=== PATIENT | male | born 1945 | race Caucasian/White ===

== ENCOUNTER 2018-01-17 17:40 | Emergency (ER) | payer MEDICARE, OTHER, SELFPAY ==
[2018-01-17 17:41] VITALS: BP 167/81; PULSE 94; RESP 22; TEMP 36.5; O2SAT 97; BMI 32.4
[2018-01-17 18:41] LABS: Bacteria 0 SEEN /hpf (None Seen); Mucous, Urine 0 SEEN /hpf (<or=2+); Red Blood Cells-Urine 0 SEEN /hpf (0-5)
[2018-01-17 18:51] LABS: Color, Urine Straw (Yellow); Glucose, Dipstick 1000 mg/dl (Normal); Ketone-Dipstick 5 mg/dl (Negative); Leukocyte Esterase-Dipstick 100 /ul (Negative); Nitrite-Dipstick Negative (Negative); Occult Blood-Urine 10 /ul (Negative); Protein-Dipstick Negative (Negative); Urine Bilirubin Dipstick Negative (Negative); Urine Clarity Clear (Clear); Urine Urobilinogen Normal (Normal)
[2018-01-17 18:57] LABS: White Blood Cells 50-100 SEEN /hpf (0-5)
[2018-01-17 18:58] LABS: Amorphous Sediment 1+; Squamous Epithelial Cells - UA 0-5 SEEN /hpf (0-5)
--- NOTE | 2018-01-17 19:27 | ED.VISSUMM ---
- ER Visit Summary Date of Service: 01/17/18 Chief Complaint: Urinary incontinence History of Present Illness: The patient is a 72 M who states that for several months he has had problems with incontinence. He states that today he abruptly got worse to the point where every time he stands up a large amount of urine drips out of him. Is not sure if he is emptying his bladder. He has a history of diabetes hypertension myasthenia gravis. No fevers. Denies any history of urinary retention or prostatic conditions. Physical Examination: Afebrile vital signs are stable Patient complains of tenderness to palpation suprapubic region Test Results: Bedside ultrasound demonstrates a distended bladder. Analysis demonstrated 50-100 white blood cells negative nitrates no bacteria seen. Emergency Department Course and Treatment: Rivera catheter was placed with greater than 1000 cc out. Patient will go home with a leg bag. He will need to follow-up with urology as an outpatient. Impression: 1. Acute urinary retention This note was generated with [employer] dictation software. It may contain incorrect words, spelling, and punctuation that were not noted in review of the chart prior to signing ED Disposition - Plan for ED Patient: Disposition: Home or Assisted Living Chief Complaint: Complaint Instructions: ED Retention Urinary Male Referrals: Kinza Rodríguez MD [STAFF PHYSICIAN] - (Please call Thursday to arrange follow-up)
[2018-01-17 20:08] VITALS: BP 157/86; PULSE 76; RESP 17; O2SAT 96
== END 2018-01-17 20:11 | disposition home or self-care (01) ==
PROVIDERS: Emergency Provider Emergency Medicine; Family Provider Internal Medicine; PCP Internal Medicine
DX: R33.9 Retention of urine, unspecified (principal); I10 Essential (primary) hypertension; E11.9 Type 2 diabetes mellitus without complications; G70.00 Myasthenia gravis without (acute) exacerbation; E66.9 Obesity, unspecified; Z68.32 Body mass index [BMI] 32.0-32.9, adult; Z79.84 Long term (current) use of oral hypoglycemic drugs; Z79.899 Other long term (current) drug therapy
CPT/HCPCS: 51702; 81001; 87086; 87088; 99285; A4216

== ENCOUNTER 2018-02-04 16:55 | Inpatient (IN) | payer MEDICARE, OTHER, SELFPAY ==
[2018-02-04 16:58] VITALS: BP 143/80; BP 148/72; PULSE 113; PULSE 114; RESP 16; RESP 18; TEMP 35.8; O2SAT 95; BMI 31.9
--- NOTE | 2018-02-04 17:34 | NURSING ---
NO OLD EKGS
[2018-02-04 17:57] VITALS: O2SAT 94
[2018-02-04 18:07] LABS: Absolute Lymphocyte Count 1.69 X10^3/ul (0.83-4.51); Absolute Neutrophil Count 13.1 X10^3/uL (2.0-7.7); Basophil# 0.02 X10^3/uL; Basophil% 0.1 % (0-1); Eosinophil# 0.02 X10^3/uL; Eosinophils% 0.1 % (0-5); Hemoglobin 13.4 g/dl (13.0-16.5); Lymphocyte # 1.69 X10^3/ul (4.0); Lymphocyte % 11.2 % (19-41); Mean Corp Hgb Conc 32.7 g/gl (32-36); Mean Corpuscular Hgb 30.8 pg (27.0-32.0); Mean Corpuscular Volume 94.3 fL (80-94); Mean Platelet Vol. 10.8 fl (6.2-12.0); Monocyte% 1.3 % (0-10); Neutrophil # 13.07 X10^3/uL (2.7-7.7); Neutrophil % 87.1 % (47-70); Platelet Count 203 K/mm3 (150-450); RBC Distribution Width CV 13.3 % (11.6-14.6); RBC Distribution Width SD 45.9 fl (35.1-43.9); Red Blood Count 4.35 M/mm3 (4.6-6.2)
[2018-02-04 18:09] LABS: Anion Gap 12 (5-15); BUN 19 mg/dL (7-18); CPK Total, Creatine Kinase 105 U/L (39-308); Chloride 102 mmol/L (98-107); Creatinine, Serum 1.46 mg/dL (0.70-1.30); EST Glomerular Filtration Rate 51 mL/min (>60); Est Glom Filt Rate - Afr Amer 61 mL/min (>60); Glucose 310 mg/dL (74-106); Potassium 4.2 mmol/L (3.5-5.1); Sodium Level 137 mmol/L (136-145)
[2018-02-04 18:14] LABS: POSITIVE COUNT NO; POSITIVE DIFFERENTIAL NO; POSITIVE MORPHOLOGY NO
[2018-02-04 18:35] VITALS: BP 134/73; PULSE 103; RESP 20; O2SAT 93
[2018-02-04 18:36] LABS: Mucous, Urine 0 SEEN /hpf (<or=2+)
[2018-02-04 18:51] LABS: Color, Urine Yellow (Yellow); Glucose, Dipstick 1000 mg/dl (Normal); Ketone-Dipstick 15 mg/dl (Negative); Leukocyte Esterase-Dipstick 500 /ul (Negative); Nitrite-Dipstick Negative (Negative); Occult Blood-Urine 250 /ul (Negative); Protein-Dipstick 30 mg/dl (Negative); Specific Gravity, Urine 1.015 (1.002-1.030); Urine Bilirubin Dipstick Negative (Negative); Urine Clarity Cloudy (Clear); Urine Urobilinogen Normal (Normal)
[2018-02-04 18:54] LABS: AST(SGOT) 8 U/L (15-37); Alanine Aminotransfer ALT/SGPT 22 U/L (16-61); Albumin, Serum 3.3 g/dL (3.2-5.0); Alkaline Phosphatase 86 U/L (45-117); Bilirubin, Direct 0.19 mg/dL (0.00-0.30); Globulin 3.7 g/dL (2.2-4.2)
[2018-02-04 19:02] VITALS: TEMP 38.4
[2018-02-04 19:05] LABS: Red Blood Cells-Urine 25-50 SEEN /hpf (0-5); White Blood Cells 50-100 SEEN /hpf (0-5)
[2018-02-04 19:06] LABS: Amorphous Sediment 1+ URATE; Bacteria 1+ /hpf (None Seen); Squamous Epithelial Cells - UA 0-5 SEEN /hpf (0-5)
[2018-02-04] MEDS: Acetaminophen 500 MG Tablet 1000 MG PO (19:20)
[2018-02-04 19:46] LABS: Lactic Acid 1.9 mmol/L (0.4-2.0)
--- NOTE | 2018-02-04 20:34 | ED.VISSUMM ---
- ER Visit Summary Date of Service: 02/04/18 Chief Complaint: Fall History of Present Illness: The patient is a [address] Lang, Dr. Jc, Dr. Miranda. Reports that he was walking home from [facility] when his legs became very weak and both legs gave out. Reports that he fell and was unable to get back up due to this weakness. He denies any trauma. No blow to the head or loss of consciousness. Is not on blood thinners. No neck, back, shoulder, wrist, or hip pain. On review of systems patient points of dysuria that began 2 days ago. He denies any fever, chills, or other complaints. Physical Examination: Vitals: 101.2, 140/72, 113, 16, 95% on room air which is not hypoxic. Neck: No vertebral tenderness. Full ROM without difficulty. Cleared by NEXUS criteria. Back: No vertebral tenderness. General: A&O x 3. NAD. Cardiovascular exam: Tachycardic regular rhythm with no murmur. Respiratory exam: Chest nontender. No crepitus. Clear to auscultation bilaterally. No wheezes or stridor. Abdominal exam: Soft, nontender, nondistended, normal bowel sounds. No pain in RUQ or LUQ specifically. No peritoneal signs. Extremity: Atraumatic. No pain with range of motion. Palpable DP pulses bilaterally. Test Results: EKG is sinus tach at [address] changes. Troponins negative. CPK is 105. UA shows a UTI with 50-100 white blood cells and 25-50 red blood cells. Lactic acid is 1.9. LFTs marked for an AST of 8. Chem-7 is more for BUN of 19, creatinine 1.46, glucose 310, calcium 8.0. CBC is more for white count of 15.0 with 87 segmented neutrophils and 11 lymphocytes. Emergency Department Course and Treatment: Patient had a bladder scan showed 273 cc of urine. He was given Tylenol p.o. and Rocephin IV. His urine was sent for culture. Treatment Plan: Patient was discussed with Dr. Aceves. He will be admitted to the hospital for further relation and treatment. Disposition: Admitted in improved condition. Impression: 1. Pyelonephritis. 2. Renal insufficiency. 3. Hyperglycemia with history of [id number] diabetes mellitus. This note was generated with Dragon dictation software. It may contain incorrect words, spelling, and punctuation that were not noted in review of the chart prior to signing ED Disposition - Plan for ED Patient: Chief Complaint: Fall
[2018-02-04] MEDS: Ceftriaxone 1 GM/50 ML BAG IV (21:03)
[2018-02-04 21:17] VITALS: BP 181/63; PULSE 102; RESP 18; TEMP 37.7; O2SAT 92
[2018-02-04 21:19] VITALS: BMI 31.3
[2018-02-04 21:30] VITALS: BMI 31.3
--- NOTE | 2018-02-04 22:08 | HP.PCM_ITS ---
Problem List (1) Right-sided pyelonephritis Status: Acute (2) BPH (benign prostatic hyperplasia) Status: Acute (3) Scalp laceration Status: Chronic (4) Seizure Status: Chronic (5) Seizure disorder Status: Chronic (6) Myasthenia gravis Status: Chronic (7) Type II diabetes mellitus Status: Chronic History of Present Illness Date of Admission: 02/04/18 Chief Complaint: Fever, chills with right-sided flank pain and UTI The patient is a 72 year old M with history of recent cystoscopy for BPH and urinary incontinence came to ED when he fell down while coming from [facility]. He said his both legs became weak and gave out and he fell down and hit his right shoulder but no major trauma. He further said he is having chills for last 3 days and right-sided flank pain. He has burning micturition, increased frequency and not able to completely empty his bladder. In ED, he was found to have fever 101.2 Fahrenheit, heart rate 103/min, tachypnea respiratory rate 20/min, leukocytosis 15,000 with left shift, neutrophils 87% but no hypoxia suggestive of positive 3/4 SIRS criteria suggestive of sepsis secondary to right-sided pyelonephritis. Patient had ED visit on 01/17/2018 for urinary incontinence and at that time Rivera catheter was placed and he had follow-up with Dr. Miranda for which he had cystoscopy but exact procedure unclear (no documentation available) Past Medical History Past Medical History (Chronic Problems): Chronic Problems Scalp laceration (Chronic) Seizure (Chronic) Seizure disorder (Chronic) Myasthenia gravis (Chronic) Type II diabetes mellitus (Chronic) Allergies iodine Allergy (Verified 02/04/18 16:57) Hives Penicillins [PCN] Allergy (Verified 02/04/18 16:57) Unknown simvastatin Adverse Reaction (Verified 02/04/18 16:57) Pain in joints Home Medications: Ambulatory Orders Medication Instructions Recorded glipiZIDE [Glucotrol] 5 mg PO BIDAC 04/04/13 predniSONE tablet 5 mg PO DAILY 04/04/13 Lisinopril [Zestril] 10 mg PO DAILY 01/17/18 levETIRAcetam tablet [Keppra] 500 mg PO BID 02/04/18 Surgical History: noncontributory Psychiatric History: No pertinent psych hx Smoking Status: Never smoker - *Family History Maternal History Items: No pertinent history Paternal History Items: No pertinent history Review of Systems Constitutional: Reports: Chills, Fever, Weakness, Fatigue HEENT: Denies: Head Aches, Sinus Congestion, Sinus Drainage Cardiovascular: Denies: Chest Pain, Palpitations Respiratory: Denies: Cough, Shortness of breath at rest, Sputum production Gastrointestinal: Reports: Nausea. Denies: Abdominal Pain, Hematochezia, Melena , Vomiting Genitourinary: Reports: Dysuria, Frequency, Incontinence, Retention, Urgency. Denies: Hematuria Musculoskeletal: Denies: Joint Pain, Joint Tenderness Skin: Denies: Rash, Wounds Neurological: Denies: Numbness, Tingling, Focal weakness Psychiatric: Denies: Anxiety, Depression, Homicidal Ideations, Suicidal Ideations Hematologic/ Lymphatic: Denies: Easy Bruising, Easy Bleeding VTE Information - Inpt Only VTE Present on Admission: No VTE Mechan Device Prophylaxis: SCD's, None VTE Pharm Prophylaxis ordered?: Yes Patient Problems: Active and Suspected Problems Right-sided pyelonephritis (Acute) BPH (benign prostatic hyperplasia) (Acute) - Physical Exam General: Alert, Oriented x3, Cooperative, Lethargic HEENT: Atraumatic, PERRLA, EOMI, Normocephalic Oral: Dry Mucosa Neck: Supple, No JVD, Negative Carotid Bruits Lungs: Clear to auscultation, Normal air movement Cardiovascular: Regular rate, Regular Rhythm, Normal S2, No murmurs Abdomen: Bowel Sounds Present, Soft, Non-Distended, Tender - Of right renal angle. No fullness. Extremities: Capillary Refill Less than 3 Seconds, Edema - Mild edema Skin: No rashes, No breakdown Musculoskeletal: No Tenderness to Palpation of Joints or Extremities Neurological: Cranial nerves II-XII grossly intact, Neuro grossly intact Psych/Mental Status: Normal Affect, Appropriate Vital Signs Temp Pulse Resp BP Pulse Ox 99.8 F H 102 H 18 181/63 H 92 02/04/18 21:17 02/04/18 21:17 02/04/18 21:17 02/04/18 21:17 02/04/18 21:17 Oxygen Delivery Method Room Air Weight: 206 lb 2.115 oz Body Mass Index (BMI) 31.3 Assessment/Plan All Active Problems Right-sided pyelonephritis (Acute) BPH (benign prostatic hyperplasia) (Acute) The patient is a 72 year old M with history of recent cystoscopy for BPH and urinary incontinence came to ED when he fell down while coming from [facility]. He said his both legs became weak and gave out and he fell down and hit his right shoulder but no major trauma. He further said he is having chills for last 3 days and right-sided flank pain. He has burning micturition, increased frequency and not able to completely empty his bladder. In ED, he was found to have fever 101.2 Fahrenheit, heart rate 103/min, tachypnea respiratory rate 20/min, leukocytosis 15,000 with left shift, neutrophils 87% but no hypoxia suggestive of positive 3/4 SIRS criteria suggestive of sepsis secondary to right-sided pyelonephritis. Patient had ED visit on 01/17/2018 for urinary incontinence and at that time Rivera catheter was placed and he had follow-up with Dr. Miranda for which he had cystoscopy but exact procedure unclear (no documentation available) 1. SIRS (Fever 101.2 Fahrenheit, heart rate 103/min, tachypnea respiratory rate 20/min, leukocytosis 15,000 with left shift, neutrophils 87% but no hypoxia) suggestive of sepsis secondary to right-sided pyelonephritis: Patient is being admitted on regular [facility] floor. Patient had 1 dose of ceftriaxone in the ER based on his previous urine culture patient had staph hominis and was resistant to benzyl penicillin and therefore antibiotic changed to Levaquin. Blood cultures ?2, urine culture ordered. Kidneys plus bladder ultrasound ordered. If needed, his urologist Dr. Miranda can be consulted. 2. Right-sided complicated pyelonephritis probably secondary to recent urology procedure with Rivera catheter with history of BPH: As mentioned above. 3. Diabetes mellitus type II with uncontrolled hyperglycemia: Accu-Chek before meals and at bedtime and cover with NovoLog sliding scale. Lantus 10 units subcu at bedtime daily. A1c tomorrow a.m. Hold glipizide. 4. Acute kidney injury most probably secondary to ATN/sepsis secondary to pyelonephritis: IV fluid normal saline at 100 mL/h. BUN/creatinine is 19/1.46. Major intake/output. Follow electrolytes and kidney function. 5. Fall on knees: PT and OT. Pain controlled. Patient has history of myasthenia gravis. Continue Keppra Other chronic comorbidities include seizure disorder, hypertension: Continue lisinopril. Patient is also on prednisone 5 mg daily probably because of myasthenia gravis. In view of sepsis, we will hold prednisone which can be resumed later on. DVT prophylaxis: On Lovenox 40 mils subcut daily. This note was generated with [employer] dictation software. Every effort was made to ensure accuracy, however computerized resin filterer mistakes may persist. Code Visit Inpatient E&M: 01685 Init Hosp L3
[2018-02-04] MEDS: Enoxaparin 40 MG/0.4 ML Syringe SC (23:11)
[2018-02-04] MEDS: levETIRAcetam 500 MG Tablet PO (23:12)
[2018-02-04 23:14] LABS: Erythrocyte Sedimentation Rate 42 mm/hr (0-20)
[2018-02-04] MEDS: Insulin Lispro 100 UNIT/ML INSULN.PEN SQ (23:17)
[2018-02-05] MEDS: 0.9% Normal Saline 1,000 ML 100 ML IV (02:16)
[2018-02-05 03:26] VITALS: BP 122/65; PULSE 86; RESP 18; TEMP 37; O2SAT 92
[2018-02-05 06:17] LABS: Anion Gap 9 (5-15); BUN 14 mg/dL (7-18); BUN/Creat Ratio 15.8 RATIO (10-20); Calcium,Total 7.3 mg/dL (8.5-10.1); Chloride 107 mmol/L (98-107); Creatinine, Serum 0.89 mg/dL (0.70-1.30); EST Glomerular Filtration Rate 90 mL/min (>60); Est Glom Filt Rate - Afr Amer 109 mL/min (>60); Estimated Creatinine Clearance 73.65 ml/min; Glucose 186 mg/dL (74-106); Potassium 3.5 mmol/L (3.5-5.1); Sodium Level 137 mmol/L (136-145)
[2018-02-05 06:26] LABS: Bedside Glucose 237 mg/dL (70-110)
[2018-02-05] MEDS: Enoxaparin 40 MG/0.4 ML Syringe SC (06:54)
[2018-02-05] MEDS: Insulin Lispro 100 UNIT/ML INSULN.PEN SQ ×4 (06:55→22:58)
[2018-02-05 07:06] LABS: Bedside Glucose 185 mg/dL (70-110)
--- NOTE | 2018-02-05 07:24 | PCM.PN.HOSP ---
Patient Problems: Active and Suspected Problems Right-sided pyelonephritis (Acute) BPH (benign prostatic hyperplasia) (Acute) Subjective: Patient was seen and examined. He complains of dysuria and increased frequency. Incontinent of urine also. Denies any fever or chills. States he feels much improved. His bilateral leg weakness and numbness have also since improved. Vitals/I&O's: Vital Signs Temp Pulse Resp BP Pulse Ox 98.6 F 86 18 122/65 H 92 02/05/18 03:26 02/05/18 03:26 02/05/18 03:26 02/05/18 03:26 02/05/18 03:26 Oxygen Delivery Method Room Air Weight: 93.5 kg Body Mass Index (BMI) 31.3 Intake and Output for Last 24 Hours 02/03/18 02/04/18 02/05/18 23:59 23:59 23:59 Intake Total 1055 / 1055 Balance 1055 / 1055 General: Alert, Oriented x3, Cooperative, No apparent distress, - - obese HEENT: Atraumatic, PERRLA, EOMI, Normocephalic Oral: Moist Mucosa Neck: Supple Lungs: Clear to auscultation, Normal air movement Cardiovascular: Regular rate, Regular Rhythm, Normal S1, Normal S2, No murmurs Abdomen: Bowel Sounds Present, Soft, Non Tender, Non-Distended, No Hepato-splenomegaly Extremities: No edema Skin: No rashes, No breakdown Musculoskeletal: No Tenderness to Palpation of Joints or Extremities Lymphatic: No Cervical, Supraclavicular, or Inguinal Adenopathy Neurological: Cranial nerves II-XII grossly intact, Neuro grossly intact Psych/Mental Status: Normal Affect, Appropriate Laboratory Results 02/04/18 22:50: ESR 42 H 02/04/18 23:08: POC Glucose 237 H 02/05/18 05:43: Sodium 137, Potassium 3.5, Chloride 107, Carbon Dioxide 21.0, Anion Gap 9, BUN 14, Creatinine 0.89, Estim Creat Clear Calc 73.65, Est GFR (MDRD) Af Amer 109, Est GFR (MDRD) Non-Af 90, BUN/Creatinine Ratio 15.8, Glucose 186 H, Calcium 7.3 L 02/05/18 05:43: Hemoglobin A1c Pending 02/05/18 06:53: POC Glucose 185 H Current Medications Acetaminophen (Tylenol) 650 mg PO Q6H PRN PRN PRN Reason: Mild Pain (scale 0-3)/T>100.7 Al Hydroxide/Mg Hydroxide (Mylanta Ii) 30 ml PO Q6H PRN PRN PRN Reason: Gastric Burning Dextrose (D50w Syringe) 0 gm IV X1 PRN; Protocol PRN Reason: Hypoglycemia Docusate Sodium (Colace) 200 mg PO BID PRN PRN PRN Reason: Constipation Enoxaparin Sodium (Lovenox) 40 mg SC DAILY@0600 [facility] Last Admin: 02/05/18 06:54 Dose: 40 mg Glucagon () 1 mg IM .X1 PRN PRN Reason: Hypoglycemia Sodium Chloride () 1,000 mls @ 100 mls/hr IV .Q10H [facility] Last Admin: 02/05/18 02:16 Dose: 100 mls/hr Levofloxacin 500 mg/ N/A 100 mls @ 100 mls/hr IV Q24 [facility] Last Admin: 02/04/18 23:10 Dose: 100 mls/hr Sodium Chloride () 250 mls @ 15 mls/hr IV .[id number] PRN PRN Reason: SALINE FLUSH Insulin Glargine (Lantus (Bkc)) 10 units SC QHS [facility] Last Admin: 02/04/18 23:11 Dose: 10 u Insulin Human Lispro (Humalog Kwikpen (Bkc)) 0 unit SQ ACHS [facility] PRN Reason: Protocol Last Admin: 02/05/18 06:55 Dose: 2 u Levetiracetam (Keppra Tablet) 500 mg PO BID [facility] Last Admin: 02/04/18 23:12 Dose: 500 mg Lisinopril (Zestril) 10 mg PO DAILY [facility] Morphine Sulfate () 1 - 2 mg IV Q4H PRN PRN PRN Reason: SEVERE PAIN (6-10/10) Ondansetron HCl (Zofran) 4 mg IV Q6H PRN PRN PRN Reason: Nausea Oxycodone HCl (Oxyir) 5 mg PO Q4H PRN PRN PRN Reason: Moderate Pain (pain scale 4-5) Polyethylene Glycol (Miralax) 17 gm PO DAILY [facility] Sodium Chloride () 5 - 30 ml IV UD PRN PRN Reason: SALINE FLUSH Medical Necessity - Tobacco Use Smoking Status: Never smoker Assessment/Plan All Active Problems Right-sided pyelonephritis (Acute) BPH (benign prostatic hyperplasia) (Acute) 72-year-old with past medical history of BPH, status post recent cystoscopy comes in with complaints of bilateral leg weakness and fall and found to have sepsis secondary to acute right pyelonephritis/UTI 1. Sepsis secondary to acute right pyelonephritis/complicated UTI, patient has history of BPH status post recent urological procedure, blood and urine cultures are pending, started empirically on Levaquin, history of penicillin allergy. Will continue on IV Levaquin for now, will need to complete 10-day total antibiotic course 2. Acute complicated UTI, recurrent UTIs, history of recent procedures, ultrasound of the kidney and bladder pending, will get a bladder scan to look for urine retention, urology consult as patient states he was due for a urethral stent. 3. Diabetes mellitus type II, sugars are slightly controlled compared to yesterday, HbA1c is 12.4, will continue on insulin, Accu-Cheks with insulin sliding scale , glipizide is still on hold 4. Acute kidney injury most probably secondary to ATN/sepsis secondary to pyelonephritis, resolved, stop IV fluids, and encourage liberal fluid intake 5. Episode of fall, likely related to current sepsis, history of myasthenia gravis, PT and OT consulted 6. Seizure disorder, on Keppra 7. Hypertension, controlled, continue on lisinopril, continue to monitor vitals 8. History of myasthenia gravis, on prednisone, held yesterday on account of sepsis, will resume. 9. DVT prophylaxis -Lovenox SC Code Visit Inpatient E&M: 56125 Subs Hosp L2
[2018-02-05 07:34] VITALS: BP 130/72; PULSE 85; RESP 18; TEMP 37; O2SAT 93
[2018-02-05 07:51] LABS: Hemoglobin A1c 12.4 % (4.2-6.3)
[2018-02-05] MEDS: levETIRAcetam 500 MG Tablet PO ×2 (09:30→22:59)
[2018-02-05] MEDS: Lisinopril 10 MG Tablet PO (09:30)
[2018-02-05] MEDS: Polyethylene Glycol 3350 17 GM PACKET PO (09:30)
--- NOTE | 2018-02-05 10:30 | CASEMGMT ---
[facility] Face to Face with patient for initial transition planning/care coordination assessment. RN CM introduced self and role at [facility]. Patient lying in bed, alert and oriented. Patient willing to participate in assessment and is able to answer all questions appropriately. Care providers, pharmacy, and demographics verified. See link attached. Patient wishes to discharge home, denies need for home health at this time. Patient states he has no further needs or concerns at this time. CM to follow for discharge planning needs that may arise. Disposition Plan: Patient to discharge home with family support and follow-up plans in place. Lexy BATISTA, RN, CM
[2018-02-05] MEDS: 0.9% NaCl Peripheral Flush Adult/Peds IV ×2 (10:45→23:03)
[2018-02-05] MEDS: predniSONE 5 MG Tablet PO (10:49)
[2018-02-05 10:51] LABS: Bedside Glucose 286 mg/dL (70-110)
--- NOTE | 2018-02-05 11:09 | NURSING ---
pt states ground control approach technician is stacie key. 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 Patient's feet very dry and toenails yellow and thick.
[2018-02-05 13:23] VITALS: BP 150/95; PULSE 94; RESP 18; TEMP 37.3; O2SAT 93
--- NOTE | 2018-02-05 13:27 | PCM.CONS.U ---
Reason for Consult Date of Consultation: 02/05/18 Reason for Consultation: UTI follow up History of Present Illness: The patient is a 72 year old male who I recently saw in the office. he had a cystoscopy for planning to treat his BPH but came into hospital with weakness u/a ++ apears to have e coli UTI, u/s with possible hydro will do CT scan stone protocol. Past Medical History Past Medical History (Chronic Problems): Chronic Problems Scalp laceration (Chronic) Seizure (Chronic) Seizure disorder (Chronic) Myasthenia gravis (Chronic) Type II diabetes mellitus (Chronic) Allergies iodine Allergy (Verified 02/04/18 16:57) Hives Penicillins [PCN] Allergy (Verified 02/04/18 16:57) Unknown simvastatin Adverse Reaction (Verified 02/04/18 16:57) Pain in joints Home Medications: Ambulatory Orders Medication Instructions Recorded glipiZIDE [Glucotrol] 5 mg PO BIDAC 04/04/13 predniSONE tablet 5 mg PO DAILY 04/04/13 Lisinopril [Zestril] 10 mg PO DAILY 01/17/18 levETIRAcetam tablet [Keppra] 500 mg PO BID 02/04/18 Surgical History: noncontributory Psychiatric History: No pertinent psych hx Smoking Status: Never smoker - *Family History Maternal History Items: No pertinent history Paternal History Items: No pertinent history Review of Systems Constitutional: Reports: Chills, Fever HEENT: Denies: Head Aches, Sinus Congestion, Sinus Drainage Cardiovascular: Denies: Chest Pain, Palpitations Respiratory: Denies: Cough, Shortness of breath at rest, Sputum production Gastrointestinal: Denies: Abdominal Pain, Nausea, Vomiting Genitourinary: Reports: Dysuria Musculoskeletal: Denies: Joint Pain, Joint Tenderness Skin: Denies: Rash, Wounds Physical Exam - Physical Exam Vital Signs Temp 98.6 F 02/05/18 07:34 Pulse 85 02/05/18 07:34 Resp 18 02/05/18 07:34 BP 130/72 H 02/05/18 07:34 Pulse Ox 93 02/05/18 07:34 Intake & Output 02/03/18 02/04/18 02/05/18 23:59 23:59 23:59 Intake Total 2038 Output Total 450 / 450 Balance 1589 / 1589 Weight: 93.5 kg 93.5 kg Intake: Oral 1000 / 1000 IV fluid/meds 1039 / 1039 Output: #2 Urine 450 / 450 Other: Number of Voids 1 Number of times incontinent 1 Incontinent Amount Large General: Alert HEENT: Atraumatic Oral: Moist Mucosa Laboratory Tests Past 24 Hrs 02/04/18 02/05/18 02/05/18 22:50 05:43 05:43 ESR 42 H Sodium 137 Potassium 3.5 Chloride 107 Carbon Dioxide 21.0 Anion Gap 9 BUN 14 Creatinine 0.89 Estim Creat Clear Calc 73.65 Est GFR (MDRD) Af Amer 109 Est GFR (MDRD) Non-Af 90 BUN/Creatinine Ratio 15.8 Glucose 186 H Hemoglobin A1c 12.4 H Calcium 7.3 L Assessment/Plan All Active Problems Right-sided pyelonephritis (Acute) BPH (benign prostatic hyperplasia) (Acute) recent instumenation, cysto found to have BPH with bladder outlet obstruction u/s with possible hydronephrosis plan to do CT scan stone protocol continue with antibiotic await cultures. check pvr by nurses.
--- NOTE | 2018-02-05 16:24 | NURSING ---
soaked patient's feet in warm water- used wash cloth and bar soap to gently scrub off skin- No open areas noted. Toe nails thick and yellow. Lotion then applied to bilateral lower extremities per order.
[2018-02-05 16:35] LABS: Bedside Glucose 217 mg/dL (70-110)
--- NOTE | 2018-02-05 17:00 | NURSING ---
Pt incontinent of minimal amt urine at this time- bladder scanned for 550. Perry discussed and explained to patient- understanding verbalized. Then, perry placed via sterile technique with a return of 600cc of cloudy delfino urine with 2 small clots noted in tubing. Pt tolerated well.
[2018-02-05] MEDS: Acetaminophen 325 MG Tablet 650 MG PO (18:18)
[2018-02-05 19:30] VITALS: BP 132/69; PULSE 83; RESP 18; TEMP 37.2; O2SAT 93
[2018-02-05 23:31] LABS: Bedside Glucose 244 mg/dL (70-110)
[2018-02-06 02:00] VITALS: BP 123/70; PULSE 62; RESP 18; TEMP 37.1; O2SAT 93
[2018-02-06] MEDS: Insulin Lispro 100 UNIT/ML INSULN.PEN SQ ×4 (06:57→21:40)
[2018-02-06] MEDS: Enoxaparin 40 MG/0.4 ML Syringe SC (06:57)
[2018-02-06 07:14] LABS: Absolute Neutrophil Count 8.6 X10^3/uL (2.0-7.7); Basophil# 0.02 X10^3/uL; Basophil% 0.2 % (0-1); Eosinophil# 0.32 X10^3/uL; Eosinophils% 2.9 % (0-5); Hematocrit 37.3 % (40-54); Hemoglobin 12.5 g/dl (13.0-16.5); Lymphocyte % 10.8 % (19-41); Mean Corp Hgb Conc 33.5 g/gl (32-36); Mean Corpuscular Hgb 31.6 pg (27.0-32.0); Mean Corpuscular Volume 94.4 fL (80-94); Mean Platelet Vol. 10.9 fl (6.2-12.0); Monocyte# 0.86 X10^3/uL; Monocyte% 7.8 % (0-10); Neutrophil # 8.63 X10^3/uL (2.7-7.7); Neutrophil % 77.9 % (47-70); POSITIVE COUNT NO; POSITIVE DIFFERENTIAL NO; POSITIVE MORPHOLOGY NO; Platelet Count 201 K/mm3 (150-450); RBC Distribution Width CV 12.9 % (11.6-14.6); RBC Distribution Width SD 43.5 fl (35.1-43.9); Red Blood Count 3.95 M/mm3 (4.6-6.2); White Blood Count 11.1 K/mm3 (4.4-11.0)
[2018-02-06 07:36] LABS: Anion Gap 11 (5-15); BUN 11 mg/dL (7-18); BUN/Creat Ratio 13.1 RATIO (10-20); Calcium,Total 7.4 mg/dL (8.5-10.1); Chloride 106 mmol/L (98-107); Creatinine, Serum 0.84 mg/dL (0.70-1.30); EST Glomerular Filtration Rate 96 mL/min (>60); Est Glom Filt Rate - Afr Amer 116 mL/min (>60); Estimated Creatinine Clearance 78.04 ml/min; Glucose 211 mg/dL (74-106); Potassium 3.5 mmol/L (3.5-5.1); Sodium Level 139 mmol/L (136-145)
--- NOTE | 2018-02-06 07:44 | PCM.CONS.U ---
Problem List (1) Retention, urine Status: Acute (2) Retention, urine Status: Acute Reason for Consult Date of Consultation: 02/06/18 Reason for Consultation: retention of urine History of Present Illness: The patient is a 72 year old male follow up on consult. ct scan with right refluxing hydro recent UTI again b/c retention of urine, probably had UTI prior to scope in office last week keep on antibiotics, plan for few more days of antibiotics then plan TURP on Thursday hold blood thinner for surgery. Past Medical History Past Medical History (Chronic Problems): Chronic Problems Scalp laceration (Chronic) Seizure (Chronic) Seizure disorder (Chronic) Myasthenia gravis (Chronic) Type II diabetes mellitus (Chronic) Allergies iodine Allergy (Verified 02/04/18 16:57) Hives Penicillins [PCN] Allergy (Verified 02/04/18 16:57) Unknown simvastatin Adverse Reaction (Verified 02/04/18 16:57) Pain in joints Home Medications: Ambulatory Orders Medication Instructions Recorded glipiZIDE [Glucotrol] 5 mg PO BIDAC 04/04/13 predniSONE tablet 5 mg PO DAILY 04/04/13 Lisinopril [Zestril] 10 mg PO DAILY 01/17/18 levETIRAcetam tablet [Keppra] 500 mg PO BID 02/04/18 Surgical History: noncontributory Psychiatric History: No pertinent psych hx Smoking Status: Never smoker - *Family History Maternal History Items: No pertinent history Paternal History Items: No pertinent history Review of Systems Genitourinary: Reports: Retention Physical Exam - Physical Exam Vital Signs Temp 98.8 F 02/06/18 02:00 Pulse 62 02/06/18 02:00 Resp 18 02/06/18 02:00 BP 123/70 H 02/06/18 02:00 Pulse Ox 93 02/06/18 02:00 Intake & Output 02/04/18 02/05/18 02/06/18 23:59 23:59 23:59 Intake Total 2839 / 2839 410 / 410 Output Total 1050 / 1050 700 / 700 Balance 1789 / 1789 -290 / -290 Weight: 93.5 kg 93.5 kg Intake: Oral 1800 / 1800 400 / 400 IV fluid/meds 1039 / 1039 10 Output: Urine 700 / 700 #2 Urine 1050 / 1050 Other: Number of Voids 1 Number of times incontinent 1 Incontinent Amount Small General: Alert, Oriented x3 HEENT: Atraumatic Oral: Moist Mucosa Neck: Supple Lungs: No rhonchi Cardiovascular: Regular rate Abdomen: Soft Laboratory Tests Past 24 Hrs 02/05/18 02/06/18 02/06/18 05:43 06:15 06:15 WBC 11.1 H RBC 3.95 L Hgb 12.5 L Hct 37.3 L MCV 94.4 H MCH 31.6 MCHC 33.5 RDW 12.9 RDW Differential 43.5 Plt Count 201 MPV 10.9 Immature Gran % (Auto) 0.400 Neut % (Auto) 77.9 H Lymph % (Auto) 10.8 L [place] % (Auto) 7.8 Eos % (Auto) 2.9 Baso % (Auto) 0.2 Absolute Neuts (auto) 8.6 H Absolute Lymphs (auto) 1.20 Total Counted Not Reportable Sodium 139 Potassium 3.5 Chloride 106 Carbon Dioxide 22.0 Anion Gap 11 BUN 11 Creatinine 0.84 Estim Creat Clear Calc 78.04 Est GFR (MDRD) Af Amer 116 Est GFR (MDRD) Non-Af 96 BUN/Creatinine Ratio 13.1 Glucose 211 H Hemoglobin A1c 12.4 H Calcium 7.4 L Assessment/Plan All Active Problems Right-sided pyelonephritis (Acute) BPH (benign prostatic hyperplasia) (Acute) Retention, urine (Acute) Retention, urine (Acute) 72 yo male with BPH and retention of urine treat ecoli UTI clinically stable plan for TURP on Thursday at noon will keep in house for surgery.
[2018-02-06 07:51] LABS: Bedside Glucose 228 mg/dL (70-110)
[2018-02-06 07:57] VITALS: BP 133/78; PULSE 76; RESP 18; TEMP 37; O2SAT 95
[2018-02-06] MEDS: Lisinopril 10 MG Tablet PO (07:59)
[2018-02-06] MEDS: Polyethylene Glycol 3350 17 GM PACKET PO (07:59)
[2018-02-06] MEDS: predniSONE 5 MG Tablet PO (07:59)
[2018-02-06] MEDS: levETIRAcetam 500 MG Tablet PO ×2 (07:59→21:40)
[2018-02-06 08:10] VITALS: PULSE 76
--- NOTE | 2018-02-06 09:20 | PCM.PN.HOSP ---
Patient Problems: Active and Suspected Problems Right-sided pyelonephritis (Acute) BPH (benign prostatic hyperplasia) (Acute) Retention, urine (Acute) Retention, urine (Acute) Subjective: Urine culture shows Serratia marcescens 100,000 colonies, sensitive to fluoroquinolones and ceftriaxone. Patient right flank pain much better and almost resolved Has Rivera catheter. Seen by urologist Dr. Miranda and is scheduled for TURP on Thursday . Vitals/I&O's: Vital Signs Temp Pulse Resp BP Pulse Ox 98.6 F 76 18 133/78 H 95 02/06/18 07:57 02/06/18 08:10 02/06/18 07:57 02/06/18 07:57 02/06/18 07:57 Oxygen Delivery Method Room Air Weight: 206 lb 2.115 oz Body Mass Index (BMI) 31.3 Intake and Output for Last 24 Hours 02/04/18 02/05/18 02/06/18 23:59 23:59 23:59 Intake Total 2839 / 2839 410 / 410 Output Total 1050 / 1050 700 / 700 Balance 1789 / 1789 -290 / -290 General: Alert, Oriented x3, Cooperative HEENT: Atraumatic, PERRLA, EOMI, Normocephalic Neck: Supple, No JVD, Negative Carotid Bruits Lungs: Clear to auscultation, Normal air movement Cardiovascular: Regular rate, Regular Rhythm, Normal S1, Normal S2, No murmurs Abdomen: Bowel Sounds Present, Soft, Non Tender, Non-Distended, - - Rivera catheter draining yellow clear urine Extremities: No edema, Capillary Refill Less than 3 Seconds Skin: No rashes, No breakdown Musculoskeletal: No Tenderness to Palpation of Joints or Extremities, Arthritic Changes Neurological: Cranial nerves II-XII grossly intact Psych/Mental Status: Normal Affect, Appropriate Laboratory Results 02/05/18 10:40: POC Glucose 286 H 02/05/18 16:21: POC Glucose 217 H 02/05/18 22:55: POC Glucose 244 H 02/06/18 06:15: WBC 11.1 H, RBC 3.95 L, Hgb 12.5 L, Hct 37.3 L, MCV 94.4 H, MCH 31.6, MCHC 33.5, RDW 12.9, RDW Differential 43.5, Plt Count 201, MPV 10.9, Immature Gran % (Auto) 0.400, Neut % (Auto) 77.9 H, Lymph % (Auto) 10.8 L, [place] % (Auto) 7.8, Eos % (Auto) 2.9, Baso % (Auto) 0.2, Absolute Neuts (auto) 8.6 H, Absolute Lymphs (auto) 1.20, Total Counted Not Reportable 02/06/18 06:15: Sodium 139, Potassium 3.5, Chloride 106, Carbon Dioxide 22.0, Anion Gap 11, BUN 11, Creatinine 0.84, Estim Creat Clear Calc 78.04, Est GFR (MDRD) Af Amer 116, Est GFR (MDRD) Non-Af 96, BUN/Creatinine Ratio 13.1, Glucose 211 H, Calcium 7.4 L 02/06/18 06:54: POC Glucose 228 H Current Medications Acetaminophen (Tylenol) 650 mg PO Q6H PRN PRN PRN Reason: Mild Pain (scale 0-3)/T>100.7 Last Admin: 02/05/18 18:18 Dose: 650 mg Al Hydroxide/Mg Hydroxide (Mylanta Ii) 30 ml PO Q6H PRN PRN PRN Reason: Gastric Burning Dextrose (D50w Syringe) 0 gm IV X1 PRN; Protocol PRN Reason: Hypoglycemia Docusate Sodium (Colace) 200 mg PO BID PRN PRN PRN Reason: Constipation Emollient Ointment (Eucerin Intensive Repair) 1 applic TOPICAL BID YAA PRN Reason: Protocol Last Admin: 02/06/18 07:59 Dose: 1 applicatio Enoxaparin Sodium (Lovenox) 40 mg SC DAILY@0600 [facility] Last Admin: 02/06/18 06:57 Dose: 40 mg Glucagon () 1 mg IM .X1 PRN PRN Reason: Hypoglycemia Sodium Chloride () 250 mls @ 15 mls/hr IV .[id number] PRN PRN Reason: SALINE FLUSH Ciprofloxacin 400 mg/ N/A 200 mls @ 200 mls/hr IV Q12 [facility] Insulin Glargine (Lantus (Bk)) 10 units SC QHS [facility] Last Admin: 02/05/18 22:58 Dose: 10 u Insulin Human Lispro (Humalog Kwikpen ([facility])) 0 unit SQ ACHS YAA PRN Reason: Protocol Last Admin: 02/06/18 06:57 Dose: 4 u Levetiracetam (Keppra Tablet) 500 mg PO BID [facility] Last Admin: 02/06/18 07:59 Dose: 500 mg Lisinopril (Zestril) 10 mg PO DAILY [facility] Last Admin: 02/06/18 07:59 Dose: 10 mg Ondansetron HCl (Zofran) 4 mg IV Q6H PRN PRN PRN Reason: Nausea Oxycodone HCl (Oxyir) 5 mg PO Q4H PRN PRN PRN Reason: Moderate Pain (pain scale 4-5) Polyethylene Glycol (Miralax) 17 gm PO DAILY [facility] Last Admin: 02/06/18 07:59 Dose: 17 gm Prednisone () 5 mg PO DAILY@0800 [facility] Last Admin: 02/06/18 07:59 Dose: 5 mg Sodium Chloride () 5 - 30 ml IV UD PRN PRN Reason: SALINE FLUSH Last Admin: 02/05/18 23:03 Dose: 10 ml Medical Necessity - Tobacco Use Smoking Status: Never smoker Assessment/Plan All Active Problems Right-sided pyelonephritis (Acute) BPH (benign prostatic hyperplasia) (Acute) Retention, urine (Acute) Retention, urine (Acute) The patient is a 72 year old M with history of recent cystoscopy for BPH and urinary incontinence came to ED when he fell down while coming from [facility]. He said his both legs became weak and gave out and he fell down and hit his right shoulder but no major trauma. He further said he is having chills for last 3 days and right-sided flank pain. He has burning micturition, increased frequency and not able to completely empty his bladder. In ED, he was found to have fever 101.2 Fahrenheit, heart rate 103/min, tachypnea respiratory rate 20/min, leukocytosis 15,000 with left shift, neutrophils 87% but no hypoxia suggestive of positive 3/4 SIRS criteria suggestive of sepsis secondary to right-sided pyelonephritis. Patient had ED visit on 01/17/2018 for urinary incontinence and at that time Rivera catheter was placed and he had follow-up with Dr. Miranda for which he had cystoscopy but exact procedure unclear (no documentation available) 1. sepsis secondary to right-sided pyelonephritis : Patient is being admitted on regular MedSurg floor. Patient had 1 dose of ceftriaxone in the ER based on his previous urine culture patient had staph hominis and was resistant to benzyl penicillin and therefore antibiotic changed to Levaquin. Blood cultures ?2 is pending. Urine culture shows Serratia marcescens his sensitive to fluoroquinolones and ceftriaxone. Antibiotic narrowed down to Cipro and DC Levaquin. Renal ultrasound and abdomen CT both shows bilateral hydronephrosis, left greater than right likely secondary to chronic bladder outlet obstruction secondary to BPH. No ureteral calculus found. Scheduled for TURP on Thursday 2. Right-sided complicated pyelonephritis probably secondary to urology procedure with Rivera catheter with history of BPH (CAUTI): As mentioned above. 3. Diabetes mellitus type II with uncontrolled hyperglycemia: Accu-Chek before meals and at bedtime and cover with NovoLog sliding scale. Lantus 10 units subcu at bedtime daily. A1c 12.4. Increase Lantus insulin. Hold glipizide. 4. Acute kidney injury most probably secondary to ATN/sepsis secondary to pyelonephritis: IV fluid normal saline KVO. BUN/creatinine is 19/1.46. Major intake/output. Follow electrolytes and kidney function. 5. Fall on knees: PT and OT. Pain controlled. Patient has history of myasthenia gravis. Continue Keppra Other chronic comorbidities include seizure disorder, hypertension: Continue lisinopril. Patient is also on prednisone 5 mg daily probably because of myasthenia gravis. Prednisone resumed DVT prophylaxis: On Lovenox 40 mils subcut daily. This note was generated with [employer] dictation software. Every effort was made to ensure accuracy, however computerized solderer assembler mistakes may persist. Clinical Impression(s) from Imaging Studies Renal Ultrasound 02/05/18 05:55 IMPRESSION: Bilateral hydronephrosis left greater than right. Diffusely thickened bladder wall with areas of trabeculation. Abdomen/Pelvis CT 02/05/18 13:25 IMPRESSION: Bilateral hydronephrosis, likely due to chronic bladder outlet obstruction. No ureteral calculus. Diverticulosis, without acute diverticulitis. Hepatic steatosis. Additional findings, as detailed above. Code Visit Inpatient E&M: 10331 Subs Hosp L2
[2018-02-06 12:06] LABS: Bedside Glucose 298 mg/dL (70-110)
[2018-02-06 13:46] VITALS: BP 132/69; PULSE 82; RESP 18; TEMP 36.8; O2SAT 95
[2018-02-06 17:36] LABS: Bedside Glucose 222 mg/dL (70-110)
[2018-02-06 20:06] VITALS: RESP 18
[2018-02-06 20:28] VITALS: BP 149/82; PULSE 79; RESP 18; TEMP 37.2; O2SAT 94
[2018-02-06 22:40] LABS: Bedside Glucose 270 mg/dL (70-110)
[2018-02-07 02:05] VITALS: BP 132/81; PULSE 73; RESP 16; TEMP 37.3; O2SAT 94
[2018-02-07] MEDS: Enoxaparin 40 MG/0.4 ML Syringe SC (05:19)
[2018-02-07] MEDS: Insulin Lispro 100 UNIT/ML INSULN.PEN SQ ×4 (06:44→22:02)
[2018-02-07 06:51] LABS: Bedside Glucose 225 mg/dL (70-110)
[2018-02-07 08:43] VITALS: BP 130/86; PULSE 72; RESP 18; TEMP 37.2; O2SAT 95
[2018-02-07] MEDS: predniSONE 5 MG Tablet PO (08:57)
[2018-02-07] MEDS: Lisinopril 10 MG Tablet PO (08:58)
[2018-02-07] MEDS: levETIRAcetam 500 MG Tablet PO ×2 (08:59→21:54)
--- NOTE | 2018-02-07 10:35 | PCM.PN.HOSP ---
Patient Problems: Active and Suspected Problems Right-sided pyelonephritis (Acute) BPH (benign prostatic hyperplasia) (Acute) Retention, urine (Acute) Retention, urine (Acute) Subjective: Patient is retired as he did not sleep well last night. Patient has clear urine in the Rivera catheter. Denies flank pain. Vitals/I&O's: Vital Signs Temp Pulse Resp BP Pulse Ox 98.9 F 72 18 130/86 H 95 02/07/18 08:43 02/07/18 08:43 02/07/18 08:43 02/07/18 08:43 02/07/18 08:43 Oxygen Delivery Method Room Air Weight: 206 lb 2.115 oz Body Mass Index (BMI) 31.3 Intake and Output for Last 24 Hours 02/05/18 02/06/18 02/07/18 23:59 23:59 23:59 Intake Total 2839 / 2839 6 / 1954 120 / 120 Output Total 1050 / 1050 2300 / 2300 275 / 275 Balance 1789 / 1789 -344 / -344 -155 / -155 General: Alert, Oriented x3, Cooperative HEENT: Atraumatic, PERRLA, EOMI, Normocephalic Neck: Supple, No JVD, Negative Carotid Bruits Lungs: Clear to auscultation, Normal air movement, No rhonchi, No wheeze Cardiovascular: Regular rate, Normal S1, Normal S2, No murmurs Abdomen: Bowel Sounds Present, Soft, Non Tender Extremities: No edema, Capillary Refill Less than 3 Seconds Skin: No rashes, No breakdown Musculoskeletal: No Tenderness to Palpation of Joints or Extremities, Arthritic Changes Neurological: Cranial nerves II-XII grossly intact, Neuro grossly intact Psych/Mental Status: Normal Affect, Appropriate Microbiology Past 72 Hours 02/04/18 22:12 Blood Culture (Wb) - Right Hand Blood Culture - Preliminary No growth in 48 hours. 02/04/18 22:00 Blood Culture (Wb) - Anticubital Right Blood Culture - Preliminary No growth in 48 hours. Laboratory Results 02/06/18 11:40: POC Glucose 298 H 02/06/18 16:31: POC Glucose 222 H 02/06/18 21:39: POC Glucose 270 H 02/07/18 06:42: POC Glucose 225 H Current Medications Acetaminophen (Tylenol) 650 mg PO Q6H PRN PRN PRN Reason: Mild Pain (scale 0-3)/T>100.7 Last Admin: 02/05/18 18:18 Dose: 650 mg Al Hydroxide/Mg Hydroxide (Mylanta Ii) 30 ml PO Q6H PRN PRN PRN Reason: Gastric Burning Dextrose (D50w Syringe) 0 gm IV X1 PRN; Protocol PRN Reason: Hypoglycemia Docusate Sodium (Colace) 200 mg PO BID PRN PRN PRN Reason: Constipation Emollient Ointment (Eucerin Intensive Repair) 1 applic TOPICAL BID YAA PRN Reason: Protocol Last Admin: 02/07/18 08:57 Dose: 1 applicatio Enoxaparin Sodium (Lovenox) 40 mg SC DAILY@0600 [facility] Last Admin: 02/07/18 05:19 Dose: 40 mg Glucagon () 1 mg IM .X1 PRN PRN Reason: Hypoglycemia Sodium Chloride () 250 mls @ 15 mls/hr IV .[id number] PRN PRN Reason: SALINE FLUSH Ciprofloxacin 400 mg/ N/A 200 mls @ 200 mls/hr IV Q12 [facility] Last Admin: 02/07/18 08:59 Dose: 200 mls/hr Insulin Glargine (Lantus (Bkc)) 15 units SC QHS [facility] Last Admin: 02/06/18 21:40 Dose: 15 u Insulin Human Lispro (Humalog Kwikpen ([facility])) 0 unit SQ ACHS [facility] PRN Reason: Protocol Last Admin: 02/07/18 06:44 Dose: 4 u Levetiracetam (Keppra Tablet) 500 mg PO BID [facility] Last Admin: 02/07/18 08:59 Dose: 500 mg Lisinopril (Zestril) 10 mg PO DAILY [facility] Last Admin: 02/07/18 08:58 Dose: 10 mg Ondansetron HCl (Zofran) 4 mg IV Q6H PRN PRN PRN Reason: Nausea Oxycodone HCl (Oxyir) 5 mg PO Q4H PRN PRN PRN Reason: Moderate Pain (pain scale 4-5) Polyethylene Glycol (Miralax) 17 gm PO DAILY [facility] Last Admin: 02/07/18 08:58 Dose: Not Given Prednisone () 5 mg PO DAILY@0800 [facility] Last Admin: 02/07/18 08:57 Dose: 5 mg Sodium Chloride () 5 - 30 ml IV UD PRN PRN Reason: SALINE FLUSH Last Admin: 02/05/18 23:03 Dose: 10 ml Medical Necessity - Tobacco Use Smoking Status: Never smoker Assessment/Plan All Active Problems Right-sided pyelonephritis (Acute) BPH (benign prostatic hyperplasia) (Acute) Retention, urine (Acute) Retention, urine (Acute) The patient is a 72 year old M with history of recent cystoscopy for BPH and urinary incontinence came to ED when he fell down while coming from [facility]. He said his both legs became weak and gave out and he fell down and hit his right shoulder but no major trauma. He further said he is having chills for last 3 days and right-sided flank pain. He has burning micturition, increased frequency and not able to completely empty his bladder. In ED, he was found to have fever 101.2 Fahrenheit, heart rate 103/min, tachypnea respiratory rate 20/min, leukocytosis 15,000 with left shift, neutrophils 87% but no hypoxia suggestive of positive 3/4 SIRS criteria suggestive of sepsis secondary to right-sided pyelonephritis. Patient had ED visit on 01/17/2018 for urinary incontinence and at that time Rivera catheter was placed and he had follow-up with Dr. Miranda for which he had cystoscopy but exact procedure unclear (no documentation available) 1. sepsis secondary to right-sided pyelonephritis : [facility]. Patient had 1 dose of ceftriaxone in the ER based on his previous urine culture patient had staph hominis and was resistant to benzyl penicillin and therefore antibiotic changed to Levaquin. Blood cultures ?2 is negative so far. Urine culture shows Serratia marcescens his sensitive to fluoroquinolones and ceftriaxone. Antibiotic narrowed down to Cipro and DC Levaquin. Renal ultrasound and abdomen CT both shows bilateral hydronephrosis, left greater than right likely secondary to chronic bladder outlet obstruction secondary to BPH. No ureteral calculus found. Scheduled for TURP on Thursday 2. Right-sided complicated pyelonephritis probably secondary to urology procedure with Rivera catheter with history of BPH (CAUTI): As mentioned above. 3. Diabetes mellitus type II with uncontrolled hyperglycemia: Accu-Chek before meals and at bedtime and cover with NovoLog sliding scale. Lantus increased to 20 units subcutaneous at bedtime daily and started on a scheduled NovoLog 5 units subcu 3 times daily before meals with NovoLog sliding scale coverage. A1c 12.4. Hold glipizide. 4. Acute kidney injury most probably secondary to ATN/sepsis secondary to pyelonephritis: IV fluid normal saline KVO. BUN/creatinine is 19/1.46. Major intake/output. Follow electrolytes and kidney function. 5. Fall on knees: PT and OT. Pain controlled. Patient has history of myasthenia gravis. Continue Keppra Other chronic comorbidities include seizure disorder, hypertension: Continue lisinopril. Patient is also on prednisone 5 mg daily probably because of myasthenia gravis. Prednisone resumed DVT prophylaxis: On Lovenox 40 mils subcut daily. This note was generated with [employer] dictation software. Every effort was made to ensure accuracy, however computerized transmitter engineer in charge mistakes may persist. Clinical Impression(s) from Imaging Studies Renal Ultrasound 02/05/18 05:55 IMPRESSION: Bilateral hydronephrosis left greater than right. Diffusely thickened bladder wall with areas of trabeculation. Abdomen/Pelvis CT 02/05/18 13:25 IMPRESSION: Bilateral hydronephrosis, likely due to chronic bladder outlet obstruction. No ureteral calculus. Diverticulosis, without acute diverticulitis. Hepatic steatosis. Additional findings, as detailed above. Microbiology Past 72 Hours 02/04/18 22:12 Blood Culture (Wb) - Right Hand Blood Culture - Preliminary No growth in 48 hours. 02/04/18 22:00 Blood Culture (Wb) - Anticubital Right Blood Culture - Preliminary No growth in 48 hours. 02/04/18 18:28 Urine, Catheterized Urine Culture - Final Serratia marcescens Laboratory Results 02/06/18 11:40: POC Glucose 298 H 02/06/18 16:31: POC Glucose 222 H 02/06/18 21:39: POC Glucose 270 H 02/07/18 06:42: POC Glucose 225 H Code Visit Inpatient E&M: 14712 [facility] Hosp L2
[2018-02-07] MEDS: Insulin Lispro 100 UNIT/ML INSULN.PEN SC ×2 (11:54→17:13)
[2018-02-07 12:00] LABS: Bedside Glucose 293 mg/dL (70-110)
--- NOTE | 2018-02-07 14:15 | NURSING ---
Was sitting up in chair all morning, in bathroom, had BM and now back in bed. This nurse wanted Mr. Mccann to walk in phelps, pt refused walking in phelps but walked to doorway and back.
[2018-02-07 14:16] VITALS: BP 133/75; PULSE 75; RESP 20; TEMP 36.9; O2SAT 94
[2018-02-07 17:05] LABS: Bedside Glucose 226 mg/dL (70-110)
[2018-02-07 21:49] VITALS: BP 149/86; PULSE 70; RESP 18; TEMP 36.9; O2SAT 94
[2018-02-07] MEDS: 0.9% NaCl Peripheral Flush Adult/Peds IV (21:53)
[2018-02-07 22:11] LABS: Bedside Glucose 224 mg/dL (70-110)
[2018-02-07 22:14] VITALS: PULSE 70
[2018-02-08 03:30] VITALS: BP 133/84; PULSE 71; RESP 18; TEMP 37.2; O2SAT 93
[2018-02-08] MEDS: Enoxaparin 40 MG/0.4 ML Syringe SC (06:03)
[2018-02-08 06:12] LABS: Absolute Lymphocyte Count 1.44 X10^3/ul (0.83-4.51); Absolute Neutrophil Count 5.2 X10^3/uL (2.0-7.7); Basophil# 0.03 X10^3/uL; Basophil% 0.4 % (0-1); Eosinophils% 5.1 % (0-5); Hematocrit 40.1 % (40-54); Hemoglobin 13.1 g/dl (13.0-16.5); Lymphocyte # 1.44 X10^3/ul (4.0); Lymphocyte % 18.3 % (19-41); Mean Corp Hgb Conc 32.7 g/gl (32-36); Mean Corpuscular Hgb 30.4 pg (27.0-32.0); Mean Platelet Vol. 10.5 fl (6.2-12.0); Monocyte# 0.76 X10^3/uL; Monocyte% 9.6 % (0-10); Neutrophil # 5.22 X10^3/uL (2.7-7.7); Neutrophil % 66.1 % (47-70); Platelet Count 246 K/mm3 (150-450); RBC Distribution Width SD 44.1 fl (35.1-43.9); Red Blood Count 4.31 M/mm3 (4.6-6.2); White Blood Count 7.9 K/mm3 (4.4-11.0)
[2018-02-08 06:23] LABS: POSITIVE COUNT NO; POSITIVE DIFFERENTIAL NO; POSITIVE MORPHOLOGY NO
[2018-02-08 06:59] LABS: Anion Gap 7 (5-15); BUN 12 mg/dL (7-18); BUN/Creat Ratio 12.6 RATIO (10-20); Calcium,Total 8.3 mg/dL (8.5-10.1); Chloride 106 mmol/L (98-107); Creatinine, Serum 0.95 mg/dL (0.70-1.30); EST Glomerular Filtration Rate 83 mL/min (>60); Est Glom Filt Rate - Afr Amer 100 mL/min (>60); Glucose 207 mg/dL (74-106); Potassium 3.7 mmol/L (3.5-5.1); Sodium Level 137 mmol/L (136-145)
[2018-02-08 07:01] LABS: Bedside Glucose 224 mg/dL (70-110)
--- NOTE | 2018-02-08 07:18 | PCM.PN.BLA ---
Progress Note 72-year-old male with BPH and obstruction urinary retention came in with recent urinary tract infection which is now treated appropriately with antibiotics clinically doing well plan to proceed with TURP tomorrow. Hold Lovenox. N.p.o. at midnight. Consent patient.
[2018-02-08] MEDS: Insulin Lispro 100 UNIT/ML INSULN.PEN SC ×3 (08:36→17:16)
[2018-02-08] MEDS: Insulin Lispro 100 UNIT/ML INSULN.PEN SQ ×4 (08:37→21:17)
[2018-02-08] MEDS: predniSONE 5 MG Tablet PO (08:38)
[2018-02-08 09:43] VITALS: BP 126/71; PULSE 67; RESP 18; TEMP 36.9; O2SAT 92
[2018-02-08] MEDS: levETIRAcetam 500 MG Tablet PO ×2 (09:46→21:16)
[2018-02-08] MEDS: Lisinopril 10 MG Tablet PO (09:46)
[2018-02-08] MEDS: 0.9% NaCl Peripheral Flush Adult/Peds IV ×2 (09:58→11:51)
--- NOTE | 2018-02-08 10:36 | PCM.PN.HOSP ---
Patient Problems: Active and Suspected Problems Right-sided pyelonephritis (Acute) BPH (benign prostatic hyperplasia) (Acute) Retention, urine (Acute) Retention, urine (Acute) Subjective: Denies any new complaints. Vitals/I&O's: Vital Signs Temp Pulse Resp BP Pulse Ox 36.9 C 67 18 126/71 H 92 02/08/18 09:43 02/08/18 09:43 02/08/18 09:43 02/08/18 09:43 02/08/18 09:43 Oxygen Delivery Method Room Air Weight: 93.5 kg Body Mass Index (BMI) 31.3 Intake and Output for Last 24 Hours 02/06/18 02/07/18 02/08/18 23:59 23:59 23:59 Intake Total 1956 / 1956 430 / 430 1278 / 1278 Output Total 2300 / 2300 700 / 700 1400 / 1400 Balance -344 / -344 -270 / -270 -122 / -122 General: Alert, No apparent distress HEENT: Atraumatic, Normocephalic Oral: Moist Mucosa, No Gingival or Mucosal Lesions/ Ulcerations Neck: No Nodes, Thyroid Normal Size and Texture Lungs: Clear to auscultation, Normal air movement, No rhonchi, No wheeze Cardiovascular: Regular rate, Regular Rhythm, Normal S1, Normal S2, No murmurs Abdomen: Bowel Sounds Present, Soft, Non Tender, Non-Distended, No Hepato-splenomegaly Extremities: No edema, No Calf Tenderness Skin: No rashes, No breakdown Musculoskeletal: No Tenderness to Palpation of Joints or Extremities, No Muscle Wasting Psych/Mental Status: Appropriate, Flat Affect Microbiology Past 72 Hours 02/04/18 22:12 Blood Culture (Wb) - Right Hand Blood Culture - Preliminary No growth in 48 hours. 02/04/18 22:00 Blood Culture (Wb) - Anticubital Right Blood Culture - Preliminary No growth in 48 hours. Laboratory Results 02/07/18 11:50: POC Glucose 293 H 02/07/18 17:01: POC Glucose 226 H 02/07/18 21:56: POC Glucose 224 H 02/08/18 05:05: WBC 7.9, RBC 4.31 L, Hgb 13.1, Hct 40.1, MCV 93.0, MCH 30.4, MCHC 32.7, RDW 13.0, RDW Differential 44.1 H, Plt Count 246, MPV 10.5, Immature Gran % (Auto) 0.500, Neut % (Auto) 66.1, Lymph % (Auto) 18.3 L, [place] % (Auto) 9.6, Eos % (Auto) 5.1 H, Baso % (Auto) 0.4, Absolute Neuts (auto) 5.2, Absolute Lymphs (auto) 1.44, Total Counted Not Reportable 02/08/18 05:05: Sodium 137, Potassium 3.7, Chloride 106, Carbon Dioxide 24.0, Anion Gap 7, BUN 12, Creatinine 0.95, Estim Creat Clear Calc 69.00, Est GFR (MDRD) Af Amer 100, Est GFR (MDRD) Non-Af 83, BUN/Creatinine Ratio 12.6, Glucose 207 H, Calcium 8.3 L 02/08/18 06:56: POC Glucose 224 H Current Medications Acetaminophen (Tylenol) 650 mg PO Q6H PRN PRN PRN Reason: Mild Pain (scale 0-3)/T>100.7 Last Admin: 02/05/18 18:18 Dose: 650 mg Al Hydroxide/Mg Hydroxide (Mylanta Ii) 30 ml PO Q6H PRN PRN PRN Reason: Gastric Burning Dextrose (D50w Syringe) 0 gm IV X1 PRN; Protocol PRN Reason: Hypoglycemia Emollient Ointment (Eucerin Intensive Repair) 1 applic TOPICAL BID YAA PRN Reason: Protocol Last Admin: 02/08/18 09:46 Dose: 1 applicatio Glucagon () 1 mg IM .X1 PRN PRN Reason: Hypoglycemia Sodium Chloride () 250 mls @ 15 mls/hr IV .[id number] PRN PRN Reason: SALINE FLUSH Ciprofloxacin 400 mg/ N/A 200 mls @ 200 mls/hr IV Q12 [facility] Last Admin: 02/08/18 09:53 Dose: 200 mls/hr Insulin Glargine (Lantus (Bkc)) 20 units SC QHS [facility] Last Admin: 02/07/18 22:03 Dose: 20 u Insulin Human Lispro (Humalog Kwikpen (Bk)) 0 unit SQ ACHS [facility] PRN Reason: Protocol Last Admin: 02/08/18 08:37 Dose: 4 u Insulin Human Lispro (Humalog Kwikpen (Bkc)) 5 unit SC TIDAC [facility] Last Admin: 02/08/18 08:36 Dose: 5 units Lactobacillus Acidophilus (Acidophilus) 1 tablet PO TID [facility] Last Admin: 02/08/18 06:04 Dose: 1 tablet Levetiracetam (Keppra Tablet) 500 mg PO BID [facility] Last Admin: 02/08/18 09:46 Dose: 500 mg Lisinopril (Zestril) 10 mg PO DAILY [facility] Last Admin: 02/08/18 09:46 Dose: 10 mg Ondansetron HCl (Zofran) 4 mg IV Q6H PRN PRN PRN Reason: Nausea Oxycodone HCl (Oxyir) 5 mg PO Q4H PRN PRN PRN Reason: Moderate Pain (pain scale 4-5) Prednisone () 5 mg PO DAILY@0800 [facility] Last Admin: 02/08/18 08:38 Dose: 5 mg Sodium Chloride () 5 - 30 ml IV UD PRN PRN Reason: SALINE FLUSH Last Admin: 02/08/18 09:58 Dose: 10 ml Medical Necessity - Tobacco Use Smoking Status: Never smoker Assessment/Plan All Active Problems Right-sided pyelonephritis (Acute) BPH (benign prostatic hyperplasia) (Acute) Retention, urine (Acute) Retention, urine (Acute) 1. Sepsis present on admission 2/2 UTI resolved 2. UTI: + Serratia marcescens 2/2 urinary retention on Cipro. treat through 02/14 3. TRIP resolved 2/2 post-renal obstruction 4. Urinary retention/hydronephrosis 2/2 BPH seen by plan is for TURP on 02/09 5. DM2 uncontrolled A1c is 12.4 glipizide at home, obviously insufficient started on Lantus 20 QHS and scheduled log 5 QAC on 02/07 continue to monitor for now, but may need to increase insulin 6. DVT proph LMWH stopped today by outgoing hospitalist add SCDs likely could resume chemical prophylaxis on the . 7. Myasthenia Gravis on prednisone 5mg/day may need to increase after surgery (stress-dose) Code Visit Inpatient E&M: 36464 Subs Hosp L2
--- NOTE | 2018-02-08 10:47 | CASEMGMT ---
Social Work Note [place] updated this worker that pt's sister Jonna is on the phone and wishes to speak to speak with CM as she feels pt needs more help at home. SW looked at pt's demographics and no sister is listed as contact. SW in to ask pt if this worker is ok to speak with his sister. Pt gave this worker permission to speak to his sister. SW updated pt's sister Jonna that pt is alert and orientated and denied need for HHC and denied additional needs or concerns at this time. Jonna states that she lives in [place] and is trying to stay out of it but does think pt needs more help at home. SW listened to Jonna's concerns and reiterated that pt is able to make decisions for himself and if he wishes to go home without HHC then he has the right to do so. Jonna states understanding and asked if pt could be asked again before leaving about HHC. SW informed Jonna that CM can ask pt again before he discharges to see if pt feels he needs additional help at home. SW informed Jonna that if she has medical questions then she can call the floor and ask to speak with pt's nurse. SW provided [facility] Main number and also informed her that if she wants to speak with the CM or SW then she can also call the direct number for the floor and ask to speak with CM/SW. Jonna states understanding. Lexy Roa FUNCTIONAL CONSULTANT, RN CHEMICAL DEPENDENCY
[2018-02-08 12:45] LABS: Bedside Glucose 241 mg/dL (70-110)
[2018-02-08 15:22] VITALS: BP 118/67; PULSE 66; RESP 18; TEMP 36.8; O2SAT 93
[2018-02-08 17:11] LABS: Bedside Glucose 218 mg/dL (70-110)
[2018-02-08] MEDS: Acetaminophen 325 MG Tablet 650 MG PO (18:27)
[2018-02-08 19:30] VITALS: BP 129/73; PULSE 68; RESP 18; TEMP 36.6; O2SAT 94
[2018-02-08 22:31] LABS: Bedside Glucose 223 mg/dL (70-110)
[2018-02-09] VITALS (10 sets, daily range): BP systolic 110–153; BP diastolic 66–92; PULSE 60–87; RESP 12–18; TEMP 36.2–37.2; O2SAT 92–99; BMI 31.3
[2018-02-09 06:22] LABS: Absolute Lymphocyte Count 1.77 X10^3/ul (0.83-4.51); Absolute Neutrophil Count 5.3 X10^3/uL (2.0-7.7); Basophil# 0.05 X10^3/uL; Basophil% 0.6 % (0-1); Eosinophils% 4.7 % (0-5); Hematocrit 41.7 % (40-54); Hemoglobin 13.7 g/dl (13.0-16.5); Lymphocyte # 1.77 X10^3/ul (4.0); Lymphocyte % 20.9 % (19-41); Mean Corp Hgb Conc 32.9 g/gl (32-36); Mean Corpuscular Hgb 30.5 pg (27.0-32.0); Mean Corpuscular Volume 92.9 fL (80-94); Mean Platelet Vol. 10.2 fl (6.2-12.0); Monocyte# 0.84 X10^3/uL; Monocyte% 9.9 % (0-10); Neutrophil # 5.33 X10^3/uL (2.7-7.7); Platelet Count 252 K/mm3 (150-450); RBC Distribution Width CV 13.1 % (11.6-14.6); RBC Distribution Width SD 43.7 fl (35.1-43.9); Red Blood Count 4.49 M/mm3 (4.6-6.2); White Blood Count 8.5 K/mm3 (4.4-11.0)
[2018-02-09 06:34] LABS: Partial Thromboplast Time 26.3 Seconds (24.1-36.2); Prothrombin Time (Protime)PT. 13.5 SECONDS (11.7-14.9)
[2018-02-09 06:36] LABS: POSITIVE COUNT NO; POSITIVE DIFFERENTIAL NO; POSITIVE MORPHOLOGY NO
[2018-02-09 06:37] LABS: Anion Gap 8 (5-15); BUN 11 mg/dL (7-18); BUN/Creat Ratio 12.2 RATIO (10-20); Calcium,Total 8.6 mg/dL (8.5-10.1); Chloride 105 mmol/L (98-107); EST Glomerular Filtration Rate 88 mL/min (>60); Est Glom Filt Rate - Afr Amer 107 mL/min (>60); Estimated Creatinine Clearance 72.83 ml/min; Glucose 269 mg/dL (74-106); Potassium 3.9 mmol/L (3.5-5.1); Sodium Level 136 mmol/L (136-145)
[2018-02-09 06:50] LABS: Bedside Glucose 257 mg/dL (70-110)
[2018-02-09 09:14] LABS: Hemoglobin A1c 11.9 % (4.2-6.3)
--- NOTE | 2018-02-09 09:47 | NURSING ---
REPORT CALLED TO [facility]
--- NOTE | 2018-02-09 10:09 | PCM.PN.HOSP ---
Patient Problems: Active and Suspected Problems Right-sided pyelonephritis (Acute) BPH (benign prostatic hyperplasia) (Acute) Retention, urine (Acute) Retention, urine (Acute) Subjective: Doing well, denies any abdominal pain. Perry in place. Vitals/I&O's: Vital Signs Temp Pulse Resp BP Pulse Ox 98.3 F 71 18 132/86 H 94 02/09/18 09:29 02/09/18 09:29 02/09/18 09:29 02/09/18 09:29 02/09/18 09:29 Oxygen Delivery Method Room Air Weight: 206 lb 2.115 oz Body Mass Index (BMI) 31.3 Intake and Output for Last 24 Hours 02/07/18 02/08/18 02/09/18 23:59 23:59 23:59 Intake Total 430 / 430 2661 / 2661 571 / 571 Output Total 700 / 700 2875 / 2875 1275 / 1275 Balance -270 / -270 -214 / -214 -704 / -704 General: Alert, Oriented x3, Cooperative, No apparent distress HEENT: Atraumatic, EOMI, Normocephalic Oral: Moist Mucosa Neck: Supple, No JVD Lungs: Clear to auscultation, Normal air movement, No rhonchi, No wheeze, No rales Cardiovascular: Regular rate, Regular Rhythm, Normal S1, Normal S2, No murmurs Abdomen: Soft, Non Tender, Non-Distended, No Hepato-splenomegaly Extremities: No edema, Capillary Refill Less than 3 Seconds Skin: No rashes, No breakdown Psych/Mental Status: Normal Affect, Appropriate Microbiology Past 72 Hours 02/04/18 22:12 Blood Culture (Wb) - Right Hand Blood Culture - Preliminary No growth in 48 hours. 02/04/18 22:00 Blood Culture (Wb) - Anticubital Right Blood Culture - Preliminary No growth in 48 hours. Laboratory Results 02/08/18 11:31: POC Glucose 241 H 02/08/18 16:31: POC Glucose 218 H 02/08/18 21:13: POC Glucose 223 H 02/09/18 05:54: WBC 8.5, RBC 4.49 L, Hgb 13.7, Hct 41.7, MCV 92.9, MCH 30.5, MCHC 32.9, RDW 13.1, RDW Differential 43.7, Plt Count 252, MPV 10.2, Immature Gran % (Auto) 0.900, Neut % (Auto) 63.0, Lymph % (Auto) 20.9, [place] % (Auto) 9.9, Eos % (Auto) 4.7, Baso % (Auto) 0.6, Absolute Neuts (auto) 5.3, Absolute Lymphs (auto) 1.77, Total Counted Not Reportable 02/09/18 05:54: Sodium 136, Potassium 3.9, Chloride 105, Carbon Dioxide 23.0, Anion Gap 8, BUN 11, Creatinine 0.90, Estim Creat Clear Calc 72.83, Est GFR (MDRD) Af Amer 107, Est GFR (MDRD) Non-Af 88, BUN/Creatinine Ratio 12.2, Glucose 269 H, Calcium 8.6 02/09/18 05:54: PT 13.5, INR 1.0, APTT 26.3 02/09/18 05:54: Hemoglobin A1c 11.9 H 02/09/18 06:33: POC Glucose 257 H Current Medications Acetaminophen (Tylenol) 650 mg PO Q6H PRN PRN PRN Reason: Mild Pain (scale 0-3)/T>100.7 Last Admin: 02/08/18 18:27 Dose: 650 mg Al Hydroxide/Mg Hydroxide (Mylanta Ii) 30 ml PO Q6H PRN PRN PRN Reason: Gastric Burning Dextrose (D50w Syringe) 0 gm IV X1 PRN; Protocol PRN Reason: Hypoglycemia Emollient Ointment (Eucerin Intensive Repair) 1 applic TOPICAL BID YAA PRN Reason: Protocol Last Admin: 02/08/18 21:31 Dose: 1 applicatio Glucagon () 1 mg IM .X1 PRN PRN Reason: Hypoglycemia Sodium Chloride () 250 mls @ 15 mls/hr IV .[id number] PRN PRN Reason: SALINE FLUSH Ciprofloxacin 400 mg/ N/A 200 mls @ 200 mls/hr IV Q12 [facility] Last Admin: 02/08/18 21:30 Dose: 200 mls/hr Insulin Glargine (Lantus (Bkc)) 20 units SC QHS [facility] Last Admin: 02/08/18 21:18 Dose: 20 u Insulin Human Lispro (Humalog Kwikpen (Bk)) 0 unit SQ ACHS [facility] PRN Reason: Protocol Last Admin: 02/09/18 09:27 Dose: Not Given Insulin Human Lispro (Humalog Omariandiepen ([facility])) 5 unit SC TIDAC [facility] Last Admin: 02/09/18 09:27 Dose: Not Given Lactobacillus Acidophilus (Acidophilus) 1 tablet PO TID [facility] Last Admin: 02/09/18 03:12 Dose: Not Given Levetiracetam (Keppra Tablet) 500 mg PO BID [facility] Last Admin: 02/08/18 21:16 Dose: 500 mg Lisinopril (Zestril) 10 mg PO DAILY [facility] Last Admin: 02/08/18 09:46 Dose: 10 mg Ondansetron HCl (Zofran) 4 mg IV Q6H PRN PRN PRN Reason: Nausea Oxycodone HCl (Oxyir) 5 mg PO Q4H PRN PRN PRN Reason: Moderate Pain (pain scale 4-5) Prednisone () 5 mg PO DAILY@0800 [facility] Last Admin: 02/08/18 08:38 Dose: 5 mg Sodium Chloride () 5 - 30 ml IV UD PRN PRN Reason: SALINE FLUSH Last Admin: 02/08/18 11:51 Dose: 10 ml Medical Necessity - Tobacco Use Smoking Status: Never smoker Assessment/Plan All Active Problems Right-sided pyelonephritis (Acute) BPH (benign prostatic hyperplasia) (Acute) Retention, urine (Acute) Retention, urine (Acute) 1. Sepsis secondary to UTI caused by urinary retention from bladder outlet obstruction leading to b/l hydronephrosis/TRIP - Sepsis has resolved, culture from 02/04 with Serratia, sensitive to cipro with a stop date of 02/14 - To undergo TURP today by urology, appreciate recs - c/w perry and IVF while NPO - TRIP from the obstruction has resolved 2. DM2 - A1c is 12.4 - Only on glipizide at home - Lantus was started at 20 U QHS with 5 U of humalog TID - BG remains in the 200's and yesterday he received 16 U of SSI - Increase lantus to 25 and the humalog to 10 TID 3. Myasthenia Gravis - On prednisone 5 mg daily - This is a low dose, but I will increase his prednisone to 20 mg daily after surgery for a few days then decrease back to 5 mg DVT: Hold prior to procedure, restart lovenox in am/SCDs Diet: NPO, restart carb control after surgery Code: FULL Dispo: Home when ok by urology Code Visit Inpatient E&M: 10698 Subs Hosp L2
--- NOTE | 2018-02-09 11:00 | PROS_PTH ---
PATIENT: ZULEIMA GORDON Susanna LOC: MS3 U#:[id number] AGE/SX: 72/M ROOM: [facility] RE02/04/[address]: Dr. Cade Dai MD : [id number] BED: 1 DIS: 02/10/2018 SPEC #: [id number] RECD: 02/09/18 17:10 STATUS: CARLOS ARACELI #: [id number] ADARSH: 02/09/18 11:[address]: Quentin Miranda DEPT: SURGICAL PATHOLOGY RECD BY: Adrienen Rivero ENTERED: 02/10/18 10:05 SP TYPE: TURP OTHR DR: MD Dr. Cade Hart MD Dr. Prakash Chand, MD Tissues: Prostate, NOS Procedures: Surgery Specimen Level IV HEADER OPERATION: Cysto, TUR, prostate, Olympus PRE-OP DIAGNOSIS: Benign prostatic hyperplasia TISSUE SUBMITTED: Prostate shavings MICROSCOPIC DIAGNOSIS Prostate, TUR: Benign prostatic hyperplasia, glandular and stromal type. Acute and chronic inflammation. IRENA:sergio 02/11/18 MICROSCOPIC DESCRIPTION Slides are reviewed. GROSS DESCRIPTION Received is one container labeled with the patient's name and designated prostate shavings. The specimen consists of multiple irregular fragments of pink-ansari, rubbery, soft tissue that in aggregate weigh 4.3 gm and measure in aggregate 3 x 3 x 1 cm. The entire specimen is submitted in five cassettes. / IRENA:sergio 02/10/18 TC:5 CPT: 07527
--- NOTE | 2018-02-09 12:34 | PCM.OPRPT ---
Problem List (1) Retention, urine Status: Acute (2) Retention, urine Status: Acute Report of Operation Date of Procedure: 02/09/18 Pre-Operative Diagnosis: BPH with obstruction and urinary retention Post-Operative Diagnosis: Same Surgery/Procedure Performed:: Transurethral resection of the prostate Description of Surgical Findings:: 72-year-old male taken back to the operating room after smooth induction of general anesthesia he was placed supine on the on the table and then in dorsal lithotomy position. The penis and testicles are prepped and draped in usual sterile fashion. Went into the bladder with a 26 Kittitian continuous flow resectoscope found an obstructive prostate with no median lobe and obstructive lateral lobes I then proceeded with resection of the prostate resected the right lobe of the prostate and resect the left lobe the prostate resected close to the verumontanum, then elect out all the chips and then switched over to the button and then smoothed vaporized the rest of the tissue inside the prosthetic channels a nice channel all the way from the bladder neck to the verumontanum with no obstruction after doing the vaporization of the button then I carefully worked on the apical tissue then obtain hemostasis Rivera catheter was put in the bladder put on continuous bladder irrigation and the urine was clear patient's anesthetic was reversed. Type of Anesthesia:: General Drains: 22 fr - Admit VTE Documentation VTE Present on Admission: No VTE Mechan Device Prophylaxis: SCD's VTE Pharm Prophylaxis ordered?: No Reason prophylaxis not ordered:: Treatment Not Indicated
[2018-02-09 13:16] LABS: Bedside Glucose 219 mg/dL (70-110)
[2018-02-09 13:51] LABS: Bedside Glucose 203 mg/dL (70-110)
[2018-02-09] MEDS: levETIRAcetam 500 MG Tablet PO ×2 (15:19→21:54)
[2018-02-09] MEDS: Lisinopril 10 MG Tablet PO (15:19)
[2018-02-09] MEDS: Ibuprofen 600 MG Tablet PO (16:51)
[2018-02-09] MEDS: predniSONE 5 MG Tablet PO (16:51)
[2018-02-09] MEDS: Insulin Lispro 100 UNIT/ML INSULN.PEN 10 UNIT SC (16:52)
[2018-02-09] MEDS: Insulin Lispro 100 UNIT/ML INSULN.PEN SQ ×2 (16:53→21:54)
[2018-02-09 17:31] LABS: Bedside Glucose 218 mg/dL (70-110)
[2018-02-09] MEDS: 0.9% Normal Saline 1,000 ML 75 ML IV (19:34)
[2018-02-09 22:31] LABS: Bedside Glucose 212 mg/dL (70-110)
[2018-02-10 03:10] VITALS: BP 108/67; PULSE 60; RESP 16; TEMP 36.8; O2SAT 97
[2018-02-10 06:50] VITALS: O2SAT 96
[2018-02-10 07:55] VITALS: BP 104/61; PULSE 61; RESP 18; TEMP 36.6; O2SAT 97
[2018-02-10] MEDS: Lisinopril 10 MG Tablet PO (08:05)
[2018-02-10] MEDS: levETIRAcetam 500 MG Tablet PO (08:06)
[2018-02-10] MEDS: Insulin Lispro 100 UNIT/ML INSULN.PEN 10 UNIT SC ×2 (08:07→11:21)
[2018-02-10] MEDS: predniSONE 10 MG Tablet PO (08:11)
[2018-02-10] MEDS: 0.9% Normal Saline 1,000 ML 75 ML IV (08:12)
[2018-02-10 08:20] LABS: Bedside Glucose 129 mg/dL (70-110)
--- NOTE | 2018-02-10 10:15 | CASEMGMT ---
Addendum entered by Lexy Deleon 02/10/18 11:02: TODD LUNA and ODILON in to discuss discharge options with patient. Patient is agreeable to TCU at discharge. ODILON to send referral. TODD LUNA will updated sister Jonna regarding discharge plans. Original Note: TODD LUNA received VM from sister, Jonna. TODD LUNA returned call and discussed discharge options with sister. Jonna states that patient is not able to care for self and will not be able to maintain perry at home. Sister states that family would not be able to assist. TODD LUNA updated ODILON Roa regarding possible TCU placement. Update also received from Dr. Dai recommending placement. CM to continue to follow patient and plan for a safe discharge.
--- NOTE | 2018-02-10 10:57 | CASEMGMT ---
Social Work Note Pt is being discharged with Rivera catheter and pt's sister Jonna has concerns that pt might not be able to take care of himself at home and may not be able to change Rivera Catheter. Pt may benefit from short term placement at TCU. Pt's sister Jonna is agreeable to referral being made to TCU. TODD LUNA and this worker in to talk to pt about TCU. Pt agreeable to TCU referral. SW placed a call to referral line and spoke with Jonna. Jonna states that pt can come today to TCU. TODD LUNA updated Dr. Dai of this. Plan: Discharge to TCU today Lexy Roa COMMERCIAL DEVELOPMENT MANAGER, FOREST PATHOLOGIST
[2018-02-10] MEDS: Insulin Lispro 100 UNIT/ML INSULN.PEN SQ (11:21)
--- NOTE | 2018-02-10 11:46 | PCM.TXEXTCAR ---
- Diet 02/04/18 20:41 Diet: Cardiac: Calorie-Controlled How many daily calories?: 1800 calorie - Routine Orders/Code Status Change Perry Catheter: Maintain perry catheter, Dr. Miranda will remove in a few days. - Allergies/Procedures Done in Hospital Allergies/Adverse Reactions: Allergies iodine Allergy (Verified 02/04/18 16:57) Hives Penicillins [PCN] Allergy (Verified 02/04/18 16:57) Unknown simvastatin Adverse Reaction (Verified 02/04/18 16:57) Pain in joints - Type of Care/Length of Stay Estimated LOS: Convalescent Care Less Than 30 days Type of Care Needed: Skilled Rehab Potential: Good Prognosis: Good - Additional Orders/Day of Discharge Day of Discharge: 02/10/18 - Follow Up Care Primary Care Physician: Lainey Lang MD [Primary Care Provider] - Please follow up with your Primary Care Physician in: in 3-5 days after DC from SNF
--- NOTE | 2018-02-10 11:49 | PCM.DC.SUM ---
Discharge Date and Diagnosis - Problem List Patient Problems: Active and Suspected Problems Right-sided pyelonephritis (Acute) BPH (benign prostatic hyperplasia) (Acute) Retention, urine (Acute) Retention, urine (Acute) Date of Admission: 02/04/18 Date of Discharge: 02/10/18 - Primary Discharge Diagnosis Active and Suspected Problems Right-sided pyelonephritis (Acute) BPH (benign prostatic hyperplasia) (Acute) Retention, urine (Acute) Retention, urine (Acute) - Secondary Discharge Diagnosis Chronic Problems Scalp laceration (Chronic) Seizure (Chronic) Seizure disorder (Chronic) Myasthenia gravis (Chronic) Type II diabetes mellitus (Chronic) Hospital Course and Treatment Imaging Results: CT abd/pelvis: FINDINGS: There is patchy lower lobe airspace disease. The visualized portions of the heart are within normal limits. There is decreased attenuation of the liver consistent with steatosis. Normal gallbladder and extrahepatic biliary system. Normal spleen. Normal pancreas. Normal bilateral adrenal glands. There is mild hydronephrosis. The right ureter is slightly prominent. There is moderate left hydronephrosis. Left ureter is prominent. No ureteral calculus. Normal visualized stomach. Normal small intestine. There are multiple colonic diverticula consistent with diverticulosis. There is non-visualization of the appendix. There is diffuse atherosclerotic calcification of the abdominal aorta, without a demonstrated aneurysm. Normal inferior vena cava. Normal retroperitoneum. The bladder wall is irregular and thickened. The prostate gland is slightly enlarged. Normal abdominal wall. There are diffuse degenerative changes of the visualized lumbar spine. Consultants: Urology Operations: None, TURP - 72-year-old male taken back to the operating room after smooth induction of general anesthesia he was placed supine on the on the table and then in dorsal lithotomy position. The penis and testicles are prepped and draped in usual sterile fashion. Went into the bladder with a 26 Estonian continuous flow resectoscope found an obstructive prostate with no median lobe and obstructive lateral lobes I then proceeded with resection of the prostate resected the right lobe of the prostate and resect the left lobe the prostate resected close to the verumontanum, then elect out all the chips and then switched over to the button and then smoothed vaporized the rest of the tissue inside the prosthetic channels a nice channel all the way from the bladder neck to the verumontanum with no obstruction after doing the vaporization of the button then I carefully worked on the apical tissue then obtain hemostasis Rivera catheter was put in the bladder put on continuous bladder irrigation and the urine was clear patient's anesthetic was reversed. Procedures: None Summary of Care Provided: HPI: The patient is a 72 year old M with history of recent cystoscopy for BPH and urinary incontinence came to ED when he fell down while coming from [facility]. He said his both legs became weak and gave out and he fell down and hit his right shoulder but no major trauma. He further said he is having chills for last 3 days and right-sided flank pain. He has burning micturition, increased frequency and not able to completely empty his bladder. In ED, he was found to have fever 101.2 Fahrenheit, heart rate 103/min, tachypnea respiratory rate 20/min, leukocytosis 15,000 with left shift, neutrophils 87% but no hypoxia suggestive of positive 3/4 SIRS criteria suggestive of sepsis secondary to right-sided pyelonephritis. Vital Signs - 24 hr Temp Pulse Resp BP Pulse Ox 02/10/18 07:55 97.9 F 61 18 104/61 97 02/10/18 06:50 96 02/10/18 03:10 98.2 F 60 16 108/67 97 02/09/18 21:47 98.9 F 71 18 110/66 94 02/09/18 17:55 98.4 F 87 16 133/77 H 96 02/09/18 16:04 98.6 F 82 18 150/86 H 95 02/09/18 14:07 98.0 F 66 18 153/92 H 92 02/09/18 13:45 97.2 F L 60 17 139/85 H 97 02/09/18 13:30 60 16 148/84 H 96 02/09/18 13:15 66 16 146/87 H 99 02/09/18 13:00 97.5 F L 69 14 142/91 H 97 General: Alert, Oriented x3, Cooperative, No apparent distress HEENT: Atraumatic, EOMI, Normocephalic Oral: Moist Mucosa Neck: Supple, No JVD Lungs: Clear to auscultation, Normal air movement, No rhonchi, No wheeze, No rales Cardiovascular: Regular rate, Regular Rhythm, Normal S1, Normal S2, No murmurs Abdomen: Soft, Non Tender, Non-Distended, No Hepato-splenomegaly Extremities: No edema, Capillary Refill Less than 3 Seconds Skin: No rashes, No breakdown Psych/Mental Status: Normal Affect, Appropriate Hospital Course: 1. Sepsis secondary to UTI caused by urinary retention from bladder outlet obstruction leading to b/l hydronephrosis/TRIP - Sepsis has resolved, culture from 02/04 with Serratia, sensitive to cipro with a stop date of 02/14 - S/p TURP - c/w [place], Dr. Miranda will remove in a few days, stop continuous bladder irrigation - TRIP from the obstruction has resolved 2. DM2 - A1c is 12.4 - Only on glipizide at home which will be continued - Lantus was started at 20 U QHS with 5 U of humalog TID - BG remains in the 200's and yesterday he received 16 U of SSI - c/w lantus to 25 and the humalog to 10 TID 3. Myasthenia Gravis - On prednisone 5 mg daily - C/w 5 mg for now, not a very invasive surgical procedure so unlikely to need continued stress dosing, gave 10 mg yesterday Home Medications: Medications to take at Discharge glipiZIDE [Glucotrol] 5 mg PO BIDAC 04/04/13 predniSONE tablet 5 mg PO DAILY 04/04/13 Lisinopril [Zestril] 10 mg PO DAILY 01/17/18 levETIRAcetam tablet [Keppra tablet] 500 mg PO BID 02/04/18 Ciprofloxacin [Cipro] 500 mg PO BID #10 tablet 02/10/18 Insulin Glargine [Lantus SoloStar Pen] 25 units SC QHS pen 02/10/18 Insulin Lispro [Humalog KwikPen] 10 unit SC TIDAC insuln.pen 02/10/18 Insulin Lispro [Humalog KwikPen] See Protocol SQ ACHS insuln.pen 02/10/18 Following Prescrptions Were Given to Patient: Ciprofloxacin [Cipro] 500 mg PO BID #10 tablet Primary Care Physician: Lainey Lang MD [Primary Care Provider] - Please follow up with your Primary Care Physician in: in 3-5 days after DC from SNF Disposition: Penitentiary facility Minutes spent on discharge:: 35 Patient Condition:: Good Medical Necessity - Tobacco Use Smoking Status: Never smoker Meaningful Use Info Meaningful Use Diagnoses (Choose all that apply): None applicable Code Visit Inpatient E&M: 19334 Disch Hosp
[2018-02-10 12:25] LABS: Bedside Glucose 310 mg/dL (70-110)
[2018-02-10 14:07] VITALS: BP 117/57; PULSE 74; RESP 18; TEMP 37; O2SAT 97
--- NOTE | 2018-02-10 14:39 | NURSING ---
call placed to tcu and report given to rn whom will be taking over care for pt
== END 2018-02-10 15:21 | disposition skilled nursing facility (03) | DRG 854 ==
LOC: ED 18:36 → MS3 20:59
PROVIDERS: Anesthesiology; Internal Medicine; Urology; Admitting Provider Internal Medicine; Emergency Provider Emergency Medicine; Family Provider Internal Medicine; PCP Internal Medicine; Visit Provider Family Medicine
PROC: 0VB08ZZ Excision of Prostate, Via Natural or Artificial Opening Endoscopic (ICD-10-PCS; principal; 2018-02-09 10:50)
DX: A41.9 Sepsis, unspecified organism (principal); N13.8 Other obstructive and reflux uropathy; N17.9 Acute kidney failure, unspecified; N13.30 Unspecified hydronephrosis; N10 Acute pyelonephritis; E11.65 Type 2 diabetes mellitus with hyperglycemia; G70.00 Myasthenia gravis without (acute) exacerbation; G40.909 Epilepsy, unspecified, not intractable, without status epilepticus; I10 Essential (primary) hypertension; Z79.52 Long term (current) use of systemic steroids; N40.1 Benign prostatic hyperplasia with lower urinary tract symptoms; R33.8 Other retention of urine; N32.0 Bladder-neck obstruction; B96.89 Other specified bacterial agents as the cause of diseases classified elsewhere; Z79.84 Long term (current) use of oral hypoglycemic drugs
CPT/HCPCS: 36415; 74176; 76770; 80048; 80076; 81001; 82550; 82962; 83036; 83605; 84484; 85025; 85610; 85652; 85730; 87040; 87086; 87088; 87186; 88305; 93005; 97110; 97116; 97162; 97165; 97530; 97802; 99285; J7030; J7040; A4216; J0744; J2405

== ENCOUNTER 2018-02-10 15:36 | Inpatient (IN) | payer MEDICARE, OTHER, SELFPAY ==
[2018-02-10 15:55] VITALS: BP 112/68; PULSE 77; RESP 18; TEMP 36.2; O2SAT 95
--- NOTE | 2018-02-10 15:55 | NURSING ---
pt arrived via bed from U
[2018-02-10 16:14] VITALS: BMI 30.9
[2018-02-10 16:20] VITALS: BMI 30.9
[2018-02-10 16:46] LABS: Bedside Glucose 229 mg/dL (70-110)
[2018-02-10] MEDS: Insulin Lispro 100 UNIT/ML INSULN.PEN SC (17:29)
[2018-02-10] MEDS: glipiZIDE 5 MG Tablet PO (17:30)
[2018-02-10] MEDS: Insulin Lispro 100 UNIT/ML INSULN.PEN 10 UNIT SC (17:30)
[2018-02-10] MEDS: levETIRAcetam 500 MG Tablet PO (17:31)
[2018-02-10] MEDS: Ciprofloxacin 500 MG Tablet PO (17:31)
[2018-02-10 20:56] LABS: Bedside Glucose 117 mg/dL (70-110)
--- NOTE | 2018-02-10 22:07 | PCM.HP.STD ---
Problem List (1) Fall Status: Acute (2) COMPLICATED PYELONEPHRITIS Status: Acute (3) Acute kidney injury Status: Acute (4) Hydronephrosis Status: Acute (5) BPH (benign prostatic hyperplasia) Status: Chronic (6) Retention, urine Status: Acute (7) Seizure disorder Status: Chronic (8) Myasthenia gravis Status: Chronic (9) Type II diabetes mellitus Status: Chronic History of Present Illness Date of Admission: 02/10/18 Chief Complaint: Here for rehabilitation, strengthening, prior to discharge home alone. The patient is a 72 year old Male with below past medical history presented to [facility] 02/04/2018 with fall. 02/04/2018 EKG sinus tachycardia, non-specific T wave abnormality. Recent cystoscopy for BPH with short term perry catheter. Legs weak, fell at [facility]. Troponin negative, CK 105. UA consistent UTI, Lactic acid 1.9. BUN 19, Cr 1.46, Glucose 310. WBC 15 with left shift. Bladderscan 273ML urine. Urine sent for culture. Rocephin 1GM IV given. 02/04/2018 Admit to Hospital. Recent cystoscopy, chills x 3 days, right flank pain, dysuria. Fever 101.2. Previous urine culture grew staph hominis. Treated with Levaquin. IV fluids for acute kidney injury. 02/05/2018 Renal Ultrasound showed bilateral hydronephrosis left greater than right. Thickened bladder wall. 02/05/2018 CT abdomen/pelvis bilateral hydronephrosis secondary to chronic bladder outlet obstruction. Fatty Liver. 02/06/2018 Dr. Miranda recommended treating E. Coli UTI. Plan for TURP. 02/09/2018 Dr. Moreno performed TURP. Urine culture grew serratia treated with Cipro thru 02/13/2018. Dr. Miranda will remove perry catheter. Acute Kidney Injury resolved. Admit to TCU with debility, here for rehabilitation, strengthening, prior to discharge home alone. Past Medical History Past Medical History (Chronic Problems): Chronic Problems BPH (benign prostatic hyperplasia) (Chronic) Scalp laceration (Chronic) Seizure (Chronic) Seizure disorder (Chronic) Myasthenia gravis (Chronic) Type II diabetes mellitus (Chronic) Allergies iodine Allergy (Verified 02/04/18 16:57) Hives Penicillins [PCN] Allergy (Verified 02/04/18 16:57) Unknown simvastatin Adverse Reaction (Verified 02/04/18 16:57) Pain in joints Home Medications: Ambulatory Orders Medication Instructions Recorded glipiZIDE [Glucotrol] 5 mg PO BIDAC 04/04/13 predniSONE tablet 5 mg PO DAILY 04/04/13 Lisinopril [Zestril] 10 mg PO DAILY 01/17/18 levETIRAcetam tablet [Keppra 500 mg PO BID 02/04/18 tablet] Ciprofloxacin [Cipro] 500 mg PO BID 02/10/18 Insulin Glargine [Lantus SoloStar 25 units SC QHS 02/10/18 Pen] Insulin Lispro [Humalog KwikPen] 10 unit SC TIDAC 02/10/18 Insulin Lispro [Humalog KwikPen] See Protocol SQ ACHS 02/10/18 Surgical History: TURP Psychiatric History: No pertinent psych hx Lives: Alone Smoking Status: Never smoker Tobacco Use: Non-smoker Alcohol: None Drugs: None - *Family History Maternal History Items: No pertinent history Paternal History Items: No pertinent history Review of Systems Constitutional: Denies: Chills, Fever, Weight Change HEENT: Denies: Head Aches, Sinus Congestion, Sinus Drainage Cardiovascular: Denies: Chest Pain, Palpitations Respiratory: Denies: Cough, Shortness of breath at rest, Sputum production Gastrointestinal: Denies: Abdominal Pain, Nausea, Vomiting Genitourinary: Denies: Dysuria Musculoskeletal: Denies: Joint Pain, Joint Tenderness Skin: Denies: Rash, Wounds Neurological: Denies: Numbness, Tingling, Focal weakness Psychiatric: Denies: Anxiety, Depression, Homicidal Ideations, Suicidal Ideations Hematologic/ Lymphatic: Denies: Easy Bruising, Easy Bleeding VTE Information - Inpt Only VTE Present on Admission: No VTE Mechan Device Prophylaxis: Knee High RANDALL Hose VTE Pharm Prophylaxis ordered?: Yes Patient Problems: Active and Suspected Problems Fall (Acute) COMPLICATED PYELONEPHRITIS (Acute) Acute kidney injury (Acute) Hydronephrosis (Acute) - Physical Exam General: Alert, Oriented x3, Cooperative HEENT: Atraumatic, PERRLA, EOMI, Normocephalic Neck: Supple, No JVD, Negative Carotid Bruits Lungs: Clear to auscultation, Normal air movement Cardiovascular: Regular rate, No murmurs Abdomen: Bowel Sounds Present, Soft, Non Tender, - - Indwelling perry catheter, FOS. Extremities: No edema, Capillary Refill Less than 3 Seconds Skin: No rashes, No breakdown Musculoskeletal: No Tenderness to Palpation of Joints or Extremities Neurological: Cranial nerves II-XII grossly intact Psych/Mental Status: Normal Affect, Appropriate Vital Signs Temp Pulse Resp BP Pulse Ox 97.1 F L 77 18 112/68 95 02/10/18 15:55 02/10/18 15:55 02/10/18 15:55 02/10/18 15:55 02/10/18 15:55 Oxygen Delivery Method Room Air Weight: 92.1 kg Body Mass Index (BMI) 30.9 Finger Stick Blood Glucose 203 Intake and Output for Last 24 Hours 02/08/18 02/09/18 02/10/18 23:59 23:59 23:59 Intake Total 360 / 360 Balance 360 / 360 POC Glucose 02/10/18 02/10/18 20:51 16:40 POC Glucose 117 H 229 H Assessment/Plan All Active Problems Right-sided pyelonephritis (Acute) Retention, urine (Acute) Retention, urine (Acute) Fall (Acute) COMPLICATED PYELONEPHRITIS (Acute) Acute kidney injury (Acute) Hydronephrosis (Acute) 72 year old male with below past medical history hospitalized for pyelonephritis secondary to BPH with chronic bladder outlet obstruction requiring TURP 02/09/[address] Miranda, complicated by acute kidney injury, hydronephrosis, admitted to TCU with debility, here for rehabilitation, strengthening, prior to discharge home alone. Debility - PT/OT. Pain - Tylenol 1000MG Q8H PRN mild pain. Bowel - Miralax 17GM daily, Senna/colace 2 tablets BID, Dulcolax 10MG PO daily PRN, Magnesium citrate 300ML PO x 1 dose. Pneumonia vaccination - Administer Prevnar 13 and/or Pneumovax 23 as necessary. DVT prophylaxis - Lovenox 30MG SC daily. Pyelonephritis - Cipro 500MG BID thru 02/14/2018. Diabetes Mellitus II - Glipizide 5MG BID, Lantus 25 units QHS, Humalog 10 units TIDAC. Seizure disorder - Keppra 500MG BID. Hypertension - Lisinopril 10MG daily. M. Gravis - Prednisone 5MG daily. BPH with obstruction - status post TURP per Dr. Miranda, who will remove Perry catheter shortly.
[2018-02-11] MEDS: Magnesium Citrate 300 ML PO (02:09)
[2018-02-11] MEDS: levETIRAcetam 500 MG Tablet PO ×2 (05:19→17:02)
[2018-02-11] MEDS: Senna/Docusate Sodium 1 Tablet 2 TABLET PO (05:19)
[2018-02-11] MEDS: Polyethylene Glycol 3350 17 GM PACKET PO (05:19)
[2018-02-11] MEDS: Lisinopril 10 MG Tablet PO (05:19)
[2018-02-11] MEDS: Ciprofloxacin 500 MG Tablet PO ×2 (05:20→17:02)
[2018-02-11] MEDS: Enoxaparin 30 MG/0.3 ML Syringe SC (05:24)
[2018-02-11 05:36] LABS: Absolute Lymphocyte Count 1.21 X10^3/ul (0.83-4.51); Absolute Neutrophil Count 8.2 X10^3/uL (2.0-7.7); Basophil# 0.03 X10^3/uL; Basophil% 0.3 % (0-1); Eosinophil# 0.36 X10^3/uL; Eosinophils% 3.2 % (0-5); Hematocrit 40.5 % (40-54); Hemoglobin 12.9 g/dl (13.0-16.5); Lymphocyte # 1.21 X10^3/ul (4.0); Lymphocyte % 10.6 % (19-41); Mean Corp Hgb Conc 31.9 g/gl (32-36); Mean Corpuscular Hgb 30.1 pg (27.0-32.0); Mean Corpuscular Volume 94.4 fL (80-94); Monocyte# 1.42 X10^3/uL; Monocyte% 12.4 % (0-10); Neutrophil # 8.24 X10^3/uL (2.7-7.7); Neutrophil % 72.2 % (47-70); POSITIVE COUNT NO; POSITIVE DIFFERENTIAL NO; POSITIVE MORPHOLOGY NO; Platelet Count 241 K/mm3 (150-450); RBC Distribution Width CV 13.5 % (11.6-14.6); RBC Distribution Width SD 46.3 fl (35.1-43.9); Red Blood Count 4.29 M/mm3 (4.6-6.2); White Blood Count 11.4 K/mm3 (4.4-11.0)
[2018-02-11 05:58] LABS: Anion Gap 10 (5-15); BUN 15 mg/dL (7-18); Calcium,Total 8.2 mg/dL (8.5-10.1); Chloride 105 mmol/L (98-107); Creatinine, Serum 1.15 mg/dL (0.70-1.30); EST Glomerular Filtration Rate 67 mL/min (>60); Est Glom Filt Rate - Afr Amer 81 mL/min (>60); Glucose 225 mg/dL (74-106); Potassium 4.8 mmol/L (3.5-5.1); Sodium Level 142 mmol/L (136-145)
[2018-02-11 06:51] LABS: Bedside Glucose 200 mg/dL (70-110)
[2018-02-11 07:00] VITALS: PULSE 70; RESP 16; O2SAT 93
[2018-02-11] MEDS: Insulin Lispro 100 UNIT/ML INSULN.PEN 10 UNIT SC ×3 (07:04→17:03)
--- NOTE | 2018-02-11 07:42 | NURSING ---
Dr. Miranda in to see pt. Rivera cath D/C blood noted in catheter bag and around insertion site. Dr. Miranda wants notified if pt is unable to void. States there will be some blood in his urine for a little while. Updated day shift.
[2018-02-11] MEDS: predniSONE 5 MG Tablet PO (08:08)
[2018-02-11] MEDS: glipiZIDE 5 MG Tablet PO ×2 (08:08→17:02)
[2018-02-11 11:21] LABS: Bedside Glucose 303 mg/dL (70-110)
[2018-02-11] MEDS: Tuberculin,Purif.prot.deriv. 50 TU/ML Vial 5 ML ID (11:30)
[2018-02-11 16:00] VITALS: BP 125/61; PULSE 84; RESP 20; TEMP 36.8; O2SAT 93
[2018-02-11 17:10] LABS: Bedside Glucose 248 mg/dL (70-110)
[2018-02-11 20:36] LABS: Bedside Glucose 268 mg/dL (70-110)
[2018-02-12] MEDS: Lisinopril 10 MG Tablet PO (05:31)
[2018-02-12] MEDS: levETIRAcetam 500 MG Tablet PO ×2 (05:31→17:38)
[2018-02-12] MEDS: Ciprofloxacin 500 MG Tablet PO ×2 (05:31→17:38)
[2018-02-12] MEDS: Senna/Docusate Sodium 1 Tablet 2 TABLET PO ×2 (05:31→17:38)
[2018-02-12] MEDS: Enoxaparin 30 MG/0.3 ML Syringe SC (05:32)
[2018-02-12 06:36] LABS: Bedside Glucose 234 mg/dL (70-110)
--- NOTE | 2018-02-12 07:17 | NURSING ---
This nurse got pt up to walk to help with bladder bc pt bladder scan was 526. Pt couldn't go so he asked if I could walk him over to the sink and turn the water on at the sink bc that usually helps. Pt couldn't go while this nurse was in his room. Therapy came in to do ADL with pt and communicated with this nurse that she got 100 ml in the urinal and that he had been dribbling while walking. Pt seemed a little upset that when he walks he dribbles. Told pt i would communicate it with the RN about his considers. Eugenio RN aware. Pt bladder was rechecked and pt had 207 in bladder.
[2018-02-12] MEDS: predniSONE 5 MG Tablet PO (08:03)
[2018-02-12] MEDS: glipiZIDE 5 MG Tablet PO ×2 (08:04→17:38)
[2018-02-12] MEDS: Insulin Lispro 100 UNIT/ML INSULN.PEN 10 UNIT SC ×2 (08:05→11:40)
[2018-02-12 11:26] LABS: Bedside Glucose 259 mg/dL (70-110)
--- NOTE | 2018-02-12 13:10 | PCM.PN.RX ---
<Cade Villeda C - Last Filed: 02/12/18 13:10> Progress Note - Pharmacy Subjective: [] TCU Admission Objective: Allergies iodine Allergy (Verified 02/04/18 16:57) Hives Penicillins [PCN] Allergy (Verified 02/04/18 16:57) Unknown simvastatin Adverse Reaction (Verified 02/04/18 16:57) Pain in joints Current Medications Generic Name Dose Route Start Last Admin Trade Name Freq PRN Reason Stop Dose Admin Acetaminophen 1,000 mg 02/10/18 22:24 Tylenol PO Q8H PRN PRN MILD PAIN (1-3/10) Bisacodyl 10 mg 02/10/18 22:25 Dulcolax PO DAILY PRN Constipation Ciprofloxacin HCl 500 mg 02/10/18 18:00 02/12/18 05:31 Cipro PO 02/15/18 06:01 500 mg BID YAA Administration Enoxaparin Sodium 30 mg 02/11/18 06:00 02/12/18 05:32 Lovenox SC 30 mg DAILY@0600 [facility] Administration Glipizide 5 mg 02/10/18 16:30 02/12/18 08:04 Glucotrol PO 5 mg BIDAC YAA Administration Insulin Glargine 15 units 02/12/18 06:00 02/12/18 06:21 Lantus ([facility]) SC 15 u BID [facility] Administration Insulin Human Lispro 10 unit 02/10/18 16:45 02/12/18 11:40 Humalog Kwikpen ([facility]) SC 10 units TIDAC [facility] Administration Levetiracetam 500 mg 02/10/18 18:00 02/12/18 05:31 Keppra Tablet PO 500 mg BID [facility] Administration Lisinopril 10 mg 02/11/18 06:00 02/12/18 05:31 Zestril PO 10 mg DAILY YAA Administration Polyethylene Glycol 17 gm 02/11/18 06:00 02/12/18 05:31 Miralax PO Not Given DAILY YAA Prednisone 5 mg 02/11/18 08:00 02/12/18 08:03 PO 5 mg DAILYCM YAA Administration Senna/Docusate Sodium 2 tablet 02/11/18 06:00 02/12/18 05:31 Senokot-S, Amna-Colace PO 2 tablet BID [facility] Administration Tuberculin PPD 5 tu 02/18/18 10:00 Tubersol, Aplisol, Ppd ID 02/18/18 10:01 X1 ONE Problem List Fall (Acute) COMPLICATED PYELONEPHRITIS (Acute) Acute kidney injury (Acute) Hydronephrosis (Acute) Vital Signs Temp Pulse Resp BP Pulse Ox 98.3 F 84 20 H 125/61 H 93 02/11/18 16:00 02/11/18 16:00 02/11/18 16:00 02/11/18 16:00 02/11/18 16:00 Oxygen Delivery Method Room Air Weight: 92.1 kg Body Mass Index (BMI) 30.9 Finger Stick Blood Glucose 203 Sodium 142 mmol/L (136-145) 02/11/18 05:15 Potassium 4.8 mmol/L (3.5-5.1) 02/11/18 05:15 Chloride 105 mmol/L (98-107) 02/11/18 05:15 Carbon Dioxide 27.0 mmol/L (21.0-32.0) 02/11/18 05:15 Anion Gap 10 (5-15) 02/11/18 05:15 BUN 15 mg/dL (7-18) 02/11/18 05:15 Creatinine 1.15 mg/dL (0.70-1.30) 02/11/18 05:15 Est GFR (MDRD) Af Amer 81 mL/min (>60) 02/11/18 05:15 Est GFR (MDRD) Non-Af 67 mL/min (>60) 02/11/18 05:15 BUN/Creatinine Ratio 13.0 RATIO (10-20) 02/11/18 05:15 Glucose 225 mg/dL (74-106) H 02/11/18 05:15 Assessment/Plan: 1) Pain: Acetaminophen 1000mg po q8h prn mild pain. Please continue to monitor prn usage and for signs/symptoms of increased/decreased pain. 2) DVT Prophylaxis: Lovenox 30mg subq qam. Pt's SrCr is 1.15 and CrCl is 57. Please continue to monitor for signs/symptoms of bleeding/bruising and/or clot. 3) Pyelonephritis: Cipro 500mg po bid thru 02/14/18. Please continue to monitor for signs/symptoms of continuing infection. 4) Hypertension: Lisinopril 10mg po daily. Pt's SrCr is 1.15, CrCl is 57, BUN is 15, and K+ is 4.8. Please continue to monitor. Pt's blood pressures are within normal limits. Please continue to monitor. 5) Seizure Disorder: Keppra 500mg po bid. Pt's SrCr is 1.15 and BUN is 15. Please continue to monitor. 6) M. Gravis: Prednisone 5mg po daily. Please continue to monitor BS levels due to corticosteroid use. 7) DM: Glipizide 5mg po bid, Lantus 20units subq bid, Humalog 13units subq tidac. Pts A1C is 11.9. Please continue to monitor blood glucose levels and adjust accordingly. Psychotropic Medications: none Unnecessary Medications: none Bowel Regimen: Miralax 17gm po daily, Bisacodyl 10mg po daily prn constipation, Senna/Docusate 2 tablets po bid. Please continue to monitor prn usage and for signs/symptoms of constipation/diarrhea. Date of Note:: 02/12/18 - Provider Comments Provider responsibility: Provider responsible to enter orders to implement recommendations <Jean Chaparro Chi - Last Filed: 02/12/18 16:38> Progress Note - Pharmacy Subjective: [] Objective: Allergies iodine Allergy (Verified 02/04/18 16:57) Hives Penicillins [PCN] Allergy (Verified 02/04/18 16:57) Unknown simvastatin Adverse Reaction (Verified 02/04/18 16:57) Pain in joints Current Medications Generic Name Dose Route Start Last Admin Trade Name Freq PRN Reason Stop Dose Admin Acetaminophen 1,000 mg 02/10/18 22:24 Tylenol PO Q8H PRN PRN MILD PAIN (1-3/10) Bisacodyl 10 mg 02/10/18 22:25 Dulcolax PO DAILY PRN Constipation Ciprofloxacin HCl 500 mg 02/10/18 18:00 02/12/18 05:31 Cipro PO 02/15/18 06:01 500 mg BID YAA Administration Enoxaparin Sodium 30 mg 02/11/18 06:00 02/12/18 05:32 Lovenox SC 30 mg DAILY@0600 YAA Administration Glipizide 5 mg 02/10/18 16:30 02/12/18 08:04 Glucotrol PO 5 mg BIDAC YAA Administration Insulin Glargine 20 units 02/12/18 18:00 Lantus ([facility]) SC BID [facility] Insulin Human Lispro 13 unit 02/12/18 16:45 Humalog Kwikpen ([facility]) SC TIDAC [facility] Levetiracetam 500 mg 02/10/18 18:00 02/12/18 05:31 Keppra Tablet PO 500 mg BID YAA Administration Lisinopril 10 mg 02/11/18 06:00 02/12/18 05:31 Zestril PO 10 mg DAILY YAA Administration Polyethylene Glycol 17 gm 02/11/18 06:00 02/12/18 05:31 Miralax PO Not Given DAILY YAA Prednisone 5 mg 02/11/18 08:00 02/12/18 08:03 PO 5 mg DAILYCM YAA Administration Senna/Docusate Sodium 2 tablet 02/11/18 06:00 02/12/18 05:31 Senokot-S, Amna-Colace PO 2 tablet BID YAA Administration Tuberculin PPD 5 tu 02/18/18 10:00 Tubersol, Aplisol, Ppd ID 02/18/18 10:01 X1 ONE Problem List Fall (Acute) COMPLICATED PYELONEPHRITIS (Acute) Acute kidney injury (Acute) Hydronephrosis (Acute) Vital Signs Temp Pulse Resp BP Pulse Ox 98.7 F 68 20 H 129/76 H 93 02/12/18 16:00 02/12/18 16:00 02/12/18 16:00 02/12/18 16:00 02/12/18 16:00 Oxygen Delivery Method Room Air Weight: 92.1 kg Body Mass Index (BMI) 30.9 Finger Stick Blood Glucose 203 Sodium 142 mmol/L (136-145) 02/11/18 05:15 Potassium 4.8 mmol/L (3.5-5.1) 02/11/18 05:15 Chloride 105 mmol/L (98-107) 02/11/18 05:15 Carbon Dioxide 27.0 mmol/L (21.0-32.0) 02/11/18 05:15 Anion Gap 10 (5-15) 02/11/18 05:15 BUN 15 mg/dL (7-18) 02/11/18 05:15 Creatinine 1.15 mg/dL (0.70-1.30) 02/11/18 05:15 Est GFR (MDRD) Af Amer 81 mL/min (>60) 02/11/18 05:15 Est GFR (MDRD) Non-Af 67 mL/min (>60) 02/11/18 05:15 BUN/Creatinine Ratio 13.0 RATIO (10-20) 02/11/18 05:15 Glucose 225 mg/dL (74-106) H 02/11/18 05:15 Assessment/Plan: Psychotropic Medications: Unnecessary Medications: Bowel Regimen: - Provider Comments Provider responsibility: Provider responsible to enter orders to implement recommendations Provider Comments to Recommendations by Pharmacy: Agree
--- NOTE | 2018-02-12 14:24 | PHA.CONS_ITS ---
<Cade Villeda C - Last Filed: 02/12/18 13:10> Progress Note - Pharmacy Subjective: [] TCU Admission Objective: Allergies iodine Allergy (Verified 02/04/18 16:57) Hives Penicillins [PCN] Allergy (Verified 02/04/18 16:57) Unknown simvastatin Adverse Reaction (Verified 02/04/18 16:57) Pain in joints Current Medications Generic Name Dose Route Start Last Admin Trade Name Freq PRN Reason Stop Dose Admin Acetaminophen 1,000 mg 02/10/18 22:24 Tylenol PO Q8H PRN PRN MILD PAIN (1-3/10) Bisacodyl 10 mg 02/10/18 22:25 Dulcolax PO DAILY PRN Constipation Ciprofloxacin HCl 500 mg 02/10/18 18:00 02/12/18 05:31 Cipro PO 02/15/18 06:01 500 mg BID YAA Administration Enoxaparin Sodium 30 mg 02/11/18 06:00 02/12/18 05:32 Lovenox SC 30 mg DAILY@0600 [facility] Administration Glipizide 5 mg 02/10/18 16:30 02/12/18 08:04 Glucotrol PO 5 mg BIDAC YAA Administration Insulin Glargine 15 units 02/12/18 06:00 02/12/18 06:21 Lantus ([facility]) SC 15 u BID [facility] Administration Insulin Human Lispro 10 unit 02/10/18 16:45 02/12/18 11:40 Humalog Kwikpen ([facility]) SC 10 units TIDAC [facility] Administration Levetiracetam 500 mg 02/10/18 18:00 02/12/18 05:31 Keppra Tablet PO 500 mg BID [facility] Administration Lisinopril 10 mg 02/11/18 06:00 02/12/18 05:31 Zestril PO 10 mg DAILY YAA Administration Polyethylene Glycol 17 gm 02/11/18 06:00 02/12/18 05:31 Miralax PO Not Given DAILY YAA Prednisone 5 mg 02/11/18 08:00 02/12/18 08:03 PO 5 mg DAILYCM YAA Administration Senna/Docusate Sodium 2 tablet 02/11/18 06:00 02/12/18 05:31 Senokot-S, Amna-Colace PO 2 tablet BID [facility] Administration Tuberculin PPD 5 tu 02/18/18 10:00 Tubersol, Aplisol, Ppd ID 02/18/18 10:01 X1 ONE Problem List Fall (Acute) COMPLICATED PYELONEPHRITIS (Acute) Acute kidney injury (Acute) Hydronephrosis (Acute) Vital Signs Temp Pulse Resp BP Pulse Ox 98.3 F 84 20 H 125/61 H 93 02/11/18 16:00 02/11/18 16:00 02/11/18 16:00 02/11/18 16:00 02/11/18 16:00 Oxygen Delivery Method Room Air Weight: 92.1 kg Body Mass Index (BMI) 30.9 Finger Stick Blood Glucose 203 Sodium 142 mmol/L (136-145) 02/11/18 05:15 Potassium 4.8 mmol/L (3.5-5.1) 02/11/18 05:15 Chloride 105 mmol/L (98-107) 02/11/18 05:15 Carbon Dioxide 27.0 mmol/L (21.0-32.0) 02/11/18 05:15 Anion Gap 10 (5-15) 02/11/18 05:15 BUN 15 mg/dL (7-18) 02/11/18 05:15 Creatinine 1.15 mg/dL (0.70-1.30) 02/11/18 05:15 Est GFR (MDRD) Af Amer 81 mL/min (>60) 02/11/18 05:15 Est GFR (MDRD) Non-Af 67 mL/min (>60) 02/11/18 05:15 BUN/Creatinine Ratio 13.0 RATIO (10-20) 02/11/18 05:15 Glucose 225 mg/dL (74-106) H 02/11/18 05:15 Assessment/Plan: 1) Pain: Acetaminophen 1000mg po q8h prn mild pain. Please continue to monitor prn usage and for signs/symptoms of increased/decreased pain. 2) DVT Prophylaxis: Lovenox 30mg subq qam. Pt's SrCr is 1.15 and CrCl is 57. Please continue to monitor for signs/symptoms of bleeding/bruising and/or clot. 3) Pyelonephritis: Cipro 500mg po bid thru 02/14/18. Please continue to monitor for signs/symptoms of continuing infection. 4) Hypertension: Lisinopril 10mg po daily. Pt's SrCr is 1.15, CrCl is 57, BUN is 15, and K+ is 4.8. Please continue to monitor. Pt's blood pressures are within normal limits. Please continue to monitor. 5) Seizure Disorder: Keppra 500mg po bid. Pt's SrCr is 1.15 and BUN is 15. Please continue to monitor. 6) M. Gravis: Prednisone 5mg po daily. Please continue to monitor BS levels due to corticosteroid use. 7) DM: Glipizide 5mg po bid, Lantus 20units subq bid, Humalog 13units subq tidac. Pts A1C is 11.9. Please continue to monitor blood glucose levels and adjust accordingly. Psychotropic Medications: none Unnecessary Medications: none Bowel Regimen: Miralax 17gm po daily, Bisacodyl 10mg po daily prn constipation , Senna/Docusate 2 tablets po bid. Please continue to monitor prn usage and for signs/symptoms of constipation/diarrhea. Date of Note:: 02/12/18 - Provider Comments Provider responsibility: Provider responsible to enter orders to implement recommendations <Jean Chaparro Chi - Last Filed: 02/12/18 16:38> Progress Note - Pharmacy Subjective: [] Objective: Allergies iodine Allergy (Verified 02/04/18 16:57) Hives Penicillins [PCN] Allergy (Verified 02/04/18 16:57) Unknown simvastatin Adverse Reaction (Verified 02/04/18 16:57) Pain in joints Current Medications Generic Name Dose Route Start Last Admin Trade Name Freq PRN Reason Stop Dose Admin Acetaminophen 1,000 mg 02/10/18 22:24 Tylenol PO Q8H PRN PRN MILD PAIN (1-3/10) Bisacodyl 10 mg 02/10/18 22:25 Dulcolax PO DAILY PRN Constipation Ciprofloxacin HCl 500 mg 02/10/18 18:00 02/12/18 05:31 Cipro PO 02/15/18 06:01 500 mg BID YAA Administration Enoxaparin Sodium 30 mg 02/11/18 06:00 02/12/18 05:32 Lovenox SC 30 mg DAILY@0600 YAA Administration Glipizide 5 mg 02/10/18 16:30 02/12/18 08:04 Glucotrol PO 5 mg BIDAC YAA Administration Insulin Glargine 20 units 02/12/18 18:00 Lantus ([facility]) SC BID [facility] Insulin Human Lispro 13 unit 02/12/18 16:45 Humalog Kwikpen ([facility]) SC TIDAC [facility] Levetiracetam 500 mg 02/10/18 18:00 02/12/18 05:31 Keppra Tablet PO 500 mg BID YAA Administration Lisinopril 10 mg 02/11/18 06:00 02/12/18 05:31 Zestril PO 10 mg DAILY YAA Administration Polyethylene Glycol 17 gm 02/11/18 06:00 02/12/18 05:31 Miralax PO Not Given DAILY YAA Prednisone 5 mg 02/11/18 08:00 02/12/18 08:03 PO 5 mg DAILYCM YAA Administration Senna/Docusate Sodium 2 tablet 02/11/18 06:00 02/12/18 05:31 Senokot-S, Amna-Colace PO 2 tablet BID YAA Administration Tuberculin PPD 5 tu 02/18/18 10:00 Tubersol, Aplisol, Ppd ID 02/18/18 10:01 X1 ONE Problem List Fall (Acute) COMPLICATED PYELONEPHRITIS (Acute) Acute kidney injury (Acute) Hydronephrosis (Acute) Vital Signs Temp Pulse Resp BP Pulse Ox 98.7 F 68 20 H 129/76 H 93 02/12/18 16:00 02/12/18 16:00 02/12/18 16:00 02/12/18 16:00 02/12/18 16:00 Oxygen Delivery Method Room Air Weight: 92.1 kg Body Mass Index (BMI) 30.9 Finger Stick Blood Glucose 203 Sodium 142 mmol/L (136-145) 02/11/18 05:15 Potassium 4.8 mmol/L (3.5-5.1) 02/11/18 05:15 Chloride 105 mmol/L (98-107) 02/11/18 05:15 Carbon Dioxide 27.0 mmol/L (21.0-32.0) 02/11/18 05:15 Anion Gap 10 (5-15) 02/11/18 05:15 BUN 15 mg/dL (7-18) 02/11/18 05:15 Creatinine 1.15 mg/dL (0.70-1.30) 02/11/18 05:15 Est GFR (MDRD) Af Amer 81 mL/min (>60) 02/11/18 05:15 Est GFR (MDRD) Non-Af 67 mL/min (>60) 02/11/18 05:15 BUN/Creatinine Ratio 13.0 RATIO (10-20) 02/11/18 05:15 Glucose 225 mg/dL (74-106) H 02/11/18 05:15 Assessment/Plan: Psychotropic Medications: Unnecessary Medications: Bowel Regimen: - Provider Comments Provider responsibility: Provider responsible to enter orders to implement recommendations Provider Comments to Recommendations by Pharmacy: Agree
--- NOTE | 2018-02-12 15:16 | NURSING ---
BLADDER SCANNED PT AT 1330, 428. POST VOIDED AT 100 PLUS MODERATE INCONTINENCE. BLADDER SCANED AGAIN AT 1500 AFTER INCONTINENCE OF LARGE AMOUNT. SCANNED 159. REPORTED TO TODD TEJEDA
[2018-02-12 16:00] VITALS: BP 129/76; PULSE 68; RESP 20; TEMP 37.1; O2SAT 93
[2018-02-12 16:50] LABS: Bedside Glucose 143 mg/dL (70-110)
[2018-02-12] MEDS: Bisacodyl 5 MG Tablet 10 MG PO (17:38)
[2018-02-12] MEDS: Insulin Lispro 100 UNIT/ML INSULN.PEN 13 UNIT SC (17:42)
[2018-02-12 20:51] LABS: Bedside Glucose 119 mg/dL (70-110)
[2018-02-12 21:08] VITALS: PULSE 70; RESP 18; O2SAT 95
[2018-02-13] MEDS: Polyethylene Glycol 3350 17 GM PACKET PO (05:11)
[2018-02-13] MEDS: Senna/Docusate Sodium 1 Tablet 2 TABLET PO ×2 (05:12→17:03)
[2018-02-13] MEDS: Ciprofloxacin 500 MG Tablet PO ×2 (05:12→17:03)
[2018-02-13] MEDS: levETIRAcetam 500 MG Tablet PO ×2 (05:13→17:03)
[2018-02-13] MEDS: Lisinopril 10 MG Tablet PO (05:13)
[2018-02-13] MEDS: Enoxaparin 30 MG/0.3 ML Syringe SC (05:13)
[2018-02-13 06:56] LABS: Bedside Glucose 156 mg/dL (70-110)
--- NOTE | 2018-02-13 07:39 | NURSING ---
Pt was given colace yesterday morning no results as of this morning. Pt was given colace and mirlax this morning for BM.
[2018-02-13] MEDS: predniSONE 5 MG Tablet PO (07:49)
[2018-02-13] MEDS: Insulin Lispro 100 UNIT/ML INSULN.PEN 13 UNIT SC (07:49)
[2018-02-13] MEDS: glipiZIDE 5 MG Tablet PO ×2 (07:49→17:03)
[2018-02-13 10:00] VITALS: PULSE 64; O2SAT 93
[2018-02-13] MEDS: Insulin Lispro 100 UNIT/ML INSULN.PEN 10 UNIT SC ×2 (11:17→17:18)
[2018-02-13 11:20] LABS: Bedside Glucose 159 mg/dL (70-110)
[2018-02-13 15:18] VITALS: BP 125/73; PULSE 66; RESP 16; TEMP 36.2; O2SAT 94
--- NOTE | 2018-02-13 16:23 | NURSING ---
discussed code status with pt, he wishes to be full code.
[2018-02-13 17:00] LABS: Bedside Glucose 126 mg/dL (70-110)
[2018-02-13] MEDS: Bisacodyl 5 MG Tablet 10 MG PO (17:07)
[2018-02-13 20:55] LABS: Bedside Glucose 147 mg/dL (70-110)
[2018-02-14] MEDS: Ciprofloxacin 500 MG Tablet PO ×2 (05:04→17:19)
[2018-02-14] MEDS: Lisinopril 10 MG Tablet PO (05:04)
[2018-02-14] MEDS: Bisacodyl 5 MG Tablet 10 MG PO (05:04)
[2018-02-14] MEDS: Polyethylene Glycol 3350 17 GM PACKET PO (05:05)
[2018-02-14] MEDS: Enoxaparin 30 MG/0.3 ML Syringe SC (05:05)
[2018-02-14] MEDS: levETIRAcetam 500 MG Tablet PO ×2 (05:05→17:19)
[2018-02-14] MEDS: Senna/Docusate Sodium 1 Tablet 2 TABLET PO ×2 (05:06→17:19)
[2018-02-14 06:55] LABS: Bedside Glucose 134 mg/dL (70-110)
[2018-02-14] MEDS: glipiZIDE 5 MG Tablet PO ×2 (08:32→17:19)
[2018-02-14] MEDS: predniSONE 5 MG Tablet PO (08:32)
[2018-02-14] MEDS: Insulin Lispro 100 UNIT/ML INSULN.PEN 10 UNIT SC ×3 (08:33→17:22)
[2018-02-14 11:26] LABS: Bedside Glucose 248 mg/dL (70-110)
[2018-02-14 15:03] VITALS: BP 118/64; PULSE 65; RESP 16; TEMP 36.1; O2SAT 92
[2018-02-14 15:58] VITALS: RESP 18
[2018-02-14 17:06] LABS: Bedside Glucose 271 mg/dL (70-110)
[2018-02-14 21:01] LABS: Bedside Glucose 243 mg/dL (70-110)
[2018-02-15] MEDS: levETIRAcetam 500 MG Tablet PO ×2 (05:34→17:34)
[2018-02-15] MEDS: Lisinopril 10 MG Tablet PO (05:34)
[2018-02-15] MEDS: Polyethylene Glycol 3350 17 GM PACKET PO (05:35)
[2018-02-15] MEDS: Enoxaparin 30 MG/0.3 ML Syringe SC (05:35)
[2018-02-15] MEDS: Senna/Docusate Sodium 1 Tablet 2 TABLET PO (05:35)
[2018-02-15] MEDS: Ciprofloxacin 500 MG Tablet PO (05:35)
[2018-02-15 06:47] LABS: Bedside Glucose 145 mg/dL (70-110)
[2018-02-15] MEDS: glipiZIDE 5 MG Tablet PO ×2 (07:42→17:34)
[2018-02-15] MEDS: predniSONE 5 MG Tablet PO (07:42)
[2018-02-15] MEDS: Insulin Lispro 100 UNIT/ML INSULN.PEN 10 UNIT SC ×3 (08:55→17:35)
--- NOTE | 2018-02-15 10:04 | NURSING ---
PT BOTTOM RED. ASKED TODD TEJEDA FOR ORDER OF NATHANIEL.
[2018-02-15 11:06] LABS: Bedside Glucose 224 mg/dL (70-110)
[2018-02-15 15:29] VITALS: BP 97/62; PULSE 63; RESP 18; TEMP 37.1; O2SAT 96
[2018-02-15 17:05] LABS: Bedside Glucose 135 mg/dL (70-110)
[2018-02-15] MEDS: Menthol/Lanolin/Calamine/Znox 113 GM Tube 1 APPLIC TOPICAL (17:34)
[2018-02-15 20:40] VITALS: PULSE 74; RESP 18; O2SAT 95
--- NOTE | 2018-02-15 21:00 | PCM.CONS.GEN ---
Problem List (1) Tinea unguium Status: Chronic (2) Type II diabetes mellitus Status: Chronic Qualifiers: Diabetes mellitus group home insulin use: with group home use Reason for Consult Date of Consultation: 02/15/18 Reason for Consultation: Long thick toenails History of Present Illness: The patient is a 72 year old M with significant past medical history of diabetes, acute kidney injury, BPH, urinary retention, myasthenia gravis, seizure disorder was admitted to the transitional care unit for fall. I saw him this evening bedside for consultation for a long thick toenails that he is unable to safely trimming his own. He asks for help today. He last saw Dr. Chaparro on 02/10/2018. He denies claudication. He denies rest burning and tingling. He denies previous lower extremity wounds or other injuries at this time. Past Medical History Past Medical History (Chronic Problems): Chronic Problems BPH (benign prostatic hyperplasia) (Chronic) Tinea unguium (Chronic) Scalp laceration (Chronic) Seizure (Chronic) Seizure disorder (Chronic) Myasthenia gravis (Chronic) Type II diabetes mellitus (Chronic) Allergies iodine Allergy (Verified 02/04/18 16:57) Hives Penicillins [PCN] Allergy (Verified 02/04/18 16:57) Unknown simvastatin Adverse Reaction (Verified 02/04/18 16:57) Pain in joints Home Medications: Ambulatory Orders Medication Instructions Recorded glipiZIDE [Glucotrol] 5 mg PO BIDAC 04/04/13 predniSONE tablet 5 mg PO DAILY 04/04/13 Lisinopril [Zestril] 10 mg PO DAILY 01/17/18 levETIRAcetam tablet [Keppra 500 mg PO BID 02/04/18 tablet] Ciprofloxacin [Cipro] 500 mg PO BID 02/10/18 Insulin Glargine [Lantus SoloStar 25 units SC QHS 02/10/18 Pen] Insulin Lispro [Humalog KwikPen] 10 unit SC TIDAC 02/10/18 Insulin Lispro [Humalog KwikPen] See Protocol SQ ACHS 02/10/18 Surgical History: TURP Psychiatric History: No pertinent psych hx Lives: Alone Smoking Status: Never smoker Tobacco Use: Non-smoker Alcohol: None Drugs: None - *Family History Maternal History Items: No pertinent history Paternal History Items: No pertinent history Review of Systems Constitutional: Reports: Weakness. Denies: Chills, Fever Cardiovascular: Denies: Chest Pain, Claudication Respiratory: Denies: Shortness of Breath Gastrointestinal: Denies: Nausea, Vomiting Genitourinary: Reports: Retention Musculoskeletal: Denies: Foot Pain, Leg Pain Skin: Reports: - - nail changes. Denies: Wounds Neurological: Reports: Balance problems. Denies: Incoordination, Numbness Patient Problems: Active and Suspected Problems Fall (Acute) COMPLICATED PYELONEPHRITIS (Acute) Acute kidney injury (Acute) Hydronephrosis (Acute) - Physical Exam General: Alert, Oriented x3, Cooperative Extremities: No cyanosis, No edema, Capillary Refill Less than 3 Seconds - all toes bilateral, No Calf Tenderness - negative bhanu and [place] signs bilateral, Peripheral Pulses Normal - palpable dp (2/4) and pt (1/4) bilateral. Skin: - - toenails are long thick dystrophic and with subungual debris bilateral. He does not have any wounds, erythema, streaking, maceration, odor, infection, tissue loss or necrosis bilateral lower extremities. His skin is atrophic and he does have hair present to bilateral lower extremities Musculoskeletal: No Tenderness to Palpation of Joints or Extremities, Muscle Wasting, - - Compartments lower extremity remain soft bilateral. Active range of motion digits ?10. I verified ankle muscle strength in all directions bilateral. Pain with new compression [id number] bilateral Neurological: Sensory exam intact to light touch and pain Psych/Mental Status: Normal Affect, Appropriate Vital Signs Temp Pulse Resp BP Pulse Ox 98.7 F 63 18 97/62 96 02/15/18 15:29 02/15/18 15:29 02/15/18 15:29 02/15/18 15:29 02/15/18 15:29 Oxygen Delivery Method Room Air Weight: 92.1 kg Body Mass Index (BMI) 30.9 Finger Stick Blood Glucose 203 Intake and Output for Last 24 Hours 02/13/18 02/14/18 02/15/18 23:59 23:59 23:59 Intake Total 1140 / 1140 840 / 840 900 / 900 Output Total 1400 / 1400 1100 / 1100 450 / 450 Balance -260 / -260 -260 / -260 450 / 450 POC Glucose 02/15/18 02/15/18 02/15/18 16:48 10:55 06:24 POC Glucose 135 H 224 H 145 H 02/14/18 20:52 POC Glucose 243 H Assessment/Plan All Active Problems Right-sided pyelonephritis (Acute) Retention, urine (Acute) Retention, urine (Acute) Fall (Acute) COMPLICATED PYELONEPHRITIS (Acute) Acute kidney injury (Acute) Hydronephrosis (Acute) 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 It is noted he resides in transitional care unit for other conditions continues rehabilitation. I debrided his toenails ?10 without incident with a nail nipper to reduce the nail length and thickness. This was performed to prevent pressure, pain, wound formation, and to reduce fungal potential load. He understands potential workup and intervention is possible for nail fungus and elects to proceed with the palliative care plan at this time. I recommend he [facility] within the next 4 months. He was reassured no lower extremity wounds or infections are noted. I recommend he moisturizes his skin daily to maintain proper skin integrity. Medical management DVT prophylaxis per primary team is appreciated. Thank you very much for the consultation. Please not hesitate to call if you have any questions. Milagros Mckoy DPM, FACFAS [facility] [phone]
[2018-02-15 21:11] LABS: Bedside Glucose 206 mg/dL (70-110)
[2018-02-16] MEDS: levETIRAcetam 500 MG Tablet PO ×2 (06:45→18:23)
[2018-02-16] MEDS: Menthol/Lanolin/Calamine/Znox 113 GM Tube 1 APPLIC TOPICAL ×2 (06:45→18:23)
[2018-02-16] MEDS: Senna/Docusate Sodium 1 Tablet 2 TABLET PO (06:47)
[2018-02-16] MEDS: Enoxaparin 30 MG/0.3 ML Syringe SC (06:47)
[2018-02-16] MEDS: Lisinopril 10 MG Tablet PO (06:48)
[2018-02-16] MEDS: Insulin Lispro 100 UNIT/ML INSULN.PEN 10 UNIT SC ×3 (06:49→18:25)
[2018-02-16 06:51] LABS: Bedside Glucose 125 mg/dL (70-110)
[2018-02-16] MEDS: glipiZIDE 5 MG Tablet PO ×2 (08:07→18:23)
[2018-02-16] MEDS: predniSONE 5 MG Tablet PO (08:08)
[2018-02-16 11:11] LABS: Bedside Glucose 248 mg/dL (70-110)
--- NOTE | 2018-02-16 14:37 | CASEMGMT ---
Brief interview for mental status (BIMS) and resident mood interview (PHQ-9) completed on this day. BIMS score 15/15. PHQ-9 score
[2018-02-16 15:29] VITALS: BP 128/68; PULSE 68; RESP 16; TEMP 36.8; O2SAT 97
[2018-02-16 16:50] LABS: Bedside Glucose 150 mg/dL (70-110)
--- NOTE | 2018-02-16 19:50 | NURSING ---
THIS NURSE FOUND PT UP WALKING IN ROOM, AIDS REPORTED EARLIER TO THIS NURSE THAT THEY ALSO CAUGHT PT UP IN ROOM WALKING. THIS NURSE EXPLAINED TO PT THAT HE NEED TO USE THE CALL LIGHT IF HE NEEDED ANYTHING AND REORIENTED PT TO CALL [facility]. PT UNDER STOOD. STATED TO PT THAT WE DO NOT WANT HIM TO FALL. REPORTED TO TODD TANNER
[2018-02-16 20:51] LABS: Bedside Glucose 233 mg/dL (70-110)
[2018-02-17] MEDS: levETIRAcetam 500 MG Tablet PO ×2 (05:03→17:08)
[2018-02-17] MEDS: Menthol/Lanolin/Calamine/Znox 113 GM Tube 1 APPLIC TOPICAL ×2 (05:03→17:09)
[2018-02-17] MEDS: Enoxaparin 30 MG/0.3 ML Syringe SC (05:04)
[2018-02-17] MEDS: Lisinopril 10 MG Tablet PO (05:04)
[2018-02-17 07:06] LABS: Bedside Glucose 107 mg/dL (70-110)
[2018-02-17] MEDS: predniSONE 5 MG Tablet PO (08:14)
[2018-02-17] MEDS: glipiZIDE 5 MG Tablet PO ×2 (08:14→17:08)
--- NOTE | 2018-02-17 09:58 | CASEMGMT ---
Plan of care meeting held. Resident present, no family present at this time. Resident requesting for this social media sr strategy manager to contact resident Jonna cam in regards to Plan of care meeting update. Resident to continue with further care and treatment on the Transitional Care Unit and has no discharge date set at this time. Resident plans to discharge to home alone at time of discharge. Attempted to contact resident Jonna cam, no answer at this time. Support given. Will continue to follow. Skylar WILKINSON, REHABILITATION SERVICES DIRECTOR
[2018-02-17 10:00] VITALS: PULSE 88; RESP 18; O2SAT 98
[2018-02-17 11:35] LABS: Bedside Glucose 196 mg/dL (70-110)
[2018-02-17] MEDS: Insulin Lispro 100 UNIT/ML INSULN.PEN 7 UNIT SC ×2 (11:47→17:09)
[2018-02-17 13:20] LABS: Bacteria 0 SEEN /hpf (None Seen); Mucous, Urine 0 SEEN /hpf (<or=2+); Squamous Epithelial Cells - UA 0 SEEN /hpf (0-5)
[2018-02-17 13:30] LABS: Color, Urine Yellow (Yellow); Glucose, Dipstick 1000 mg/dl (Normal); Ketone-Dipstick Negative (Negative); Leukocyte Esterase-Dipstick 100 /ul (Negative); Nitrite-Dipstick Negative (Negative); Occult Blood-Urine 250 /ul (Negative); Protein-Dipstick 30 mg/dl (Negative); Specific Gravity, Urine 1.015 (1.002-1.030); Urine Bilirubin Dipstick Negative (Negative); Urine Clarity Clear (Clear); Urine Urobilinogen Normal (Normal)
[2018-02-17 13:41] LABS: Red Blood Cells-Urine 10-25 SEEN /hpf (0-5)
[2018-02-17 13:42] LABS: White Blood Cells 0-5 SEEN /hpf (0-5)
[2018-02-17 15:57] VITALS: BP 113/66; PULSE 68; RESP 18; TEMP 36.8; O2SAT 95
--- NOTE | 2018-02-17 16:16 | NURSING ---
Addendum entered by Latrice Urena 02/17/18 16:17: also notified of KUB results. New order for mag citrate 300ml x1 for constipation. Original Note: Results from urine called to Dr Chaparro, no new orders. Culture pendings
[2018-02-17 17:05] LABS: Bedside Glucose 120 mg/dL (70-110)
[2018-02-17] MEDS: Magnesium Citrate 300 ML PO (17:05)
[2018-02-17 20:56] LABS: Bedside Glucose 197 mg/dL (70-110)
[2018-02-18 05:29] LABS: Absolute Lymphocyte Count 1.76 X10^3/ul (0.83-4.51); Absolute Neutrophil Count 6.5 X10^3/uL (2.0-7.7); Basophil# 0.07 X10^3/uL; Basophil% 0.7 % (0-1); Eosinophil# 0.45 X10^3/uL; Eosinophils% 4.7 % (0-5); Hematocrit 42.3 % (40-54); Hemoglobin 13.5 g/dl (13.0-16.5); Lymphocyte # 1.76 X10^3/ul (4.0); Lymphocyte % 18.2 % (19-41); Mean Corp Hgb Conc 31.9 g/gl (32-36); Mean Corpuscular Hgb 30.1 pg (27.0-32.0); Mean Corpuscular Volume 94.4 fL (80-94); Mean Platelet Vol. 10.6 fl (6.2-12.0); Monocyte# 0.82 X10^3/uL; Monocyte% 8.5 % (0-10); Neutrophil # 6.52 X10^3/uL (2.7-7.7); Neutrophil % 67.5 % (47-70); Platelet Count 258 K/mm3 (150-450); RBC Distribution Width CV 13.5 % (11.6-14.6); RBC Distribution Width SD 44.8 fl (35.1-43.9); Red Blood Count 4.48 M/mm3 (4.6-6.2); White Blood Count 9.7 K/mm3 (4.4-11.0)
[2018-02-18 05:32] LABS: POSITIVE COUNT NO; POSITIVE DIFFERENTIAL NO; POSITIVE MORPHOLOGY NO
[2018-02-18 05:43] LABS: Anion Gap 7 (5-15); BUN 14 mg/dL (7-18); BUN/Creat Ratio 14.4 RATIO (10-20); Calcium,Total 8.1 mg/dL (8.5-10.1); Chloride 107 mmol/L (98-107); Creatinine, Serum 0.97 mg/dL (0.70-1.30); EST Glomerular Filtration Rate 81 mL/min (>60); Est Glom Filt Rate - Afr Amer 98 mL/min (>60); Estimated Creatinine Clearance 67.58 ml/min; Glucose 157 mg/dL (74-106); Potassium 4.2 mmol/L (3.5-5.1); Sodium Level 141 mmol/L (136-145)
[2018-02-18 06:00] VITALS: PULSE 68; RESP 16; O2SAT 96
[2018-02-18] MEDS: Enoxaparin 30 MG/0.3 ML Syringe SC (06:07)
[2018-02-18] MEDS: Polyethylene Glycol 3350 17 GM PACKET PO (06:08)
[2018-02-18] MEDS: Menthol/Lanolin/Calamine/Znox 113 GM Tube 1 APPLIC TOPICAL ×2 (06:08→17:35)
[2018-02-18] MEDS: levETIRAcetam 500 MG Tablet PO ×2 (06:08→17:34)
[2018-02-18] MEDS: Senna/Docusate Sodium 1 Tablet 2 TABLET PO (06:08)
[2018-02-18] MEDS: Lisinopril 10 MG Tablet PO (06:08)
[2018-02-18 07:00] LABS: Bedside Glucose 173 mg/dL (70-110)
[2018-02-18] MEDS: Insulin Lispro 100 UNIT/ML INSULN.PEN 7 UNIT SC ×3 (08:13→17:34)
[2018-02-18] MEDS: predniSONE 5 MG Tablet PO (08:16)
[2018-02-18] MEDS: glipiZIDE 5 MG Tablet PO ×2 (08:16→17:34)
[2018-02-18 11:11] LABS: Bedside Glucose 215 mg/dL (70-110)
[2018-02-18] MEDS: Tuberculin,Purif.prot.deriv. 50 TU/ML Vial 5 ML ID (11:41)
[2018-02-18 16:00] VITALS: BP 120/68; PULSE 64; RESP 16; TEMP 36.4; O2SAT 96
[2018-02-18 16:50] LABS: Bedside Glucose 135 mg/dL (70-110)
[2018-02-18 20:55] LABS: Bedside Glucose 204 mg/dL (70-110)
[2018-02-19] MEDS: Senna/Docusate Sodium 1 Tablet 2 TABLET PO ×2 (05:53→17:38)
[2018-02-19] MEDS: Polyethylene Glycol 3350 17 GM PACKET PO (05:54)
[2018-02-19] MEDS: Menthol/Lanolin/Calamine/Znox 113 GM Tube 1 APPLIC TOPICAL ×2 (05:54→17:42)
[2018-02-19] MEDS: levETIRAcetam 500 MG Tablet PO ×2 (05:54→17:38)
[2018-02-19] MEDS: Lisinopril 10 MG Tablet PO (05:54)
[2018-02-19] MEDS: Enoxaparin 30 MG/0.3 ML Syringe SC (05:54)
[2018-02-19 06:35] LABS: Bedside Glucose 141 mg/dL (70-110)
[2018-02-19] MEDS: predniSONE 5 MG Tablet PO (08:34)
[2018-02-19] MEDS: glipiZIDE 5 MG Tablet PO ×2 (08:34→17:38)
[2018-02-19] MEDS: Insulin Lispro 100 UNIT/ML INSULN.PEN 7 UNIT SC ×3 (08:34→17:41)
[2018-02-19 10:00] VITALS: PULSE 78; RESP 18; O2SAT 96
[2018-02-19 11:21] LABS: Bedside Glucose 235 mg/dL (70-110)
[2018-02-19 12:08] LABS: QNTFERON TB Ag Minus Nil Value < 0 IU/mL (.); QNTFERON TB Ag Value 0.06 IU/mL (.); QNTFERON TB Mitogen Value 6.49 IU/mL (.); QNTFERON TB Nil Value 0.09 IU/mL (.)
[2018-02-19 14:22] LABS: QNTIFERON TB Gold Negative (Negative)
[2018-02-19 15:24] VITALS: BP 118/68; PULSE 77; RESP 16; TEMP 36.3; O2SAT 95
[2018-02-19 17:06] LABS: Bedside Glucose 173 mg/dL (70-110)
[2018-02-19 21:11] LABS: Bedside Glucose 205 mg/dL (70-110)
[2018-02-20] MEDS: Menthol/Lanolin/Calamine/Znox 113 GM Tube 1 APPLIC TOPICAL ×2 (06:48→17:14)
[2018-02-20] MEDS: Polyethylene Glycol 3350 17 GM PACKET PO (06:49)
[2018-02-20] MEDS: Lisinopril 10 MG Tablet PO (06:49)
[2018-02-20] MEDS: Senna/Docusate Sodium 1 Tablet 2 TABLET PO ×2 (06:49→17:10)
[2018-02-20] MEDS: levETIRAcetam 500 MG Tablet PO ×2 (06:50→17:10)
[2018-02-20] MEDS: Enoxaparin 30 MG/0.3 ML Syringe SC (06:51)
[2018-02-20 07:06] LABS: Bedside Glucose 136 mg/dL (70-110)
[2018-02-20] MEDS: glipiZIDE 5 MG Tablet PO ×2 (08:02→17:10)
[2018-02-20] MEDS: predniSONE 5 MG Tablet PO (08:03)
[2018-02-20] MEDS: Insulin Lispro 100 UNIT/ML INSULN.PEN 7 UNIT SC ×3 (08:03→17:45)
--- NOTE | 2018-02-20 08:08 | NURSING ---
PT TB TEST WAS POSITIVE. REPORTED TO TODD TEJEDA
[2018-02-20 10:00] VITALS: PULSE 87; RESP 18; O2SAT 98
[2018-02-20 11:30] LABS: Bedside Glucose 144 mg/dL (70-110)
[2018-02-20 15:05] VITALS: BP 107/66; PULSE 70; RESP 18; TEMP 36.4; O2SAT 94
[2018-02-20 16:50] LABS: Bedside Glucose 112 mg/dL (70-110)
[2018-02-20 21:06] LABS: Bedside Glucose 130 mg/dL (70-110)
[2018-02-21] MEDS: Polyethylene Glycol 3350 17 GM PACKET PO (06:01)
[2018-02-21] MEDS: Lisinopril 10 MG Tablet PO (06:13)
[2018-02-21] MEDS: Senna/Docusate Sodium 1 Tablet 2 TABLET PO ×2 (06:13→17:36)
[2018-02-21] MEDS: levETIRAcetam 500 MG Tablet PO ×2 (06:13→17:36)
[2018-02-21] MEDS: Enoxaparin 30 MG/0.3 ML Syringe SC (06:14)
[2018-02-21] MEDS: Menthol/Lanolin/Calamine/Znox 113 GM Tube 1 APPLIC TOPICAL ×2 (06:18→17:36)
[2018-02-21 06:56] LABS: Bedside Glucose 155 mg/dL (70-110)
[2018-02-21] MEDS: predniSONE 5 MG Tablet PO (07:51)
[2018-02-21] MEDS: glipiZIDE 5 MG Tablet PO ×2 (07:51→17:35)
[2018-02-21] MEDS: Insulin Lispro 100 UNIT/ML INSULN.PEN 7 UNIT SC ×3 (07:51→17:37)
[2018-02-21 09:15] VITALS: PULSE 82; RESP 18; O2SAT 98
[2018-02-21 11:30] LABS: Bedside Glucose 186 mg/dL (70-110)
[2018-02-21 15:35] VITALS: BP 117/69; PULSE 72; RESP 16; TEMP 36.7; O2SAT 95
[2018-02-21 16:46] LABS: Bedside Glucose 147 mg/dL (70-110)
[2018-02-21 20:51] LABS: Bedside Glucose 149 mg/dL (70-110)
[2018-02-22] MEDS: Enoxaparin 30 MG/0.3 ML Syringe SC (05:35)
[2018-02-22] MEDS: Polyethylene Glycol 3350 17 GM PACKET PO (05:35)
[2018-02-22] MEDS: Menthol/Lanolin/Calamine/Znox 113 GM Tube 1 APPLIC TOPICAL ×2 (05:35→17:20)
[2018-02-22] MEDS: levETIRAcetam 500 MG Tablet PO ×2 (05:35→17:18)
[2018-02-22] MEDS: Senna/Docusate Sodium 1 Tablet 2 TABLET PO ×2 (05:36→17:18)
[2018-02-22] MEDS: Lisinopril 10 MG Tablet PO (05:37)
[2018-02-22 06:56] LABS: Bedside Glucose 131 mg/dL (70-110)
[2018-02-22] MEDS: glipiZIDE 5 MG Tablet PO ×2 (07:51→17:18)
[2018-02-22] MEDS: predniSONE 5 MG Tablet PO (07:51)
[2018-02-22] MEDS: Insulin Lispro 100 UNIT/ML INSULN.PEN 7 UNIT SC ×3 (07:52→17:37)
[2018-02-22 09:30] VITALS: PULSE 87; RESP 18; O2SAT 97
--- NOTE | 2018-02-22 10:14 | NURSING ---
PT REFUSED TEDHOSE AND PAOLA WRAPS.
[2018-02-22 11:26] LABS: Bedside Glucose 169 mg/dL (70-110)
[2018-02-22 15:17] VITALS: BP 117/61; PULSE 76; RESP 18; TEMP 36.5; O2SAT 95
[2018-02-22 16:51] LABS: Bedside Glucose 166 mg/dL (70-110)
[2018-02-22 21:01] LABS: Bedside Glucose 133 mg/dL (70-110)
[2018-02-23] MEDS: Menthol/Lanolin/Calamine/Znox 113 GM Tube 1 APPLIC TOPICAL ×2 (05:14→17:33)
[2018-02-23] MEDS: levETIRAcetam 500 MG Tablet PO ×2 (05:15→17:29)
[2018-02-23] MEDS: Polyethylene Glycol 3350 17 GM PACKET PO (05:15)
[2018-02-23] MEDS: Lisinopril 10 MG Tablet PO (05:15)
[2018-02-23] MEDS: Senna/Docusate Sodium 1 Tablet 2 TABLET PO (05:15)
[2018-02-23] MEDS: Enoxaparin 30 MG/0.3 ML Syringe SC (05:16)
[2018-02-23 06:16] LABS: Bedside Glucose 183 mg/dL (70-110)
[2018-02-23 06:30] VITALS: PULSE 70; RESP 16; O2SAT 94
[2018-02-23] MEDS: Insulin Lispro 100 UNIT/ML INSULN.PEN 7 UNIT SC ×3 (09:08→17:30)
[2018-02-23] MEDS: glipiZIDE 5 MG Tablet PO ×2 (09:09→17:29)
[2018-02-23] MEDS: predniSONE 5 MG Tablet PO (09:09)
[2018-02-23] MEDS: Acetaminophen 500 MG Tablet 1000 MG PO (09:10)
[2018-02-23 11:21] LABS: Bedside Glucose 205 mg/dL (70-110)
--- NOTE | 2018-02-23 14:20 | MDS.RN ---
Information for the mds was obtained from review of the clinical record, interview of resident, staff, and direct observation of resident's care.
--- NOTE | 2018-02-23 15:50 | CASEMGMT ---
Brief interview for mental status (BIMS) and resident mood interview (PHQ-9) completed on this day. BIMS score 15/15. PHQ-9 score
[2018-02-23 15:56] VITALS: BP 103/68; PULSE 68; RESP 20; TEMP 36.4; O2SAT 96
[2018-02-23 16:56] LABS: Bedside Glucose 138 mg/dL (70-110)
[2018-02-23 21:20] LABS: Bedside Glucose 121 mg/dL (70-110)
[2018-02-24] MEDS: Enoxaparin 30 MG/0.3 ML Syringe SC (04:57)
[2018-02-24] MEDS: Lisinopril 10 MG Tablet PO (05:00)
[2018-02-24] MEDS: levETIRAcetam 500 MG Tablet PO ×2 (05:00→17:36)
[2018-02-24] MEDS: Menthol/Lanolin/Calamine/Znox 113 GM Tube 1 APPLIC TOPICAL ×2 (05:01→17:40)
[2018-02-24 06:56] LABS: Bedside Glucose 125 mg/dL (70-110)
--- NOTE | 2018-02-24 08:21 | NURSING ---
Pt has c/o burning with urination and having mild hematuria. Dr. Chaparro updated, NO for UA.
[2018-02-24] MEDS: predniSONE 5 MG Tablet PO (08:45)
[2018-02-24] MEDS: glipiZIDE 5 MG Tablet PO ×2 (08:45→17:36)
[2018-02-24] MEDS: Insulin Lispro 100 UNIT/ML INSULN.PEN 7 UNIT SC ×3 (08:46→17:37)
[2018-02-24 11:41] LABS: Bedside Glucose 102 mg/dL (70-110)
--- NOTE | 2018-02-24 13:22 | NURSING ---
DR ARZOLA ORDERED A STRAIGHT CATH ON PT, PT REFUSED. ASKED PT IF WE COULD DO A CLEAN CATCH. PT AGREED. REPORTED TO TODD CASTILLO
--- NOTE | 2018-02-24 13:46 | CASEMGMT ---
Social Work Spoke with resident in room. This social worker clinical communicating to resident that discharge date has been set for 02/28/18. Resident is agreeable to discharge date and plans to discharge to home alone. This social worker clinical communicating that physical therapy is recommending for resident to continue with services via outpatient physical therapy. Resident declining to have continued therapy in the home or outside of the home. Resident reporting to be able to do exercises at home. Resident contacting resident son to provide transportation home for resident on 02/28/18. Resident requesting for this social worker clinical to contact resident sister, Jonna in regards to discharge date and plan. Telephone call to Jonna, no answer at this time and unable to leave a voicemail due there being no voicemail. Confirmed Jonna's contact number with resident and correct number is being dialed. Resident reporting to have all needed durable medical equipment at time of discharge. Support given. Proposed discharge date: 02/28/18 PLAN: Discharge to home alone. Skylar WILKINSON, NETBACKUP ENGINEER
[2018-02-24 15:44] VITALS: BP 118/64; PULSE 77; RESP 16; TEMP 36.8; O2SAT 95
[2018-02-24 17:05] LABS: Bedside Glucose 111 mg/dL (70-110)
[2018-02-24 20:11] VITALS: BP 109/61; PULSE 64; RESP 18; TEMP 36.6; O2SAT 92
[2018-02-24 20:13] VITALS: PULSE 77; RESP 18; O2SAT 96
[2018-02-24 20:17] LABS: Mucous, Urine 0 SEEN /hpf (<or=2+)
[2018-02-24 20:19] LABS: Color, Urine Red (Yellow); Glucose, Dipstick 50 mg/dl (Normal); Ketone-Dipstick Negative (Negative); Leukocyte Esterase-Dipstick 500 /ul (Negative); Nitrite-Dipstick Negative (Negative); Occult Blood-Urine 250 /ul (Negative); Protein-Dipstick 30 mg/dl (Negative); Urine Bilirubin Dipstick Negative (Negative); Urine Clarity Sl. Cloudy (Clear); Urine Urobilinogen 1 mg/dl (Normal)
[2018-02-24 20:35] LABS: Red Blood Cells-Urine > 100 SEEN /hpf (0-5); White Blood Cells 50-100 SEEN /hpf (0-5)
[2018-02-24 20:36] LABS: Bacteria 2+ /hpf (None Seen); Squamous Epithelial Cells - UA 0-5 SEEN /hpf (0-5)
[2018-02-24 20:56] LABS: Bedside Glucose 148 mg/dL (70-110)
--- NOTE | 2018-02-24 21:40 | DCINST_ITS ---
- Discharge Diagnoses Current Active Problems: Current Active and Chronic Problems Fall (Acute) COMPLICATED PYELONEPHRITIS (Acute) Acute kidney injury (Acute) Hydronephrosis (Acute) Tinea unguium (Chronic) You will use the following diet at home:: No restrictions, Regular Your food should be the consistency of: Regular Your liquids should be the consistency of: Regular/Thin Discharge Activity: Return to Normal Activity, May Shower, Use Walker Weight Bearing Status: Weight bearing as tolerated Call your doctor if you observe: Fever of 101 or Higher, Inability to urinate, Inability to have a bowel movement, Shortness of breath, Chest pain, Uncontrolled pain Allergies/Adverse Reactions: Allergies iodine Allergy (Verified 02/04/18 16:57) Hives Penicillins [PCN] Allergy (Verified 02/04/18 16:57) Unknown simvastatin Adverse Reaction (Verified 02/04/18 16:57) Pain in joints Medications to take at Discharge glipiZIDE [Glucotrol] 5 mg PO BIDAC 04/04/13 predniSONE tablet 5 mg PO DAILY 04/04/13 Lisinopril [Zestril] 10 mg PO DAILY 01/17/18 levETIRAcetam tablet [Keppra tablet] 500 mg PO BID 02/04/18 Acetaminophen [Tylenol] 1,000 mg PO Q8H PRN PRN tablet 02/24/18 Insulin Glargine [Lantus SoloStar Pen] 10 units SC BID #1 pen 02/24/18 Insulin Lispro [Humalog KwikPen] 7 unit SC TIDAC #1 insuln.pen 02/24/18 Menthol/Lanolin/Calamine/Znox [Calmoseptine Ointment] 1 applic TOPICAL BID tube 02/24/18 The following prescriptions were given: Insulin Lispro [Humalog KwikPen] 7 unit SC TIDAC #1 insuln.pen Insulin Glargine [Lantus SoloStar Pen] 10 units SC BID #1 pen Primary Care Physician: Lainey Lang MD [Primary Care Provider] - Please follow up with your Primary Care Physician in: 1 week. Test Results: Test results from this visit will be discussed in further detail at your follow- up appointment, if applicable. Please Follow Up With: Lainey Lang MD Proposed Discharge Date: 02/28/18
--- NOTE | 2018-02-24 21:42 | DS.PCM_ITS ---
Discharge Date and Diagnosis - Problem List Patient Problems: Active and Suspected Problems Fall (Acute) COMPLICATED PYELONEPHRITIS (Acute) Acute kidney injury (Acute) Hydronephrosis (Acute) Date of Admission: 02/10/18 Date of Discharge: 02/28/18 - Primary Discharge Diagnosis Active and Suspected Problems Fall (Acute) COMPLICATED PYELONEPHRITIS (Acute) Acute kidney injury (Acute) Hydronephrosis (Acute) - Secondary Discharge Diagnosis Chronic Problems BPH (benign prostatic hyperplasia) (Chronic) Tinea unguium (Chronic) Scalp laceration (Chronic) Seizure (Chronic) Seizure disorder (Chronic) Myasthenia gravis (Chronic) Type II diabetes mellitus (Chronic) Hospital Course and Treatment Imaging Results: 02/10/18 16:05 Diet: Calorie Controlled Food consistency:: Regular Liquid Consistency:: Regular/Thin Is pt able to select menu?: Yes How many daily calories?: 2000 calorie Clinical Impression(s) from Imaging Studies Chest X-Ray 02/13/18 12:20 IMPRESSION: No acute findings Electronically Signed: Judah Miranda DO at 12:41 EDT Tel , Service support , KUB X-Ray 02/17/18 11:11 IMPRESSION: Moderate amount of fecal material is seen in the right hemicolon. Electronically Signed: Rosalio Valenzuela MD at 15:13 EDT Tel [phone], Service support , Labs (Last 48 Hours) 02/23/18 02/23/18 02/23/18 06:12 10:59 16:51 Urine Color Urine Clarity Urine pH Ur Specific [place] Urine Protein Urine Glucose (UA) Urine Ketones Urine Occult Blood Urine Nitrite Urine Bilirubin Urine Urobilinogen Ur Leukocyte Esterase Urine RBC Urine WBC Ur Squamous Epith Cells Urine Bacteria Urine Mucus POC Glucose 183 H 205 H 138 H 02/23/18 02/24/18 02/24/18 21:10 06:25 11:34 Urine Color Urine Clarity Urine pH Ur Specific [place] Urine Protein Urine Glucose (UA) Urine Ketones Urine Occult Blood Urine Nitrite Urine Bilirubin Urine Urobilinogen Ur Leukocyte Esterase Urine RBC Urine WBC Ur Squamous Epith Cells Urine Bacteria Urine Mucus POC Glucose 121 H 125 H 102 09/05/18 09/05/18 09/05/18 15:10 17:01 20:47 Urine Color Red Urine Clarity Sl. Cloudy Urine pH 8.0 Ur Specific [place] 1.010 Urine Protein 30 H Urine Glucose (UA) 50 H Urine Ketones Negative Urine Occult Blood 250 H Urine Nitrite Negative Urine Bilirubin Negative Urine Urobilinogen 1 H Ur Leukocyte Esterase 500 H Urine RBC > 100 SEEN Urine WBC 50-100 SEEN Ur Squamous Epith Cells 0-5 SEEN Urine Bacteria 2+ Urine Mucus 0 SEEN POC Glucose 111 H 148 H Operations: None, TURP - 72-year-old male taken back to the operating room after smooth induction of general anesthesia he was placed supine on the on the table and then in dorsal lithotomy position. The penis and testicles are prepped and draped in usual sterile fashion. Went into the bladder with a 26 [place] continuous flow resectoscope found an obstructive prostate with no median lobe and obstructive lateral lobes I then proceeded with resection of the prostate resected the right lobe of the prostate and resect the left lobe the prostate resected close to the verumontanum, then elect out all the chips and then switched over to the button and then smoothed vaporized the rest of the tissue inside the prosthetic channels a nice channel all the way from the bladder neck to the verumontanum with no obstruction after doing the vaporization of the button then I carefully worked on the apical tissue then obtain hemostasis Rivera catheter was put in the bladder put on continuous bladder irrigation and the urine was clear patient's anesthetic was reversed. Procedures: None Summary of Care Provided: The patient is a 72 year old Male with below past medical history hospitalized for pyelonephritis secondary to BPH with chronic bladder outlet obstruction requiring TURP 02/09/[address] Miranda, complicated by acute kidney injury, hydronephrosis, admitted to TCU with debility, here for rehabilitation, strengthening, prior to discharge home alone. [] Discharge home alone. Discharge Diet: No Restrictions Discharge Activity: Return to Normal Activity, May Shower, Use Walker Weight Bearing Status: Weight bearing as tolerated Call your doctor if you observe: Fever of 101 or Higher, Inability to urinate, Inability to have a bowel movement, Shortness of breath, Chest pain, Uncontrolled pain Home Medications: Medications to take at Discharge glipiZIDE [Glucotrol] 5 mg PO BIDAC 04/04/13 predniSONE tablet 5 mg PO DAILY 04/04/13 Lisinopril [Zestril] 10 mg PO DAILY 01/17/18 levETIRAcetam tablet [Keppra tablet] 500 mg PO BID 02/04/18 Acetaminophen [Tylenol] 1,000 mg PO Q8H PRN PRN tablet 02/24/18 Insulin Glargine [Lantus SoloStar Pen] 10 units SC BID #1 pen 02/24/18 Insulin Lispro [Humalog KwikPen] 7 unit SC TIDAC #1 insuln.pen 02/24/18 Menthol/Lanolin/Calamine/Znox [Calmoseptine Ointment] 1 applic TOPICAL BID tube 02/24/18 Following Prescrptions Were Given to Patient: Insulin Lispro [Humalog KwikPen] 7 unit SC TIDAC #1 insuln.pen Insulin Glargine [Lantus SoloStar Pen] 10 units SC BID #1 pen Primary Care Physician: Lainey Lang MD [Primary Care Provider] - Please follow up with your Primary Care Physician in: 1 week. Please Follow Up With: Lainey Lang MD Please Follow Up With: Quentin Miranda MD When: 2 weeks. Disposition: Home Minutes spent on discharge:: 30 Patient Condition:: Stable Medical Necessity - Tobacco Use Smoking Status: Never smoker Tobacco Use: Non-smoker Meaningful Use Info Meaningful Use Diagnoses (Choose all that apply): None applicable
--- NOTE | 2018-02-24 22:32 | NURSING ---
Dr. Chaparro updated on UA. Wait for culture to come back.
[2018-02-25 05:28] LABS: Absolute Lymphocyte Count 1.88 X10^3/ul (0.83-4.51); Absolute Neutrophil Count 4.7 X10^3/uL (2.0-7.7); Basophil# 0.03 X10^3/uL; Basophil% 0.4 % (0-1); Eosinophil# 0.52 X10^3/uL; Eosinophils% 6.5 % (0-5); Hematocrit 40.3 % (40-54); Hemoglobin 13.1 g/dl (13.0-16.5); Lymphocyte # 1.88 X10^3/ul (4.0); Lymphocyte % 23.4 % (19-41); Mean Corp Hgb Conc 32.5 g/gl (32-36); Mean Corpuscular Hgb 30.8 pg (27.0-32.0); Mean Corpuscular Volume 94.8 fL (80-94); Mean Platelet Vol. 10.5 fl (6.2-12.0); Monocyte# 0.92 X10^3/uL; Monocyte% 11.4 % (0-10); Neutrophil # 4.65 X10^3/uL (2.7-7.7); Neutrophil % 57.8 % (47-70); Platelet Count 253 K/mm3 (150-450); RBC Distribution Width CV 13.5 % (11.6-14.6); RBC Distribution Width SD 44.8 fl (35.1-43.9); Red Blood Count 4.25 M/mm3 (4.6-6.2)
[2018-02-25 05:30] LABS: POSITIVE COUNT NO; POSITIVE DIFFERENTIAL NO; POSITIVE MORPHOLOGY NO
[2018-02-25 05:37] LABS: Anion Gap 7 (5-15); BUN 13 mg/dL (7-18); BUN/Creat Ratio 12.3 RATIO (10-20); Calcium,Total 8.5 mg/dL (8.5-10.1); Chloride 109 mmol/L (98-107); Creatinine, Serum 1.06 mg/dL (0.70-1.30); EST Glomerular Filtration Rate 73 mL/min (>60); Est Glom Filt Rate - Afr Amer 88 mL/min (>60); Estimated Creatinine Clearance 61.84 ml/min; Glucose 107 mg/dL (74-106); Potassium 5.1 mmol/L (3.5-5.1); Sodium Level 144 mmol/L (136-145)
[2018-02-25] MEDS: Menthol/Lanolin/Calamine/Znox 113 GM Tube 1 APPLIC TOPICAL ×2 (06:05→16:58)
[2018-02-25] MEDS: Lisinopril 10 MG Tablet PO (06:06)
[2018-02-25] MEDS: levETIRAcetam 500 MG Tablet PO ×2 (06:06→16:56)
[2018-02-25] MEDS: Senna/Docusate Sodium 1 Tablet 2 TABLET PO ×2 (06:06→16:56)
[2018-02-25] MEDS: Enoxaparin 30 MG/0.3 ML Syringe SC (06:07)
[2018-02-25 06:51] LABS: Bedside Glucose 112 mg/dL (70-110)
[2018-02-25] MEDS: predniSONE 5 MG Tablet PO (08:08)
[2018-02-25] MEDS: Insulin Lispro 100 UNIT/ML INSULN.PEN 7 UNIT SC ×3 (08:08→16:57)
[2018-02-25] MEDS: glipiZIDE 5 MG Tablet PO ×2 (08:08→16:56)
[2018-02-25 10:00] VITALS: PULSE 88; RESP 18; O2SAT 94
--- NOTE | 2018-02-25 10:45 | CASEMGMT ---
Social Work Spoke with resident and resident sister. Resident now reporting to need a walker at time of discharge. Resident does not have a preference of durable medical equipment company, [employer] to be utilized. Resident this voicing concerns in regards to meals in the home. This social staff worker broaching topic of Meals On Wheels. Resident is open to having Meals on Wheels set up for the lunch meal 7 days a week. This social staff worker also broaching topic of other community supports for resident within the community such as the [facility], [place] and [facility]. Resident is not open to any mentioned services and plans to continue with current level of assistance within the home, which is none. Resident is going to be going home on Insulin injections, which is new for resident. Staff/resident sister voicing concern of resident returning home with Insulin injections. Resident does not qualify for an extended care facility due to resident functional status. Resident is also not open to an extended care facility. Resident family planning to check in with resident more often to assist with managing insulin injections. Staff is educating resident on injections and when to take insulin/how much. Resident son to provide transportation home for resident at time of discharge. This social staff worker also encouraged resident and resident family to look in to Medicaid/PASSPORT services. Resident declining for this social staff worker to make a referral at this time. Resident sister aware of referral process and can make referral if resident becomes open to the referral. Support given. Will fax order for walker to [employer] when obtained. Proposed discharge date: 02/28/18 PLAN: Discharge to home alone with Meals on Wheels and family for support. Skylar WILKINSON, TOE PUNCHER
[2018-02-25 11:16] LABS: Bedside Glucose 125 mg/dL (70-110)
--- NOTE | 2018-02-25 11:44 | CASEMGMT ---
Social Work Faxed order for front wheeled walker to [facility]. [facility] to [place] walker delivered to resident room prior to resident discharge. Proposed discharge date: 02/28/18. PLAN: Discharge to home alone. Skylar WILKINSON, CD REACTOR OPERATOR
[2018-02-25 15:43] VITALS: BP 110/71; PULSE 68; RESP 18; TEMP 36.5; O2SAT 93
[2018-02-25 17:05] LABS: Bedside Glucose 125 mg/dL (70-110)
[2018-02-25 20:45] LABS: Bedside Glucose 135 mg/dL (70-110)
[2018-02-26] MEDS: Menthol/Lanolin/Calamine/Znox 113 GM Tube 1 APPLIC TOPICAL ×2 (04:34→17:34)
[2018-02-26] MEDS: levETIRAcetam 500 MG Tablet PO ×2 (04:35→17:35)
[2018-02-26] MEDS: Lisinopril 10 MG Tablet PO (04:36)
[2018-02-26] MEDS: Enoxaparin 30 MG/0.3 ML Syringe SC (04:37)
[2018-02-26 06:56] LABS: Bedside Glucose 135 mg/dL (70-110)
[2018-02-26] MEDS: Insulin Lispro 100 UNIT/ML INSULN.PEN 7 UNIT SC ×3 (07:48→17:34)
[2018-02-26] MEDS: predniSONE 5 MG Tablet PO (07:48)
[2018-02-26] MEDS: glipiZIDE 5 MG Tablet PO ×2 (07:48→17:34)
[2018-02-26 11:56] LABS: Bedside Glucose 184 mg/dL (70-110)
--- NOTE | 2018-02-26 15:45 | NURSING ---
pt sister called in requesting that insulin be stopped before going home on thursday. DR sanchez spoke with sister on phone, new order to [place] insulin, pt going home on PO medication
[2018-02-26 16:00] VITALS: BP 104/70; PULSE 70; RESP 18; TEMP 36.1; O2SAT 94
[2018-02-26 17:16] LABS: Bedside Glucose 173 mg/dL (70-110)
[2018-02-26 20:00] VITALS: PULSE 70; RESP 16; O2SAT 98
[2018-02-26 21:11] LABS: Bedside Glucose 168 mg/dL (70-110)
[2018-02-27] MEDS: Menthol/Lanolin/Calamine/Znox 113 GM Tube 1 APPLIC TOPICAL ×2 (05:17→17:57)
[2018-02-27] MEDS: levETIRAcetam 500 MG Tablet PO ×2 (05:18→17:53)
[2018-02-27] MEDS: Enoxaparin 30 MG/0.3 ML Syringe SC (05:18)
[2018-02-27] MEDS: Lisinopril 10 MG Tablet PO (05:19)
[2018-02-27 06:55] LABS: Bedside Glucose 145 mg/dL (70-110)
[2018-02-27] MEDS: Insulin Lispro 100 UNIT/ML INSULN.PEN 7 UNIT SC ×3 (08:00→17:56)
[2018-02-27] MEDS: predniSONE 5 MG Tablet PO (08:01)
[2018-02-27] MEDS: glipiZIDE 5 MG Tablet PO ×2 (08:01→17:52)
[2018-02-27 11:21] LABS: Bedside Glucose 197 mg/dL (70-110)
[2018-02-27 16:00] VITALS: BP 110/63; PULSE 70; RESP 16; TEMP 36.7; O2SAT 96
--- NOTE | 2018-02-27 16:00 | NURSING ---
Dr. Chaparro reviewed urine culture, NO for zyvox 600mg PO BID x 3 days.
[2018-02-27 17:05] LABS: Bedside Glucose 134 mg/dL (70-110)
[2018-02-27] MEDS: Senna/Docusate Sodium 1 Tablet 2 TABLET PO (17:53)
[2018-02-27] MEDS: Linezolid 600 MG Tablet PO (17:54)
[2018-02-27 21:21] LABS: Bedside Glucose 140 mg/dL (70-110)
[2018-02-28] MEDS: Menthol/Lanolin/Calamine/Znox 113 GM Tube 1 APPLIC TOPICAL (05:40)
[2018-02-28] MEDS: Enoxaparin 30 MG/0.3 ML Syringe SC (05:40)
[2018-02-28] MEDS: levETIRAcetam 500 MG Tablet PO (05:41)
[2018-02-28] MEDS: Linezolid 600 MG Tablet PO (05:41)
[2018-02-28] MEDS: Lisinopril 10 MG Tablet PO (05:41)
[2018-02-28 07:10] LABS: Bedside Glucose 134 mg/dL (70-110)
[2018-02-28] MEDS: Insulin Lispro 100 UNIT/ML INSULN.PEN 7 UNIT SC (07:13)
[2018-02-28] MEDS: glipiZIDE 5 MG Tablet PO (08:56)
[2018-02-28] MEDS: predniSONE 5 MG Tablet PO (08:57)
--- NOTE | 2018-02-28 10:20 | NURSING ---
D/c instructions reviewed with patient. Patient states he will not be taking insulin injections at home, because he cannot afford them. Educated on importance of insulin for diabetes, patient states he will check is blood sugar daily to monitor it. Clarified discharge order with Dr. Chaparro, recommending patient take insulin as ordered in discharge instructions. Attempted to call and update patient after discharged home, no answer from phone and no voicemail available. Patient has a follow up appointment scheduled with Dr. Lang this week.
[2018-02-28 14:34] VITALS: BP 129/78; PULSE 64; RESP 16; TEMP 36.9
--- NOTE | 2018-03-04 09:47 | MDS.RN ---
Information for the mds was obtained from review of the clinical record, interview of resident, staff, and direct observation of resident's care.
== END 2018-02-28 11:00 | disposition home or self-care (01) | DRG 948 ==
PROVIDERS: Admitting Provider Family Medicine Geriatric Medicine; Family Provider Internal Medicine; PCP Internal Medicine; Visit Provider Family Medicine Geriatric Medicine
DX: R53.81 Other malaise (principal); N13.8 Other obstructive and reflux uropathy; N10 Acute pyelonephritis; N39.0 Urinary tract infection, site not specified; E11.9 Type 2 diabetes mellitus without complications; I10 Essential (primary) hypertension; N40.1 Benign prostatic hyperplasia with lower urinary tract symptoms; G40.909 Epilepsy, unspecified, not intractable, without status epilepticus; G70.00 Myasthenia gravis without (acute) exacerbation; B96.20 Unspecified Escherichia coli [E. coli] as the cause of diseases classified elsewhere; Z23 Encounter for immunization; B35.1 Tinea unguium
CPT/HCPCS: 36415; 71046; 74018; 80048; 81001; 82962; 85025; 86480; 87077; 87086; 87088; 87186; 90732; 97110; 97116; 97162; 97165; 97530; 97533; 97535; 97802; G0009

== ENCOUNTER 2018-10-16 18:29 | Inpatient (IN) | payer MEDICARE, OTHER, SELFPAY ==
[2018-10-16 18:30] VITALS: BP 120/74; PULSE 104; RESP 18; TEMP 36.8; O2SAT 97; BMI 28.9
--- NOTE | 2018-10-16 18:58 | EKG12_ITS ---
Test Reason : FALL Blood Pressure : / mmHG Vent. Rate : 098 BPM Atrial Rate : 098 BPM P-R Int : 142 ms QRS Dur : 074 ms QT Int : 320 ms P-R-T Axes : 051 038 080 degrees QTc Int : 408 ms Normal sinus rhythm Possible Left atrial enlargement Nonspecific T wave abnormality Abnormal ECG Confirmed by ADAIR THURSTON, TERESA ([id number]), film editor supervisor HUE RAGSDALE ([id number]) on 10/18/2018 12:02:46 PM Referred By: Cade Dai Confirmed By:TERESA BORRERO MD
--- NOTE | 2018-10-16 19:01 | ED.VISSUMM ---
- ER Visit Summary Date of Service: 10/16/18 Chief Complaint: Weakness and fall History of Present Illness: The patient is a 73 M history of etk-lfdvowy-jnubwhvlq diabetes, BPH and history of myasthenia gravis. He also has urinary incontinence. Patient states that he just felt weak his legs gave out today and he fell. His son tried to help him up and he fell again so they had to call the squad to bring him in. He denies any nausea, vomiting or diarrhea. No melena. Did not hit his head. Denies being on any blood thinners. Denies any recent cough or fever. Said this happened one other time in the urinary tract infection. He denies any obvious dysuria or hematuria. Physical Examination: Well-appearing older male lying in bed. Vital signs are stable and afebrile. Pulse ox 97% on room air no hypoxia. HEENT exam atraumatic. Dry reactive light. Normal speech. No facial droop. C-spine nontender. No lymphadenopathy. Lungs clear to auscultation bilaterally. Heart regular rhythm rate about 100 no murmur. Chest wall nontender. Abdomen soft and nontender. Normal bowel sounds no peritoneal signs. Pelvic girdle intact. Patient is moving all 4 extremities. There are no deformities. Normal range of motion. Equal symmetrical people greeter strength. Dorsi plantarflexion intact. Back exam nontender no signs of trauma. Neurologically the gentleman is awake and alert with no focal motor deficits. He has good people greeter strength bilaterally. Dorsi and plantar flexion. He knows the day, month and year. He knows where he is at [facility]. Test Results: CBC shows elevated white count of 17.3. Hemoglobin 15. No bands. Electrolytes unremarkable gap of 10. Normal creatinine. Urinalysis positive for UTI with positive nitrates greater than 100 white blood cells and 2+ bacteria. A urine culture was ordered. EKG sinus rhythm rate of 98 no acute signs of ME or ischemia. Chest x-ray shows no acute abnormality. Chronic changes read both by myself and the radiologist. Emergency Department Course and Treatment: Older male status post fall with generalized weakness. Patient was given a liter of normal saline. Urine culture sent. Started on IV Rocephin for the UTI. Treatment Plan: Hospitalist on page for admission Disposition: Admission Impression: Acute generalized weakness Acute UTI Leukocytosis Acute fall History of diabetes and myasthenia gravis This note was generated with Clear[employer] dictation software. It may contain incorrect words, spelling, and punctuation that were not noted in review of the chart prior to signing ED Disposition - Plan for ED Patient: Referrals: Lainey Lang MD [Primary Care Provider] -
--- NOTE | 2018-10-16 19:04 | ED.DCSUM_ITS ---
- ER Visit Summary Date of Service: 10/16/18 Chief Complaint: Weakness and fall History of Present Illness: The patient is a 73 M history of dfi-sglzfql-rxcoqqebc diabetes, BPH and history of myasthenia gravis. He also has urinary incontinence. Patient states that he just felt weak his legs gave out today and he fell. His son tried to help him up and he fell again so they had to call the squad to bring him in. He denies any nausea, vomiting or diarrhea. No melena. Did not hit his head. Denies being on any blood thinners. Denies any recent cough or fever. Said this happened one other time in the urinary tract infection. He denies any obvious dysuria or hematuria. Physical Examination: Well-appearing older male lying in bed. Vital signs are stable and afebrile. Pulse ox 97% on room air no hypoxia. HEENT exam atraumatic. Dry reactive light. Normal speech. No facial droop. C-spine nontender. No lymphadenopathy. Lungs clear to auscultation bilaterally. Heart regular rhythm rate about 100 no murmur. Chest wall nontender. Abdomen soft and nontender. Normal bowel sounds no peritoneal signs. Pelvic girdle intact. Patient is moving all 4 extremities. There are no deformities. Normal range of motion. Equal symmetrical pointing machine operator strength. Dorsi plantarflexion intact. Back exam nontender no signs of trauma. Neurologically the gentleman is awake and alert with no focal motor deficits. He has good pointing machine operator strength bilaterally. Dorsi and plantar flexion. He knows the day, month and year. He knows where he is at [facility]. Test Results: CBC shows elevated white count of 17.3. Hemoglobin 15. No bands. Electrolytes unremarkable gap of 10. Normal creatinine. Urinalysis positive for UTI with positive nitrates greater than 100 white blood cells and 2+ bacteria. A urine culture was ordered. EKG sinus rhythm rate of 98 no acute signs of [place] or ischemia. Chest x-ray shows no acute abnormality. Chronic changes read both by myself and the radiologist. Emergency Department Course and Treatment: Older male status post fall with generalized weakness. Patient was given a liter of normal saline. Urine culture sent. Started on IV Rocephin for the UTI. Treatment Plan: Hospitalist on page for admission Disposition: Admission Impression: Acute generalized weakness Acute UTI Leukocytosis Acute fall History of diabetes and myasthenia gravis This note was generated with [employer] dictation software. It may contain incorrect words, spelling, and punctuation that were not noted in review of the chart prior to signing ED Disposition - Plan for ED Patient: Referrals: Lainey Lang MD [Primary Care Provider] -
[2018-10-16] MEDS: 0.9% Normal Saline 1,000 ML 150 ML IV (19:07)
--- NOTE | 2018-10-16 19:34 | RAD_ITS ---
STUDY: X-RAY CHEST REASON FOR EXAM: Male, 73 years old. Dizziness TECHNIQUE: Frontal and lateral views of the chest. COMPARISON: None. FINDINGS: The lungs are clear and expanded. There is no demonstrated pleural abnormality. Normal size heart. Normal mediastinum and miah. Normal visualized pulmonary arteries. Normal visualized aortic arch and descending thoracic aorta. There are diffuse degenerative changes of the visualized thoracic spine. There is degenerative osteoarthritis of the bilateral shoulders. There is no demonstrated abnormality of the visualized soft tissue structures of the upper abdomen. RAD/Chest PA and Lateral IMPRESSION: Degenerative changes, as described above. No demonstrated acute cardiopulmonary process. Electronically Signed: Magno Moraes MD at 20:02 EDT , Service support ,
[2018-10-16 19:41] LABS: Mucous, Urine 0 SEEN /hpf (<or=2+)
[2018-10-16 19:45] LABS: Color, Urine Yellow (Yellow); Glucose, Dipstick 1000 mg/dl (Normal); Ketone-Dipstick 15 mg/dl (Negative); Leukocyte Esterase-Dipstick 500 /ul (Negative); Nitrite-Dipstick Positive (Negative); Occult Blood-Urine 50 /ul (Negative); Protein-Dipstick 100 mg/dl (Negative); Specific Gravity, Urine 1.015 (1.002-1.030); Urine Bilirubin Dipstick Negative (Negative); Urine Clarity Cloudy (Clear); Urine Urobilinogen Normal (Normal)
[2018-10-16 19:46] LABS: Absolute Lymphocyte Count 0.43 X10^3/ul (0.83-4.51); Absolute Neutrophil Count 15.3 X10^3/uL (2.0-7.7); Basophil# 0.02 X10^3/uL; Basophil% 0.1 % (0-1); Eosinophil# 0.03 X10^3/uL; Eosinophils% 0.2 % (0-5); Hematocrit 44.9 % (40-54); Hemoglobin 15.6 g/dl (13.0-16.5); Lymphocyte # 0.43 X10^3/ul (4.0); Lymphocyte % 2.5 % (19-41); Mean Corp Hgb Conc 34.7 g/gl (32-36); Mean Corpuscular Hgb 31.4 pg (27.0-32.0); Mean Corpuscular Volume 90.3 fL (80-94); Mean Platelet Vol. 11.4 fl (6.2-12.0); Monocyte# 1.43 X10^3/uL; Monocyte% 8.3 % (0-10); Neutrophil # 15.31 X10^3/uL (2.7-7.7); Neutrophil % 88.6 % (47-70); Platelet Count 174 K/mm3 (150-450); RBC Distribution Width CV 13.3 % (11.6-14.6); RBC Distribution Width SD 43.6 fl (35.1-43.9); Red Blood Count 4.97 M/mm3 (4.6-6.2); White Blood Count 17.3 K/mm3 (4.4-11.0)
[2018-10-16 19:47] LABS: Differential Indicated SCAN CRITERIA MET; POSITIVE COUNT NO; POSITIVE DIFFERENTIAL YES; POSITIVE MORPHOLOGY NO
[2018-10-16] MEDS: Ondansetron 4 MG/2 ML Vial IV (19:49)
[2018-10-16 19:57] LABS: Anion Gap 10 (5-15); BUN 14 mg/dL (7-18); BUN/Creat Ratio 11.9 RATIO (10-20); Calcium,Total 8.7 mg/dL (8.5-10.1); Chloride 100 mmol/L (98-107); Creatinine, Serum 1.18 mg/dL (0.70-1.30); EST Glomerular Filtration Rate 65 mL/min (>60); Est Glom Filt Rate - Afr Amer 78 mL/min (>60); Estimated Creatinine Clearance 54.75 ml/min; Glucose 258 mg/dL (74-106); Potassium 3.7 mmol/L (3.5-5.1); Sodium Level 134 mmol/L (136-145)
[2018-10-16 19:59] LABS: White Blood Cells >100 SEEN /hpf (0-5)
[2018-10-16 20:01] LABS: Bacteria 2+ /hpf (None Seen); Red Blood Cells-Urine 5-10 SEEN /hpf (0-5); Squamous Epithelial Cells - UA 0-5 SEEN /hpf (0-5)
--- NOTE | 2018-10-16 20:04 | ED.RN ---
PATIENT'S SISTER SERGIO CALLED AND VOICED HER CONCERN FOR PATIENT'S SAFETY HE LIVES ALONE. HE IS FREQUENTLY FALLING AND NOT EATING WELL. HE CONTINUES TO TAKE HIS DIABETIC MEDICATIONS AND SHE IS WORRIED HE IS GOING TO GET HYPOGLYCEMIA AND PASS. SHE WOULD LIKE A SOCIAL WORK CONSULT TO GET HIM IN A FACILITY THAT CAN ASSIST HIM WITH MEDICATIONS AND ADL'S. I SPOKE WITH DR. WALSH AND HE SAID I COULD CONSULT SOCIAL WORK SO I WILL. PATIENT IS GOING TO BE ADMITTED.
[2018-10-16 20:24] LABS: Differential Comment SCANNED
[2018-10-16 20:32] VITALS: BP 105/65; PULSE 81; RESP 15; O2SAT 96
[2018-10-16] MEDS: 0.9% Normal Saline 1,000 ML 999 ML IV (20:33)
[2018-10-16] MEDS: Ceftriaxone 1 GM/50 ML BAG IV (20:55)
--- NOTE | 2018-10-16 21:00 | HP.PCM_ITS ---
Problem List (1) UTI (urinary tract infection) Status: Acute (2) Myasthenia gravis Status: Chronic (3) Type II diabetes mellitus Status: Chronic History of Present Illness Date of Admission: 10/16/18 Chief Complaint: Weakness The patient is a 73 year old M with PMH as below who presents with weakness. He says that his symptoms started today, and he had been in his usual health prior. He said that about a month ago he had a urinary tract infection and he presented the same way to the ER at that time. He was feeling weak and was unable to get out of bed and had almost fallen a couple times, and his son had to assist him at home. Of note his sister had contacted the ER and felt that he needed to have an evaluation at home because she was concerned that he was not eating well taking care of himself appropriately since he lives alone. In the ER he was found to have an elevated white count, was afebrile but did have a UA significant for urinary tract infection, with cultures pending. Chest x-ray was normal and his other lab work was unremarkable. Past Medical History Past Medical History (Chronic Problems): Chronic Problems BPH (benign prostatic hyperplasia) (Chronic) Tinea unguium (Chronic) Scalp laceration (Chronic) Seizure (Chronic) Seizure disorder (Chronic) Myasthenia gravis (Chronic) Type II diabetes mellitus (Chronic) Allergies iodine Allergy (Verified 10/16/18 18:29) Hives Penicillins [PCN] Allergy (Verified 10/16/18 18:29) Unknown simvastatin Adverse Reaction (Verified 10/16/18 18:29) Pain in joints Home Medications: Ambulatory Orders Medication Instructions Recorded glipiZIDE [Glucotrol] 10 mg PO BIDAC 04/04/13 predniSONE tablet 5 mg PO DAILY 04/04/13 Lisinopril [Zestril] 10 mg PO DAILY 01/17/18 levETIRAcetam tablet [Keppra 500 mg PO BID 02/04/18 tablet] Surgical History: TURP Psychiatric History: No pertinent psych hx Smoking Status: Never smoker Alcohol: None Drugs: None - *Family History Maternal History Items: Cancer, Heart Disease Paternal History Items: Cancer, Heart Disease Review of Systems Constitutional: Reports: Weakness. Denies: Chills, Fever, Weight Change HEENT: Denies: Head Aches, Sinus Congestion, Sinus Drainage Cardiovascular: Denies: Chest Pain, Palpitations Respiratory: Denies: Cough, Shortness of breath at rest, Sputum production Gastrointestinal: Denies: Abdominal Pain, Nausea, Vomiting Genitourinary: Denies: Dysuria Musculoskeletal: Denies: Joint Pain, Joint Tenderness Skin: Denies: Rash, Wounds Neurological: Denies: Numbness, Tingling, Focal weakness Psychiatric: Denies: Anxiety, Depression Hematologic/ Lymphatic: Denies: Easy Bruising, Easy Bleeding VTE Information - Inpt Only VTE Present on Admission: No Patient Problems: Active and Suspected Problems UTI (urinary tract infection) (Acute) - Physical Exam General: Alert, Oriented x3, Cooperative, No apparent distress HEENT: Atraumatic, PERRLA, EOMI, Normocephalic Oral: Moist Mucosa Neck: Supple, No JVD, Trachea Midline Lungs: Clear to auscultation, Normal air movement, No rhonchi, No wheeze, No rales Cardiovascular: Regular rate, Regular Rhythm, Normal S1, Normal S2, No murmurs Abdomen: Soft, Non Tender, Non-Distended, No Hepato-splenomegaly, - - No CVA tenderness Extremities: No edema, Capillary Refill Less than 3 Seconds Skin: No rashes, No breakdown Neurological: Neuro grossly intact, Sensory exam intact to light touch and pain Psych/Mental Status: Normal Affect, Appropriate Vital Signs Temp Pulse Resp BP Pulse Ox 98.2 F 81 15 105/65 96 10/16/18 18:30 10/16/18 20:32 10/16/18 20:32 10/16/18 20:32 10/16/18 20:32 Oxygen Flow Rate (L/min) 97 Oxygen Delivery Method Room Air Weight: 190 lb 4.143 oz Body Mass Index (BMI) 28.9 Finger Stick Blood Glucose 203 Laboratory Tests Past 24 Hrs 10/16/18 10/16/18 10/16/18 19:20 19:20 19:35 WBC 17.3 H RBC 4.97 Hgb 15.6 Hct 44.9 MCV 90.3 MCH 31.4 MCHC 34.7 RDW 13.3 RDW Differential 43.6 Plt Count 174 MPV 11.4 Immature Gran % (Auto) 0.300 Neut % (Auto) 88.6 H Lymph % (Auto) 2.5 L [place] % (Auto) 8.3 Eos % (Auto) 0.2 Baso % (Auto) 0.1 Absolute Neuts (auto) 15.3 H Absolute Lymphs (auto) 0.43 L Total Counted Not Reportable Differential Comment SCANNED Sodium 134 L Potassium 3.7 Chloride 100 Carbon Dioxide 24.0 Anion Gap 10 BUN 14 Creatinine 1.18 Estim Creat Clear Calc 54.75 Est GFR (MDRD) Af Amer 78 Est GFR (MDRD) Non-Af 65 BUN/Creatinine Ratio 11.9 Glucose 258 H Calcium 8.7 Urine Color Yellow Urine Clarity Cloudy Urine pH 5.0 Ur Specific [place] 1.015 Urine Protein 100 H Urine Glucose (UA) 1000 H Urine Ketones 15 H Urine Occult Blood 50 H Urine Nitrite Positive H Urine Bilirubin Negative Urine Urobilinogen Normal Ur Leukocyte Esterase 500 H Urine RBC 5-10 SEEN Urine WBC >100 SEEN Ur Squamous Epith Cells 0-5 SEEN Urine Bacteria 2+ Urine Mucus 0 SEEN Assessment/Plan All Active Problems Right-sided pyelonephritis (Acute) Retention, urine (Acute) Retention, urine (Acute) Fall (Acute) COMPLICATED PYELONEPHRITIS (Acute) Acute kidney injury (Acute) Hydronephrosis (Acute) UTI (urinary tract infection) (Acute) 1. Weakness secondary to sepsis from a urinary tract infection -Urine cultures pending, previous cultures were gram-positive and there is one Serratia marcescens -We will continue with Rocephin at the moment and wait for urine culture results -IVF at 100 cc/h -PT/OT for evaluation and possible placement -Also ER did call Adult Protective Services for evaluation after discharge 2. DM 2 -He is on glipizide at home -Urine blood sugar today was over thousand, will hold his glipizide and start long-acting insulin and sliding scale insulin 3. HTN -Stable -Continue with lisinopril 4. Myasthenia gravis -Stable -Continue with his home prednisone daily DVT: Lovenox Code Visit Inpatient E&M: 16357 Init Hosp L3
[2018-10-16 21:35] VITALS: RESP 15; BMI 27.6; BMI 27.7
[2018-10-16 21:50] VITALS: BP 91/66; PULSE 84; RESP 16; TEMP 36.6; O2SAT 97
[2018-10-16] MEDS: Insulin Lispro 100 UNIT/ML INSULN.PEN SQ (22:23)
[2018-10-16] MEDS: 0.9% Normal Saline 1,000 ML 100 ML IV (22:24)
[2018-10-16 22:26] LABS: Bedside Glucose 251 mg/dL (70-110)
[2018-10-17] VITALS (7 sets, daily range): BP systolic 93–103; BP diastolic 53–63; PULSE 75–88; RESP 15–18; TEMP 36.7–37.1; O2SAT 95–97
[2018-10-17 07:00] LABS: Bedside Glucose 278 mg/dL (70-110)
[2018-10-17] MEDS: Insulin Lispro 100 UNIT/ML INSULN.PEN SQ ×4 (07:56→21:49)
[2018-10-17] MEDS: predniSONE 5 MG Tablet PO (07:57)
[2018-10-17 08:02] LABS: Absolute Lymphocyte Count 1.32 X10^3/ul (0.83-4.51); Absolute Neutrophil Count 12.3 X10^3/uL (2.0-7.7); Basophil# 0.02 X10^3/uL; Basophil% 0.1 % (0-1); Eosinophil# 0.11 X10^3/uL; Eosinophils% 0.7 % (0-5); Hematocrit 42.1 % (40-54); Hemoglobin 14.3 g/dl (13.0-16.5); Lymphocyte # 1.32 X10^3/ul (4.0); Lymphocyte % 8.6 % (19-41); Mean Corpuscular Hgb 31.3 pg (27.0-32.0); Mean Corpuscular Volume 92.1 fL (80-94); Mean Platelet Vol. 11.6 fl (6.2-12.0); Monocyte# 1.58 X10^3/uL; Monocyte% 10.3 % (0-10); Neutrophil # 12.29 X10^3/uL (2.7-7.7); Neutrophil % 80.1 % (47-70); Platelet Count 184 K/mm3 (150-450); RBC Distribution Width CV 13.4 % (11.6-14.6); Red Blood Count 4.57 M/mm3 (4.6-6.2); White Blood Count 15.4 K/mm3 (4.4-11.0)
[2018-10-17 08:07] LABS: Anion Gap 10 (5-15); BUN 13 mg/dL (7-18); BUN/Creat Ratio 13.5 RATIO (10-20); Calcium,Total 8.2 mg/dL (8.5-10.1); Chloride 105 mmol/L (98-107); Creatinine, Serum 0.96 mg/dL (0.70-1.30); Differential Indicated SCAN CRITERIA MET; EST Glomerular Filtration Rate 81 mL/min (>60); Est Glom Filt Rate - Afr Amer 99 mL/min (>60); Estimated Creatinine Clearance 67.29 ml/min; Glucose 250 mg/dL (74-106); POSITIVE COUNT NO; POSITIVE DIFFERENTIAL YES; POSITIVE MORPHOLOGY NO; Potassium 3.6 mmol/L (3.5-5.1); Sodium Level 138 mmol/L (136-145)
[2018-10-17 08:51] LABS: Differential Comment SCANNED
[2018-10-17] MEDS: Glucerna Shake 120 ML LIQUID PO ×4 (10:01→21:49)
[2018-10-17] MEDS: Lisinopril 10 MG Tablet PO (10:02)
[2018-10-17] MEDS: Enoxaparin 40 MG/0.4 ML Syringe SC (10:02)
[2018-10-17] MEDS: levETIRAcetam 500 MG Tablet PO ×2 (10:02→21:49)
[2018-10-17] MEDS: 0.9% Normal Saline 1,000 ML 100 ML IV ×2 (11:51→21:38)
[2018-10-17 11:56] LABS: Bedside Glucose 347 mg/dL (70-110)
--- NOTE | 2018-10-17 13:01 | PN_ITS ---
<Sarah Carcamo - Last Filed: 10/17/18 13:01> Subjective: Patient seen and examined. Denies fever, chills. Complains of nausea, no emesis. Denies other current complaints. - Physical Exam General: Alert, Oriented x3, Cooperative HEENT: Atraumatic, PERRLA, EOMI, Normocephalic Neck: Supple, No JVD, Negative Carotid Bruits Lungs: Clear to auscultation, Normal air movement Cardiovascular: Regular rate, Regular Rhythm, Normal S1, Normal S2, No murmurs Abdomen: Bowel Sounds Present, Soft, Non Tender, Non-Distended Extremities: No clubbing, No cyanosis, No edema, Capillary Refill Less than 3 Seconds Skin: No rashes, No breakdown Musculoskeletal: No Tenderness to Palpation of Joints or Extremities Neurological: Cranial nerves II-XII grossly intact, Neuro grossly intact Psych/Mental Status: Normal Affect, Appropriate Vital Signs Temp Pulse Resp BP Pulse Ox 98.1 F 88 18 101/53 L 96 10/17/18 09:59 10/17/18 10:05 10/17/18 09:59 10/17/18 09:59 10/17/18 09:59 Oxygen Flow Rate (L/min) 97 Oxygen Delivery Method Room Air Weight: 182 lb 1.629 oz Body Mass Index (BMI) 27.6 Finger Stick Blood Glucose 203 Intake and Output for Last 24 Hours 10/15/18 10/16/18 10/17/18 23:59 23:59 23:59 Intake Total 2036 / 2036 Balance 2036 / 2036 Microbiology Past 72 Hours 10/16/18 20:35 Urine Culture - Preliminary Urine, 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 Laboratory Tests Past 24 Hrs 10/16/18 10/16/18 10/16/18 19:20 19:20 19:35 WBC 17.3 H RBC 4.97 Hgb 15.6 Hct 44.9 MCV 90.3 MCH 31.4 MCHC 34.7 RDW 13.3 RDW Differential 43.6 Plt Count 174 MPV 11.4 Immature Gran % (Auto) 0.300 Neut % (Auto) 88.6 H Lymph % (Auto) 2.5 L Mora % (Auto) 8.3 Eos % (Auto) 0.2 Baso % (Auto) 0.1 Absolute Neuts (auto) 15.3 H Absolute Lymphs (auto) 0.43 L Total Counted Not Reportable Differential Comment SCANNED Sodium 134 L Potassium 3.7 Chloride 100 Carbon Dioxide 24.0 Anion Gap 10 BUN 14 Creatinine 1.18 Estim Creat Clear Calc 54.75 Est GFR (MDRD) Af Amer 78 Est GFR (MDRD) Non-Af 65 BUN/Creatinine Ratio 11.9 Glucose 258 H Calcium 8.7 Urine Color Yellow Urine Clarity Cloudy Urine pH 5.0 Ur Specific [place] 1.015 Urine Protein 100 H Urine Glucose (UA) 1000 H Urine Ketones 15 H Urine Occult Blood 50 H Urine Nitrite Positive H Urine Bilirubin Negative Urine Urobilinogen Normal Ur Leukocyte Esterase 500 H Urine RBC 5-10 SEEN Urine WBC >100 SEEN Ur Squamous Epith Cells 0-5 SEEN Urine Bacteria 2+ Urine Mucus 0 SEEN 10/17/18 10/17/18 05:29 05:29 WBC 15.4 H RBC 4.57 L Hgb 14.3 Hct 42.1 MCV 92.1 MCH 31.3 MCHC 34.0 RDW 13.4 RDW Differential 45.0 H Plt Count 184 MPV 11.6 Immature Gran % (Auto) 0.200 Neut % (Auto) 80.1 H Lymph % (Auto) 8.6 L Mora % (Auto) 10.3 H Eos % (Auto) 0.7 Baso % (Auto) 0.1 Absolute Neuts (auto) 12.3 H Absolute Lymphs (auto) 1.32 Total Counted Not Reportable Differential Comment SCANNED Sodium 138 Potassium 3.6 Chloride 105 Carbon Dioxide 23.0 Anion Gap 10 BUN 13 Creatinine 0.96 Estim Creat Clear Calc 67.29 Est GFR (MDRD) Af Amer 99 Est GFR (MDRD) Non-Af 81 BUN/Creatinine Ratio 13.5 Glucose 250 H Calcium 8.2 L Urine Color Urine Clarity Urine pH Ur Specific [place] Urine Protein Urine Glucose (UA) Urine Ketones Urine Occult Blood Urine Nitrite Urine Bilirubin Urine Urobilinogen Ur Leukocyte Esterase Urine RBC Urine WBC Ur Squamous Epith Cells Urine Bacteria Urine Mucus POC Glucose 10/17/18 10/17/18 10/16/18 11:46 06:55 22:15 POC Glucose 347 H 278 H 251 H Medical Necessity - Tobacco Use Smoking Status: Never smoker Assessment/Plan 1. Acute sepsis secondary to acute gram-negative [place] UTI-history of recurrent UTIs status post TURP January 2018 as a result of BPH. Prior urine cultures positive for Serratia marcescens and Staphylococcus hominis. Continue IV Rocephin pending culture. Leukocytosis improving. Family reports patient is not doing well caring for self at home. PT/OT/CM consult. ER notified Adult Protective Services for evaluation as well. Possible SNF placement. 2. Acute fall secondary to generalized weakness as a result of #1, appears to have some chronic debility as well-treat underlying process as noted above. PT/OT. 3. Type 2 diabetes mellitus-hold home oral regimen. Accu-Cheks before meals at bedtime with sliding scale insulin and Lantus at bedtime. Obtain hemoglobin A 1C. 4. Myasthenia gravis-continue home prednisone regimen. 5. Hypertension-stable, continue home lisinopril regimen. 6. History of seizures-continue Keppra regimen. DVT prophylaxis-Lovenox subcu This patient was seen by SYLVIA Maki under the supervision of Dr. Post. 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 Laboratory Tests Past 24 Hrs 10/16/18 10/16/18 10/16/18 19:20 19:20 19:35 WBC 17.3 H RBC 4.97 Hgb 15.6 Hct 44.9 MCV 90.3 MCH 31.4 MCHC 34.7 RDW 13.3 RDW Differential 43.6 Plt Count 174 MPV 11.4 Immature Gran % (Auto) 0.300 Neut % (Auto) 88.6 H Lymph % (Auto) 2.5 L Mora % (Auto) 8.3 Eos % (Auto) 0.2 Baso % (Auto) 0.1 Absolute Neuts (auto) 15.3 H Absolute Lymphs (auto) 0.43 L Total Counted Not Reportable Differential Comment SCANNED Sodium 134 L Potassium 3.7 Chloride 100 Carbon Dioxide 24.0 Anion Gap 10 BUN 14 Creatinine 1.18 Estim Creat Clear Calc 54.75 Est GFR (MDRD) Af Amer 78 Est GFR (MDRD) Non-Af 65 BUN/Creatinine Ratio 11.9 Glucose 258 H Hemoglobin A1c Calcium 8.7 Urine Color Yellow Urine Clarity Cloudy Urine pH 5.0 Ur Specific [place] 1.015 Urine Protein 100 H Urine Glucose (UA) 1000 H Urine Ketones 15 H Urine Occult Blood 50 H Urine Nitrite Positive H Urine Bilirubin Negative Urine Urobilinogen Normal Ur Leukocyte Esterase 500 H Urine RBC 5-10 SEEN Urine WBC >100 SEEN Ur Squamous Epith Cells 0-5 SEEN Urine Bacteria 2+ Urine Mucus 0 SEEN 10/17/18 10/17/18 10/17/18 05:29 05:29 05:29 WBC 15.4 H RBC 4.57 L Hgb 14.3 Hct 42.1 MCV 92.1 MCH 31.3 MCHC 34.0 RDW 13.4 RDW Differential 45.0 H Plt Count 184 MPV 11.6 Immature Gran % (Auto) 0.200 Neut % (Auto) 80.1 H Lymph % (Auto) 8.6 L Mora % (Auto) 10.3 H Eos % (Auto) 0.7 Baso % (Auto) 0.1 Absolute Neuts (auto) 12.3 H Absolute Lymphs (auto) 1.32 Total Counted Not Reportable Differential Comment SCANNED Sodium 138 Potassium 3.6 Chloride 105 Carbon Dioxide 23.0 Anion Gap 10 BUN 13 Creatinine 0.96 Estim Creat Clear Calc 67.29 Est GFR (MDRD) Af Amer 99 Est GFR (MDRD) Non-Af 81 BUN/Creatinine Ratio 13.5 Glucose 250 H Hemoglobin A1c 12.4 H Calcium 8.2 L Urine Color Urine Clarity Urine pH Ur Specific [place] Urine Protein Urine Glucose (UA) Urine Ketones Urine Occult Blood Urine Nitrite Urine Bilirubin Urine Urobilinogen Ur Leukocyte Esterase Urine RBC Urine WBC Ur Squamous Epith Cells Urine Bacteria Urine Mucus POC Glucose 10/17/18 10/17/18 10/16/18 11:46 06:55 22:15 POC Glucose 347 H 278 H 251 H Assessment/Plan Hospitalist note: I am seeing this patient in conjunction with Sarah Carcamo. I independently seen and examined the patient. Progress note above, laboratory data and imaging studies reviewed and I concur with the above treatment plan. Patient seen and examined. Today, he feels better, less weak and he feels more stronger. Denies fever chills. Denies abdomen pain, nausea vomiting. Denies chest pain or shortness of breath. His vital signs are stable. - Physical Exam General: Alert, Oriented x3, Cooperative, No apparent distress. HEENT: Atraumatic, PERRLA, EOMI. Neck: Supple, No JVD, Negative Carotid Bruits, Trachea Midline, Thyroid Normal. Lungs: Diminished breath sounds bilateral, otherwise clear, No rhonchi, No wheeze, No rales. Cardiovascular: Regular rate, Regular Rhythm, Normal S1, Normal S2, PMI Normal. Abdomen: Bowel Sounds Present, Soft, Non Tender, Non-Distended, No Hepato- splenomegaly. Extremities: No clubbing, No cyanosis, No edema Skin: No rashes, No breakdown Neurological: Neuro grossly intact Vital Signs are stable. Assessment and plan: #1 acute sepsis/acute cystitis: In context of history of recurrent UTI, history of BPH status post TURP. He is on IV Rocephin. Vital signs are stable, afebrile, white blood count is trending down. Urine culture revealed gram- negative rods, final is pending. Plan to continue same treatment for now. #2 physical debility i/functional decline: Due to infection in addition to past history of other medical problems including myasthenia gravis. Today, patient feels better, and breathing. Plan for PT OT evaluation and treatment. #3 other chronic medical problems: Stable, continue current medications as above. This note was generated with [employer] dictation software. It may contain incorrect words, spelling, and punctuation that were not noted in checking the note before signing. Code Visit Inpatient E&M: 66155 Subs Hosp L2
[2018-10-17 13:39] LABS: Hemoglobin A1c 12.4 % (4.2-6.3)
[2018-10-17 16:26] LABS: Bedside Glucose 293 mg/dL (70-110)
[2018-10-17 22:25] LABS: Bedside Glucose 250 mg/dL (70-110)
[2018-10-18 02:30] VITALS: BP 118/72; PULSE 75; RESP 18; TEMP 37.3; O2SAT 98
[2018-10-18 05:59] LABS: Hematocrit 38.2 % (40-54); Hemoglobin 12.6 g/dl (13.0-16.5); Mean Corpuscular Hgb 30.9 pg (27.0-32.0); Mean Corpuscular Volume 93.6 fL (80-94); Platelet Count 133 K/mm3 (150-450); RBC Distribution Width CV 13.2 % (11.6-14.6); RBC Distribution Width SD 43.8 fl (35.1-43.9); Red Blood Count 4.08 M/mm3 (4.6-6.2); White Blood Count 8.9 K/mm3 (4.4-11.0)
[2018-10-18 06:21] LABS: Scan Indicated on CBC? Y/N NO
[2018-10-18] MEDS: Insulin Lispro 100 UNIT/ML INSULN.PEN SQ ×2 (06:30→10:53)
[2018-10-18 06:46] LABS: Bedside Glucose 253 mg/dL (70-110)
[2018-10-18 08:00] VITALS: BP 125/79; PULSE 69; RESP 16; TEMP 36.6; O2SAT 96
[2018-10-18] MEDS: Lisinopril 10 MG Tablet PO (08:01)
[2018-10-18] MEDS: predniSONE 5 MG Tablet PO (08:01)
[2018-10-18] MEDS: 0.9% Normal Saline 1,000 ML 100 ML IV (08:02)
--- NOTE | 2018-10-18 10:15 | CASEMGMT ---
TODD LUNA Face to Face with patient for initial transition planning/care coordination assessment. TODD CM introduced self and role at [facility]. Patient sitting in chair, alert and oriented. Patient willing to participate in assessment and is able to answer all questions appropriately. Care providers, pharmacy, and demographics verified. Patient wishes to discharge home, denies need for home health at this time. TODD LUNA discussed benefits of HHC to patient including diabetic teaching, patient is adamant that he does not want HHC nurse coming to his house. Patient states that his has trouble using the glucometer, again RN CM encouraged possible HHC to teach patient on how to use glucometer and insulin. Manolo Carcamo PMP at bedside and also encouraged HHC to patient and again denied nursing to come to home. Patient states he has no further needs or concerns at this time. ODILON Roa updated regarding safety concerns at discharge. CM to follow for discharge planning needs that may arise. PCP: Precious Specialists: Babita, neurology; Ruben, urologist Preferred Pharmacy: [facility] Insurance: [facility] Prescription Benefit: Yes Living Will/HPOA: None LNOK: Son and daughter in law Living Arrangements: Patient lives alone in first floor apartment. Patient states he is independent and that his son checks in on him but did not recall how frequent. Transportation: [facility] Van DME/HHC: Patient states he has a cane, walker, and glucometer at home. Patient states he has trouble using glucometer due to calibrating. Patient denied previous HHC or SNF but was discharged to TCU last admission in January 2018. Patient would benefit from HHC and CCN, but patient does not want someone coming to his home. Disposition Plan: TBD by course of treatment Lexy BATISTA, RN, CM
[2018-10-18] MEDS: levETIRAcetam 500 MG Tablet PO (10:42)
[2018-10-18] MEDS: Enoxaparin 40 MG/0.4 ML Syringe SC (10:42)
[2018-10-18] MEDS: Glucerna Shake 120 ML LIQUID PO ×2 (10:49→13:36)
[2018-10-18 11:00] LABS: Bedside Glucose 295 mg/dL (70-110)
[2018-10-18 13:52] VITALS: BP 124/70; PULSE 69; RESP 16; TEMP 36.4; O2SAT 100
--- NOTE | 2018-10-18 14:38 | DCINST_ITS ---
You will use the following diet at home:: Calorie/Carbohydrate Controlled (specify 1200, 1400, etc) Discharge Activity: Return to Normal Activity Call your doctor if you observe: Fever of 101 or Higher, Shortness of breath, Dizziness, Fainting spells, Chest pain Allergies/Adverse Reactions: Allergies iodine Allergy (Verified 10/16/18 18:29) Hives Penicillins [PCN] Allergy (Verified 10/16/18 18:29) Unknown simvastatin Adverse Reaction (Verified 10/16/18 18:29) Pain in joints Medications to take at Discharge glipiZIDE [Glucotrol] 10 mg PO BIDAC 04/04/13 predniSONE tablet 5 mg PO DAILY 04/04/13 Lisinopril [Zestril] 10 mg PO DAILY 01/17/18 levETIRAcetam tablet [Keppra tablet] 500 mg PO BID 02/04/18 Cefdinir [Omnicef [equiv]] 300 mg PO Q12H #10 capsule 10/18/18 The following prescriptions were given: Cefdinir [Omnicef [equiv]] 300 mg PO Q12H #10 capsule Orders to be completed after discharge: Glucometer Location: None Selected Primary Care Physician: Lainey Lang MD [Primary Care Provider] - Please follow up with your Primary Care Physician in: Within 1 Week Test Results: Test results from this visit will be discussed in further detail at your follow- up appointment, if applicable. Proposed Discharge Date: 10/18/18
--- NOTE | 2018-10-18 14:40 | PCM.DC.SUM ---
<Sarah Carcamo - Last Filed: 10/18/18 14:56> Discharge Date and Diagnosis Date of Admission: 10/16/18 Date of Discharge: 10/18/18 - Primary Discharge Diagnosis 1. Acute Enterobacter UTI, sepsis ruled out 2. Acute fall secondary to generalized weakness as a result of #1 3. Type 2 diabetes mellitus, poorly controlled 4. Myasthenia gravis 5. Hypertension 6. History of seizures 7. Suspected mild cognitive impairment and limited ability to make appropriate medical decisions - Secondary Discharge Diagnosis Chronic Problems BPH (benign prostatic hyperplasia) (Chronic) Tinea unguium (Chronic) Seizure disorder (Chronic) Myasthenia gravis (Chronic) Type II diabetes mellitus (Chronic) Hospital Course and Treatment Imaging Results: Diagnostic Data Chest X-Ray 10/16/18 19:34 IMPRESSION: Degenerative changes, as described above. No demonstrated acute cardiopulmonary process. Electronically Signed: Magno Moraes MD at 20:02 EDT , Service support , Operations: None Procedures: None Summary of Care Provided: The patient is a 73 year old M admitted 10/16/2017 due to weakness. 1. Acute enterobacter UTI, sepsis RULED OUT-history of recurrent UTIs status post TURP January 2018 as a result of BPH. Prior urine cultures positive for Serratia marcescens and Staphylococcus hominis. IV Rocephin during admission, DC on Omnicef. Family reports patient is not doing well caring for self at home. ER notified Adult Protective Services for evaluation as well. APS to follow at discharge. Patient was recommended home health and refused. Feel patient has mild cognitive impairment and limited ability to make appropriate medical decisions for himself. 2 of patient's sons were contacted and they are agreeable to patient returning home at discharge. They were agreeable to home health and we will set up the services for patient. Patient seems to understand his medical conditions and appreciates the severity if they are not treated appropriately. He was given 2 choices regarding discharge including home without any support and recommended home with home health services. He chose home without any support. His reasoning for this is not sufficient, he reports he does not want anyone coming in his home and that he has family support although he lives at home alone. Primary care physician office was contacted and informed of these concerns at discharge and appointment was arranged for October 22 to reassess patient's condition. He also is not agreeable to insulin at this time and would like to try increased oral regimen to further control his blood glucose. Patient was discharged home in stable condition although there was concern for stability at home. Follow-up with primary care physician as scheduled 10/22/2018. 2. Acute fall secondary to generalized weakness as a result of #1, appears to have some chronic debility as well-not agreeable to home health although this will be reattempted at discharge. 3. Type 2 diabetes mellitus, poor control-Glipizide increased recently by PCP. Patient advised insulin at discharge and he refused. Hemoglobin A1c 12.4%. Patient reports he has multiple glucose machines at home however has not been checking his blood sugar. 4. Myasthenia gravis-continue home prednisone regimen. 5. Hypertension-stable, continue home lisinopril regimen. 6. History of seizures-continue Keppra regimen. General: Alert, Oriented x3, Cooperative HEENT: Atraumatic, PERRLA, EOMI, Normocephalic Neck: Supple, No JVD, Negative Carotid Bruits Lungs: Clear to auscultation, Normal air movement Cardiovascular: Regular rate, Regular Rhythm, Normal S1, Normal S2, No murmurs Abdomen: Bowel Sounds Present, Soft, Non Tender, Non-Distended Extremities: No clubbing, No cyanosis, No edema, Capillary Refill Less than 3 Seconds Skin: No rashes, No breakdown Musculoskeletal: No Tenderness to Palpation of Joints or Extremities Neurological: Cranial nerves II-XII grossly intact, Neuro grossly intact Psych/Mental Status: Normal Affect, Appropriate Patient seen and examined prior to discharge. Physical assessment as noted above. Patient is stable for discharge with follow up recommendations as noted above. This patient was seen by SYLVIA Mkai under the supervision of Dr. Madden. - Physical Exam Vital Signs Temp Pulse Resp BP Pulse Ox 97.5 F L 69 16 124/70 H 100 10/18/18 13:52 10/18/18 13:52 10/18/18 13:52 10/18/18 13:52 10/18/18 13:52 Oxygen Flow Rate (L/min) 97 Oxygen Delivery Method Room Air Weight: 182 lb 1.629 oz Body Mass Index (BMI) 27.6 Finger Stick Blood Glucose 203 Intake and Output for Last 24 Hours 10/16/18 10/17/18 10/18/18 23:59 23:59 23:59 Intake Total 4005 / 4005 614 / 614 Balance 4005 / 4005 614 / 614 Microbiology Past 72 Hours 10/16/18 20:35 Urine Culture - Final Urine, Clean Catch Enterobacter aerogenes Laboratory Tests Past 24 Hrs 10/18/18 05:44 WBC 8.9 RBC 4.08 L Hgb 12.6 L Hct 38.2 L MCV 93.6 MCH 30.9 MCHC 33.0 RDW 13.2 RDW Differential 43.8 Plt Count 133 L MPV 11.0 POC Glucose 10/18/18 10/18/18 10/17/18 10:52 06:29 21:48 POC Glucose 295 H 253 H 250 H 10/17/18 16:19 POC Glucose 293 H Discharge Diet: Carb Control Diet Discharge Activity: Return to Normal Activity Call your doctor if you observe: Fever of 101 or Higher, Shortness of breath, Dizziness, Fainting spells, Chest pain Home Medications: Medications to take at Discharge glipiZIDE [Glucotrol] 10 mg PO BIDAC 04/04/13 predniSONE tablet 5 mg PO DAILY 04/04/13 Lisinopril [Zestril] 10 mg PO DAILY 01/17/18 levETIRAcetam tablet [Keppra tablet] 500 mg PO BID 02/04/18 Cefdinir [Omnicef [equiv]] 300 mg PO Q12H #10 capsule 10/18/18 Following Prescrptions Were Given to Patient: Cefdinir [Omnicef [equiv]] 300 mg PO Q12H #10 capsule Other Amb Orders: Glucometer Location: None Selected Primary Care Physician: Lainey Lang MD [Primary Care Provider] - Please follow up with your Primary Care Physician in: Within 1 Week Disposition: Home Minutes spent on discharge:: 35 Patient Condition:: Stable Medical Necessity - Tobacco Use Smoking Status: Never smoker Meaningful Use Info Meaningful Use Diagnoses (Choose all that apply): None applicable <Paintsil,[place] - Last Filed: 10/19/18 18:20> Discharge Date and Diagnosis - Secondary Discharge Diagnosis Chronic Problems BPH (benign prostatic hyperplasia) (Chronic) Tinea unguium (Chronic) Seizure disorder (Chronic) Myasthenia gravis (Chronic) Type II diabetes mellitus (Chronic) Hospital Course and Treatment Summary of Care Provided: This patient was seen in conjunction with Sarah Carcamo WINDOWS SECURITY ANALYST. I have independently interviewed and examined the patient and reviewed pertinent historical, laboratory, and other data. Please refer to her note for patient's presentation, findings, and recommendations. 73-year-old male with past medical history of poorly controlled type II DM, myasthenia gravis, on prednisone, hypertension who comes in after a fall second to generalized weakness and found to have acute Enterobacter UTI. Patient has history of recurrent UTIs, he was started on IV ceftriaxone. Patient's family reports that patient is not able to care for himself as he lives alone. APS was referred from the emergency department. Patient was recommended to have home health but refused. Discussed extensively with the patient, he understands his medical problems, he appreciates the gravity of his medical conditions which are the poorly controlled blood glucose. He refuses to be started on insulin. He said his was on insulin and still had elevated blood sugars. He prefers to continue with the same dose of the oral blood pressure medication written by his primary care doctor. He knows that if his sugars are not controlled he could go into DKA and ended up dying. He however expresses a choice of going home and does not want anybody in his house. His reason is that he has his son who checks on him. He seems to appreciates that if he is unable to reach out to his son he could be in serious trouble but he states that he has his phone always with him and would dial for for his son or dial 911. Of note is that the attempt to call his son went to the voicemail. Patient does not express appropriate reasoning and judgment and suspect underlying mild cognitive impairment. I believe this patient lacks the capacity to make medical decisions based on the above. I agree with the APS referral. Discussed with the patient's primary care doctor by Sarah Carcamo, patient to be followed up closely in the outpatient Prescriptions for glucometer, lancets, strips given to patient. See note below for findings on the day of discharge as well as physical exam Subjective: On the day of discharge, patient was seen and examined. He expressed desire to be discharged. He was recommended to go for subacute rehab. Patient is unable to take care of himself. APS referral made from the emergency department. Objective: Physical Exam General: Alert, Oriented x3, Cooperative, No apparent distress HEENT: Atraumatic, PERRLA, EOMI, Normocephalic Oral: Moist Mucosa Neck: Supple, No JVD, Trachea Midline Lungs: Clear to auscultation, Normal air movement, No rhonchi, No wheeze, No rales Cardiovascular: Regular rate, Regular Rhythm, Normal S1, Normal S2, No murmurs Abdomen: Soft, Non Tender, Non-Distended, No Hepato-splenomegaly, - - No CVA tenderness Extremities: No edema, Capillary Refill Less than 3 Seconds Skin: No rashes, No breakdown Neurological: Neuro grossly intact, Sensory exam intact to light touch and pain Psych/Mental Status: Normal Affect, Appropriate - Physical Exam Vital Signs Temp Pulse Resp BP Pulse Ox 97.5 F L 69 16 124/70 H 100 10/18/18 13:52 10/18/18 13:52 10/18/18 13:52 10/18/18 13:52 10/18/18 13:52 Oxygen Flow Rate (L/min) 97 Oxygen Delivery Method Room Air Weight: 82.6 kg Body Mass Index (BMI) 27.6 Finger Stick Blood Glucose 203 Intake and Output for Last 24 Hours 10/17/18 10/18/18 10/19/18 23:59 23:59 23:59 Intake Total 4005 / 4005 614 / 614 Balance 4005 / 4005 614 / 614 Microbiology Past 72 Hours 10/16/18 20:35 Urine Culture - Final Urine, Clean Catch Enterobacter aerogenes Code Visit Inpatient E&M: 06544 Disch Hosp
--- NOTE | 2018-10-18 15:20 | CASEMGMT ---
Addendum entered by Lexy Roa 10/18/18 15:48: Lexy Roa JACKHAMMER OPERATOR, GENERAL CARGO CLERK Original Note: Social Work Note SW placed a call to pt's son Jose. SW introduced self and role at [facility]. SW spoke with Jose in regards to discharge plans for pt. Jose state he is unsure of the discharge plans and would need to talk to pt in regards to discharge plans. SW provided Jose with direct number. SW met with pt, introduced self and role at [facility]. Pt is alert and orientated but per notes it is questionable if pt is able to make decisions for self. Pt states that he lives alone but that his son's Prasanth and Jose will check in with him. Pt states that that Prasanth lives in [place] but has two children to look after. Pt states that Prasanth will go to work in [place], return to [place] and then visit pt to check in with him. Pt states that Jose just retired from [employer] and also has children. Pt states he is able to call his son's when he needs them and also states he knows how to dial 911 for emergencies if needed. SW asked pt about checking blood sugars and taking insulin. Pt states that he takes Prednisone and Lantus. Pt states his PCP is Precious and he also see's Dr. Miranda. SW completed Mini-Mental Status Examination with pt. Pt scored a 21 on exam. Physician updated. Per physician notes, pt has suspected mild cognitive impairment and limited ability to make appropriate medical decisions. Physician is agreeable to this worker call pt's son's and if pt son is agreeable to [facility] then arranging for [facility] to visit pt at home. Pt provided this worker with Prasanth's number [phone]. Pt gave this worker permission to call his son's Jose and Prasanth. SW reviewed pt's echart and no HCPOA is on file for pt. SW placed a call to Prasanth, no answer left voicemail. SW placed another call to pt's son Jose. SW updated Jose that pt is being discharged home and the recommendation is that pt go home with [facility] for fci, PT/OT. Jose states understanding, agreeable to [facility]. Jose states that he will be visiting pt more at home to help with diabetes. Jose states that he is in [place] and is able to transport pt home. ODILON placed a call to Tabitha with [facility], informed her that pt will be discharged home and [facility]PS referral will be made. ODILON placed a call to Juliann at [facility], provided [facility]PS referral. Plan: Pt to discharge home with [facility] and [facility]PS referral.
== END 2018-10-18 13:39 | disposition home or self-care (01) | DRG 690 ==
LOC: ED 19:17 → MS3 21:11
PROVIDERS: Hospitalist; Nurse Practitioner Family; Admitting Provider Family Medicine; Emergency Provider Emergency Medicine; Family Provider Internal Medicine; PCP Internal Medicine; Referring Provider Family Medicine; Visit Provider Internal Medicine
DX: N30.00 Acute cystitis without hematuria (principal); N40.0 Benign prostatic hyperplasia without lower urinary tract symptoms; G70.00 Myasthenia gravis without (acute) exacerbation; I10 Essential (primary) hypertension; E11.65 Type 2 diabetes mellitus with hyperglycemia; R53.1 Weakness; G31.84 Mild cognitive impairment of uncertain or unknown etiology; G40.909 Epilepsy, unspecified, not intractable, without status epilepticus; W19.XXXA Unspecified fall, initial encounter; Z87.440 Personal history of urinary (tract) infections; Z79.84 Long term (current) use of oral hypoglycemic drugs; B96.89 Other specified bacterial agents as the cause of diseases classified elsewhere
CPT/HCPCS: 36415; 71046; 80048; 81001; 82962; 83036; 85025; 85027; 87077; 87086; 87088; 87186; 93005; 97116; 97162; 97165; 97530; 97535; 97802; 99285; J7030; A4216; J0696; J2405

== ENCOUNTER 2018-10-19 18:07 | Observation (INO) | payer MEDICARE, OTHER, SELFPAY ==
[2018-10-19 18:07] VITALS: BMI 28.9
[2018-10-19 18:08] VITALS: BP 144/113; PULSE 87; RESP 14; TEMP 36.9; O2SAT 98; BMI 27.6
[2018-10-19 18:46] LABS: Absolute Lymphocyte Count 0.69 X10^3/ul (0.83-4.51); Absolute Neutrophil Count 4.9 X10^3/uL (2.0-7.7); Basophil# 0.01 X10^3/uL; Basophil% 0.2 % (0-1); Eosinophil# 0.08 X10^3/uL; Eosinophils% 1.3 % (0-5); Hematocrit 39.9 % (40-54); Hemoglobin 13.3 g/dl (13.0-16.5); Lymphocyte # 0.69 X10^3/ul (4.0); Lymphocyte % 10.9 % (19-41); Mean Corp Hgb Conc 33.3 g/gl (32-36); Mean Corpuscular Hgb 30.9 pg (27.0-32.0); Mean Corpuscular Volume 92.6 fL (80-94); Mean Platelet Vol. 10.5 fl (6.2-12.0); Monocyte# 0.61 X10^3/uL; Monocyte% 9.7 % (0-10); Neutrophil % 77.6 % (47-70); POSITIVE COUNT NO; POSITIVE DIFFERENTIAL NO; POSITIVE MORPHOLOGY NO; Platelet Count 160 K/mm3 (150-450); RBC Distribution Width SD 44.1 fl (35.1-43.9); Red Blood Count 4.31 M/mm3 (4.6-6.2); White Blood Count 6.3 K/mm3 (4.4-11.0)
[2018-10-19] MEDS: 0.9% Normal Saline 1,000 ML 150 ML IV (19:00)
[2018-10-19 19:04] LABS: Bacteria 0 SEEN /hpf (None Seen); Mucous, Urine 0 SEEN /hpf (<or=2+); Squamous Epithelial Cells - UA 0 SEEN /hpf (0-5)
[2018-10-19 19:05] LABS: Anion Gap 7 (5-15); BUN 10 mg/dL (7-18); BUN/Creat Ratio 9.3 RATIO (10-20); Calcium,Total 8.3 mg/dL (8.5-10.1); Chloride 104 mmol/L (98-107); Creatinine, Serum 1.07 mg/dL (0.70-1.30); EST Glomerular Filtration Rate 72 mL/min (>60); Est Glom Filt Rate - Afr Amer 87 mL/min (>60); Estimated Creatinine Clearance 60.37 ml/min; Glucose 470 mg/dL (74-106); Potassium 4.1 mmol/L (3.5-5.1); Sodium Level 136 mmol/L (136-145)
[2018-10-19 19:08] VITALS: RESP 18
[2018-10-19 19:08] LABS: Color, Urine Straw (Yellow); Glucose, Dipstick 1000 mg/dl (Normal); Ketone-Dipstick Negative (Negative); Leukocyte Esterase-Dipstick 100 /ul (Negative); Nitrite-Dipstick Negative (Negative); Occult Blood-Urine 25 /ul (Negative); Protein-Dipstick Negative (Negative); Urine Bilirubin Dipstick Negative (Negative); Urine Clarity Clear (Clear); Urine Urobilinogen Normal (Normal)
[2018-10-19 19:14] LABS: Red Blood Cells-Urine 0-5 SEEN /hpf (0-5)
[2018-10-19 19:15] LABS: White Blood Cells 5-10 SEEN /hpf (0-5)
--- NOTE | 2018-10-19 19:30 | ED.VISSUMM ---
- ER Visit Summary Date of Service: 10/19/18 Chief Complaint: [Incontinence of urine and stool] History of Present Illness: The patient is a 73 M [presents the emergency department with complaint of being incontinent of bladder and stool since yesterday. Patient states he is had frequent watery stools as well as incontinence of urine. Patient states he was just discharged recently from the hospital after being admitted for urinary tract infection and fall. Patient denies any abdominal pain. He denies any back pain. He does describe a burning sensation in his right thigh anterior aspect that he has had for months. Patient denies any fevers. He denies nausea or vomiting.] Physical Examination: [HEENT-PERRLA, EOMI. Cranial nerves II through XII grossly intact. TMs clear. Mucous membranes moist. No adenopathy. Cardiovascular-regular rate and rhythm without murmur or ectopy Lungs-clear to auscultation, chest wall stable without crepitus or subcu emphysema Abdomen-normoactive bowel sounds, soft, nontender, no rebound or rigidity, no peritoneal signs. Back exam-no real tenderness over the thoracic or lumbar spine. No tenderness over the paraspinal musculature. There is no erythema or warmth noted to his back. Patient has negative straight leg raises bilaterally. Deep tendon reflexes are plus 2 out of 4 bilaterally at the patella and Achilles. Patient has normal L5 extension bilaterally. Patient has normal sensation in the groin. Rectal exam was performed and he had normal rectal tone. Extremities-intact ?4, normal range of motion, normal pulses, atraumatic] Test Results: [CBC with differential obtained showed a white count 6.3, hemoglobin 13, hematocrit 40, platelets 160. Chemistries unremarkable. Glucose was elevated 470. Urinalysis was positive for 100 leukocyte esterase and 5-10 WBCs.] Emergency Department Course and Treatment: [Patient was given normal saline and was given Humalog 8 units subcu.] Treatment Plan: [Admit for fluids and further management of blood sugars. Patient will need evaluation by social work.] Disposition: [Admit] Impression: [Generalized weakness Hyperglycemia UTI Diarrhea Incontinence] This note was generated with [employer] dictation software. It may contain incorrect words, spelling, and punctuation that were not noted in review of the chart prior to signing ED Disposition - Plan for ED Patient: Referrals: Lainey Lang MD [Primary Care Provider] -
--- NOTE | 2018-10-19 19:54 | HP.PCM_ITS ---
Problem List (1) Acute diarrhea Status: Acute (2) BPH (benign prostatic hyperplasia) Status: Chronic (3) Seizure disorder Status: Chronic (4) Myasthenia gravis Status: Chronic (5) Type II diabetes mellitus Status: Chronic History of Present Illness Date of Admission: 10/19/18 Chief Complaint: incontinent of stool and urine The patient is a 73 year old M with a significant history of myasthenia gravis, BPH, Seizure; diabetes mellitus who was recently admitted on 10/16/2018 and discharged on 10/18/2018 for acute Enterobacter UTI and generalized weakness now presenting with 1 day history of urinary and fecal incontinence. For his recent discharge on 10/18/2018 he was prescribed Omnicef for acute UTI. He reports black stools. Emergency department doctor reported that on this presentation, patient's stool did not look black and occult stool was negative for blood. Also, patient reports burning sensation of the right thigh for about 2 months. Emergency department doctor reported that patient had a normal anal sphincter tone and sensation. Postvoid residual at the emergency department was about 340. Patient was noted to have elevated blood glucose of 470 at the emergency department. Past Medical History Past Medical History (Chronic Problems): Chronic Problems BPH (benign prostatic hyperplasia) (Chronic) Tinea unguium (Chronic) Seizure disorder (Chronic) Myasthenia gravis (Chronic) Type II diabetes mellitus (Chronic) Allergies Iodinated Contrast- Oral and IV Dye [CONTRASTS] Allergy (Verified 10/19/18 18:11) Hives iodine Allergy (Verified 10/19/18 18:11) Hives Penicillins [PCN] Allergy (Verified 10/19/18 18:11) Unknown simvastatin Adverse Reaction (Verified 10/19/18 18:11) Pain in joints Home Medications: Ambulatory Orders Medication Instructions Recorded Lisinopril [Zestril] 20 mg PO DAILY 01/17/18 levETIRAcetam tablet [Keppra 500 mg PO BID 02/04/18 tablet] Cefdinir [Omnicef [equiv]] 300 mg PO Q12H 10/19/18 Prednisone 10 mg PO DAILY 10/19/18 glipiZIDE [Glucotrol] 10 mg PO BIDAC 10/19/18 Surgical History: tonsillectomy, TURP Psychiatric History: No pertinent psych hx Lives: Alone Smoking Status: Unknown if ever smoked Alcohol: None - *Family History Maternal History Items: Cancer, Heart Disease Paternal History Items: Cancer, Heart Disease Review of Systems Constitutional: Denies: Chills, Fever, Weight Change HEENT: Denies: Head Aches, Sinus Congestion, Sinus Drainage Cardiovascular: Denies: Chest Pain, Palpitations Respiratory: Denies: Cough, Shortness of breath at rest, Sputum production Gastrointestinal: Reports: Diarrhea. Denies: Abdominal Pain, Nausea, Vomiting Genitourinary: Reports: Incontinence. Denies: Dysuria Musculoskeletal: Denies: Joint Pain, Joint Tenderness Skin: Denies: Rash, Wounds Neurological: Denies: Blurred vision, Double vision, Slurred speech, Confusion, Focal weakness Psychiatric: Denies: Anxiety, Depression, Homicidal Ideations, Suicidal Ideations Hematologic/ Lymphatic: Denies: Easy Bruising, Easy Bleeding VTE Information - Inpt Only VTE Present on Admission: No VTE Mechan Device Prophylaxis: SCD's VTE Pharm Prophylaxis ordered?: No Patient Problems: Active and Suspected Problems Acute diarrhea (Acute) - Physical Exam General: Alert, Oriented x3, Cooperative HEENT: Atraumatic, PERRLA, EOMI, Normocephalic Neck: Supple, No JVD, Negative Carotid Bruits Lungs: Clear to auscultation, Normal air movement Cardiovascular: Regular rate, No murmurs Abdomen: Bowel Sounds Present, Soft, Non Tender Extremities: No edema, Capillary Refill Less than 3 Seconds Skin: No rashes, No breakdown Musculoskeletal: No Tenderness to Palpation of Joints or Extremities Neurological: Neuro grossly intact Psych/Mental Status: Normal Affect, Appropriate Vital Signs Temp Pulse Resp BP Pulse Ox 98.4 F 87 18 144/113 H 98 10/19/18 18:08 10/19/18 18:08 10/19/18 19:08 10/19/18 18:08 10/19/18 18:08 Oxygen Delivery Method Room Air Weight: 82.554 kg Body Mass Index (BMI) 27.6 Finger Stick Blood Glucose 203 Intake and Output for Last 24 Hours 10/17/18 10/18/18 10/19/18 23:59 23:59 23:59 Output Total 200 / 200 Balance -200 / -200 Microbiology Past 72 Hours 10/19/18 Unknown Stool Occult Blood (LADY) - Final Stool Laboratory Tests Past 24 Hrs 10/19/18 10/19/18 10/19/18 16:28 18:35 18:35 WBC 6.3 RBC 4.31 L Hgb 13.3 Hct 39.9 L MCV 92.6 MCH 30.9 MCHC 33.3 RDW 13.0 RDW Differential 44.1 H Plt Count 160 MPV 10.5 Immature Gran % (Auto) 0.300 Neut % (Auto) 77.6 H Lymph % (Auto) 10.[address] [place] % (Auto) 9.7 Eos % (Auto) 1.3 Baso % (Auto) 0.2 Absolute Neuts (auto) 4.9 Absolute Lymphs (auto) 0.69 L Total Counted Not Reportable Sodium 136 Potassium 4.1 Chloride 104 Carbon Dioxide 25.0 Anion Gap 7 BUN 10 Creatinine 1.07 Estim Creat Clear Calc 60.37 Est GFR (MDRD) Af Amer 87 Est GFR (MDRD) Non-Af 72 BUN/Creatinine Ratio 9.3 L Glucose 470 H* Lactic Acid Calcium 8.3 L Urine Color Straw Urine Clarity Clear Urine pH 6.0 Ur Specific [place] 1.010 Urine Protein Negative Urine Glucose (UA) 1000 H Urine Ketones Negative Urine Occult Blood 25 H Urine Nitrite Negative Urine Bilirubin Negative Urine Urobilinogen Normal Ur Leukocyte Esterase 100 H Urine RBC 0-5 SEEN Urine WBC 5-10 SEEN Ur Squamous Epith Cells 0 SEEN Urine Bacteria 0 SEEN Urine Mucus 0 SEEN 10/19/18 18:48 WBC RBC Hgb Hct MCV MCH MCHC RDW RDW Differential Plt Count MPV Immature Gran % (Auto) Neut % (Auto) Lymph % (Auto) [place] % (Auto) Eos % (Auto) Baso % (Auto) Absolute Neuts (auto) Absolute Lymphs (auto) Total Counted Sodium Potassium Chloride Carbon Dioxide Anion Gap BUN Creatinine Estim Creat Clear Calc Est GFR (MDRD) Af Amer Est GFR (MDRD) Non-Af BUN/Creatinine Ratio Glucose Lactic Acid Pending Calcium Urine Color Urine Clarity Urine pH Ur Specific [place] Urine Protein Urine Glucose (UA) Urine Ketones Urine Occult Blood Urine Nitrite Urine Bilirubin Urine Urobilinogen Ur Leukocyte Esterase Urine RBC Urine WBC Ur Squamous Epith Cells Urine Bacteria Urine Mucus Assessment/Plan All Active Problems Acute diarrhea (Acute) The patient is a 73 year old M with a significant history of myasthenia gravis, BPH, Seizure; diabetes mellitus who was recently admitted on 10/16/2018 and discharged on 10/18/2018 for acute Enterobacter UTI and generalized weakness not presenting with 1 day history of urinary and fecal incontinence. Acute diarrhea Likely from antibiotics intolerance. Enteric stool pathogen and C. difficile ordered from the emergency department; follow. Occult stool was negative in the emergency department. We will repeat FOBT IV hydration with lactated ringers and potassium. Acute urinary incontinence. Probable overflow incontinence. Nursing communication to encourage patient to urinate after every 4 hours and to measure postvoid residual after each urinary episode. Consider discussing case with Dr. Miranda. Patient had a urolift (?TURP) with Dr. Miranda previously. Acute hypoglycemia On Presentation his glucose on BMP was 417 Patient received 8 units of lispro subcutaneous in the emergency department Patient received IV fluids in the emergency department. On glipizide; continue Fingerstick QA CHS and 3 AM. We will add correction scale insulin at this time. Hypertension On presentation his blood pressure was not within goal Home lisinopril continued Trend blood pressure and adjust blood pressure medication Seizure disorder Keppra continued Myasthenia gravis Not in an acute exacerbation Prednisone continued DVT Prophylaxis Because of reported black stools chemoprophylaxis was not ordered. SCD ordered. Code Visit OBSV E&M: 33505 Initial observation care L3
[2018-10-19 20:00] VITALS: RESP 20
[2018-10-19] MEDS: Insulin Lispro 100 UNIT/ML INSULN.PEN 8 UNIT SC (20:00)
--- NOTE | 2018-10-19 20:15 | ED.RN ---
RECEIVED CRITICAL LACTIC ACID ON PT, MD AND RN AWARE.
--- NOTE | 2018-10-19 20:33 | NURSING ---
Addendum entered by Jaqui Garcia 10/19/18 20:36: DR OVIEDO STATES PT IS DRY, NOT SEPTIC. Original Note: DISCUSSED LACTIC W/DR OVIEDO. OK TO GIVE 500CC BOLUS @ 150ML/HR.
[2018-10-19 21:14] VITALS: BMI 28.8
[2018-10-19 21:31] VITALS: BP 120/67; PULSE 59; RESP 15; TEMP 36.4; O2SAT 96
[2018-10-19] MEDS: levETIRAcetam 500 MG Tablet PO (22:26)
[2018-10-19] MEDS: Gabapentin 100 MG Capsule PO (22:26)
[2018-10-19] MEDS: Insulin Lispro 100 UNIT/ML INSULN.PEN SQ (22:27)
[2018-10-19 22:50] LABS: Bedside Glucose 202 mg/dL (70-110)
[2018-10-19 23:02] LABS: Reflex Lactate? Y
[2018-10-20 00:02] LABS: Lactic Acid 1.5 mmol/L (0.4-2.0)
[2018-10-20] MEDS: Insulin Lispro 100 UNIT/ML INSULN.PEN SQ ×3 (03:28→11:58)
[2018-10-20 03:29] VITALS: BP 134/76; PULSE 68; RESP 16; TEMP 36.8; O2SAT 95
[2018-10-20 03:51] LABS: Bedside Glucose 213 mg/dL (70-110)
[2018-10-20 06:26] LABS: Absolute Lymphocyte Count 1.64 X10^3/ul (0.83-4.51); Absolute Neutrophil Count 4.6 X10^3/uL (2.0-7.7); Basophil# 0.03 X10^3/uL; Basophil% 0.4 % (0-1); Eosinophil# 0.23 X10^3/uL; Eosinophils% 3.2 % (0-5); Hematocrit 36.8 % (40-54); Hemoglobin 12.2 g/dl (13.0-16.5); Lymphocyte # 1.64 X10^3/ul (4.0); Lymphocyte % 22.5 % (19-41); Mean Corp Hgb Conc 33.2 g/gl (32-36); Mean Corpuscular Hgb 30.5 pg (27.0-32.0); Mean Platelet Vol. 10.7 fl (6.2-12.0); Monocyte# 0.76 X10^3/uL; Monocyte% 10.4 % (0-10); Neutrophil # 4.61 X10^3/uL (2.7-7.7); Neutrophil % 63.2 % (47-70); Platelet Count 153 K/mm3 (150-450); RBC Distribution Width CV 13.1 % (11.6-14.6); White Blood Count 7.3 K/mm3 (4.4-11.0)
[2018-10-20 06:31] LABS: POSITIVE COUNT NO; POSITIVE DIFFERENTIAL NO; POSITIVE MORPHOLOGY NO
[2018-10-20 06:40] LABS: Bedside Glucose 216 mg/dL (70-110)
[2018-10-20 06:41] LABS: Anion Gap 4 (5-15); BUN 8 mg/dL (7-18); BUN/Creat Ratio 9.7 RATIO (10-20); Calcium,Total 7.8 mg/dL (8.5-10.1); Chloride 110 mmol/L (98-107); Creatinine, Serum 0.83 mg/dL (0.70-1.30); EST Glomerular Filtration Rate 97 mL/min (>60); Est Glom Filt Rate - Afr Amer 117 mL/min (>60); Estimated Creatinine Clearance 77.83 ml/min; Glucose 224 mg/dL (74-106); Potassium 4.5 mmol/L (3.5-5.1); Sodium Level 140 mmol/L (136-145)
[2018-10-20 07:30] VITALS: O2SAT 95
[2018-10-20 09:12] VITALS: BP 132/65; PULSE 75; RESP 18; TEMP 36.3; O2SAT 96
[2018-10-20] MEDS: glipiZIDE 10 MG Tablet PO (09:19)
[2018-10-20] MEDS: Tamsulosin HCl 0.4 MG Capsule PO (09:19)
[2018-10-20] MEDS: Gabapentin 100 MG Capsule PO (09:19)
[2018-10-20] MEDS: predniSONE 10 MG Tablet PO (09:19)
[2018-10-20] MEDS: levETIRAcetam 500 MG Tablet PO (09:20)
[2018-10-20] MEDS: 0.9% NaCl Peripheral Flush Adult/Peds IV (09:24)
[2018-10-20] MEDS: Lisinopril 20 MG Tablet PO (09:24)
--- NOTE | 2018-10-20 11:12 | CASEMGMT ---
Addendum entered by Tamela Good 10/20/18 13:27: Spoke with Tabitha from [facility]. Suggestion given for CCN referral once HHC services completed. Original Note: Addendum entered by Tamela Good 10/20/18 13:07: SW services added to HHC order. Call placed to Tabitha @ [facility] and message left to inform her of this. Original Note: Addendum entered by Tamela Good 10/20/18 11:46: To room to talk with pt. Introduced self and role of TODD LUNA. Pt sitting up in recliner chair, eating lunch. A/O. Discussed HHC with pt and homebound requirements per [facility]. Pt stated, well sure, I would be okay with a [facility] nurse coming to my home. Pt inquired about how he would know they were coming. Pt informed that they would contact him and make arrangements with him prior to coming to his home. Pt stated, yeah, that would be okay. Pt stated he is home most of the time, but sometimes does leave his home to to go to [facility], but stated, I don't think I'll be going anywhere the 1st couple of weeks after I get home. I don't think I'll be feeling up to it. Pt states he also received [employer]als [employer] Wheels Thu-Thu. Order for HHC placed for SN and PT/OT eval and tx. Call placed to Tabitha @ [facility] and she was made aware of the new referral and all of the above. She states they will be able to accept pt. Original Note: RN CM Re-admission note: Pt admitted to [facility] 10/16/18 and discharged 10/18/18 with diagnoses of UTI. See Josefina BROOKS CM notes. Pt admitted under OBS status currently: diagnoses of hyperglycemia, weakness, UTI, diarrhea, and incontinence. Call placed to Tabitha [facility] and she was made aware pt @ [facility] under OBS. Tabitha states pt is not current with them. She states that they did get the referral for [facility] @ pt's recent discharge from the hospital, but that per pt's son, pt is not homebound and also pt did not want HHC services/did not want anyone coming into his home, so they are not seeing pt. *Pt will need new referral/acceptance for HHC with [facility] if he wishes to discharge home again with HHC. Madi MORENON RN CM
--- NOTE | 2018-10-20 11:52 | CASEMGMT ---
Addendum entered by Marilee Cristina 10/20/18 14:57: Pt is discharged, SW called Shira from [facility] to let her know. SADIE Gutierrez Original Note: Addendum entered by Marilee Cristina 10/20/18 13:22: SW spoke w/Shira from [facility], let her know pt is back in the hospital, reviewed the medical reasons w/Shira why he is here. SW relayed to Shira that [employer] is concerned in regard to pt managing his diabetes. SW explained that home health was referred again, pt's son turned the home care down after the last admission stating pt was not home bound. Pt does feel he will be home bound after this hospitalization. SW will let Shira know when pt is discharged home. SADIE Gutierrez Original Note: SW did call [facility] to let them know pt is here, as a referral was just made to [facility] on pt's last admission. Message left. SADIE Gutierrez
[2018-10-20 12:06] LABS: Bedside Glucose 290 mg/dL (70-110)
--- NOTE | 2018-10-20 13:45 | PCM.PROGNOTE ---
Patient Problems: Active and Suspected Problems Acute diarrhea (Acute) Subjective: Patient seen and examined. Reports he has continued to have diarrhea which she states is black in color. Stool negative for occult blood. Denies abdominal pain, nausea, vomiting. Denies other complaints. - Physical Exam General: Alert, Oriented x3, Cooperative HEENT: Atraumatic, PERRLA, EOMI, Normocephalic Neck: Supple, No JVD, Negative Carotid Bruits Lungs: Clear to auscultation, Diminished Cardiovascular: Regular rate, Regular Rhythm, Normal S1, Normal S2, No murmurs Abdomen: Bowel Sounds Present, Soft, Non Tender, Non-Distended, Obese Extremities: No clubbing, No cyanosis, No edema, Capillary Refill Less than 3 Seconds Skin: No rashes, No breakdown Musculoskeletal: No Tenderness to Palpation of Joints or Extremities Neurological: Cranial nerves II-XII grossly intact, Neuro grossly intact Psych/Mental Status: Normal Affect, Appropriate Vital Signs Temp Pulse Resp BP Pulse Ox 97.4 F L 75 18 132/65 H 96 10/20/18 09:12 10/20/18 09:12 10/20/18 09:12 10/20/18 09:12 10/20/18 09:12 Oxygen Delivery Method Room Air Weight: 189 lb 6.033 oz Body Mass Index (BMI) 28.8 Finger Stick Blood Glucose 203 Intake and Output for Last 24 Hours 10/18/18 10/19/18 10/20/18 23:59 23:59 23:59 Intake Total 1508 / 1508 Output Total 200 / 200 Balance -200 / -200 1508 / 1508 Microbiology Past 72 Hours 10/19/18 18:07 Enteric Bacteriology - Final Stool 10/19/18 18:07 C. difficile DNA Amplification - Final Stool 10/19/18 Unknown Stool Occult Blood (LADY) - Final Stool Laboratory Tests Past 24 Hrs 10/19/18 10/19/18 10/19/18 16:28 18:35 18:35 WBC 6.3 RBC 4.31 L Hgb 13.3 Hct 39.9 L MCV 92.6 MCH 30.9 MCHC 33.3 RDW 13.0 RDW Differential 44.1 H Plt Count 160 MPV 10.5 Immature Gran % (Auto) 0.300 Neut % (Auto) 77.6 H Lymph % (Auto) 10.9 L [place] % (Auto) 9.7 Eos % (Auto) 1.3 Baso % (Auto) 0.2 Absolute Neuts (auto) 4.9 Absolute Lymphs (auto) 0.69 L Total Counted Not Reportable Sodium 136 Potassium 4.1 Chloride 104 Carbon Dioxide 25.0 Anion Gap 7 BUN 10 Creatinine 1.07 Estim Creat Clear Calc 60.37 Est GFR (MDRD) Af Amer 87 Est GFR (MDRD) Non-Af 72 BUN/Creatinine Ratio 9.3 L Glucose 470 H* Lactic Acid Calcium 8.3 L Urine Color Straw Urine Clarity Clear Urine pH 6.0 Ur Specific [employer] 1.010 Urine Protein Negative Urine Glucose (UA) 1000 H Urine Ketones Negative Urine Occult Blood 25 H Urine Nitrite Negative Urine Bilirubin Negative Urine Urobilinogen Normal Ur Leukocyte Esterase 100 H Urine RBC 0-5 SEEN Urine WBC 5-10 SEEN Ur Squamous Epith Cells 0 SEEN Urine Bacteria 0 SEEN Urine Mucus 0 SEEN 10/19/18 10/19/18 10/20/18 18:48 23:30 05:52 WBC 7.3 RBC 4.00 L Hgb 12.2 L Hct 36.8 L MCV 92.0 MCH 30.5 MCHC 33.2 RDW 13.1 RDW Differential 44.0 H Plt Count 153 MPV 10.7 Immature Gran % (Auto) 0.300 Neut % (Auto) 63.2 Lymph % (Auto) 22.5 [place] % (Auto) 10.4 H Eos % (Auto) 3.2 Baso % (Auto) 0.4 Absolute Neuts (auto) 4.6 Absolute Lymphs (auto) 1.64 Total Counted Not Reportable Sodium Potassium Chloride Carbon Dioxide Anion Gap BUN Creatinine Estim Creat Clear Calc Est GFR (MDRD) Af Amer Est GFR (MDRD) Non-Af BUN/Creatinine Ratio Glucose Lactic Acid 3.0 H 1.5 Calcium Urine Color Urine Clarity Urine pH Ur Specific [employer] Urine Protein Urine Glucose (UA) Urine Ketones Urine Occult Blood Urine Nitrite Urine Bilirubin Urine Urobilinogen Ur Leukocyte Esterase Urine RBC Urine WBC Ur Squamous Epith Cells Urine Bacteria Urine Mucus 10/20/18 05:52 WBC RBC Hgb Hct MCV MCH MCHC RDW RDW Differential Plt Count MPV Immature Gran % (Auto) Neut % (Auto) Lymph % (Auto) [place] % (Auto) Eos % (Auto) Baso % (Auto) Absolute Neuts (auto) Absolute Lymphs (auto) Total Counted Sodium 140 Potassium 4.5 Chloride 110 H Carbon Dioxide 26.0 Anion Gap 4 L BUN 8 Creatinine 0.83 Estim Creat Clear Calc 77.83 Est GFR (MDRD) Af Amer 117 Est GFR (MDRD) Non-Af 97 BUN/Creatinine Ratio 9.7 L Glucose 224 H Lactic Acid Calcium 7.8 L Urine Color Urine Clarity Urine pH Ur Specific [employer] Urine Protein Urine Glucose (UA) Urine Ketones Urine Occult Blood Urine Nitrite Urine Bilirubin Urine Urobilinogen Ur Leukocyte Esterase Urine RBC Urine WBC Ur Squamous Epith Cells Urine Bacteria Urine Mucus POC Glucose 10/20/18 10/20/18 10/20/18 11:56 06:33 03:26 POC Glucose 290 H 216 H 213 H 10/19/18 22:25 POC Glucose 202 H Medical Necessity - Tobacco Use Smoking Status: Unknown if ever smoked Assessment/Plan All Active Problems Acute diarrhea (Acute) 1. Acute diarrhea, secondary to antibiotic regimen- stool for c.diff, enteric bacteriology, stool for occult blood all negative. Begin Imodium as needed. Initiate probiotic. 2. Recent enterobacter UTI, history of recurrent UTIs status post TURP January 2018 as a result of BPH. Continue previously prescribed Omnicef regimen. Initiated on Flomax due to urinary retention. Check postvoid residual. If PVR remains significant, consult Dr. Miranda for further evaluation. 3. Suspected mild cognitive impairment with limited ability to make appropriate medical decisions-[facility] referral made from the emergency room during recent admission 10/16/2018. [facility] updated by social work this admission. Patient previously declined home health and is now agreeable. 3. Type 2 diabetes mellitus, poor control-Glipizide increased recently by PCP. Patient advised insulin at recent discharge and he refused. Hemoglobin A1c 12.4%. Patient reports he has multiple glucose machines at home however has not been checking his blood sugar. Accu-Cheks AC at bedtime with sliding scale insulin. Glucose 470 on admission. Recommend discharge on Lantus as well as sliding scale insulin given patient is now agreeable to home health. 4. Myasthenia gravis-continue home prednisone regimen. 5. Hypertension-stable, continue home lisinopril regimen. 6. History of seizures-continue Keppra regimen. DVT prophylaxis- Lovenox sc Discharge planning: Anticipate discharge home tomorrow with home health. This patient was seen by SYLVIA Maki under the supervision of Dr. Vale.
--- NOTE | 2018-10-20 14:52 | DCINST_ITS ---
- Discharge Diagnoses Current Active Problems: Current Active and Chronic Problems Acute diarrhea (Acute) You will use the following diet at home:: Calorie/Carbohydrate Controlled (specify 1200, 1400, etc) Discharge Activity: Return to Normal Activity Call your doctor if you observe: Shortness of breath, Dizziness, Fainting spells, Chest pain Additional Instructions: Continue previously prescribed antibiotic regimen (Omnicef) until finished. Allergies/Adverse Reactions: Allergies Iodinated Contrast- Oral and IV Dye [CONTRASTS] Allergy (Verified 10/19/18 18:11) Hives iodine Allergy (Verified 10/19/18 18:11) Hives Penicillins [PCN] Allergy (Verified 10/19/18 21:17) myasthenia gravis developed 2 days after taking PCN from dental procedure simvastatin Adverse Reaction (Verified 10/19/18 18:11) Pain in joints Medications to take at Discharge Lisinopril [Zestril] 20 mg PO DAILY 01/17/18 levETIRAcetam tablet [Keppra tablet] 500 mg PO BID 02/04/18 Cefdinir [Omnicef [equiv]] 300 mg PO Q12H 10/19/18 Prednisone 10 mg PO DAILY 10/19/18 glipiZIDE [Glucotrol] 10 mg PO BIDAC 10/19/18 Loperamide [Imodium] 2 mg PO Q2H PRN PRN #30 capsule 10/20/18 Pioglitazone [Actos] 30 mg PO DAILY #30 tablet 10/20/18 Tamsulosin HCl [Flomax] 0.4 mg PO DAILY #30 capsule 10/20/18 The following prescriptions were given: Loperamide [Imodium] 2 mg PO Q2H PRN PRN #30 capsule PRN Reason: Diarrhea Pioglitazone [Actos] 30 mg PO DAILY #30 tablet Tamsulosin HCl [Flomax] 0.4 mg PO DAILY #30 capsule Primary Care Physician: Lainey Lang MD [Primary Care Provider] - Please follow up with your Primary Care Physician in: As scheduled, 10/22/2018 at 11 AM Test Results: Test results from this visit will be discussed in further detail at your follow- up appointment, if applicable. Please Follow Up With: Quentin Miranda MD When: 1 Week Proposed Discharge Date: 10/20/18
--- NOTE | 2018-10-20 14:53 | PCM.DC.SUM ---
Discharge Date and Diagnosis Date of Admission: 10/19/18 Date of Discharge: 10/20/18 - Primary Discharge Diagnosis Active and Suspected Problems 1. Acute diarrhea, secondary to antibiotic regimen 2. Recent enterobacter UTI, history of recurrent UTIs status post TURP January 2018 as a result of BPH 3. Suspected mild cognitive impairment with limited ability to make appropriate medical decisions 3. Type 2 diabetes mellitus, poor control 4. Elevated lactic acid, unclear etiology-repeat lactic acid within normal limits 5. Myasthenia gravis 6. Hypertension 7. History of seizures - Secondary Discharge Diagnosis Chronic Problems BPH (benign prostatic hyperplasia) (Chronic) Tinea unguium (Chronic) Seizure disorder (Chronic) Myasthenia gravis (Chronic) Type II diabetes mellitus (Chronic) Hospital Course and Treatment Operations: None, TURP Procedures: None Summary of Care Provided: The patient is a 73 year old M admitted 10/19/2018 due to diarrhea, stool incontinence. 1. Acute diarrhea, secondary to antibiotic regimen- stool for c.diff, enteric bacteriology, stool for occult blood all negative. Begin Imodium as needed. Follow-up with primary care provider as scheduled 10/22/2018 at 11 AM. 2. Recent enterobacter UTI, history of recurrent UTIs status post TURP January 2018 as a result of BPH. Discontinue previously prescribed Omnicef as this may be contributing to #1. Discharge on Macrobid 100 mg twice daily for 3 days. Initiated on Flomax due to urinary retention. Outpatient follow up with Dr. Miranda. 3. Suspected mild cognitive impairment with limited ability to make appropriate medical decisions-APS referral made from the emergency room during recent admission 10/16/2018. APS updated by social work this admission. Patient previously declined home health and is now agreeable. 3. Type 2 diabetes mellitus, poor control-Glipizide increased recently by PCP. Patient advised insulin at recent discharge and he refused. Hemoglobin A1c 12.4%. Patient reports he has multiple glucose machines at home however has not been checking his blood sugar. Begin actos 30mg daily in addition to glipizide. Follow up with PCP for further adjustments. 4. Myasthenia gravis-continue home prednisone regimen. 5. Hypertension-stable, continue home lisinopril regimen. 6. History of seizures-continue Keppra regimen. 7. Elevated lactic acid, unclear etiology-repeat lactic acid within normal limits. General: Alert, Oriented x3, Cooperative HEENT: Atraumatic, PERRLA, EOMI, Normocephalic Neck: Supple, No JVD, Negative Carotid Bruits Lungs: Clear to auscultation, Diminished Cardiovascular: Regular rate, Regular Rhythm, Normal S1, Normal S2, No murmurs Abdomen: Bowel Sounds Present, Soft, Non Tender, Non-Distended, Obese Extremities: No clubbing, No cyanosis, No edema, Capillary Refill Less than 3 Seconds Skin: No rashes, No breakdown Musculoskeletal: No Tenderness to Palpation of Joints or Extremities Neurological: Cranial nerves II-XII grossly intact, Neuro grossly intact Psych/Mental Status: Normal Affect, Appropriate Patient seen and examined prior to discharge. Physical assessment as noted above. Patient is stable for discharge with follow up recommendations as noted above. This patient was seen by SYLVIA Maki under the supervision of Dr. Vale. - Physical Exam Vital Signs Temp Pulse Resp BP Pulse Ox 97.4 F L 75 18 132/65 H 96 10/20/18 09:12 10/20/18 09:12 10/20/18 09:12 10/20/18 09:12 10/20/18 09:12 Oxygen Delivery Method Room Air Weight: 189 lb 6.033 oz Body Mass Index (BMI) 28.8 Finger Stick Blood Glucose 203 Intake and Output for Last 24 Hours 10/18/18 10/19/18 10/20/18 23:59 23:59 23:59 Intake Total 1508 / 1508 Output Total 200 / 200 Balance -200 / -200 1508 / 1508 Microbiology Past 72 Hours 10/19/18 18:07 Enteric Bacteriology - Final Stool 10/19/18 18:07 C. difficile DNA Amplification - Final Stool 10/19/18 Unknown Stool Occult Blood (LADY) - Final Stool Laboratory Tests Past 24 Hrs 10/19/18 10/19/18 10/19/18 16:28 18:35 18:35 WBC 6.3 RBC 4.31 L Hgb 13.3 Hct 39.9 L MCV 92.6 MCH 30.9 MCHC 33.3 RDW 13.0 RDW Differential 44.1 H Plt Count 160 MPV 10.5 Immature Gran % (Auto) 0.300 Neut % (Auto) 77.6 H Lymph % (Auto) 10.9 L [place] % (Auto) 9.7 Eos % (Auto) 1.3 Baso % (Auto) 0.2 Absolute Neuts (auto) 4.9 Absolute Lymphs (auto) 0.69 L Total Counted Not Reportable Sodium 136 Potassium 4.1 Chloride 104 Carbon Dioxide 25.0 Anion Gap 7 BUN 10 Creatinine 1.07 Estim Creat Clear Calc 60.37 Est GFR (MDRD) Af Amer 87 Est GFR (MDRD) Non-Af 72 BUN/Creatinine Ratio 9.3 L Glucose 470 H* Lactic Acid Calcium 8.3 L Urine Color Straw Urine Clarity Clear Urine pH 6.0 Ur Specific [place] 1.010 Urine Protein Negative Urine Glucose (UA) 1000 H Urine Ketones Negative Urine Occult Blood 25 H Urine Nitrite Negative Urine Bilirubin Negative Urine Urobilinogen Normal Ur Leukocyte Esterase 100 H Urine RBC 0-5 SEEN Urine WBC 5-10 SEEN Ur Squamous Epith Cells 0 SEEN Urine Bacteria 0 SEEN Urine Mucus 0 SEEN 10/19/18 10/19/18 10/20/18 18:48 23:30 05:52 WBC 7.3 RBC 4.00 L Hgb 12.2 L Hct 36.8 L MCV 92.0 MCH 30.5 MCHC 33.2 RDW 13.1 RDW Differential 44.0 H Plt Count 153 MPV 10.7 Immature Gran % (Auto) 0.300 Neut % (Auto) 63.2 Lymph % (Auto) 22.5 [place] % (Auto) 10.4 H Eos % (Auto) 3.2 Baso % (Auto) 0.4 Absolute Neuts (auto) 4.6 Absolute Lymphs (auto) 1.64 Total Counted Not Reportable Sodium Potassium Chloride Carbon Dioxide Anion Gap BUN Creatinine Estim Creat Clear Calc Est GFR (MDRD) Af Amer Est GFR (MDRD) Non-Af BUN/Creatinine Ratio Glucose Lactic Acid 3.0 H 1.5 Calcium Urine Color Urine Clarity Urine pH Ur Specific [place] Urine Protein Urine Glucose (UA) Urine Ketones Urine Occult Blood Urine Nitrite Urine Bilirubin Urine Urobilinogen Ur Leukocyte Esterase Urine RBC Urine WBC Ur Squamous Epith Cells Urine Bacteria Urine Mucus 10/20/18 05:52 WBC RBC Hgb Hct MCV MCH MCHC RDW RDW Differential Plt Count MPV Immature Gran % (Auto) Neut % (Auto) Lymph % (Auto) [place] % (Auto) Eos % (Auto) Baso % (Auto) Absolute Neuts (auto) Absolute Lymphs (auto) Total Counted Sodium 140 Potassium 4.5 Chloride 110 H Carbon Dioxide 26.0 Anion Gap 4 L BUN 8 Creatinine 0.83 Estim Creat Clear Calc 77.83 Est GFR (MDRD) Af Amer 117 Est GFR (MDRD) Non-Af 97 BUN/Creatinine Ratio 9.7 L Glucose 224 H Lactic Acid Calcium 7.8 L Urine Color Urine Clarity Urine pH Ur Specific [place] Urine Protein Urine Glucose (UA) Urine Ketones Urine Occult Blood Urine Nitrite Urine Bilirubin Urine Urobilinogen Ur Leukocyte Esterase Urine RBC Urine WBC Ur Squamous Epith Cells Urine Bacteria Urine Mucus POC Glucose 10/20/18 10/20/18 10/20/18 11:56 06:33 03:26 POC Glucose 290 H 216 H 213 H 10/19/18 22:25 POC Glucose 202 H Discharge Diet: Carb Control Diet Discharge Activity: Return to Normal Activity Call your doctor if you observe: Shortness of breath, Dizziness, Fainting spells, Chest pain Home Medications: Medications to take at Discharge Lisinopril [Zestril] 20 mg PO DAILY 01/17/18 levETIRAcetam tablet [Keppra tablet] 500 mg PO BID 02/04/18 Cefdinir [Omnicef [equiv]] 300 mg PO Q12H 10/19/18 Prednisone 10 mg PO DAILY 10/19/18 glipiZIDE [Glucotrol] 10 mg PO BIDAC 10/19/18 Loperamide [Imodium] 2 mg PO Q2H PRN PRN #30 capsule 10/20/18 Nitrofurantoin Macrocrystals [Macrobid] 100 mg PO Q12 #6 capsule 10/20/18 Pioglitazone [Actos] 30 mg PO DAILY #30 tablet 10/20/18 Tamsulosin HCl [Flomax] 0.4 mg PO DAILY #30 capsule 10/20/18 Following Prescrptions Were Given to Patient: Loperamide [Imodium] 2 mg PO Q2H PRN PRN #30 capsule PRN Reason: Diarrhea Nitrofurantoin Macrocrystals [Macrobid] 100 mg PO Q12 #6 capsule Pioglitazone [Actos] 30 mg PO DAILY #30 tablet Tamsulosin HCl [Flomax] 0.4 mg PO DAILY #30 capsule Primary Care Physician: Lainey Lang MD [Primary Care Provider] - Please follow up with your Primary Care Physician in: As scheduled, 10/22/2018 at 11 AM Please Follow Up With: Quentin Miranda MD When: 1 Week Disposition: Home with Home Health Minutes spent on discharge:: 35 Patient Condition:: Stable Medical Necessity - Tobacco Use Smoking Status: Unknown if ever smoked Meaningful Use Info Meaningful Use Diagnoses (Choose all that apply): None applicable
--- NOTE | 2018-10-20 14:58 | DS.PCM_ITS ---
Addendum entered and electronically signed by SYLVIA Maki 10/20/18 16:10: Code Visit Prior to discharge notified by RN that patient was incontinent of urine and subsequently bladder scanned for 450 to [address] Miranda who recommends discharging patient with Rivera catheter/leg bag and following up in office. Patient refused Rivera catheter. Nursing will attempt to get patient appointment with urology as soon as possible. He was discharged on Proscar 5 mg daily as well as Flomax 0.8 mg daily. Original Note: Discharge Date and Diagnosis Date of Admission: 10/19/18 Date of Discharge: 10/20/18 - Primary Discharge Diagnosis Active and Suspected Problems 1. Acute diarrhea, secondary to antibiotic regimen 2. Recent enterobacter UTI, history of recurrent UTIs status post TURP January 2018 as a result of BPH 3. Suspected mild cognitive impairment with limited ability to make appropriate medical decisions 3. Type 2 diabetes mellitus, poor control 4. Elevated lactic acid, unclear etiology-repeat lactic acid within normal limits 5. Myasthenia gravis 6. Hypertension 7. History of seizures - Secondary Discharge Diagnosis Chronic Problems BPH (benign prostatic hyperplasia) (Chronic) Tinea unguium (Chronic) Seizure disorder (Chronic) Myasthenia gravis (Chronic) Type II diabetes mellitus (Chronic) Hospital Course and Treatment Operations: None, TURP Procedures: None Summary of Care Provided: The patient is a 73 year old M admitted 10/19/2018 due to diarrhea, stool incontinence. 1. Acute diarrhea, secondary to antibiotic regimen- stool for c.diff, enteric bacteriology, stool for occult blood all negative. Begin Imodium as needed. F ollow-up with primary care provider as scheduled 10/22/2018 at 11 AM. 2. Recent enterobacter UTI, history of recurrent UTIs status post TURP January 2018 as a result of BPH. Discontinue previously prescribed Omnicef as this may be contributing to #1. Discharge on Macrobid 100 mg twice daily for 3 days. Initiated on Flomax due to urinary retention. Outpatient follow up with Dr. Miranda. 3. Suspected mild cognitive impairment with limited ability to make appropriate medical decisions-APS referral made from the emergency room during recent admission 10/16/2018. APS updated by social work this admission. Patient previously declined home health and is now agreeable. 3. Type 2 diabetes mellitus, poor control-Glipizide increased recently by PCP. Patient advised insulin at recent discharge and he refused. Hemoglobin A1c 12.4%. Patient reports he has multiple glucose machines at home however has not been checking his blood sugar. Begin actos 30mg daily in addition to glipizide. Follow up with PCP for further adjustments. 4. Myasthenia gravis-continue home prednisone regimen. 5. Hypertension-stable, continue home lisinopril regimen. 6. History of seizures-continue Keppra regimen. 7. Elevated lactic acid, unclear etiology-repeat lactic acid within normal limits. General: Alert, Oriented x3, Cooperative HEENT: Atraumatic, PERRLA, EOMI, Normocephalic Neck: Supple, No JVD, Negative Carotid Bruits Lungs: Clear to auscultation, Diminished Cardiovascular: Regular rate, Regular Rhythm, Normal S1, Normal S2, No murmurs Abdomen: Bowel Sounds Present, Soft, Non Tender, Non-Distended, Obese Extremities: No clubbing, No cyanosis, No edema, Capillary Refill Less than 3 Seconds Skin: No rashes, No breakdown Musculoskeletal: No Tenderness to Palpation of Joints or Extremities Neurological: Cranial nerves II-XII grossly intact, Neuro grossly intact Psych/Mental Status: Normal Affect, Appropriate Patient seen and examined prior to discharge. Physical assessment as noted above. Patient is stable for discharge with follow up recommendations as noted above. This patient was seen by SYLVIA Maki under the supervision of Dr. Vale. - Physical Exam Vital Signs Temp Pulse Resp BP Pulse Ox 97.4 F L 75 18 132/65 H 96 10/20/18 09:12 10/20/18 09:12 10/20/18 09:12 10/20/18 09:12 10/20/18 09:12 Oxygen Delivery Method Room Air Weight: 189 lb 6.033 oz Body Mass Index (BMI) 28.8 Finger Stick Blood Glucose 203 Intake and Output for Last 24 Hours 10/18/18 10/19/18 10/20/18 23:59 23:59 23:59 Intake Total 1508 / 1508 Output Total 200 / 200 Balance -200 / -200 1508 / 1508 Microbiology Past 72 Hours 10/19/18 18:07 Enteric Bacteriology - Final Stool 10/19/18 18:07 C. difficile DNA Amplification - Final Stool 10/19/18 Unknown Stool Occult Blood (LADY) - Final Stool Laboratory Tests Past 24 Hrs 10/19/18 10/19/18 10/19/18 16:28 18:35 18:35 WBC 6.3 RBC 4.31 L Hgb 13.3 Hct 39.9 L MCV 92.6 MCH 30.9 MCHC 33.3 RDW 13.0 RDW Differential 44.1 H Plt Count 160 MPV 10.5 Immature Gran % (Auto) 0.300 Neut % (Auto) 77.6 H Lymph % (Auto) 10.9 L [place] % (Auto) 9.7 Eos % (Auto) 1.3 Baso % (Auto) 0.2 Absolute Neuts (auto) 4.9 Absolute Lymphs (auto) 0.69 L Total Counted Not Reportable Sodium 136 Potassium 4.1 Chloride 104 Carbon Dioxide 25.0 Anion Gap 7 BUN 10 Creatinine 1.07 Estim Creat Clear Calc 60.37 Est GFR (MDRD) Af Amer 87 Est GFR (MDRD) Non-Af 72 BUN/Creatinine Ratio 9.3 L Glucose 470 H* Lactic Acid Calcium 8.3 L Urine Color Straw Urine Clarity Clear Urine pH 6.0 Ur Specific [place] 1.010 Urine Protein Negative Urine Glucose (UA) 1000 H Urine Ketones Negative Urine Occult Blood 25 H Urine Nitrite Negative Urine Bilirubin Negative Urine Urobilinogen Normal Ur Leukocyte Esterase 100 H Urine RBC 0-5 SEEN Urine WBC 5-10 SEEN Ur Squamous Epith Cells 0 SEEN Urine Bacteria 0 SEEN Urine Mucus 0 SEEN 10/19/18 10/19/18 10/20/18 18:48 23:30 05:52 WBC 7.3 RBC 4.00 L Hgb 12.2 L Hct 36.8 L MCV 92.0 MCH 30.5 MCHC 33.2 RDW 13.1 RDW Differential 44.0 H Plt Count 153 MPV 10.7 Immature Gran % (Auto) 0.300 Neut % (Auto) 63.2 Lymph % (Auto) 22.5 [place] % (Auto) 10.4 H Eos % (Auto) 3.2 Baso % (Auto) 0.4 Absolute Neuts (auto) 4.6 Absolute Lymphs (auto) 1.64 Total Counted Not Reportable Sodium Potassium Chloride Carbon Dioxide Anion Gap BUN Creatinine Estim Creat Clear Calc Est GFR (MDRD) Af Amer Est GFR (MDRD) Non-Af BUN/Creatinine Ratio Glucose Lactic Acid 3.0 H 1.5 Calcium Urine Color Urine Clarity Urine pH Ur Specific [place] Urine Protein Urine Glucose (UA) Urine Ketones Urine Occult Blood Urine Nitrite Urine Bilirubin Urine Urobilinogen Ur Leukocyte Esterase Urine RBC Urine WBC Ur Squamous Epith Cells Urine Bacteria Urine Mucus 10/20/18 05:52 WBC RBC Hgb Hct MCV MCH MCHC RDW RDW Differential Plt Count MPV Immature Gran % (Auto) Neut % (Auto) Lymph % (Auto) [place] % (Auto) Eos % (Auto) Baso % (Auto) Absolute Neuts (auto) Absolute Lymphs (auto) Total Counted Sodium 140 Potassium 4.5 Chloride 110 H Carbon Dioxide 26.0 Anion Gap 4 L BUN 8 Creatinine 0.83 Estim Creat Clear Calc 77.83 Est GFR (MDRD) Af Amer 117 Est GFR (MDRD) Non-Af 97 BUN/Creatinine Ratio 9.7 L Glucose 224 H Lactic Acid Calcium 7.8 L Urine Color Urine Clarity Urine pH Ur Specific [place] Urine Protein Urine Glucose (UA) Urine Ketones Urine Occult Blood Urine Nitrite Urine Bilirubin Urine Urobilinogen Ur Leukocyte Esterase Urine RBC Urine WBC Ur Squamous Epith Cells Urine Bacteria Urine Mucus POC Glucose 10/20/18 10/20/18 10/20/18 11:56 06:33 03:26 POC Glucose 290 H 216 H 213 H 10/19/18 22:25 POC Glucose 202 H Discharge Diet: Carb Control Diet Discharge Activity: Return to Normal Activity Call your doctor if you observe: Shortness of breath, Dizziness, Fainting spells, Chest pain Home Medications: Medications to take at Discharge Lisinopril [Zestril] 20 mg PO DAILY 01/17/18 levETIRAcetam tablet [Keppra tablet] 500 mg PO BID 02/04/18 Cefdinir [Omnicef [equiv]] 300 mg PO Q12H 10/19/18 Prednisone 10 mg PO DAILY 10/19/18 glipiZIDE [Glucotrol] 10 mg PO BIDAC 10/19/18 Loperamide [Imodium] 2 mg PO Q2H PRN PRN #30 capsule 10/20/18 Nitrofurantoin Macrocrystals [Macrobid] 100 mg PO Q12 #6 capsule 10/20/18 Pioglitazone [Actos] 30 mg PO DAILY #30 tablet 10/20/18 Tamsulosin HCl [Flomax] 0.4 mg PO DAILY #30 capsule 10/20/18 Following Prescrptions Were Given to Patient: Loperamide [Imodium] 2 mg PO Q2H PRN PRN #30 capsule PRN Reason: Diarrhea Nitrofurantoin Macrocrystals [Macrobid] 100 mg PO Q12 #6 capsule Pioglitazone [Actos] 30 mg PO DAILY #30 tablet Tamsulosin HCl [Flomax] 0.4 mg PO DAILY #30 capsule Primary Care Physician: Lainey Lang MD [Primary Care Provider] - Please follow up with your Primary Care Physician in: As scheduled, 10/22/2018 at 11 AM Please Follow Up With: Quentin Miranda MD When: 1 Week Disposition: Home with Home Health Minutes spent on discharge:: 35 Patient Condition:: Stable Medical Necessity - Tobacco Use Smoking Status: Unknown if ever smoked Meaningful Use Info Meaningful Use Diagnoses (Choose all that apply): None applicable
--- NOTE | 2018-10-20 14:58 | CASEMGMT ---
TODD LUNA NOTE: Pt being discharged. Call placed to Tabitha @ [facility] and she was made aware. She states start of care will be either tomorrow 10/21 or Sunday 10/22. Pt made aware. Madi BATISTA RN CM
[2018-10-20 15:01] VITALS: BP 131/74; PULSE 63; RESP 18; TEMP 36.8; O2SAT 96
[2018-10-20] MEDS: Loperamide 2 MG Capsule PO (15:13)
--- NOTE | 2018-10-20 15:31 | CASEMGMT ---
TODD LUNA NOTE: Pt requesting [facility] Van transportation to go home. Call placed and van is available to take pt home @ 1600 and they will pick pt up @ the main entrance at that time. Pt made aware. Carmen and TODD Frausto both made aware. Madi BSN OTDD CM
--- NOTE | 2018-10-20 15:32 | NURSING ---
pt incontinent of urine in attends. bladder scanned for 450-500 x3 with bladder scan. text to Manolo STONER.
--- NOTE | 2018-10-20 16:20 | NURSING ---
Spoke with Sarah Li NP and Dr. Miranda and informed pt refusing to have perry placed.
--- NOTE | 2018-10-21 09:00 | CASEMGMT ---
Social Work Note ODILON received call from Ellen with APS, stating initial referral was never made, and wanting additional information on pt including pt's , address, etc. ODILON provided Ellen with information and updated her that pt was discharged home with [facility] yesterday. Lexy Roa TUBE DEPATCHER, TIN DIPPER
== END 2018-10-20 16:20 | disposition home health service (06) ==
LOC: ED 18:39 → MS3 20:36
PROVIDERS: Admitting Provider Hospitalist; Emergency Provider Emergency Medicine; Family Provider Internal Medicine; PCP Internal Medicine; Referring Provider Hospitalist; Visit Provider Internal Medicine
DX: K52.1 Toxic gastroenteritis and colitis (principal); T36.95XA Adverse effect of unspecified systemic antibiotic, initial encounter; E11.65 Type 2 diabetes mellitus with hyperglycemia; I10 Essential (primary) hypertension; G70.00 Myasthenia gravis without (acute) exacerbation; Z79.899 Other long term (current) drug therapy; Z79.84 Long term (current) use of oral hypoglycemic drugs; Z79.52 Long term (current) use of systemic steroids; R32 Unspecified urinary incontinence; R15.9 Full incontinence of feces; Z91.81 History of falling; Z87.440 Personal history of urinary (tract) infections; N40.0 Benign prostatic hyperplasia without lower urinary tract symptoms; G40.909 Epilepsy, unspecified, not intractable, without status epilepticus
CPT/HCPCS: 36415; 80048; 81001; 82274; 82962; 83605; 85025; 87493; 87506; 96360; 96361; 97161; 97165; 99218; 99284; J7030; J7120; A4216; G0378

== ENCOUNTER 2018-10-27 14:58 | Emergency (ER) | payer MEDICARE, OTHER, SELFPAY ==
[2018-10-19 21:14] VITALS: BMI 28.8
[2018-10-27 15:00] VITALS: BP 149/77; PULSE 105; RESP 16; TEMP 36.7; O2SAT 96; BMI 27.6
--- NOTE | 2018-10-27 15:37 | ED.VISSUMM ---
- ER Visit Summary Date of Service: 10/27/18 Chief Complaint: Urinary incontinence History of Present Illness: The patient is a 73 M history of efr-czzzprw-[id number] diabetes and bladder problems in the past. He has had a prior recent Rivera catheter and just had it removed by Dr. Miranda. He is now having urinary incontinence since he took the Rivera catheter out. He denies nausea, vomiting, dysuria or hematuria. Physical Examination: Well-appearing older male. No acute distress. Vital signs are stable and afebrile. HEENT exam unremarkable. Neck nontender. Lungs clear to auscultation bilaterally. Heart regular rhythm no murmur. Abdomen is soft and nontender. Normal bowel sounds no peritoneal signs. Extremities moves all 4. His shorts that he is wearing are wet from urinary incontinence. Neurologically is awake alert with no focal motor deficits. Test Results: Bladder scan shows greater than 500 cc of urine. Urinalysis showed no signs of infection or blood. Emergency Department Course and Treatment: I suspect the patient is having overflow urinary incontinence. Patient doing well on repeat exam at 1706. Treatment Plan: Discharged home with a Rivera leg bag. Follow-up with his urologist. Disposition: Discharge Impression: Acute urinary retention with overflow incontinence Rivera catheter placed by nurse This note was generated with [employer] dictation software. It may contain incorrect words, spelling, and punctuation that were not noted in review of the chart prior to signing ED Disposition - Plan for ED Patient: Disposition: Home or Assisted Living Instructions: ED Retention Urinary Male Referrals: Quentin Miranda MD [STAFF PHYSICIAN] - 3-5 Days Additional Instructions: You are having urinary retention meaning that your bladder is not emptying. That is why you are having incontinence. He will be discharged with a Rivera catheter. Call and follow-up with Dr. Miranda.
--- NOTE | 2018-10-27 15:41 | ED.DCSUM_ITS ---
- ER Visit Summary Date of Service: 10/27/18 Chief Complaint: Urinary incontinence History of Present Illness: The patient is a 73 M history of tuf-ayuypks-[id number] diabetes and bladder problems in the past. He has had a prior recent Rivera catheter and just had it removed by Dr. Miranad. He is now having urinary incontinence since he took the Rivera catheter out. He denies nausea, vomiting, dysuria or hematuria. Physical Examination: Well-appearing older male. No acute distress. Vital signs are stable and afebrile. HEENT exam unremarkable. Neck nontender. Lungs clear to auscultation bilaterally. Heart regular rhythm no murmur. Abdomen is soft and nontender. Normal bowel sounds no peritoneal signs. Extremities moves all 4. His shorts that he is wearing are wet from urinary incontinence. Neurologically is awake alert with no focal motor deficits. Test Results: Bladder scan shows greater than 500 cc of urine. Urinalysis showed no signs of infection or blood. Emergency Department Course and Treatment: I suspect the patient is having overflow urinary incontinence. Patient doing well on repeat exam at 1706. Treatment Plan: Discharged home with a Rivera leg bag. Follow-up with his urologist. Disposition: Discharge Impression: Acute urinary retention with overflow incontinence Rivera catheter placed by nurse This note was generated with Cloud[employer] dictation software. It may contain incorrect words, spelling, and punctuation that were not noted in review of the chart prior to signing ED Disposition - Plan for ED Patient: Disposition: Home or Assisted Living Instructions: ED Retention Urinary Male Referrals: Quentin Miranda MD [STAFF PHYSICIAN] - 3-5 Days Additional Instructions: You are having urinary retention meaning that your bladder is not emptying. Th at is why you are having incontinence. He will be discharged with a Rivera catheter. Call and follow-up with Dr. Mrianda.
[2018-10-27 16:07] LABS: Bacteria 0 SEEN /hpf (None Seen); Mucous, Urine 0 SEEN /hpf (<or=2+); Red Blood Cells-Urine 0 SEEN /hpf (0-5); Squamous Epithelial Cells - UA 0 SEEN /hpf (0-5)
[2018-10-27] MEDS: Lidocaine Jelly 2% 20 ML Syringe (URO-JET) 20 APPLIC TOPICAL (16:10)
--- NOTE | 2018-10-27 16:37 | ED.DEP ---
ED Disposition - Plan for ED Patient: Disposition: Home or Assisted Living Instructions: ED Retention Urinary Male Referrals: Quentin Miranda MD [STAFF PHYSICIAN] - 3-5 Days Additional Instructions: You are having urinary retention meaning that your bladder is not emptying. That is why you are having incontinence. He will be discharged with a Rivera catheter. Call and follow-up with Dr. Miranda.
[2018-10-27 16:39] LABS: Color, Urine Yellow (Yellow); Glucose, Dipstick 1000 mg/dl (Normal); Ketone-Dipstick 15 mg/dl (Negative); Leukocyte Esterase-Dipstick Negative /ul (Negative); Nitrite-Dipstick Negative (Negative); Occult Blood-Urine Negative /ul (Negative); Protein-Dipstick Negative (Negative); Urine Bilirubin Dipstick Negative (Negative); Urine Clarity Clear (Clear); Urine Urobilinogen Normal (Normal)
[2018-10-27 17:04] LABS: White Blood Cells 0-5 SEEN /hpf (0-5)
== END 2018-10-27 17:37 | disposition home or self-care (01) ==
PROVIDERS: Emergency Provider Emergency Medicine; Family Provider Internal Medicine; PCP Internal Medicine
DX: N39.490 Overflow incontinence (principal); R33.9 Retention of urine, unspecified; E11.9 Type 2 diabetes mellitus without complications; Z79.84 Long term (current) use of oral hypoglycemic drugs; Z79.899 Other long term (current) drug therapy
CPT/HCPCS: 51702; 81001; 99284

== ENCOUNTER 2018-12-21 05:03 | Observation (INO) | payer MEDICARE, OTHER, SELFPAY ==
[2018-12-21] VITALS (9 sets, daily range): BP systolic 119–150; BP diastolic 59–82; PULSE 78–100; RESP 12–17; TEMP 36.9–38.2; O2SAT 90–97; BMI 30.7; BMI 29.3
--- NOTE | 2018-12-21 05:24 | CT_ITS ---
STUDY: CT ABDOMEN AND PELVIS WITHOUT CONTRAST REASON FOR EXAM: Male, 73 years old. VOIDING SMALL AMOUNTS, PAIN INTO GROIN, ENLARGED PROSTATE, DIAB, SZ, HX MYSTIA GRAVIA RADIATION DOSAGE (If Supplied By Facility): CTDIvol = ( 12.87 ) mGy, DLP = ( 759.177 ) mGycm TECHNIQUE: Transaxial images were obtained from the dome of the diaphragm to the symphysis pubis without oral contrast, and without intravenous contrast. Sagittal and coronal images were reconstructed. Individualized dose optimization techniques were used for this CT. COMPARISON: None. FINDINGS: The visualized lung bases are unremarkable. The visualized portions of the heart are within normal limits. Normal liver. Normal gallbladder and extrahepatic biliary system. Normal spleen. Normal pancreas. Normal bilateral adrenal glands. Normal right kidney. Normal left kidney. Normal visualized stomach. Normal small intestine. There are multiple colonic diverticula consistent with diverticulosis. There is non-visualization of the appendix. There is diffuse atherosclerotic calcification of the abdominal aorta, without a demonstrated aneurysm. Normal inferior vena cava. Normal retroperitoneum. Normal urinary bladder. There is a small umbilical hernia containing fat. There is a left-sided inguinal hernia containing adipose tissue. There are diffuse degenerative changes of the visualized lumbar spine. CT/Abdomen/Pelvis without Cont IMPRESSION: There are multiple colonic diverticula consistent with diverticulosis. Electronically Signed: Graham Boykin, at 6:24 EDT Tel , Service support ,
[2018-12-21 05:51] LABS: Absolute Lymphocyte Count 0.74 X10^3/ul (0.83-4.51); Absolute Neutrophil Count 8.9 X10^3/uL (2.0-7.7); Basophil# 0.02 X10^3/uL; Basophil% 0.2 % (0-1); Eosinophil# 0.16 X10^3/uL; Eosinophils% 1.5 % (0-5); Hematocrit 38.1 % (40-54); Hemoglobin 12.6 g/dl (13.0-16.5); Lymphocyte # 0.74 X10^3/ul (4.0); Lymphocyte % 6.7 % (19-41); Mean Corp Hgb Conc 33.1 g/gl (32-36); Mean Corpuscular Hgb 30.8 pg (27.0-32.0); Mean Corpuscular Volume 93.2 fL (80-94); Mean Platelet Vol. 10.6 fl (6.2-12.0); Monocyte# 1.16 X10^3/uL; Monocyte% 10.5 % (0-10); Neutrophil # 8.92 X10^3/uL (2.7-7.7); Neutrophil % 80.9 % (47-70); Platelet Count 162 K/mm3 (150-450); RBC Distribution Width CV 13.7 % (11.6-14.6); RBC Distribution Width SD 46.6 fl (35.1-43.9); Red Blood Count 4.09 M/mm3 (4.6-6.2)
[2018-12-21 05:52] LABS: POSITIVE COUNT NO; POSITIVE DIFFERENTIAL NO; POSITIVE MORPHOLOGY NO
[2018-12-21 06:10] LABS: ALB/GLOB Ratio 1.1 RATIO (0.9-2.4); AST(SGOT) 14 U/L (15-37); Alanine Aminotransfer ALT/SGPT 25 U/L (16-61); Albumin, Serum 3.4 g/dL (3.2-5.0); Alkaline Phosphatase 66 U/L (45-117); Anion Gap 9 (5-15); BUN 17 mg/dL (7-18); BUN/Creat Ratio 17.3 RATIO (10-20); Calcium,Total 8.2 mg/dL (8.5-10.1); Chloride 105 mmol/L (98-107); Creatinine, Serum 0.98 mg/dL (0.70-1.30); EST Glomerular Filtration Rate 79 mL/min (>60); Est Glom Filt Rate - Afr Amer 96 mL/min (>60); Estimated Creatinine Clearance 65.92 ml/min; Glucose 161 mg/dL (74-106); Potassium 3.8 mmol/L (3.5-5.1); Protein, Total 6.4 g/dL (6.4-8.2); Sodium Level 140 mmol/L (136-145)
[2018-12-21 06:25] LABS: Bacteria 0 SEEN /hpf (None Seen); Mucous, Urine 0 SEEN /hpf (<or=2+); Squamous Epithelial Cells - UA 0 SEEN /hpf (0-5)
[2018-12-21 06:30] LABS: Color, Urine Yellow (Yellow); Glucose, Dipstick 250 mg/dl (Normal); Ketone-Dipstick 15 mg/dl (Negative); Leukocyte Esterase-Dipstick 25 /ul (Negative); Nitrite-Dipstick Negative (Negative); Occult Blood-Urine Negative /ul (Negative); Protein-Dipstick Negative (Negative); Urine Bilirubin Dipstick Negative (Negative); Urine Clarity Clear (Clear); Urine Urobilinogen Normal (Normal)
[2018-12-21 06:37] LABS: Red Blood Cells-Urine 5-10 SEEN /hpf (0-5); White Blood Cells 0-5 SEEN /hpf (0-5)
--- NOTE | 2018-12-21 06:55 | US_ITS ---
STUDY: SCROTUM ULTRASOUND REASON FOR EXAM: Male, 73 years old. Pain/tenderness of the right testicle. TECHNIQUE: Ultrasound evaluation of the scrotum was performed with color Doppler and static cutler-scale imaging. COMPARISON: None. FINDINGS: RIGHT TESTICLE INTRATESTICULAR: There is a normal size of the right testicle. The right testicle measures 4.8 cm x 4 cm x 3.1 cm. There is a homogenous echotexture. There is increased arterial and increased venous vascularity. There is no demonstrated right testicular mass or cyst. EXTRATESTICULAR: The epididymis is enlarged. The epididymis head measures 3.6 cm x 1 cm x 0.9 cm. There is normal vascularity of the epididymis. There is a well-defined cystic structure within the epididymis, without internal echoes, consistent with an epididymal cyst. This measures 1.9 signed by 3.1 cm x 1.9 cm. There is a small hydrocele. There is no demonstrated varicocele. There is no demonstrated extratesticular mass or cyst. LEFT TESTICLE INTRATESTICULAR: There is a normal size of the left testicle. The left testicle measures 2.2 cm x 1.7 cm x 2.8 cm. There is a homogenous echotexture. There is normal arterial and normal venous vascularity. There is no demonstrated left testicular mass or cyst. EXTRATESTICULAR: The epididymis is normal in size. The epididymis head measures 1.3 cm x 0.9 cm x 0.7 cm. There is normal vascularity of the epididymis. There is a well-defined cystic structure within the epididymis, without internal echoes, consistent with an epididymal cyst. This measures 9 mm x 11 mm x 8 mm. There is a small hydrocele. There is no demonstrated varicocele. There is no demonstrated extratesticular mass or cyst. US/Testicular with Arterial Flow IMPRESSION: Small bilateral hydroceles. Enlarged right epididymis with a large epididymal cyst with increased blood flow. Findings suggestive of epididymitis. Electronically Signed: Rosalio Valenzuela at 8:55 EDT , Service support ,
--- NOTE | 2018-12-21 07:11 | ED.VISSUMM ---
- ER Visit Summary Date of Service: 12/21/18 Chief Complaint: Abdominal pain History of Present Illness: The patient is a 73 M who presents the emergency department with a 2-day history of worsening sharp right lower quadrant pain. Patient states that he has been voiding small amounts. He has a history of BPH, diabetes, hypertension and seizure disorder. He denies any fevers. He denies any dysuria hematuria. No nausea vomiting. Denies any constipation. Physical Examination: Afebrile vital signs are stable Gen: Well-nourished well-developed Head: Normocephalic atraumatic Eyes: Perrl EOMI ENT: TMs clear no rhinorrhea moist mucous membranes Neck: Supple no lymphadenopathy no JVD nontender CVS: Regular rate rhythm no murmurs normal S1-S2 Respiratory: No distress clear to auscultation bilaterally chest nontender Abdomen: Soft patient is tender to palpation in the right lower quadrant. Nondistended normal bowel sounds no masses Back: Nontender Extremity: Nontender no edema Skin: Normal color no rash Neuro: alert orientated ?3 CN II-XII intact normal strength sensation reflexes gait cerebellar Psych: Normal affect normal mood Test Results: CBC BMP urinalysis and CT noncontrast of the abdomen and pelvis does not show any acute disease. Emergency Department Course and Treatment: Initially bladder scan was performed which did not show any urinary retention. Patient localized the area of his pain to the lower right lower quadrant. When I was reviewing his testing so far the patient continues to complain of palpation in the right lower quadrant. When I asked him if he hurts anywhere else he tells me know. I asked him if his testicles hurt and he tells me know. He then asked me what his testicles are. I explained this to him and he now tells me his right testicle hurts. Physical exam reveals an enlarged right testicle. I do not see any evidence of Stephie's. A testicular ultrasound was ordered. This is currently pending. Impression: 1. Acute abdominal pain 2. Right testicular pain This note was generated with [employer] software. It may contain incorrect words, spelling, and punctuation that were not noted in review of the chart prior to signing <Dony Cheek - Last Filed: 12/21/18 07:11> - ER Visit Summary Date of Service: 12/21/18 Patient was signed out to me pending ultrasound. Testicular ultrasound returned with evidence of epididymitis on the right. Small bilateral hydroceles are noted. Nursing staff has had patient up to bedside commode several times was only able to urinate a small amount. Rivera catheter was placed with approximately 500 cc output. Urinalysis sent earlier in the stay was reviewed and shows no sign of acute infection. Nursing staff did state the patient was extremely unsteady on his feet and they have great concerns about his safety at home. Patient's son is at bedside. He states the patient was able to walk to the ambulance earlier today but in watching his father try to get up now does note that his gait is much more unsteady. Son does stay with him but is out of the house frequently with work and going to see his own children. I discussed with the patient staying in the hospital today for antibiotics and evaluation by physical therapy to ensure that he is safe at home. I will speak with the hospitalist. Disposition: Admit Impression: 1. Epididymitis on right 2. Unsteady gait This note was generated with [facility] dictation software. It may contain incorrect words, spelling, and punctuation that were not noted in review of the chart prior to signing <Amina Nelson - Last Filed: 12/21/18 09:23> ED Disposition <Dony Cheek - Last Filed: 12/21/18 07:11> <Amina Nelson - Last Filed: 12/21/18 09:23> - Plan for ED Patient: Referrals: Lainey Lang MD [Primary Care Provider] -
[2018-12-21] MEDS: oxyCODONE 5 MG Tablet PO (07:51)
--- NOTE | 2018-12-21 09:01 | ED.RN ---
Pt unable to stand without full assist x1. He has been assisted to bsc x2 with poor results. Son is at bedside and verifies pt ambulated to squad with minimal assist into unit. Pt c/o pain to bladder area. Unbale to bladder scan. Inserted catheter for approx 500 cc return.
--- NOTE | 2018-12-21 09:34 | HP.PCM_ITS ---
Problem List (1) Acute diarrhea Status: Resolved (2) BPH (benign prostatic hyperplasia) Status: Chronic (3) Tinea unguium Status: Chronic (4) Seizure disorder Status: Chronic (5) Myasthenia gravis Status: Chronic (6) Type II diabetes mellitus Status: Chronic History of Present Illness Date of Admission: 12/21/18 Chief Complaint: Generalized weakness and knee gave out. The patient is a 73 year old M with multiple comorbidities and last admission in September 2018 for acute diarrhea came to ER with right groin pain for 3 days. On further exam in ER, it was found that he has right testicular swelling and pain. Testicle ultrasound was done and found right epididymal orchitis and was given Levaquin in preparation for discharge. Patient could not walk feels like his knees are giving out. He was unsteady on feet therefore admitted for further PT and OT. Furthermore, patient has history of myasthenia gravis and he feels he needs an feet gave out. I think he also has mild dementia. Clinical Impression(s) from Imaging Studies Abdomen/Pelvis CT 12/21/18 05:24 IMPRESSION: There are multiple colonic diverticula consistent with diverticulosis. Testicular Ultrasound 12/21/18 06:55 IMPRESSION: Small bilateral hydroceles. Enlarged right epididymis with a large epididymal cyst with increased blood flow. Findings suggestive of epididymitis. Past Medical History Past Medical History (Chronic Problems): Chronic Problems BPH (benign prostatic hyperplasia) (Chronic) Tinea unguium (Chronic) Seizure disorder (Chronic) Myasthenia gravis (Chronic) Type II diabetes mellitus (Chronic) Allergies Iodinated Contrast- Oral and IV Dye [CONTRASTS] Allergy (Verified 12/21/18 05:13) Hives iodine Allergy (Verified 12/21/18 05:13) Hives Penicillins [PCN] Allergy (Verified 12/21/18 05:13) myasthenia gravis developed 2 days after taking PCN from dental procedure simvastatin Adverse Reaction (Verified 12/21/18 05:13) Pain in joints Home Medications: Ambulatory Orders Medication Instructions Recorded Lisinopril [Zestril] 20 mg PO DAILY 01/17/18 levETIRAcetam tablet [Keppra 500 mg PO BID 02/04/18 tablet] Prednisone 10 mg PO DAILY 10/19/18 glipiZIDE [Glucotrol] 10 mg PO BIDAC 10/19/18 Loperamide [Imodium] 2 mg PO Q2H PRN PRN #30 capsule 10/20/18 Pioglitazone [Actos] 30 mg PO DAILY #30 tablet 10/20/18 Finasteride [Proscar] 5 mg PO DAILY 12/21/18 Tamsulosin HCl [Flomax] 0.8 mg PO DAILY 12/21/18 Surgical History: tonsillectomy, TURP Psychiatric History: No pertinent psych hx Smoking Status: Former smoker - *Family History Maternal History Items: Cancer, Heart Disease Paternal History Items: Cancer, Heart Disease Review of Systems Constitutional: Reports: Anorexia, Chills, Fever HEENT: Denies: Head Aches, Sinus Congestion, Sinus Drainage Cardiovascular: Denies: Chest Pain, Palpitations Respiratory: Denies: Cough, Shortness of breath at rest, Sputum production Gastrointestinal: Reports: Abdominal Pain - Right groin pain. Denies: Nausea, Vomiting Genitourinary: Reports: - - Right testicular swelling and pain. Denies: Dysuria, Frequency, Hematuria Musculoskeletal: Reports: Joint stiffness. Denies: Joint Tenderness Skin: Denies: Rash, Wounds Neurological: Denies: Numbness, Tingling, Focal weakness Psychiatric: Denies: Anxiety, Depression, Homicidal Ideations, Suicidal Ideations Hematologic/ Lymphatic: Denies: Easy Bruising, Easy Bleeding VTE Information - Inpt Only VTE Present on Admission: No VTE Mechan Device Prophylaxis: None VTE Pharm Prophylaxis ordered?: Yes - Physical Exam General: Oriented x3, Cooperative, Lethargic, - - Patient looks lethargic. HEENT: Atraumatic, PERRLA, EOMI, Normocephalic Neck: Supple, No JVD, Negative Carotid Bruits Lungs: Clear to auscultation, No rhonchi, No wheeze, No rales, Diminished - Air entry diminished in bilateral lung bases. Cardiovascular: Regular rate, Regular Rhythm, Normal S1, Normal S2, No murmurs Abdomen: Bowel Sounds Present, Soft, Non-Distended, - - Tenderness present over right testicle. Right testicle is swollen, erythematous. No malrotation. Extremities: No edema, Capillary Refill Less than 3 Seconds Skin: No rashes, No breakdown Musculoskeletal: No Tenderness to Palpation of Joints or Extremities, Arthritic Changes Neurological: Cranial nerves II-XII grossly intact, Neuro grossly intact, - - Weakness of both lower extremities. Could not keep the leg for 5 seconds. Psych/Mental Status: Normal Affect, Appropriate Vital Signs Temp Pulse Resp BP Pulse Ox 99.4 F H 94 16 140/67 H 90 12/21/18 08:58 12/21/18 08:58 12/21/18 08:58 12/21/18 08:58 12/21/18 08:58 Oxygen Delivery Method Room Air Weight: 201 lb 15.095 oz Body Mass Index (BMI) 30.7 Finger Stick Blood Glucose 203 Laboratory Tests Past 24 Hrs 12/21/18 12/21/18 12/21/18 05:40 05:40 06:15 WBC 11.0 RBC 4.09 L Hgb 12.6 L Hct 38.1 L MCV 93.2 MCH 30.8 MCHC 33.1 RDW 13.7 RDW Differential 46.6 H Plt Count 162 MPV 10.6 Immature Gran % (Auto) 0.200 Neut % (Auto) 80.9 H Lymph % (Auto) 6.7 L [place] % (Auto) 10.5 H Eos % (Auto) 1.5 Baso % (Auto) 0.2 Absolute Neuts (auto) 8.9 H Absolute Lymphs (auto) 0.74 L Total Counted Not Reportable Sodium 140 Potassium 3.8 Chloride 105 Carbon Dioxide 26.0 Anion Gap 9 BUN 17 Creatinine 0.98 Estim Creat Clear Calc 65.92 Est GFR (MDRD) Af Amer 96 Est GFR (MDRD) Non-Af 79 BUN/Creatinine Ratio 17.3 Glucose 161 H Calcium 8.2 L Total Bilirubin 0.80 AST 14 L ALT 25 Alkaline Phosphatase 66 Total Protein 6.4 Albumin 3.4 Globulin 3.0 Albumin/Globulin Ratio 1.1 Urine Color Yellow Urine Clarity Clear Urine pH 6.0 Ur Specific [place] 1.020 Urine Protein Negative Urine Glucose (UA) 250 H Urine Ketones 15 H Urine Occult Blood Negative Urine Nitrite Negative Urine Bilirubin Negative Urine Urobilinogen Normal Ur Leukocyte Esterase 25 H Urine RBC 5-10 SEEN Urine WBC 0-5 SEEN Ur Squamous Epith Cells 0 SEEN Urine Bacteria 0 SEEN Urine Mucus 0 SEEN Assessment/Plan All Active Problems Acute diarrhea (Resolved) The patient is a 73 year old M with multiple comorbidities and last admission in September 2018 for acute diarrhea came to ER with right groin pain for 3 days. On further exam in ER, it was found that he has right testicular swelling and pain. Testicle ultrasound was done and found right epididymal orchitis and was given Levaquin in preparation for discharge. Patient could not walk feels like his knees are giving out. He was unsteady on feet therefore admitted for further PT and OT. Furthermore, patient has history of myasthenia gravis and he feels he needs an feet gave out. I think he also has mild dementia. 1. Right epididymoorchitis: Patient got Levaquin changed to Rocephin 1 g daily while he is inpatient. Need a scrotal support. 2. Bilateral weakness of lower legs probably chronic steroid therapy/Myasthenia gravis: Currently is taking prednisone 10 mg daily at home and continued. 1 dose of Solu-Medrol 40 mg ordered at the dose to see difference. Check CRP. It is unclear whether his weakness of lower legs is secondary to myasthenia gravis or chronic steroid therapy, but I feel more steroid related weakness. Patient does not have weakness of eyelid, ptosis, weakness of extraocular muscles or diplopia. Patient also had near fall and unsteady gait at home. neur ology consult requested. 3. Diabetes mellitus type 2 with hypoglycemia probably secondary to chronic steroid therapy: Accu-Chek essences cover with Humalog sliding scale. Home medications glipizide and Actos continued. 4. Seizure disorder: Controlled. Home medications continued. 5. BPH: On finasteride and Flomax. Continued DVT prophylaxis: Lovenox 40 subcu daily Clinical Impression(s) from Imaging Studies Abdomen/Pelvis CT 12/21/18 05:24 IMPRESSION: There are multiple colonic diverticula consistent with diverticulosis. Testicular Ultrasound 12/21/18 06:55 IMPRESSION: Small bilateral hydroceles. Enlarged right epididymis with a large epididymal cyst with increased blood flow. Findings suggestive of epididymitis. Code Visit Inpatient E&M: 96115 Init Hosp L3
--- NOTE | 2018-12-21 12:04 | RAD_ITS ---
STUDY: X-RAY CHEST REASON FOR EXAM: Male, 73 years old. Shortness of breath. Right epididymoorchitis. TECHNIQUE: Single AP portable upright view of the chest. COMPARISON: PA and lateral chest x-ray October 16, 2018. FINDINGS: The lungs are under expanded today and there is bibasilar crowding/subsegmental atelectasis. There is no demonstrated pleural abnormality. Grossly stable size heart. Normal mediastinum and miah. Normal visualized pulmonary arteries. Normal visualized aortic arch and descending thoracic aorta. There are table multilevel degenerative changes of the visualized thoracic spine. 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 There is no demonstrated abnormality of the visualized soft tissue structures of the upper abdomen. RAD/Chest 1 View (Portable) IMPRESSION: Poor inspiratory effort with bibasilar hypoventilation and subsegmental atelectasis. Electronically Signed: Tanvir Bajwa MD at 16:51 EDT , Service support ,
[2018-12-21] MEDS: 0.9% Normal Saline 1,000 ML 75 ML IV (12:29)
[2018-12-21 12:44] LABS: CRP 3.78 mg/L (0.0-3.0)
[2018-12-21] MEDS: Enoxaparin 40 MG/0.4 ML Syringe SC (13:35)
--- NOTE | 2018-12-21 14:32 | PCM.CONS.GEN ---
Problem List (1) Seizure disorder Status: Chronic (2) Myasthenia gravis Status: Chronic Reason for Consult Date of Consultation: 12/21/18 Reason for Consultation: Seizure disorder, myasthenia gravis, weakness History of Present Illness: The patient is a 73 year old M PMH HTN, DM, myasthenia gravis, seizure disorder admitted with sharp right lower quadrant pain, found to have epididymitis. Per patient he has history of myasthenia gravis for about 20 years, sees Dr. Jc, has been on prednisone 10 mg daily for a long time. Neurology consulted for possible weakness in the legs and since patient had been on steroids for a long time. He denies any weakness in the legs at present, denies any diplopia, dysphagia, dysarthria or neck weakness. Per patient he feels when he has the pain in the right groin and lower back region that radiates to the right side he feels his knees would give out and would have difficulty in walking. He denies any falls, lives with his son, does not drive usually. Per patient he has had history of seizures since childhood, is on Keppra 500 mg p.o. twice daily, last seizure was about 2 years ago per patient. Per patient generally he used to have GTCS, has had history of tongue bite, urinary incontinence and postictal state following seizures in the past. He denies any neck pain, burning pain in the feet or paresthesias. Past Medical History Past Medical History (Chronic Problems): Chronic Problems BPH (benign prostatic hyperplasia) (Chronic) Tinea unguium (Chronic) Seizure disorder (Chronic) Myasthenia gravis (Chronic) Type II diabetes mellitus (Chronic) Allergies Iodinated Contrast- Oral and IV Dye [CONTRASTS] Allergy (Verified 12/21/18 05:13) Hives iodine Allergy (Verified 12/21/18 05:13) Hives Penicillins [PCN] Allergy (Verified 12/21/18 05:13) myasthenia gravis developed 2 days after taking PCN from dental procedure simvastatin Adverse Reaction (Verified 12/21/18 05:13) Pain in joints Home Medications: Ambulatory Orders Medication Instructions Recorded Lisinopril [Zestril] 20 mg PO DAILY 01/17/18 levETIRAcetam tablet [Keppra 500 mg PO BID 02/04/18 tablet] Prednisone 10 mg PO DAILY 10/19/18 glipiZIDE [Glucotrol] 10 mg PO BIDAC 10/19/18 Loperamide [Imodium] 2 mg PO Q2H PRN PRN #30 capsule 10/20/18 Pioglitazone [Actos] 30 mg PO DAILY #30 tablet 10/20/18 Finasteride [Proscar] 5 mg PO DAILY 12/21/18 Tamsulosin HCl [Flomax] 0.8 mg PO DAILY 12/21/18 Surgical History: tonsillectomy, TURP Psychiatric History: No pertinent psych hx Lives: - - with son Smoking Status: Former smoker Alcohol: None Drugs: None - *Family History Maternal History Items: Cancer, Heart Disease Paternal History Items: Cancer, Heart Disease Review of Systems Constitutional: Reports: - - Complete ROS negative except as documented in HPI - Physical Exam General: Alert HEENT: Normocephalic Neck: Supple Lungs: Normal air movement Cardiovascular: Normal S1, Normal S2 Abdomen: Bowel Sounds Present Extremities: No cyanosis Neurological: - - Conscious, alert, CN II through XII grossly intact, power 5/5 both upper and lower extremities, no weakness at present in the legs, no sensory loss, no cerebellar signs, no ptosis, no NR, no neck weakness, reflexes +2 B/L B/S/T/K/A, gait deferred Psych/Mental Status: Normal Affect Vital Signs Temp Pulse Resp BP Pulse Ox 100.1 F H 95 14 120/60 94 12/21/18 12:25 12/21/18 12:25 12/21/18 12:25 12/21/18 12:25 12/21/18 13:43 Oxygen Flow Rate (L/min) 1 Oxygen Delivery Method Nasal Cannula Weight: 87.5 kg Body Mass Index (BMI) 29.3 Finger Stick Blood Glucose 203 Laboratory Tests Past 24 Hrs 12/21/18 12/21/18 12/21/18 05:40 05:40 05:40 WBC 11.0 RBC 4.09 L Hgb 12.6 L Hct 38.1 L MCV 93.2 MCH 30.8 MCHC 33.1 RDW 13.7 RDW Differential 46.6 H Plt Count 162 MPV 10.6 Immature Gran % (Auto) 0.200 Neut % (Auto) 80.9 H Lymph % (Auto) 6.7 L Calhoun % (Auto) 10.5 H Eos % (Auto) 1.5 Baso % (Auto) 0.2 Absolute Neuts (auto) 8.9 H Absolute Lymphs (auto) 0.74 L Total Counted Not Reportable Sodium 140 Potassium 3.8 Chloride 105 Carbon Dioxide 26.0 Anion Gap 9 BUN 17 Creatinine 0.98 Estim Creat Clear Calc 65.92 Est GFR (MDRD) Af Amer 96 Est GFR (MDRD) Non-Af 79 BUN/Creatinine Ratio 17.3 Glucose 161 H Calcium 8.2 L Total Bilirubin 0.80 AST 14 L ALT 25 Alkaline Phosphatase 66 C-React Prot Ext Range 3.78 H Total Protein 6.4 Albumin 3.4 Globulin 3.0 Albumin/Globulin Ratio 1.1 Urine Color Urine Clarity Urine pH Ur Specific [place] Urine Protein Urine Glucose (UA) Urine Ketones Urine Occult Blood Urine Nitrite Urine Bilirubin Urine Urobilinogen Ur Leukocyte Esterase Urine RBC Urine WBC Ur Squamous Epith Cells Urine Bacteria Urine Mucus 12/21/18 06:15 WBC RBC Hgb Hct MCV MCH MCHC RDW RDW Differential Plt Count MPV Immature Gran % (Auto) Neut % (Auto) Lymph % (Auto) Calhoun % (Auto) Eos % (Auto) Baso % (Auto) Absolute Neuts (auto) Absolute Lymphs (auto) Total Counted Sodium Potassium Chloride Carbon Dioxide Anion Gap BUN Creatinine Estim Creat Clear Calc Est GFR (MDRD) Af Amer Est GFR (MDRD) Non-Af BUN/Creatinine Ratio Glucose Calcium Total Bilirubin AST ALT Alkaline Phosphatase C-React Prot Ext Range Total Protein Albumin Globulin Albumin/Globulin Ratio Urine Color Yellow Urine Clarity Clear Urine pH 6.0 Ur Specific [place] 1.020 Urine Protein Negative Urine Glucose (UA) 250 H Urine Ketones 15 H Urine Occult Blood Negative Urine Nitrite Negative Urine Bilirubin Negative Urine Urobilinogen Normal Ur Leukocyte Esterase 25 H Urine RBC 5-10 SEEN Urine WBC 0-5 SEEN Ur Squamous Epith Cells 0 SEEN Urine Bacteria 0 SEEN Urine Mucus 0 SEEN Assessment/Plan All Active Problems Acute diarrhea (Resolved) The patient is a 73 year old M PMH HTN, DM, myasthenia gravis, seizure disorder admitted with sharp right lower quadrant pain, found to have epididymitis. Per patient he has history of myasthenia gravis for about 20 years, sees Dr. Jc, has been on prednisone 10 mg daily for a long time. Neurology consulted for possible weakness in the legs and since patient had been on steroids for a long time. He denies any weakness in the legs at present, denies any diplopia, dysphagia, dysarthria or neck weakness. Per patient he feels when he has the pain in the right groin and lower back region that radiates to the right side he feels his knees would give out and would have difficulty in walking. He denies any falls, lives with his son, does not drive usually. Per patient he has had history of seizures since childhood, is on Keppra 500 mg p.o. twice daily, last seizure was about 2 years ago per patient. Per patient generally he used to have GTCS, has had history of tongue bite, urinary incontinence and postictal state following seizures in the past. He denies any neck pain, burning pain in the feet or paresthesias. [] Impression History of myasthenia gravis and seizure disorder Unlikely to be MG crisis at present. Unlikely to be steroid myopathy clinically at present. Plan ?MRI L-spine without contrast ?Labs reviewed. Check total CK ?On prednisone 10 mg once daily for myasthenia gravis. Tolerating medication well ?On Keppra 500 mg p.o. twice daily. Eating medication well ?Seizure precautions discussed in detail. Per patient he does not usually drive ?PT/OT ?Fall precautions ?GI/DVT prophylaxis. Famotidine and Lovenox. ?Patient should be on calcium supplements since he is on long-term steroids. ?Further medical management per hospitalist team ?Follow-up with neurologist Dr. Jc as outpatient in 6 weeks. ?Please call with questions if any ?Thank you for allowing us to participate in patient's care and management Code Visit Inpatient E&M: [id number] Init Hosp L3
--- NOTE | 2018-12-21 14:48 | MRI_ITS ---
STUDY: MRI LUMBAR SPINE WITHOUT CONTRAST REASON FOR EXAM: Male, 73 years old. Low back pain, bilateral lower extremity radiculopathy TECHNIQUE: Standardized fat and water weighted pulse sequences were obtained in the sagittal and axial planes. COMPARISON: CT abdomen 12/21/2018 FINDINGS: T12-L1: There is small posterior disc protrusion. There is likely mild central canal stenosis. There is no foraminal stenosis. However axial images were not performed through this level. There is disc space narrowing.. Normal lumbar lordosis. There is mild lumbar spine levoscoliosis. Normal conus medullaris. L1-2: There is mild central posterior bulging annulus. Mild central canal narrowing. There is no foraminal stenosis L2-3: There is disc space narrowing. There is central and right posterior lateral disc protrusions. There is significant ligamentous hypertrophy with moderate facet degenerative changes. There is moderate to severe central canal stenosis.. There is moderate to severe right foraminal stenosis. There is mild left foraminal stenosis L3-4: There is disc space narrowing. There is left posterior lateral disc protrusion. There is severe left lateral foraminal stenosis. There is mild right foraminal stenosis. There is significant ligamentous hypertrophy with moderate facet degenerative changes. There is moderate central canal stenosis L4-5: There is mild posterior bulging annulus. There is significant ligamentous hypertrophy and moderate facet degenerative changes. There is moderate central canal stenosis. There is no foraminal stenosis. L5-S1: There is no disc protrusion. No central canal stenosis. Mild facet degenerative changes with significant ligamentous hypertrophy. No foraminal stenosis Normal visualized sacral ala. Normal visualized paraspinous soft tissue structures. MRI/Spine Lumbar (Routine) IMPRESSION: Significant multilevel spondylosis, disc osteophyte complexes, disc protrusions, multilevel mild to moderate/severe central canal and mild to severe as above foraminal stenoses. Electronically Signed: Jayson Hernandez, at 17:01 EDT Tel , Service support ,
[2018-12-21] MEDS: Ceftriaxone 1 GM/50 ML BAG IV (15:02)
[2018-12-21 16:22] LABS: CPK Total, Creatine Kinase 82 U/L (39-308)
[2018-12-21] MEDS: Tamsulosin HCl 0.4 MG Capsule 0.8 MG PO (17:01)
[2018-12-21] MEDS: glipiZIDE 10 MG Tablet PO (17:02)
[2018-12-21] MEDS: Insulin Lispro 100 UNIT/ML INSULN.PEN SC ×2 (17:07→22:38)
--- NOTE | 2018-12-21 18:30 | NURSING ---
Patient came from ER with rivera catheter. Rivera was draining well. Patient did not have order for rivera catheter to continue upon arrival to PCU. Notified Dr. Aceves and he instructed to remove it. Rivera cath was removed, pt tolerated well. no complication noted.
[2018-12-21] MEDS: Famotidine 20 MG Tablet PO (22:38)
[2018-12-21] MEDS: levETIRAcetam 500 MG Tablet PO (22:38)
[2018-12-22 04:15] VITALS: BP 107/63; PULSE 81; RESP 16; TEMP 37.1; O2SAT 94
[2018-12-22 06:18] LABS: Thyroid Stim Hormone (TSH) 1.05 uIU/mL (0.358-3.74)
[2018-12-22] MEDS: Insulin Lispro 100 UNIT/ML INSULN.PEN SC ×3 (06:36→16:26)
[2018-12-22 07:26] VITALS: O2SAT 93
[2018-12-22] MEDS: predniSONE 10 MG Tablet PO (08:27)
[2018-12-22] MEDS: Enoxaparin 40 MG/0.4 ML Syringe SC (08:28)
[2018-12-22] MEDS: Pioglitazone Hydrochloride 30 MG Tablet PO (08:28)
[2018-12-22] MEDS: levETIRAcetam 500 MG Tablet PO (08:28)
[2018-12-22] MEDS: Famotidine 20 MG Tablet PO (08:28)
[2018-12-22] MEDS: Finasteride 5 MG Tablet PO (08:29)
[2018-12-22] MEDS: Lisinopril 20 MG Tablet PO (08:29)
[2018-12-22 08:31] VITALS: BP 111/51; PULSE 88; RESP 16; TEMP 36.6; O2SAT 95
[2018-12-22] MEDS: Ceftriaxone 1 GM/50 ML BAG IV (09:30)
[2018-12-22] MEDS: 0.9% NaCl Peripheral Flush Adult/Peds IV (09:30)
--- NOTE | 2018-12-22 10:48 | PCM.PN.NEU ---
- Physical Exam Vital Signs Temp Pulse Resp BP Pulse Ox 98 F 88 16 111/51 L 95 12/22/18 08:31 12/22/18 08:31 12/22/18 08:31 12/22/18 08:31 12/22/18 08:31 Oxygen Flow Rate (L/min) 2 Oxygen Delivery Method Room Air Weight: 87.5 kg Body Mass Index (BMI) 29.3 Finger Stick Blood Glucose 203 Intake and Output for Last 24 Hours 12/20/18 12/21/18 12/22/18 23:59 23:59 23:59 Intake Total 960 / 960 331 / 331 Output Total 650 / 650 Balance 310 / 310 331 / 331 Laboratory Tests Past 24 Hrs 12/21/18 12/21/18 12/22/18 05:40 05:40 05:30 Total Creatine Kinase 82 C-React Prot Ext Range 3.78 H TSH 1.05 Medical Necessity - Tobacco Use Smoking Status: Former smoker Assessment/Plan All Active Problems Acute diarrhea (Resolved)
[2018-12-22] MEDS: glipiZIDE 10 MG Tablet PO ×2 (11:08→16:33)
[2018-12-22 11:25] VITALS: BP 121/53; PULSE 91; RESP 16; TEMP 36.6; O2SAT 95
--- NOTE | 2018-12-22 11:50 | DCINST_ITS ---
You will use the following diet at home:: Calorie/Carbohydrate Controlled (specify 1200, 1400, etc), Cardiac Your food should be the consistency of: Regular Discharge Activity: May Not Drive Weight Bearing Status: Weight bearing as tolerated Call your doctor if you observe: Fever of 101 or Higher, Numbness or Tingling, Inability to urinate, Inability to have a bowel movement, Shortness of breath, Dizziness, Fainting spells, Swelling in the ankles, Chest pain, Increased palpitations (irregular heartbeat) Additional Instructions: Follow-up urine culture with PCP. Allergies/Adverse Reactions: Allergies Iodinated Contrast- Oral and IV Dye [CONTRASTS] Allergy (Verified 12/21/18 05:13) Hives iodine Allergy (Verified 12/21/18 05:13) Hives Penicillins [PCN] Allergy (Verified 12/21/18 05:13) myasthenia gravis developed 2 days after taking PCN from dental procedure simvastatin Adverse Reaction (Verified 12/21/18 05:13) Pain in joints Medications to take at Discharge Lisinopril [Zestril] 20 mg PO DAILY 01/17/18 levETIRAcetam tablet [Keppra tablet] 500 mg PO BID 02/04/18 Prednisone 10 mg PO DAILY 10/19/18 glipiZIDE [Glucotrol] 10 mg PO BIDAC 10/19/18 Loperamide [Imodium] 2 mg PO Q2H PRN PRN #30 capsule 10/20/18 Pioglitazone [Actos] 30 mg PO DAILY #30 tablet 10/20/18 Finasteride [Proscar] 5 mg PO DAILY 12/21/18 Tamsulosin HCl [Flomax] 0.8 mg PO DAILY 12/21/18 Cephalexin [Keflex] 500 mg PO TID #15 cap 12/22/18 The following prescriptions were given: Cephalexin [Keflex] 500 mg PO TID #15 cap Transmission Status: Pending to [id number] Primary Care Physician: Lainey Lang MD [Primary Care Provider] - Please follow up with your Primary Care Physician in: IN 2 WEEKS Test Results: Test results from this visit will be discussed in further detail at your follow- up appointment, if applicable. Please Follow Up With: Vernon Jc MD When: IN 6 WEEKS
--- NOTE | 2018-12-22 12:26 | CASEMGMT ---
RN CM Note: SW referral placed for SNF referral/complicated family planning for dc. Per Dr. Aceves, Physical therapy is rec: SNF. Per previous Home Health, pt having difficulty caring for self at home and does not have sufficient supervision by family. Pt is refusing home health per PT note. ODILON Sherwood updated and will see pt for dc planning. Sherwin MORENON RN ACM
--- NOTE | 2018-12-22 13:22 | PN.NEURO_ITS ---
Subjective: No issues overnight. Total CK?82 normal. MRI L-spine?reported to show L1-2: mild central posterior bulging annulus. Mild central canal narrowing. There is no foraminal stenosis L2-3: disc space narrowing. There is central and right posterior lateral disc protrusions. There is significant ligamentous hypertrophy with moderate facet degenerative changes. There is moderate to severe central canal stenosis.. There is moderate to severe right foraminal stenosis. There is mild left foraminal stenosis L3-4: There is disc space na rrowing. There is left posterior lateral disc protrusion. There is severe left lateral foraminal stenosis. There is mild right foraminal stenosis. There is significant ligamentous hypertrophy with moderate facet degenerative changes. There is moderate central canal stenosis L4-5: There is mild posterior bulging annulus. There is significant ligamentous hypertrophy and moderate facet degenerative changes. There is moderate central canal stenosis. There is no foraminal stenosis. L5-S1: There is no disc protrusion. No central canal stenosis. Mild facet degenerative changes with significant ligamentous hypertrophy. No foraminal stenosis - Physical Exam General: Alert HEENT: Normocephalic Neck: Supple Lungs: Normal air movement Cardiovascular: Normal S1, Normal S2 Abdomen: Bowel Sounds Present Extremities: No cyanosis Neurological: - - Conscious, alert, CN II through XII grossly intact, power 5/5 both upper and lower extremities, no weakness at present in the legs, no sensory loss, no cerebellar signs, no ptosis, no NR, no neck weakness, reflexes +2 B/L B/S/T/K/A, gait deferred Psych/Mental Status: Normal Affect Vital Signs Temp Pulse Resp BP Pulse Ox 97.8 F 91 16 121/53 H 95 12/22/18 11:25 12/22/18 11:25 12/22/18 11:25 12/22/18 11:25 12/22/18 11:25 Oxygen Flow Rate (L/min) 2 Oxygen Delivery Method Room Air Weight: 87.5 kg Body Mass Index (BMI) 29.3 Finger Stick Blood Glucose 203 Intake and Output for Last 24 Hours 12/20/18 12/21/18 12/22/18 23:59 23:59 23:59 Intake Total 960 / 960 731 / 731 Output Total 650 / 650 Balance 310 / 310 731 / 731 Microbiology Past 72 Hours 12/21/18 09:42 Urine Culture - Preliminary Urine, Clean Catch GPC Poss Enterococcus sp Laboratory Tests Past 24 Hrs 12/21/18 12/22/18 05:40 05:30 Total Creatine Kinase 82 TSH 1.05 Medical Necessity - Tobacco Use Smoking Status: Former smoker Assessment/Plan All Active Problems Acute diarrhea (Resolved) The patient is a 73 year old M PMH HTN, DM, myasthenia gravis, seizure disorder admitted with sharp right lower quadrant pain, found to have epididymitis. Per patient he has history of myasthenia gravis for about 20 years, sees Dr. Jc, has been on prednisone 10 mg daily for a long time. Neurology consulted for possible weakness in the legs and since patient had been on steroids for a long time. He denies any weakness in the legs at present, denies any diplopia, dysphagia, dysarthria or neck weakness. Per patient he feels when he has the pain in the right groin and lower back region that radiates to the right side he feels his knees would give out and would have difficulty in walking. He denies any falls, lives with his son, does not drive usually. Per patient he has had history of seizures since childhood, is on Keppra 500 mg p.o. twice daily, last seizure was about 2 years ago per patient. Per patient generally he used to have GTCS, has had history of tongue bite, urinary incontinence and postictal state following seizures in the past. He denies any neck pain, burning pain in the feet or paresthesias. [] Impression History of myasthenia gravis and seizure disorder Unlikely to be MG crisis at present. Unlikely to be steroid myopathy clinically at present. Lumbar stenosis Plan ?MRI L-spine without contrast-report reviewed ?Spine surgery consult as outpatient ?Labs reviewed. Total CK-82 ?On prednisone 10 mg once daily for myasthenia gravis. Tolerating medication w ell ?On Keppra 500 mg p.o. twice daily. Eating medication well ?Seizure precautions discussed in detail. Per patient he does not usually drive ?PT/OT ?Fall precautions ?GI/DVT prophylaxis. Famotidine and Lovenox. ?Patient should be on calcium supplements since he is on long-term steroids. ?Further medical management per hospitalist team ?Follow-up with neurologist Dr. Jc as outpatient in 6 weeks. ?Please call with questions if any ?Thank you for allowing us to participate in patient's care and management
--- NOTE | 2018-12-22 14:46 | CASEMGMT ---
Addendum entered by Larisa Wooten 12/22/18 16:41: Appt set for 01/03 at 3:30 at [facility]. Pt and son aware. Original Note: Social Work Extensive conversation with pt regarding discharge plan. Pt lives at home alone and states his two sons and a daughter in law check in on him. He does have a wheeled walker and gets MOW M-F. Pt states he walks to [facility] for his prescriptions and needs. Therapy is recommending SNF at this time. SW broached topic of SNF with pt and he adamantly refuses. Pt was in TCU in February 2018 and SW discussed this option with him. PT continues to deny need for this and states he can care for himself. SW referenced back to concerns this morning in therapy and pt confident he can care for self at home. Discussed option of HHS and CCN and pt again refuses this care stating home health has signed off of services and he does not want to restart. SW inquired about pt son and ability to assist. Pt called son Pepito in room and gave phone to ODILON. ODILON spoke with Pepito and confirms pt will not be agreeable to SNF or home health. Pepito inquiring about outpt therapy at [facility]. ODILON explained this to Pepito and to pt. Pepito then spoke with pt on phone. Pt angry at son when conversation is over. After much discussion pt is agreeable to out pt PT/OT at [facility] with [facility] for transport. Pt denies any further services. In previous admission, [facility] referral had been made. Phone call to Mary at [facility] and left inquiring of action from this referral. Referral made to [facility]. They will schedule appointment with hospital van transport and call this SW back. MINH Nuno
[2018-12-22 14:48] VITALS: BP 122/72; PULSE 82; RESP 16; TEMP 36.6; O2SAT 95
[2018-12-22 15:27] LABS: Bedside Glucose 202 mg/dL (70-110)
--- NOTE | 2018-12-22 15:33 | DS.PCM_ITS ---
Discharge Date and Diagnosis Date of Admission: 12/21/18 Date of Discharge: 12/22/18 - Secondary Discharge Diagnosis Chronic Problems BPH (benign prostatic hyperplasia) (Chronic) Tinea unguium (Chronic) Seizure disorder (Chronic) Myasthenia gravis (Chronic) Type II diabetes mellitus (Chronic) Hospital Course and Treatment Operations: None, TURP Summary of Care Provided: [] The patient is a 73 year old M with multiple comorbidities was admitted through ER with right groin/right lower quadrant abdominal pain for 3 days. On further exam in ER, it was found that he has right testicular swelling and pain. Testicle ultrasound was done and found right epididymal orchitis and was given Levaquin in preparation for discharge. Patient could not walk feels like his knees are giving out. He was unsteady on feet therefore admitted for further PT and OT. 1. Right epididymoorchitis: Patient got Levaquin changed to Rocephin 1 g daily while he is inpatient. Patient is scrotal and testicular swelling is much improved. Patient is able to empty his bladder. Preliminary urine culture shows gram-positive cocci possible enterococcus [id number] colonies per mL. UA is negative of pyuria and 0-5 cells, nitrite negative, LE 25. Patient does not have lower urinary tract symptoms including increased frequency, urgency or burning micturition. He follows Dr. Maza advised to further follow-up. It seems enterococcus in urine culture is possible colonization. 2. Bilateral weakness of lower legs, most probably related to testicular pain: Urologist was consulted. He advised to continue prednisone 10 mg as a maintenance dose for myasthenia gravis. Patient was further assessed by PT and OT. Patient refused for SNF but agreed for home with physical therapy. Patient does not have weakness of eyelid, ptosis, weakness of extraocular muscles or diplopia. Further follow-up with patient's neurologist, Dr. Jc advised in 6 weeks. 3. Diabetes mellitus type 2 with hypoglycemia probably secondary to chronic steroid therapy: Accu-Chek essences cover with Humalog sliding scale. Home medications glipizide and Actos continued. Blood sugars are controlled. 4. Seizure disorder: Controlled. Home medications continued. 5. BPH: On finasteride and Flomax. Continued DVT prophylaxis: Lovenox 40 subcu daily Discharge medication reconciliation done. Discharge follow-up instructions c ompleted. Discharge process discussed with the patient and all questions were answered to patient's satisfaction. Discharge home with physical therapy. Patient given a prescription for Keflex 500 mg 3 times daily for 5 more days as he is responding to ceftriaxone. Total time spent, exact 35 minutes on discharge meds reconciliation, examination, review of imaging and blood test and discussion with the patient on follow-up instructions. Subjective: Seen and examined. Patient did not have a temperature overnight. In the morning he had T-max 100.7. Patient does not have tachycardia, hypotension tachypnea or other systemic signs of infection/sepsis. Right scrotal swelling is much improved. Patient denies lower urinary tract symptoms including increased frequency, urgency or burning micturition. Has chronic urinary incontinence. - Physical Exam General: Alert, Oriented x3, Cooperative HEENT: Atraumatic, PERRLA, EOMI, Normocephalic Neck: Supple, No JVD, Negative Carotid Bruits Lungs: Clear to auscultation, Normal air movement, No rhonchi, No wheeze, No rales Cardiovascular: Regular rate, Regular Rhythm, Normal S1, Normal S2, No murmurs Abdomen: Bowel Sounds Present, Soft, Non Tender Extremities: No edema, Capillary Refill Less than 3 Seconds Skin: No rashes, No breakdown Musculoskeletal: No Tenderness to Palpation of Joints or Extremities, Arthritic Changes Neurological: Cranial nerves II-XII grossly intact, Deep Tendon Reflexes 2+/4 and Symmetrical, Neuro grossly intact, Motor Exam 5/5 strength throughout - Muscle strength has improved on the lower extremity mainly at knee joints. And seemed he had muscle weakness probably a reflex for pain in the scrotal/perineal region., - - No diplopia/ptosis or cerebellar signs. Psych/Mental Status: Normal Affect, Appropriate Vital Signs Temp Pulse Resp BP Pulse Ox 97.9 F 82 16 122/72 H 95 12/22/18 14:48 12/22/18 14:48 12/22/18 14:48 12/22/18 14:48 12/22/18 14:48 Oxygen Flow Rate (L/min) 2 Oxygen Delivery Method Room Air Weight: 192 lb 14.472 oz Body Mass Index (BMI) 29.3 Finger Stick Blood Glucose 203 Intake and Output for Last 24 Hours 12/20/18 12/21/18 12/22/18 23:59 23:59 23:59 Intake Total 960 / 960 731 / 731 Output Total 650 / 650 Balance 310 / 310 731 / 731 Microbiology Past 72 Hours 12/21/18 09:42 Urine Culture - Preliminary Urine, Clean Catch GPC Poss Enterococcus sp Laboratory Tests Past 24 Hrs 12/21/18 12/22/18 05:40 05:30 Total Creatine Kinase 82 TSH 1.05 POC Glucose 12/21/18 16:59 POC Glucose 202 H Discharge Activity: May Not Drive Weight Bearing Status: Weight bearing as tolerated Call your doctor if you observe: Fever of 101 or Higher, Numbness or Tingling, Inability to urinate, Inability to have a bowel movement, Shortness of breath, Dizziness, Fainting spells, Swelling in the ankles, Chest pain, Increased palpitations (irregular heartbeat) Home Medications: Medications to take at Discharge Lisinopril [Zestril] 20 mg PO DAILY 01/17/18 levETIRAcetam tablet [Keppra tablet] 500 mg PO BID 02/04/18 Prednisone 10 mg PO DAILY 10/19/18 glipiZIDE [Glucotrol] 10 mg PO BIDAC 10/19/18 Loperamide [Imodium] 2 mg PO Q2H PRN PRN #30 capsule 10/20/18 Pioglitazone [Actos] 30 mg PO DAILY #30 tablet 10/20/18 Finasteride [Proscar] 5 mg PO DAILY 12/21/18 Tamsulosin HCl [Flomax] 0.8 mg PO DAILY 12/21/18 Cephalexin [Keflex] 500 mg PO TID #15 cap 12/22/18 Following Prescrptions Were Given to Patient: Cephalexin [Keflex] 500 mg PO TID #15 cap Transmission Status: Pending to [id number] Primary Care Physician: Lainey Lang MD [Primary Care Provider] - Please follow up with your Primary Care Physician in: IN 2 WEEKS Please Follow Up With: Vernon Jc MD When: IN 6 WEEKS Medical Necessity - Tobacco Use Smoking Status: Former smoker Meaningful Use Info Meaningful Use Diagnoses (Choose all that apply): None applicable Code Visit OBSV E&M: 34025 Observation care discharge
[2018-12-22 15:42] LABS: Bedside Glucose 233 mg/dL (70-110)
[2018-12-22 15:53] LABS: Bedside Glucose 155 mg/dL (70-110)
[2018-12-22] MEDS: Tamsulosin HCl 0.4 MG Capsule 0.8 MG PO (16:28)
--- NOTE | 2018-12-22 16:33 | CASEMGMT ---
TODD LUNA NOTE: Trudy BROOKS, states pt voices concern with cost of antibiotic that he will be getting discharged home on. Call placed to [facility] and luu check done on Keflex. Cost for Keflex for pt will be $6.38. Pt made aware. Pt stated he is glad to hear this and states he will pick this medication up. Pt instructed to make sure he takes it as instructed and he voices understanding. Madi BATISTA RN CM
--- NOTE | 2018-12-24 13:14 | CASEMGMT ---
Social Work Return phone call from Mary at [facility]. Referral made. Mary states she will be visiting pt in his home. MINH Nuno
== END 2018-12-22 18:11 | disposition home or self-care (01) ==
LOC: ED 09:42 → PCU 10:14
PROVIDERS: Psychiatry & Neurology Neurology; Admitting Provider Internal Medicine; Emergency Provider Emergency Medicine; Family Provider Internal Medicine; PCP Internal Medicine; Visit Provider Internal Medicine
DX: N45.3 Epididymo-orchitis (principal); N40.0 Benign prostatic hyperplasia without lower urinary tract symptoms; I10 Essential (primary) hypertension; G40.909 Epilepsy, unspecified, not intractable, without status epilepticus; G70.00 Myasthenia gravis without (acute) exacerbation; E11.649 Type 2 diabetes mellitus with hypoglycemia without coma; Z79.899 Other long term (current) drug therapy; Z79.84 Long term (current) use of oral hypoglycemic drugs; Z87.891 Personal history of nicotine dependence
CPT/HCPCS: 36415; 51702; 71045; 72148; 74176; 76870; 80053; 81001; 82550; 82962; 84443; 85025; 86140; 87077; 87086; 87088; 87186; 93976; 96361; 96365; 96366; 96372; 96375; 97163; 97166; 99218; 99285; J7030; A4216; G0378

== ENCOUNTER 2019-07-14 17:44 | Inpatient (IN) | payer MEDICARE, OTHER, SELFPAY ==
[2018-12-21 10:59] VITALS: BMI 29.3
[2019-07-14 17:46] VITALS: BP 166/90; PULSE 94; RESP 18; TEMP 36.5; O2SAT 98; BMI 33.9
--- NOTE | 2019-07-14 18:05 | EKG12_ITS ---
Test Reason : Blood Pressure : / mmHG Vent. Rate : 087 BPM Atrial Rate : 087 BPM P-R Int : 164 ms QRS Dur : 074 ms QT Int : 370 ms P-R-T Axes : 048 032 058 degrees QTc Int : 445 ms Normal sinus rhythm Possible Left atrial enlargement Borderline ECG Confirmed by OWEN THURSTON, JOCELYNE ([id number]), editorial director JAZZ BENTLEY ([id number]) on 07/15/2019 2:27:22 PM Referred By: SUSANNA Confirmed By:JOCELYNE WEAVER MD
--- NOTE | 2019-07-14 18:05 | RAD_ITS ---
STUDY: X-RAY CHEST REASON FOR EXAM: Male, 73 years old. fall. TECHNIQUE: Single AP portable view of the chest. COMPARISON: December 21, 2018. FINDINGS: There is left lower lung atelectasis. There is no demonstrated pleural abnormality. Normal size heart. Normal mediastinum and miah. Normal visualized pulmonary arteries. Normal visualized aortic arch and descending thoracic aorta. There is demineralization of the osseous structures. Degenerative changes of the spine and shoulders. There is no demonstrated abnormality of the visualized soft tissue structures of the upper abdomen. RAD/Chest 1 View (Portable) IMPRESSION: Degenerative changes, as described above. No demonstrated acute cardiopulmonary process. Electronically Signed: Yrn Reeder MD at 18:40 EST , Service support ,
--- NOTE | 2019-07-14 18:05 | CT_ITS ---
STUDY: CT BRAIN WITHOUT CONTRAST REASON FOR EXAM: Male, 73 years old. FALL/LAC TO NOSE/HX OF SEIZURES, diabetes, BPH and myasthenia gravis RADIATION DOSAGE (If Supplied By Facility): CTDIvol = ( 44.99 ) mGy, DLP = ( 812.98 ) mGycm TECHNIQUE: Transaxial CT imaging of the brain was performed without administration of intravenous contrast material. Individualized dose optimization techniques were used for this CT. COMPARISON: January 21, 2015 FINDINGS: There is swelling of the face. There is nasal fracture. Normal calvarium. There is moderate cerebral atrophy with widening of the extra-axial spaces and ventricular dilatation. Normal white matter tracts of the cerebral hemispheres. Normal basal ganglia and thalami. Normal brainstem. Normal cerebellum. There is no intracranial hemorrhage. There are no findings of an acute ischemic infarction. Normal visualized paranasal sinuses. CT/Brain/Head without Contrast IMPRESSION: Chronic involutional changes of the brain. Nasal fracture. Electronically Signed: Yrn Reeder MD at 19:23 EST , Service support ,
--- NOTE | 2019-07-14 18:06 | CT_ITS ---
STUDY: CT CERVICAL SPINE WITHOUT CONTRAST REASON FOR EXAM: Male, 73 years old. FALL/LAC TO NOSE/HX OF SEIZURES, diabetes, BPH and myasthenia gravis RADIATION DOSAGE (If Supplied By Facility): CTDIvol = ( 28.06 ) mGy, DLP = ( 618.41 ) mGycm TECHNIQUE: High resolution transaxial imaging was performed without contrast material. Sagittal and coronal images were reconstructed. Individualized dose optimization techniques were used for this CT. COMPARISON: January 21, 2015 FINDINGS: Normal craniovertebral junction. There are degenerative changes of the anterior atlantoaxial articulation. Normal odontoid process. There is reversal of the normal cervical lordosis. There is grade 1 anterolisthesis at C5-6. There is no acute fracture. Normal vertebral bodies and posterior osseous elements. C2-3: Normal endplates. Normal disc height and morphology. Normal central canal and intervertebral neuroforamina. Facet spurring. C3-4: Spurring toward the right. Facet spurring on the right more than the left. Uncovertebral spurring with right greater than left foraminal narrowing and encroachment. No canal stenosis. C4-5: Spurring toward the right. Facet arthropathy on the right more than the left. Uncovertebral spurring and right foraminal narrowing and encroachment. No canal stenosis. C5-6: Mild spurring. Facet arthropathy on the left. Uncovertebral spurring with left foraminal narrowing and encroachment C6-7: Disc space narrowing. Mild spurring. Mild facet spurring. Uncovertebral spurring with mild right foraminal narrowing. C7-T1: Normal endplates. Normal disc height and morphology. Normal central canal and intervertebral neuroforamina. Normal visualized soft tissue structures. There are atherosclerotic calcifications. CT/Spine Cervical without Contras IMPRESSION: Multilevel degenerative changes, as described above. Electronically Signed: Yrn Reeder MD at 19:45 EST , Service support ,
--- NOTE | 2019-07-14 18:06 | CT_ITS ---
STUDY: CT FACIAL BONES WITHOUT CONTRAST REASON FOR EXAM: Male, 73 years old. FALL/LAC TO NOSE/HX OF SEIZURES, diabetes, BPH and myasthenia gravis RADIATION DOSAGE (If Supplied By Facility): CTDIvol = ( 29.38 ) mGy, DLP = ( 598.88 ) mGycm TECHNIQUE: The patient was scanned in a multi detector CT scanner. Sagittal and coronal images were reconstructed. Individualized dose optimization techniques were used for this CT. COMPARISON: None. FINDINGS: There is right facial swelling . Normal orbital buckley and orbital contents. There is acute nondisplaced nasal fracture. Normal zygomatic arches. Normal mandible. Normal visualized paranasal sinuses. CT/Sinus/Facial Bone IMPRESSION: Nasal fracture. Electronically Signed: Yrn Reeder MD at 19:40 EST , Service support ,
[2019-07-14] MEDS: Ondansetron 4 MG/2 ML Vial IV (18:08)
--- NOTE | 2019-07-14 18:08 | ED.VIS.GEN ---
History of Present Illness Chief Complaint: Fall Informant: Patient, [employer]er Onset: Today - JPTA Context: Sudden Onset - when passed out while walking Associated Symptoms: facial pain, nausea Narrative: Patient has a history of myasthenia gravis, he states it usually leaves him with decreased strength in his arms and legs but he has been doing well lately and today he was fine. He walked to [employer], bought groceries, he was walking back home and almost to his apartment complex, when he had apparently passed out and woke up on the ground after injuring his face against the pavement. He does not remember the fall or the injury. He does not remember having any prodromal symptoms. He does not remember having had this happen before. Denies any history of heart problems. He has pain in the face and nose right now but no pain elsewhere. He feels nauseated. He is repeating questions. He is alone and his baseline is unknown. - Past Medical History (1) BPH (benign prostatic hyperplasia) Status: Chronic (2) Myasthenia gravis Status: Chronic (3) Seizure disorder Status: Chronic (4) Type II diabetes mellitus Status: Chronic Past Medical History - Allergies and Home Meds Allergies/Adverse Reactions: Allergies Iodinated Contrast Media [CONTRASTS] Allergy (Verified 12/21/18 05:13) Hives iodine Allergy (Verified 12/21/18 05:13) Hives Penicillins [PCN] Allergy (Verified 12/21/18 05:13) myasthenia gravis developed 2 days after taking PCN from dental procedure simvastatin Adverse Reaction (Verified 12/21/18 05:13) Pain in joints Primary Care Physician: Lainey Lang MD [Primary Care Provider] - Surgical History: tonsillectomy, TURP Lives: Alone Smoking Status: Never smoker - Family History Maternal Family History: Reports: Cancer, Heart Disease Paternal Family History: Reports: Cancer, Heart Disease Review of Systems General: Denies: Chills, Fever, Sweats Eyes: Denies: Visual changes - bilaterally, Diplopia ENT: Reports: - - Facial pain/injury/lacerations. Denies: Rhinorrhea, Sore throat Cardiovascular: Denies: Chest pain, Palpitations Respiratory: Denies: Dyspnea, Cough, Dyspnea on exertion Gastrointestinal: Reports: Nausea. Denies: Abdominal pain, Vomiting, Diarrhea, Melena, Hematochezia Genitourinary: Denies: Dysuria, Hematuria, Frequency Musculoskeletal: Denies: Neck pain, Back pain, Swelling, Extremity Pain Skin: Denies: Rash, Wounds Neurological: Reports: Headache, - - Mild confusion. Denies: Weakness, Numbness Physical Exam Vital Signs/Narrative: Vital Signs Temp Pulse Resp BP Pulse Ox 07/14/19 17:46 97.7 F L 94 18 166/90 H 98 Inital Vital Signs reviewed: Yes General: Well nourished, Well developed, No Acute Distress - GCS 14, for mild confusion Head: Normocephalic, Atraumatic Eyes: Perrl, EOMI - No entrapment or pain with movements, - - Globes are atraumatic bilaterally. ENT: Moist mucous membranes, No rhinorrhea, TM's clear - Without hemotympanum, - - Obvious facial trauma, with ecchymosis throughout nose and right midface, jaw, and forehead. There is a superficial partial-thickness 0.5 laceration across the nasal bridge and an abrasion without laceration to the right nasolabial fold. It does not appear to be through and through. His right upper and lower lips are contused and swollen. No dental injury, although tooth #8 is mildly tender. It is not subluxed or loose or bleeding; normal gingiva, but there is a mucosal laceration inside the upper lip, a little right of midline, without robbie involvement or FB/tooth. Midface is stable. Zygomatic arches are nontender and symmetric. No active epistaxis. No other signs of injury to the head elsewhere. No [place] sign. Neck: Supple, Nontender Cardiovascular: Regular rate, Regular rhythm, No murmurs. Negative for: Tachycardia Respiratory: No distress, CTA bilaterally, Chest nontender Abdomen: Soft, Nontender, Nondistended, Normal bowel sounds Back: Nontender, Normal Inspection. Negative for: Spinal tenderness Extremities: Nontender, No edema Skin: Normal color, No rash, Trauma - See HEENT exam. No other evidence of trauma. Neurological: Alert, Cranial nerves II-XII grossly intact, Normal Strength, Normal Sensation, Confused - Mildly confused, repeating questions and statements, but oriented to year, place, himself. Psychological: Normal affect, Normal Mood Diagnostic/Tx/Re-eval Impressions Brain CT 07/14/19 18:05 IMPRESSION: Chronic involutional changes of the brain. Nasal fracture. Electronically Signed: Yrn Reeder MD at 19:23 EST , Service support , Cervical Spine CT 07/14/19 18:06 IMPRESSION: Multilevel degenerative changes, as described above. Electronically Signed: Yrn Reeder MD at 19:45 EST , Service support , Facial/Sinus 07/14/19 18:06 IMPRESSION: Nasal fracture. Electronically Signed: Yrn Reeder MD at 19:40 EST , Service support , 07/14/19 18:05 Brain/Head without Contrast [CT] Stat Chest 1 View (Portable) [RAD] Stat 07/14/19 18:06 CT Cervical [Spine Cervical without Contras] [CT] Stat Sinus/Facial Bone [CT] Stat Laboratory Results 07/14/19 07/14/19 07/14/19 17:52 17:52 20:00 WBC 9.7 RBC 4.47 L Hgb 14.3 Hct 43.3 MCV 96.9 H MCH 32.0 MCHC 33.0 RDW Std Deviation 48.5 H RDW Coeff of Em 13.6 Plt Count 202 MPV 11.3 Immature Gran % (Auto) 1.100 H Neut % (Auto) 79.0 H Lymph % (Auto) 11.6 L [place] % (Auto) 7.2 Eos % (Auto) 0.7 Baso % (Auto) 0.4 Absolute Neuts (auto) 7.6 Absolute Lymphs (auto) 1.12 Nucleated RBC % 0 Sodium 139 Potassium 4.5 Chloride 110 H Carbon Dioxide 21.0 Anion Gap 8 BUN 22 H Creatinine 1.26 Estim Creat Clear Calc 51.27 Est GFR (MDRD) Af Amer 72 Est GFR (MDRD) Non-Af 60 BUN/Creatinine Ratio 17.5 Glucose 194 H Calcium 9.1 Troponin I < 0.015 Urine Color Yellow Urine Clarity Sl. Cloudy Urine pH 5.0 Ur Specific [place] 1.020 Urine Protein 30 H Urine Glucose (UA) 1000 H Urine Ketones 5 H Urine Occult Blood 10 H Urine Nitrite Negative Urine Bilirubin Negative Urine Urobilinogen Normal Ur Leukocyte Esterase 100 H Urine RBC 0-5 SEEN Urine WBC 5-10 SEEN Ur Squamous Epith Cells 0-5 SEEN Urine Bacteria 0 SEEN Urine Mucus 0 SEEN - Rhythm Strip Rhythm Strip: Sinus Rhythm Rate: 87 Ectopy: None - EKG Initial EKG Interpretation: Sinus Rhythm, No Acute Injury Pattern - Significant artifact from patient being tremulous. Appears to be normal sinus rhythm with no acute injury. - Medical Decision Making Patient does not have any repairable lacerations on the face, I do not think the nasal 1 needs repaired it is very superficial/partial thickness and we put a Steri-Strip over it after cleansing it. The intraoral laceration was repaired after irrigating, using 3 chromic interrupted sutures. The patient is repeating questions, the son arrived later and stated that he does do that sometimes. He may be concussed, luckily his CT brain was negative. He did had some blood on his tongue but it does not hurt and he does not have any obvious laceration or bruising to suggest a seizure although that certainly is in the differential diagnosis. He does have a urine infection. I think it would be reasonable to admit him to the hospital given this, treat him with antibiotics, and have neurology consulted which I do not think needs to be done emergently. Was given his nighttime dose of Keppra which she had not yet had. He is on no other antiepileptics and I cannot get a level back quickly on levetiracetam. Procedures - Lacerations intraoral upper lip Length: 2 cm Depth: Sub Q Shape: Linear Laceration repair: Irrigated, Lidocaine - 3cc Irrigated (ml): 20 Number of Sutures/[place]: 3 Suture Information: Simple - chromic, 5-0 Comment: good hemostasis ED Disposition - Plan for ED Patient: Disposition: Acute Care Hospital [facility] Diagnosis: UTI (urinary tract infection), Syncope and collapse, Facial contusion, Nasal bone fracture, Laceration of oral cavity without foreign body, Seizure disorder, Tetanus-diphtheria (Td) vaccination Referrals: Lainey Lang MD [Primary Care Provider] -
[2019-07-14 18:16] LABS: Absolute Lymphocyte Count 1.12 X10^3/uL (0.83-4.51); Absolute Neutrophil Count 7.6 X10^3/uL (2.0-7.7); Basophil# 0.04 X10^3/uL; Basophil% 0.4 % (0-1); Eosinophil# 0.07 X10^3/uL; Eosinophils% 0.7 % (0-5); Hematocrit 43.3 % (40-54); Hemoglobin 14.3 g/dL (13.0-16.5); Lymphocyte # 1.12 X10^3/ul (4.0); Lymphocyte % 11.6 % (19-41); Mean Corpuscular Volume 96.9 fL (80-94); Mean Platelet Vol. 11.3 fl (6.2-12.0); Monocyte# 0.69 X10^3/uL; Monocyte% 7.2 % (0-10); NRBC Flagged by Analyzer 0 % (0-5); Neutrophil # 7.62 X10^3/uL (2.7-7.7); Platelet Count 202 K/mm3 (150-450); RBC Distribution Width CV 13.6 % (11.6-14.6); RBC Distribution Width SD 48.5 fl (35.1-43.9); Red Blood Count 4.47 M/mm3 (4.6-6.2); White Blood Count 9.7 K/mm3 (4.4-11.0)
[2019-07-14 18:35] LABS: Anion Gap 8 (5-15); BUN 22 mg/dL (7-18); BUN/Creat Ratio 17.5 RATIO (10-20); Calcium,Total 9.1 mg/dL (8.5-10.1); Chloride 110 mmol/L (98-107); Creatinine, Serum 1.26 mg/dL (0.70-1.30); EST Glomerular Filtration Rate 60 mL/min (>60); Est Glom Filt Rate - Afr Amer 72 mL/min (>60); Estimated Creatinine Clearance 51.27 ml/min; Glucose 194 mg/dL (74-106); Potassium 4.5 mmol/L (3.5-5.1); Sodium Level 139 mmol/L (136-145)
--- NOTE | 2019-07-14 18:41 | ED.RN ---
THIS RN TALKED WITH DAUGHTER IN LAW YOLA. WILL BE ENROUTE TO HOSPITAL. CALLING [facility] TO INQUIRE ABOUT GROCERIES
--- NOTE | 2019-07-14 18:42 | ED.RN ---
CLEANED UP PT WITH SALINE. MULTIPLE SMALL LACS TO FACE. LET APPLIED TO BRIDGE OF NOSE AND SIDE OF NOSE. LAC TO INSIDE OF UPPER LIP
[2019-07-14] MEDS: Lidocaine/Epi/Tetracaine 50 ML 1 APPLIC TOPICAL (18:45)
[2019-07-14 19:05] VITALS: BP 166/71; PULSE 93; RESP 16; O2SAT 96
[2019-07-14 19:38] VITALS: BMI 34.0
[2019-07-14 20:00] VITALS: BP 145/77; PULSE 84; RESP 14; O2SAT 95
[2019-07-14 20:07] LABS: Bacteria 0 SEEN /hpf (None Seen); Mucous, Urine 0 SEEN /hpf (<or=2+)
[2019-07-14 20:50] LABS: Color, Urine Yellow (Yellow); Glucose, Dipstick 1000 mg/dl (Normal); Ketone-Dipstick 5 mg/dl (Negative); Leukocyte Esterase-Dipstick 100 /ul (Negative); Nitrite-Dipstick Negative (Negative); Occult Blood-Urine 10 /ul (Negative); Protein-Dipstick 30 mg/dl (Negative); Urine Bilirubin Dipstick Negative (Negative); Urine Clarity Sl. Cloudy (Clear); Urine Urobilinogen Normal (Normal)
[2019-07-14] MEDS: levETIRAcetam 500 MG Tablet PO (20:50)
[2019-07-14 20:55] LABS: Red Blood Cells-Urine 0-5 SEEN /hpf (0-5); Squamous Epithelial Cells - UA 0-5 SEEN /hpf (0-5); White Blood Cells 5-10 SEEN /hpf (0-5)
[2019-07-14 21:00] VITALS: BP 116/71; PULSE 84; RESP 14; O2SAT 95
--- NOTE | 2019-07-14 21:13 | HP.PCM_ITS ---
Problem List (1) Syncope and collapse Status: Acute (2) UTI (urinary tract infection) Status: Acute (3) Syncope and collapse Status: Acute (4) Facial contusion Status: Acute (5) Nasal bone fracture Status: Acute (6) Laceration of oral cavity without foreign body Status: Acute (7) Tetanus-diphtheria (Td) vaccination Status: Acute (8) BPH (benign prostatic hyperplasia) Status: Chronic (9) Tinea unguium Status: Chronic (10) Seizure disorder Status: Chronic (11) Myasthenia gravis Status: Chronic (12) Type II diabetes mellitus Status: Chronic History of Present Illness Date of Admission: 07/14/19 Chief Complaint: syncope with fall The patient is a 73 year old M with a significant history of Seizure disorder; HTN; myasthenia gravis and diabetes mellitus who presented to the emergency depa rtment with syncope and fall. Patient went to [facility] and got some groceries. While walking from [facility] he fell; landing on his face and sustained injuries to his nose; and to his mouth and lips. He lost consciousness. He denies biting his tongue. He denies losing his bowel or bladder. Brain CT at the emergency department showed a nasal fracture. Past Medical History Past Medical History (Chronic Problems): Chronic Problems BPH (benign prostatic hyperplasia) (Chronic) Tinea unguium (Chronic) Seizure disorder (Chronic) Myasthenia gravis (Chronic) Type II diabetes mellitus (Chronic) Allergies Iodinated Contrast Media [CONTRASTS] Allergy (Verified 12/21/18 05:13) Hives iodine Allergy (Verified 12/21/18 05:13) Hives Penicillins [PCN] Allergy (Verified 12/21/18 05:13) myasthenia gravis developed 2 days after taking PCN from dental procedure simvastatin Adverse Reaction (Verified 12/21/18 05:13) Pain in joints Home Medications: Ambulatory Orders Medication Instructions Recorded Lisinopril [Zestril] 20 mg PO DAILY 01/17/18 levETIRAcetam tablet [Keppra 500 mg PO BID 02/04/18 tablet] Prednisone 10 mg PO DAILY 10/19/18 glipiZIDE [Glucotrol] 10 mg PO BIDAC 10/19/18 Pioglitazone [Actos] 30 mg PO DAILY #30 tablet 10/20/18 Surgical History: tonsillectomy, TURP Psychiatric History: No pertinent psych hx Lives: With Family Smoking Status: Never smoker Tobacco Use: Non-smoker Alcohol: None - *Family History Maternal History Items: Cancer, Heart Disease Paternal History Items: Cancer, Heart Disease Review of Systems Constitutional: Denies: Chills, Fever, Weight Change HEENT: Denies: Head Aches, Sinus Congestion, Sinus Drainage Cardiovascular: Reports: Syncope. Denies: Chest Pain, Palpitations Respiratory: Denies: Cough, Shortness of breath at rest, Sputum production Gastrointestinal: Denies: Abdominal Pain, Nausea, Vomiting Genitourinary: Denies: Dysuria Musculoskeletal: Denies: Joint Pain, Joint Tenderness Skin: Denies: Rash, Wounds Neurological: Denies: Numbness, Tingling, Focal weakness Psychiatric: Denies: Anxiety, Depression, Homicidal Ideations, Suicidal Ideations Hematologic/ Lymphatic: Denies: Easy Bruising, Easy Bleeding VTE Information - Inpt Only VTE Present on Admission: No VTE Mechan Device Prophylaxis: SCD's VTE Pharm Prophylaxis ordered?: No Patient Problems: Active and Suspected Problems UTI (urinary tract infection) (Acute) Syncope and collapse (Acute) Facial contusion (Acute) Nasal bone fracture (Acute) Laceration of oral cavity without foreign body (Acute) Tetanus-diphtheria (Td) vaccination (Acute) Syncope and collapse (Acute) - Physical Exam Vitals/I&O's: Vital Signs Temp Pulse Resp BP Pulse Ox 97.7 F L 84 14 145/77 H 95 07/14/19 17:46 07/14/19 20:00 07/14/19 20:00 07/14/19 20:00 07/14/19 20:00 Oxygen Delivery Method Room Air Weight: 101.3 kg Body Mass Index (BMI) 33.9 Finger Stick Blood Glucose 203 General: Alert, Oriented x3, Cooperative HEENT: PERRLA, EOMI, Normocephalic, - - Steri-Strips on nasal bridge. Of right side of lips; blood on face. Neck: Supple, No JVD, Negative Carotid Bruits Lungs: Clear to auscultation, Normal air movement Cardiovascular: Regular rate, No murmurs Abdomen: Bowel Sounds Present, Soft, Non Tender Extremities: No edema, Capillary Refill Less than 3 Seconds Skin: - - Dry skin of bilateral lower extremities and hyperkeratosis of toes. Musculoskeletal: No Tenderness to Palpation of Joints or Extremities Neurological: Cranial nerves II-XII grossly intact Psych/Mental Status: Normal Affect, Appropriate Laboratory Results 07/14/19 17:52: WBC 9.7, RBC 4.47 L, Hgb 14.3, Hct 43.3, MCV 96.9 H, MCH 32.0, MCHC 33.0, RDW Std Deviation 48.5 H, RDW Coeff of Em 13.6, Plt Count 202, MPV 11.3, Immature Gran % (Auto) 1.100 H, Neut % (Auto) 79.0 H, Lymph % (Auto) 11.6 L, [place] % (Auto) 7.2, Eos % (Auto) 0.7, Baso % (Auto) 0.4, Absolute Neuts (auto) 7.6, Absolute Lymphs (auto) 1.12, Nucleated RBC % 0 07/14/19 17:52: Sodium 139, Potassium 4.5, Chloride 110 H, Carbon Dioxide 21.0, Anion Gap 8, BUN 22 H, Creatinine 1.26, Estim Creat Clear Calc 51.27, Est GFR (MDRD) Af Amer 72, Est GFR (MDRD) Non-Af 60, BUN/Creatinine Ratio 17.5, Glucose 194 H, Calcium 9.1, Troponin I < 0.015 07/14/19 20:00: Urine Color Yellow, Urine Clarity Sl. Cloudy, Urine pH 5.0, Ur Specific [place] 1.020, Urine Protein 30 H, Urine Glucose (UA) 1000 H, Urine Ketones 5 H, Urine Occult Blood 10 H, Urine Nitrite Negative, Urine Bilirubin Negative, Urine Urobilinogen Normal, Ur Leukocyte Esterase 100 H, Urine RBC 0-5 SEEN, Urine WBC 5-10 SEEN, Ur Squamous Epith Cells 0-5 SEEN, Urine Bacteria 0 SEEN, Urine Mucus 0 SEEN Current Medications Ceftriaxone Sodium (Rocephin) 1 gm in 50 mls @ 100 mls/hr IV X1 ONE Stop: 07/14/19 21:36 Assessment/Plan All Active Problems UTI (urinary tract infection) (Acute) Syncope and collapse (Acute) Facial contusion (Acute) Nasal bone fracture (Acute) Laceration of oral cavity without foreign body (Acute) Tetanus-diphtheria (Td) vaccination (Acute) Syncope and collapse (Acute) The patient is a 73 year old M with a significant history of Seizure disorder; HTN; myasthenia gravis and diabetes mellitus who presented to the emergency department with syncope and fall; and sustain injuries to his face and with radiographic evidence of nasal fracture. Syncope and collapse Etiology is unclear at this time. Patient reported the last time he had a urinary tract infection he had another episode of syncope. Unclear whether his symptoms is because of seizures. Patient received his night dose of Keppra at emergency department. Continue patient on same dose of Keppra and watch at the hospital. Get EEG in the a.m.. Patient follows up with Dr. Jc outpatient. If seizure episode occur consider escalating dose of Keppra. EKG have some wavy P waves. Repeat EKG. Check a prolactin level Orthostatic vitals. His BUN is mildly elevated we will give him some IV fluids. Echocardiogram ordered. Facial injury with nasal fracture Discussed emergent department doctor to give patients tetanus shot. Oxycodone for pain. Antiemetics and bowel protocol in place. Steri-Strips was placed on nasal bridge by ED doctor. Absorbable sutures placed inside mouth by emergency department doctor. Acute cystitis His urinalysis at the emergency department was abnormal. Patient with bandemia. Was given ceftriaxone at the emergency department. Because of a previous allergy with penicillin listed as myasthenia gravis 2 days after taking penicillin for dental procedure would hold off beta-lactams. Avoid aminoglycosides in the setting of myasthenia gravis. Will put patient on Bactrim. Hypertension On presentation blood pressure was not within goal Lisinopril continued Trend blood pressure and adjust blood pressure medications. Myasthenia gravis Patient does not feel like he is in exacerbation. Continue home dose of prednisone. Diabetes mellitus with hyperglycemia On presentation his blood glucose was elevated. Glipizide and Actos continued. Accu-Chek QA CHS with correction scale insulin DVT prophylaxis SCD ordered. No chemical prophylaxis because of recent facial injury. Code Visit OBSV E&M: 20103 Initial observation care L3
[2019-07-14] MEDS: Ceftriaxone 1 GM/50 ML BAG IV (21:23)
--- NOTE | 2019-07-14 22:06 | EKG12_ITS ---
Test Reason : CP Blood Pressure : / mmHG Vent. Rate : 084 BPM Atrial Rate : 084 BPM P-R Int : 140 ms QRS Dur : 070 ms QT Int : 360 ms P-R-T Axes : 065 067 070 degrees QTc Int : 425 ms Normal sinus rhythm ST abnormality, possible digitalis effect Abnormal ECG When compared with ECG of 16-JUL-2019 05:57, MANUAL COMPARISON REQUIRED, DATA IS UNCONFIRMED Confirmed by OWEN THURSTON, JOCELYNE ([id number]), advertising editor JAZZ BENTLEY ([id number]) on 07/19/2019 12:24:01 PM Referred By: JACOB FORD Confirmed By:JOCELYNE WEAVER MD
[2019-07-14 22:18] VITALS: BMI 32.3; BMI 32.4
[2019-07-14 22:20] VITALS: BP 149/74; PULSE 90; RESP 18; TEMP 36.9; O2SAT 95
[2019-07-14 22:32] LABS: Prolactin 40.4 ng/mL
[2019-07-14] MEDS: 0.9% Normal Saline 1,000 ML 100 ML IV (23:18)
[2019-07-14] MEDS: 0.9% Saline Lock 10 ML Syringe IV (23:18)
[2019-07-14] MEDS: Acetaminophen 325 MG Tablet 650 MG PO (23:19)
[2019-07-14 23:35] VITALS: PULSE 84
[2019-07-14] MEDS: Diphth,Pertuss(Acell),Tet Vac 0.5 ML Vial IM (23:40)
[2019-07-14 23:46] LABS: Bedside Glucose 109 mg/dL (70-110)
[2019-07-15] VITALS (19 sets, daily range): BP systolic 118–154; BP diastolic 61–87; PULSE 67–100; RESP 15–20; TEMP 36.7–36.9; O2SAT 91–97
--- NOTE | 2019-07-15 01:47 | EKG12_ITS ---
Test Reason : SYNCOPE Blood Pressure : / mmHG Vent. Rate : 087 BPM Atrial Rate : 087 BPM P-R Int : 130 ms QRS Dur : 070 ms QT Int : 358 ms P-R-T Axes : 056 053 041 degrees QTc Int : 430 ms Sinus rhythm with Premature supraventricular complexes Nonspecific ST and T wave abnormality Abnormal ECG When compared with ECG of 14-JUL-2019 18:25, MANUAL COMPARISON REQUIRED, DATA IS UNCONFIRMED Confirmed by OWEN THURSTON, JOCELYNE ([id number]), editor & co founder KATHIE FLEMING ([id number]) on 07/20/2019 2:13:23 PM Referred By: ANITA Confirmed By:JOCELYNE WEAVER MD
[2019-07-15] MEDS: Calcium Carbonate 500 MG Tablet 1000 MG PO ×2 (02:12→23:44)
[2019-07-15 02:18] LABS: Absolute Lymphocyte Count 1.46 X10^3/uL (0.83-4.51); Absolute Neutrophil Count 8.7 X10^3/uL (2.0-7.7); Basophil# 0.04 X10^3/uL; Basophil% 0.3 % (0-1); Eosinophil# 0.16 X10^3/uL; Eosinophils% 1.4 % (0-5); Hematocrit 42.4 % (40-54); Hemoglobin 14.1 g/dL (13.0-16.5); Lymphocyte # 1.46 X10^3/ul (4.0); Lymphocyte % 12.5 % (19-41); Mean Corp Hgb Conc 33.3 g/dL (32-36); Mean Corpuscular Volume 96.1 fL (80-94); Mean Platelet Vol. 10.6 fl (6.2-12.0); Monocyte# 1.25 X10^3/uL; Monocyte% 10.7 % (0-10); NRBC Flagged by Analyzer 0 % (0-5); Neutrophil # 8.72 X10^3/uL (2.7-7.7); Neutrophil % 74.6 % (47-70); Platelet Count 188 K/mm3 (150-450); RBC Distribution Width CV 13.5 % (11.6-14.6); RBC Distribution Width SD 48.2 fl (35.1-43.9); Red Blood Count 4.41 M/mm3 (4.6-6.2); White Blood Count 11.7 K/mm3 (4.4-11.0)
[2019-07-15 02:33] LABS: Anion Gap 6 (5-15); BUN 16 mg/dL (7-18); Calcium,Total 8.4 mg/dL (8.5-10.1); Chloride 110 mmol/L (98-107); Creatinine, Serum 0.94 mg/dL (0.70-1.30); EST Glomerular Filtration Rate 84 mL/min (>60); Est Glom Filt Rate - Afr Amer 101 mL/min (>60); Estimated Creatinine Clearance 68.72 ml/min; Glucose 121 mg/dL (74-106); Potassium 3.4 mmol/L (3.5-5.1); Sodium Level 141 mmol/L (136-145)
--- NOTE | 2019-07-15 03:05 | NURSING ---
Addendum entered by Padmaja Cavazos 07/15/19 04:04: Bladder scanned for 430 mls. Patient unable to urinate laying in bed with urinal. Attemped to stand with urinal patient urinated 30 mls. Original Note: Bladder scanned for
--- NOTE | 2019-07-15 04:06 | NURSING ---
Assisted patient to bedside commode slight incontinence in attends x2. Patient also urinated 100 mls using bedside commode.
--- NOTE | 2019-07-15 05:55 | ECHOCS_ITS ---
Reason For Study: Syncope Procedure This was a 2D Doppler, Color Flow transthoracic echocardiogram. The study was technically difficult. Contrast injection was performed. Patient had a very difficult time staying up on left side even with props. Exam performed portable in patient room. Left Ventricle Normal LV size. Mild concentric left ventricular hypertrophy. The estimated ejection fraction is 65 %. Stage 1 diastolic dysfunction. No regional wall motion abnormalities noted. Right Ventricle Normal RV size. Normal systolic function. Atria The left atrium is not well visualized. The right atrium is not well visualized. Mitral Valve Normal mitral valve. Tricuspid Valve Normal tricuspid valve. Aortic Valve Normal aortic valve. Trisinus/trileaflet aortic valve. Pulmonic Valve Normal pulmonic valve. Great Vessels Normal aortic root. The pulmonary artery is normal size. Normal inferior vena cava. Pericardium/Pleural No pericardial effusion. Medication Diluted definity 2ml given slow IV push to enhance endocardial definition. MMode/2D Measurements & Calculations LVIDd: 4.4 cm IVSd: 1.2 cm LA dimension: 3.5 cm LVIDs: 2.8 cm LVPWd: 1.3 cm FS: 36.8 % Time Measurements MV dec time: 0.19 sec Doppler Measurements & Calculations MV E max hang: 82.3 cm/sec Lat Peak E' Hang: 6.3 cm/sec Med Peak E' Hang: 9.4 cm/sec MV A max hang: 90.0 cm/sec E/E' lat: 13.0 E/E' med: 8.7 MV E/A: 0.91 MV V2 max: 108.8 cm/sec MV P1/2t max hang: 95.3 cm/sec Ao V2 max: 142.5 cm/sec MV max P.7 mmHg MV P1/2t: 74.2 msec Ao max P.1 mmHg MV V2 mean: 64.9 cm/sec MV mean P.9 mmHg MV dec slope: 376.1 cm/sec2 MV V2 VTI: 27.3 cm MVA(P1/2t): 3.0 cm2 LV V1 max: 114.6 cm/sec PA V2 max: 105.0 cm/sec LV V1 max P.3 mmHg Interpretation Summary Normal LV size. The estimated ejection fraction is 65 %. No regional wall motion abnormalities noted. Stage 1 diastolic dysfunction. Mild concentric left ventricular hypertrophy. Contrast injection was performed. Ordering Physician: Arthur Pérez Referring Physician: Lainey Lang M.D. Performed By: Aaron Ayala RCS
[2019-07-15] MEDS: Insulin Lispro 100 UNIT/ML INSULN.PEN SC ×2 (06:37→22:03)
[2019-07-15 06:45] LABS: Bedside Glucose 167 mg/dL (70-110)
[2019-07-15] MEDS: levETIRAcetam 500 MG Tablet PO ×2 (09:12→22:05)
[2019-07-15] MEDS: Pioglitazone Hydrochloride 30 MG Tablet PO (09:12)
[2019-07-15] MEDS: Nitrofurantoin Macrocrystals 100 MG Capsule PO (09:12)
[2019-07-15] MEDS: predniSONE 10 MG Tablet PO (09:12)
[2019-07-15] MEDS: Lisinopril 20 MG Tablet PO (09:13)
--- NOTE | 2019-07-15 11:19 | CON.PCM_ITS ---
Reason for Consult Date of Consultation: 07/15/19 Reason for Consultation: Syncopal episode History of Present Illness: The patient is a 73 year old M with no previous cardiac history but a previous history of syncope. He tells me that he was coming out of [facility] and the next thing he knew he was on the floor. The last time he had presented to the hospital he was noted to have a urinary tract infection and when he was evaluated and thought that his syncope was secondary to his urinary tract infection. He has not had any chest pain or palpitations and no dizziness. He is on no medications which should make him have a syncopal spell. He actually did injure his nose quite a bit. His EKG in the emergency room had nonspecific changes and his troponin was noted to be abnormal. Cardiology was called for further evaluation and management. [] Past Medical History Allergies/Adverse Reactions: Allergies Iodinated Contrast Media [CONTRASTS] Allergy (Verified 12/21/18 05:13) Hives iodine Allergy (Verified 12/21/18 05:13) Hives Penicillins [PCN] Allergy (Verified 12/21/18 05:13) myasthenia gravis developed 2 days after taking PCN from dental procedure simvastatin Adverse Reaction (Verified 12/21/18 05:13) Pain in joints Home Medications: Ambulatory Orders Medication Instructions Recorded Lisinopril [Zestril] 20 mg PO DAILY 01/17/18 levETIRAcetam tablet [Keppra 500 mg PO BID 02/04/18 tablet] Prednisone 10 mg PO DAILY 10/19/18 glipiZIDE [Glucotrol] 10 mg PO BIDAC 10/19/18 Pioglitazone [Actos] 30 mg PO DAILY #30 tablet 10/20/18 Past Medical History (Chronic Problems): Chronic Problems BPH (benign prostatic hyperplasia) (Chronic) Tinea unguium (Chronic) Seizure disorder (Chronic) Myasthenia gravis (Chronic) Type II diabetes mellitus (Chronic) Surgical History: tonsillectomy, TURP Psychiatric History: No pertinent psych hx - *Family History Maternal History Items: Cancer, Heart Disease Paternal History Items: Cancer, Heart Disease Lives: With Family Smoking Status: Never smoker Tobacco Use: Non-smoker Alcohol: None Drugs: None Review of Systems - Review of Systems General: Denies: Fever, Night Sweats, Fatigue HEENT: Denies: Vision Change Cardiovascular: Reports: Syncope. Denies: Chest Discomfort, Shortness of Breath, Orthopnea, PND, Peripheral Edema, Palpitations, Lightheadedness, Dizziness, Near Syncope Respiratory: Denies: Cough, Sputum Production, Hemoptysis Gastrointestinal: Denies: Hematemesis, Hematochezia, Melena Genitourinary: Denies: Dysuria, Hematuria Muscoloskeletal: Denies: Myalgias Skin: Denies: Rash Neurological: Denies: Dizziness Psychiatric: Denies: Anxiety Endocrine: Denies: Heat Intolerance Hematologic/ Lymphatic: Denies: Anemia Subjectve: Pleasant gentleman in no distress Objective: Vital Signs Temp Pulse Resp BP Pulse Ox 98.4 F 89 16 123/69 H 95 07/15/19 09:07 07/15/19 09:07 07/15/19 09:07 07/15/19 09:07 07/15/19 09:07 Oxygen Delivery Method Room Air Weight: 212 lb 15.465 oz Body Mass Index (BMI) 32.3 Finger Stick Blood Glucose 203 Orthostatic Vital Signs Start: 07/15/19 03:16 Freq: q24h Status: Active Protocol: Activity Type Activity Date Activity User E-Sign Co-Sign Detail Recorded Client Recorded Date Recorded By Document 07/15/19 03:05 MAB [id number] 07/15/19 03:16 MAB 07/15/19 03:05 Orthostatic Vitals Standing -Blood Pressure (90/60-120/80) 131/76 H -Extremity Use Right Arm -Pulse Rate (60-100) 88 Sitting -Blood Pressure (90/60-120/80) 149/76 H -Extremity Use Right Arm -Pulse Rate (60-100) 87 Lying -Blood Pressure (90/60-120/80) 137/61 H -Extremity Use Right Arm -Pulse Rate (60-100) 83 Intake and Output for Last 24 Hours 07/13/19 07/14/19 07/15/19 23:59 23:59 23:59 Intake Total 150 / 150 1108.33 / 1108.33 Output Total 135 / 135 Balance 150 / 150 973.33 / 973.33 General: Awake, Alert, Oriented x 3 HEENT: PERRL, EOMI, Sclera Non Icteric Neck: Supple, Good ROM, No Lymph Node Enlargement Lungs: Clear to auscultation Cardiovascular: Regular Rhythm, Normal S1, Normal S2, No Murmurs, No Rubs, No Gallops Vascular: No Carotid Bruits, Normal Femoral Pulses, Normal Radial Pulses, Normal Dorsalis Pedal Pulse, Normal Posterior Tibial Pulses Abdomen: Bowel Sounds Present, Soft, Non Tender, No HSM, No Organomegaly Extremities: No Cyanosis, No Clubbing, No edema Musculoskeletal: No Erythema Skin: No Rashes Lymphatic: No Lymph Node Enlargement Neurological: No Focal Motor or Sensory Deficit Psych/Mental Status: Appropriate 07/14/19 17:52: WBC 9.7, RBC 4.47 L, Hgb 14.3, Hct 43.3, MCV 96.9 H, MCH 32.0, MCHC 33.0, Plt Count 202, MPV 11.3, Immature Gran % (Auto) 1.100 H, Neut % (Auto) 79.0 H, Lymph % (Auto) 11.6 L, [place] % (Auto) 7.2, Eos % (Auto) 0.7, Baso % (Auto) 0.4, Absolute Neuts (auto) 7.6, Nucleated RBC % 0 07/14/19 17:52: Sodium 139, Potassium 4.5, Chloride 110 H, Carbon Dioxide 21.0, Anion Gap 8, BUN 22 H, Creatinine 1.26, Est GFR (MDRD) Af Amer 72, Est GFR (MDRD) Non-Af 60, BUN/Creatinine Ratio 17.5, Glucose 194 H, Calcium 9.1, Troponin I < 0.015 07/14/19 20:00: Urine Color Yellow, Urine Clarity Sl. Cloudy, Urine pH 5.0, Ur Specific [place] 1.020, Urine Protein 30 H, Urine Glucose (UA) 1000 H, Urine Ketones 5 H, Urine Occult Blood 10 H, Urine Nitrite Negative, Urine Bilirubin Negative, Urine Urobilinogen Normal, Ur Leukocyte Esterase 100 H, Urine RBC 0-5 SEEN, Urine WBC 5-10 SEEN 07/14/19 23:00: Troponin I 0.141 H 07/15/19 02:10: WBC 11.7 H, RBC 4.41 L, Hgb 14.1, Hct 42.4, MCV 96.1 H, MCH 32.0, MCHC 33.3, Plt Count 188, MPV 10.6, Immature Gran % (Auto) 0.500, Neut % (Auto) 74.6 H, Lymph % (Auto) 12.5 L, [place] % (Auto) 10.7 H, Eos % (Auto) 1.4, Baso % (Auto) 0.3, Absolute Neuts (auto) 8.7 H, Nucleated RBC % 0 07/15/19 02:10: Sodium 141, Potassium 3.4 L, Chloride 110 H, Carbon Dioxide 25.0, Anion Gap 6, BUN 16, Creatinine 0.94, Est GFR (MDRD) Af Amer 101, Est GFR (MDRD) Non-Af 84, BUN/Creatinine Ratio 17.0, Glucose 121 H, Calcium 8.4 L 07/15/19 02:10: Troponin I 0.200 H 07/15/19 05:13: Troponin I 0.152 H 07/15/19 08:07: Troponin I 0.166 H Rhythm: EKG: Normal sinus rhythm with non specific changes ECHO: Stress Test: Cardiac Cath: PCI: CT Surgery: Holter monitor: EPS: PPM: CXR: Chest CT Scan: Assessment/Plan 1. Syncope * Patient presents with syncope and abnormal cardiac enzymes. The etiology of the above is not clear at this time. Due to the abnormal cardiac enzymes I would recommend that we assess his coronary anatomy with a cardiac catheterization. The risk benefits alternatives of been explained to him he understands and agrees to proceed. Depending on the findings of the above further recommendations will be made. * He may also need a loop recorder if no significant cardiac findings on during the cardiac catheterization. * 2. Hypertension * Blood pressure appears to be under good control at this particular time and I would not recommend any changes. * * Thank you for allowing me to participate in the care of your patient. Please don't hesitate to call if any issues arise
[2019-07-15 11:30] LABS: Bedside Glucose 182 mg/dL (70-110)
--- NOTE | 2019-07-15 12:01 | PCM.PN.HOSP ---
<Dylan Garcia - Last Filed: 07/15/19 12:01> Patient Problems: Active and Suspected Problems Syncope and collapse (Acute) Facial contusion (Acute) Nasal bone fracture (Acute) Tetanus-diphtheria (Td) vaccination (Acute) Reason for Visit: syncope Subjective: Pt had syncopal episode walking from [place] while carrying grocery bags. He lost consciousness and fractured his nose. No post ictal phase, no loss of bowel/bladder control, no report muscle spasms, no tongue biting. Currently no CP, SOB, LH/dizziness/palp. Pt thinks he had a UTI which he passed out with in the past. He denies dysuria. He has no fever/chills. UA is neg. Vitals/I&O's: Vital Signs Temp Pulse Resp BP Pulse Ox 98.4 F 89 16 123/69 H 95 07/15/19 09:07 07/15/19 09:07 07/15/19 09:07 07/15/19 09:07 07/15/19 09:07 Oxygen Delivery Method Room Air Weight: 212 lb 15.465 oz Body Mass Index (BMI) 32.3 Finger Stick Blood Glucose 203 Orthostatic Vital Signs Start: 07/15/19 03:16 Freq: q24h Status: Active Protocol: Activity Type Activity Date Activity User E-Sign Co-Sign Detail Recorded Client Recorded Date Recorded By Document 07/15/19 03:05 [facility] [id number] 07/15/19 03:16 [facility] 07/15/19 03:05 Orthostatic Vitals Standing -Blood Pressure (90/60-120/80) 131/76 H -Extremity Use Right Arm -Pulse Rate (60-100) 88 Sitting -Blood Pressure (90/60-120/80) 149/76 H -Extremity Use Right Arm -Pulse Rate (60-100) 87 Lying -Blood Pressure (90/60-120/80) 137/61 H -Extremity Use Right Arm -Pulse Rate (60-100) 83 Intake and Output for Last 24 Hours 07/13/19 07/14/19 07/15/19 23:59 23:59 23:59 Intake Total 150 / 150 1108.33 / 1108.33 Output Total 135 / 135 Balance 150 / 150 973.33 / 973.33 General: Alert, Oriented x3, Cooperative HEENT: Atraumatic, PERRLA, EOMI, Normocephalic Neck: Supple, No JVD, Negative Carotid Bruits Lungs: Clear to auscultation, Normal air movement Cardiovascular: Regular rate, No murmurs Abdomen: Bowel Sounds Present, Soft, Non Tender Extremities: No edema, Capillary Refill Less than 3 Seconds Skin: No rashes, No breakdown Musculoskeletal: No Tenderness to Palpation of Joints or Extremities Neurological: Cranial nerves II-XII grossly intact Psych/Mental Status: Normal Affect, Appropriate, Alert and oriented to time, place, person, mood and affect Laboratory Results 07/14/19 17:52: WBC 9.7, RBC 4.47 L, Hgb 14.3, Hct 43.3, MCV 96.9 H, MCH 32.0, MCHC 33.0, RDW Std Deviation 48.5 H, RDW Coeff of Em 13.6, Plt Count 202, MPV 11.3, Immature Gran % (Auto) 1.100 H, Neut % (Auto) 79.0 H, Lymph % (Auto) 11.6 L, [place] % (Auto) 7.2, Eos % (Auto) 0.7, Baso % (Auto) 0.4, Absolute Neuts (auto) 7.6, Absolute Lymphs (auto) 1.12, Nucleated RBC % 0 07/14/19 17:52: Sodium 139, Potassium 4.5, Chloride 110 H, Carbon Dioxide 21.0, Anion Gap 8, BUN 22 H, Creatinine 1.26, Estim Creat Clear Calc 51.27, Est GFR (MDRD) Af Amer 72, Est GFR (MDRD) Non-Af 60, BUN/Creatinine Ratio 17.5, Glucose 194 H, Calcium 9.1, Troponin I < 0.015 07/14/19 17:52: Prolactin 40.4 07/14/19 20:00: Urine Color Yellow, Urine Clarity Sl. Cloudy, Urine pH 5.0, Ur Specific [place] 1.020, Urine Protein 30 H, Urine Glucose (UA) 1000 H, Urine Ketones 5 H, Urine Occult Blood 10 H, Urine Nitrite Negative, Urine Bilirubin Negative, Urine Urobilinogen Normal, Ur Leukocyte Esterase 100 H, Urine RBC 0-5 SEEN, Urine WBC 5-10 SEEN, Ur Squamous Epith Cells 0-5 SEEN, Urine Bacteria 0 SEEN, Urine Mucus 0 SEEN 07/14/19 23:00: Troponin I 0.141 H 07/14/19 23:11: POC Glucose 109 07/15/19 02:10: WBC 11.7 H, RBC 4.41 L, Hgb 14.1, Hct 42.4, MCV 96.1 H, MCH 32.0, MCHC 33.3, RDW Std Deviation 48.2 H, RDW Coeff of Em 13.5, Plt Count 188, MPV 10.6, Immature Gran % (Auto) 0.500, Neut % (Auto) 74.6 H, Lymph % (Auto) 12.5 L, [place] % (Auto) 10.7 H, Eos % (Auto) 1.4, Baso % (Auto) 0.3, Absolute Neuts (auto) 8.7 H, Absolute Lymphs (auto) 1.46, Nucleated RBC % 0 07/15/19 02:10: Sodium 141, Potassium 3.4 L, Chloride 110 H, Carbon Dioxide 25.0, Anion Gap 6, BUN 16, Creatinine 0.94, Estim Creat Clear Calc 68.72, Est GFR (MDRD) Af Amer 101, Est GFR (MDRD) Non-Af 84, BUN/Creatinine Ratio 17.0, Glucose 121 H, Calcium 8.4 L 07/15/19 02:10: Troponin I 0.200 H 07/15/19 05:13: Troponin I 0.152 H 07/15/19 06:33: POC Glucose 167 H 07/15/19 08:07: Troponin I 0.166 H 07/15/19 11:11: Troponin I Pending 07/15/19 11:23: POC Glucose 182 H Current Medications Acetaminophen (Tylenol) 650 mg PO Q6H PRN PRN PRN Reason: Pain Score 1-5/Temp > 100.7 F Last Admin: 07/14/19 23:19 Dose: 650 mg Documented by: Al Hydroxide/Mg Hydroxide (Mylanta Ii) 30 ml PO Q6H PRN PRN PRN Reason: HEARTBURN OR INDIGESTION Calcium Carbonate (Tums) 1,000 mg PO Q6H PRN PRN PRN Reason: HEARTBURN Last Admin: 07/15/19 02:12 Dose: 1,000 mg Documented by: Glipizide (Glucotrol) 10 mg PO BID@1200,1700 YAA Glucagon () 1 mg IM .X1 PRN PRN Reason: Hypoglycemia Sodium Chloride () 250 mls @ 15 mls/hr IV .[id number] PRN PRN Reason: Saline Flush Sodium Chloride () 250 mls @ 15 mls/hr IV .[id number] PRN PRN Reason: Additional IVPB Infusion Dextrose (Dextrose 10%-Water) 250 mls @ 999 mls/hr IV .Q16M PRN; Protocol PRN Reason: HYPOGLYCEMIA Sodium Chloride () 1,000 mls @ 0 mls/hr IV .Q0M [facility] Insulin Human Lispro (Humalog Kwikpen (Bkc)) 0 unit SC ACHS [facility]; Protocol Last Admin: 07/15/19 11:29 Dose: Not Given Documented by: Levetiracetam (Keppra Tablet) 500 mg PO BID [facility] Last Admin: 07/15/19 09:12 Dose: 500 mg Documented by: Lisinopril (Zestril) 20 mg PO DAILY [facility] Last Admin: 07/15/19 09:13 Dose: 20 mg Documented by: Nitrofurantoin Macrocrystals (Macrobid) 100 mg PO BID [facility] Last Admin: 07/15/19 09:12 Dose: 100 mg Documented by: Ondansetron HCl (Zofran) 4 mg IV Q8H PRN PRN PRN Reason: NAUSEA/VOMITING Oxycodone HCl (Oxyir) 5 mg PO Q6H PRN PRN PRN Reason: Pain Score 6-10/10 Pioglitazone HCl (Actos) 30 mg PO DAILY [facility] Last Admin: 07/15/19 09:12 Dose: 30 mg Documented by: Pred[facility]one () [facility] Last Admin: 07/15/19 09:12 Dose: 10 mg Documented by: Senna/Docusate Sodium (Senokot-S, Amna-Colace) 2 tablet PO DAILY PRN PRN PRN Reason: CONSTIPATION Sodium Chloride () 10 - 40 ml IV UD PRN PRN Reason: SALINE FLUSH Last Admin: 07/14/19 23:18 Dose: 10 ml Documented by: STROKE Vital Signs/Narrative: Vital Signs Temp Pulse Resp BP Pulse Ox 07/15/19 09:07 98.4 F 89 16 123/69 H 95 Medical Necessity - Tobacco Use Smoking Status: Never smoker Tobacco Use: Non-smoker Assessment/Plan All Active Problems Syncope and collapse (Acute) Facial contusion (Acute) Nasal bone fracture (Acute) Tetanus-diphtheria (Td) vaccination (Acute) 1. Syncope - troponins bumped, cardiology consuled. Pt going for heart cath. -EEG pending, however no symptoms c/w seizure activity as per subjective -UA negative for UTI, no dysuria. DC nitrofurantoin -orthos negative -tele NSR -EKG nonspecific T wave changes -prolactin neg, check tsh 2. Nasal fracture - referral to ortho as o/p 3. DMt2 - SSI, actos, glipizide 4. Myasthenia gravis - daily prednisone 5. Hx Seizure - keppra continued. 6. HTN - lisinopril DVT ppx: held for cath DC planing: plan pending cath results, eeg. This patient was seen by Dylan Garcia PA-C under the supervision of Dr. Post. <Madonna Post E - Last Filed: 07/15/19 12:32> Vitals/I&O's: Vital Signs Temp Pulse Resp BP Pulse Ox 98.4 F 89 16 123/69 H 95 07/15/19 09:07 07/15/19 09:07 07/15/19 09:07 07/15/19 09:07 07/15/19 09:07 Oxygen Delivery Method Room Air Weight: 212 lb 15.465 oz Body Mass Index (BMI) 32.3 Finger Stick Blood Glucose 203 Orthostatic Vital Signs Start: 07/15/19 03:16 Freq: q24h Status: Active Protocol: Activity Type Activity Date Activity User E-Sign Co-Sign Detail Recorded Client Recorded Date Recorded By Document 07/15/19 03:05 [facility] [id number] 07/15/19 03:16 MAB 07/15/19 03:05 Orthostatic Vitals Standing -Blood Pressure (90/60-120/80) 131/76 H -Extremity Use Right Arm -Pulse Rate (60-100) 88 Sitting -Blood Pressure (90/60-120/80) 149/76 H -Extremity Use Right Arm -Pulse Rate (60-100) 87 Lying -Blood Pressure (90/60-120/80) 137/61 H -Extremity Use Right Arm -Pulse Rate (60-100) 83 Intake and Output for Last 24 Hours 07/13/19 07/14/19 07/15/19 23:59 23:59 23:59 Intake Total 150 / 150 1108.33 / 1108.33 Output Total 135 / 135 Balance 150 / 150 973.33 / 973.33 Laboratory Results 07/14/19 17:52: WBC 9.7, RBC 4.47 L, Hgb 14.3, Hct 43.3, MCV 96.9 H, MCH 32.0, MCHC 33.0, RDW Std Deviation 48.5 H, RDW Coeff of Em 13.6, Plt Count 202, MPV 11.3, Immature Gran % (Auto) 1.100 H, Neut % (Auto) 79.0 H, Lymph % (Auto) 11.6 L, [place] % (Auto) 7.2, Eos % (Auto) 0.7, Baso % (Auto) 0.4, Absolute Neuts (auto) 7.6, Absolute Lymphs (auto) 1.12, Nucleated RBC % 0 07/14/19 17:52: Sodium 139, Potassium 4.5, Chloride 110 H, Carbon Dioxide 21.0, Anion Gap 8, BUN 22 H, Creatinine 1.26, Estim Creat Clear Calc 51.27, Est GFR (MDRD) Af Amer 72, Est GFR (MDRD) Non-Af 60, BUN/Creatinine Ratio 17.5, Glucose 194 H, Calcium 9.1, Troponin I < 0.015 07/14/19 17:52: Prolactin 40.4 07/14/19 20:00: Urine Color Yellow, Urine Clarity Sl. Cloudy, Urine pH 5.0, Ur Specific [place] 1.020, Urine Protein 30 H, Urine Glucose (UA) 1000 H, Urine Ketones 5 H, Urine Occult Blood 10 H, Urine Nitrite Negative, Urine Bilirubin Negative, Urine Urobilinogen Normal, Ur Leukocyte Esterase 100 H, Urine RBC 0-5 SEEN, Urine WBC 5-10 SEEN, Ur Squamous Epith Cells 0-5 SEEN, Urine Bacteria 0 SEEN, Urine Mucus 0 SEEN 07/14/19 23:00: Troponin I 0.141 H 07/14/19 23:11: POC Glucose 109 07/15/19 02:10: WBC 11.7 H, RBC 4.41 L, Hgb 14.1, Hct 42.4, MCV 96.1 H, MCH 32.0, MCHC 33.3, RDW Std Deviation 48.2 H, RDW Coeff of Em 13.5, Plt Count 188, MPV 10.6, Immature Gran % (Auto) 0.500, Neut % (Auto) 74.6 H, Lymph % (Auto) 12.5 L, [place] % (Auto) 10.7 H, Eos % (Auto) 1.4, Baso % (Auto) 0.3, Absolute Neuts (auto) 8.7 H, Absolute Lymphs (auto) 1.46, Nucleated RBC % 0 07/15/19 02:10: Sodium 141, Potassium 3.4 L, Chloride 110 H, Carbon Dioxide 25.0, Anion Gap 6, BUN 16, Creatinine 0.94, Estim Creat Clear Calc 68.72, Est GFR (MDRD) Af Amer 101, Est GFR (MDRD) Non-Af 84, BUN/Creatinine Ratio 17.0, Glucose 121 H, Calcium 8.4 L 07/15/19 02:10: Troponin I 0.200 H 07/15/19 05:13: Troponin I 0.152 H 07/15/19 06:33: POC Glucose 167 H 07/15/19 08:07: Troponin I 0.166 H 07/15/19 11:11: Troponin I 0.138 H 07/15/19 11:23: POC Glucose 182 H Current Medications Acetaminophen (Tylenol) 650 mg PO Q6H PRN PRN PRN Reason: Pain Score 1-5/Temp > 100.7 F Last Admin: 07/14/19 23:19 Dose: 650 mg Documented by: Al Hydroxide/Mg Hydroxide (Mylanta Ii) 30 ml PO Q6H PRN PRN PRN Reason: HEARTBURN OR INDIGESTION Calcium Carbonate (Tums) 1,000 mg PO Q6H PRN PRN PRN Reason: HEARTBURN Last Admin: 07/15/19 02:12 Dose: 1,000 mg Documented by: Glipizide (Glucotrol) 10 mg PO BID@1200,1700 YAA Last Admin: 07/15/19 12:21 Dose: Not Given Documented by: Glucagon () 1 mg IM .X1 PRN PRN Reason: Hypoglycemia Sodium Chloride () 250 mls @ 15 mls/hr IV .[id number] PRN PRN Reason: Saline Flush Sodium Chloride () 250 mls @ 15 mls/hr IV .[id number] PRN PRN Reason: Additional IVPB Infusion Dextrose (Dextrose 10%-Water) 250 mls @ 999 mls/hr IV .Q16M PRN; Protocol PRN Reason: HYPOGLYCEMIA Sodium Chloride () 1,000 mls @ 0 mls/hr IV .Q0M [facility] Insulin Human Lispro (Humalog Kwikpen (Bkc)) 0 unit SC ACHS [facility]; Protocol Last Admin: 07/15/19 11:29 Dose: Not Given Documented by: Levetiracetam (Keppra Tablet) 500 mg PO BID [facility] Last Admin: 07/15/19 09:12 Dose: 500 mg Documented by: Lisinopril (Zestril) 20 mg PO DAILY [facility] Last Admin: 07/15/19 09:13 Dose: 20 mg Documented by: Ondansetron HCl (Zofran) 4 mg IV Q8H PRN PRN PRN Reason: NAUSEA/VOMITING Oxycodone HCl (Oxyir) 5 mg PO Q6H PRN PRN PRN Reason: Pain Score 6-10/10 Pioglitazone HCl (Actos) 30 mg PO DAILY [facility] Last Admin: 07/15/19 09:12 Dose: 30 mg Documented by: Pred[facility]one () [facility] Last Admin: 07/15/19 09:12 Dose: 10 mg Documented by: Senna/Docusate Sodium (Senokot-S, Amna-Colace) 2 tablet PO DAILY PRN PRN PRN Reason: CONSTIPATION Sodium Chloride () 10 - 40 ml IV UD PRN PRN Reason: SALINE FLUSH Last Admin: 07/14/19 23:18 Dose: 10 ml Documented by: STROKE Vital Signs/Narrative: Vital Signs Temp Pulse Resp BP Pulse Ox 07/15/19 09:07 98.4 F 89 16 123/69 H 95 Assessment/Plan Hospitalist note: I am seeing this patient in conjunction with Dylan Garcia. I independently seen and examined the patient. Progress note above, laboratory data and imaging studies reviewed and I concur with above treatment plan. Today, he denied chest pain or shortness of breath. He denies dizziness or lightheadedness. He denied palpitations. He denied dysuria, frequency or hematuria. He denied fever or chills. His vital signs are stable. - Physical Exam General: Alert, Oriented x3, Cooperative, No apparent distress. HEENT: traumatic, swelling of the right side of the face, laceration over the nasal bridge, PERRLA, EOMI. Neck: Supple, No JVD, Negative Carotid Bruits, Trachea Midline, Thyroid Normal. Lungs: Diminished with sounds bilateral, otherwise clear, No rhonchi, No wheeze, No rales. Cardiovascular: Regular rate, Regular Rhythm, Normal S1, Normal S2, PMI Normal. Abdomen: Bowel Sounds Present, Soft, Non Tender, Non-Distended, No Hepato-splenomegaly. Extremities: No clubbing, No cyanosis, No edema Skin: No rashes, No breakdown Neurological: Cranial nerves are intact, neuro grossly intact Vital Signs stable. Assessment and plan: #1 syncopal episode: Unclear etiology. EKG revealed normal sinus rhythm, no evidence of cardiac arrhythmias, no ischemic changes. Troponin is borderline elevated. CT scan brain showed no acute findings. CT cervical spine was unremarkable. His vital signs been stable. EEG and echocardiogram performed, awaiting the results. Patient has no more symptoms. #2 abnormal cardiac enzymes: Patient denied chest pain. EKG was unremarkable. Kidney function is normal. Patient had no history of CAD. Plan for cardiology consult. #3 facial trauma/nasal bone fracture: Nondisplaced nasal fracture. Plan for conservative treatment. Pain control. #4 other chronic medical problems: Stable, continue current medications as above. This note was generated with [employer] dictation software. It may contain incorrect words, spelling, and punctuation that were not noted in checking the note before signing. Code Visit OBSV E&M: 18713 Subsequent observation care L2
[2019-07-15 13:06] LABS: Thyroid Stim Hormone (TSH) 1.05 uIU/mL (0.358-3.74)
--- NOTE | 2019-07-15 13:56 | CL.D_ITS ---
Patient Name: ZULEIMA GORDON Study Date: 07/15/2019 Performing: Alejandro Styles MD Ht: 68.11 inches 173 cm : 1945 Wt: 213.85 lbs 97 kg Age: 73 Gender: male BSA: 2.11 PROCEDURE(S) PERFORMED [id number] CLINICAL PROFILE AND INDICATIONS Indications: Syncope Heart Failure: None Stress/Imaging Stress/Image Study Performed: No CAD Presentations: No Sxs, no angina. CONCLUSIONS Two-vessel coronary artery disease involving the mid left anterior descending artery with a 75% steno sis, first diagonal vessel with 90% stenosis, and mid to distal right coronary artery and a dominant vessel with 80% stenosis. Preserved ejection fraction. RECOMMENDATIONS Referred for immediate PCI DESCRIPTION OF PROCEDURE The patient arrived to the procedure lab. The risks and benefits of the procedure as well as a full d escription of our services here and current unavailability of surgical backup were fully explained to the patient and/or their significant other prior to the catheterization. The Timeout was completed, verifying the correct patient and procedure. The patient's procedural site was prepped and draped in the usual fashion. Local anesthetic was given subcutaneously to right radial region with Lidocaine 2% . Using a modified Seldinger technique, arterial access was obtained via the right radial artery, a 6 Fr sheath was inserted. Left Coronary Artery selective angiography was performed in multiple views u sing a 5 Fr. JL3.5 catheter. Right Coronary Artery selective angiography was then performed in multip le views using a 5 Fr. JR 5 catheter. Left Ventriculography was performed in JOSEPH projection using a 5 Fr. Pigtail catheter. LV to AO pullback pressures were then recorded. CORONARY ANGIOGRAPHY DOMINANCE: Right Dominant LEFT HEART ASSESSMENT Left Ventricular Ejection Fraction: by LV Gram 60 % Normal LV wall motion Normal Left Ventricular systolic function LEFT MAIN: Angiographically normal LEFT ANTERIOR DESCENDING ARTERY: MID LAD: 75 % Stenosis DIAGONAL 1: Ostial - 95 % Stenosis CIRCUMFLEX ARTERY: No significant disease noted RIGHT CORONARY ARTERY: DISTAL RCA: 80 % Stenosis COMPLICATIONS PROCEDURE MEDICATIONS Versed 1 mg IV Oxygen: 2 L/min via nasal cannula Benadryl 25 mg IV 07/15/2019 13:04:59 Aspirin (325mg) 1 Tabs PO @ 07/15/2019 13:42:53 Heparin diluted in 23cc Heparinized saline. Patient given 10cc IA of this solution. 07/15/2019 13:12: 33 Solu-medrol 125 mg IV 07/15/2019 13:04:59 Verapamil 2.5mg, Ntg 100mcgs, 2000 units of Heparin diluted in 23cc Heparinized saline. Patient give n 10cc IA of this solution. 07/15/2019 13:12:33 SUMMARY OF HEMODYNAMIC DATA Time AIR REST ECG 13:02:25 AO 124/70 (95) SA 13:24:40 LV 125/4, 13 13:41:40 LV 126/2, 12 13:41:46 LV 99/5, 8 13:42:31 LVp 109/7, 10 13:42:36 AOp 134/72 (100) 13:42:41 Signed By Alejandro Styles MD On 07/15/2019 13:56:12 Alejandro Styles MD
[2019-07-15 15:41] LABS: ACT Activated Clotting Time 219 sec (74-137)
[2019-07-15] MEDS: 0.9% Normal Saline 1,000 ML 60 ML IV (15:45)
--- NOTE | 2019-07-15 15:45 | EKG12_ITS ---
Test Reason : AM Blood Pressure : / mmHG Vent. Rate : 085 BPM Atrial Rate : 085 BPM P-R Int : 142 ms QRS Dur : 068 ms QT Int : 372 ms P-R-T Axes : 049 025 049 degrees QTc Int : 442 ms Normal sinus rhythm Normal ECG When compared with ECG of 15-JUL-2019 15:47, MANUAL COMPARISON REQUIRED, DATA IS UNCONFIRMED Confirmed by OWEN THURSTON, JOCELYNE ([id number]), material expeditor JAZZ BENTLEY ([id number]) on 07/19/2019 12:24:39 PM Referred By: NINFA Confirmed By:JOCELYNE WEAVER MD
--- NOTE | 2019-07-15 15:47 | EKG12_ITS ---
Test Reason : POSTPCI Blood Pressure : / mmHG Vent. Rate : 071 BPM Atrial Rate : 071 BPM P-R Int : 138 ms QRS Dur : 068 ms QT Int : 416 ms P-R-T Axes : 048 033 039 degrees QTc Int : 452 ms Normal sinus rhythm Normal ECG When compared with ECG of 15-JUL-2019 01:47, MANUAL COMPARISON REQUIRED, DATA IS UNCONFIRMED Confirmed by OWEN THURSTON, JOCELYNE ([id number]), editor producer KATHIE FLEMING ([id number]) on 07/20/2019 2:12:43 PM Referred By: OWEN Confirmed By:JOCELYNE WEAVER MD
[2019-07-15 16:17] LABS: Hemoglobin 13.8 g/dL (13.0-16.5); Mean Corp Hgb Conc 32.9 g/dL (32-36); Mean Corpuscular Hgb 32.2 pg (27.0-32.0); Mean Corpuscular Volume 97.9 fL (80-94); Platelet Count 166 K/mm3 (150-450); RBC Distribution Width CV 13.6 % (11.6-14.6); Red Blood Count 4.29 M/mm3 (4.6-6.2); White Blood Count 9.8 K/mm3 (4.4-11.0)
--- NOTE | 2019-07-15 16:24 | CL.I_ITS ---
Patient Name: ZULEIMA GORDON Study Date: 07/15/2019 Performing: Arielle Cee MD Ht: 68.11 inches 173 cm : 1945 Wt: 213.85 lbs 97 kg Age: 73 Gender: male BSA: 2.11 PROCEDURE(S) PERFORMED BF50-BDCR, EACH ADD'L CORONARY ART, SAME MAJOR [id number] W OR WO PTCA, SINGLE CORONARY ARTERY [id number] W OR WO PTCA, SINGLE CORONARY ARTERY CLINICAL PROFILE AND CO-MORBIDITIES Indications: Syncope Heart Failure: None Stress/Imaging Stress/Image Study Performed: No CAD Presentations: No Sxs, no angina. CONCLUSIONS Successful PCI with RAMONA to LAD and PTCA to D1 (Kissing balloon angioplasty, provisional stenting) Successful PTCA/RAMONA dRCA RECOMMENDATIONS ASA Leslieefjon Morris for at least 12 months Follow up with Dr. Styles DESCRIPTION OF PROCEDURE The patient arrived to the procedure lab. The risks and benefits of the procedure as well as a full d escription of our services here and current unavailability of surgical backup were fully explained to the patient and/or their significant other prior to the catheterization. The Timeout was completed, verifying the correct patient and procedure. The patient's procedural site was prepped and draped in the usual fashion. Local anesthetic was given subcutaneously to right radial region with Lidocaine 2% Using a modified Seldinger technique,arterial access was obtained via the right radial artery, a 6Fr sheath was inserted. Left Coronary Artery selective angiography was performed in multiple views usin g a 5 Fr. JL3.5 catheter. Right Coronary Artery selective angiography was then performed in multiple views using a 5 Fr. JR 5 catheter. Left Ventriculography was performed in JOSEPH projection using a 5 Fr . Pigtail catheter. LV to AO pullback pressures were then recorded.The images were reviewed and options discussed. A decision was then made to proceed with an Intervention, IVUS or oth er adjunct procedure. XB 3.5 Guide catheter was inserted and engaged into the LCA. XB 3.0 Guide catheter was inserted a nd engaged into the LCA. BMW Guide wire was advanced to the LAD. Runthrough Guide wire was inserted a s a blayne wire Emerge 2.50x12 Balloon catheter was inserted. PTCA balloon inflated at 10 atms for 20 secs. PTCA balloon inflated at 10 atms for 14 secs. Balloon catheter was repositioned to additional l esion in the LAD, mid. PTCA balloon inflated at 10 atms for 11 secs. PTCA balloon inflated at 10 atms for 12 secs. Angiogram performed post balloon dilatation. Synergy 3.00x24 Drug Eluting stent was ins erted. 2.00x12 emerge Balloon catheter was advanced across lesion in the second diagonal, ostial 3.00 X15 NC EMEGRE Balloon catheter was inserted post stent. 3.00X8 SYNERGY Drug Eluting stent was inserte d. Drug Eluting stent was advanced across the lesion in the LAD, mid. JR 4 Guide catheter was inserte d and engaged into the RCA. BMW Guide wire was advanced to the RCA. 3.5X15 EMERGE Balloon catheter was inserted. Balloon catheter was advanced across lesion in the right coronary, distal. PTC A balloon inflated at 12 atms for 20 secs. 4.0X20 SYNERGY Drug Eluting stent was inserted. Drug Eluti ng stent was advanced across the lesion in the right coronary, distal. The arterial sheath was pull ed and a TR Band was applied for hemostasis-15 INTERVENTION INFORMATION LESION SITE: LAD (Mid) Lesion Complexity: High/C, chronic total occlusion: No, lesion at bifurcation: Yes, thrombus present: Yes, lesion length: 20 mm, culprit lesion: Yes, Previously treated lesion: No Pre Stenosis: 75 % Pre intervention CLEMENTE flow: 3 PROCEDURE: Drug Eluting Stent with pre and post dilatation Post Stenosis: 0 % Post intervention CLEMENTE flow: 3 Lesion Devices: Cardinal 6 Fr XB3.0 100cm Guide Catheter Tucker Sci EMERGE MR 2.50x12 BALLOON Tucker Sci Synergy MR RAMONA 3.00x24 Tucker Sci NC EMERGE MR 3.00x15 BALLOON Tucker Sci Synergy MR RAMONA 3.00x08 LESION SITE: 1st Diagonal (Ostial) Lesion Complexity: High/C, chronic total occlusion: No, lesion at bifurcation: Yes, thrombus present: No, lesion length: 12 mm, culprit lesion: Yes, Previously treated lesion: No Pre Stenosis: 90 % Pre intervention CLEMENTE flow: 3 PROCEDURE: Balloon Angioplasty Post Stenosis: 30 % Post intervention CLEMENTE flow: 3 Lesion Devices: Cardinal 6 Fr XB3.0 100cm Guide Catheter Tucker Sci EMERGE MR 2.50x12 BALLOON Tucker Sci EMERGE MR 2.00x12 BALLOON LESION SITE: RCA (Distal) Lesion Complexity: High/C, chronic total occlusion: No, lesion at bifurcation: No, thrombus present: No, lesion length: 12 mm, culprit lesion: Yes, Previously treated lesion: No Pre Stenosis: 90 % Pre intervention CLEMENTE flow: 3 PROCEDURE: Drug Eluting Stent with pre dilatation. 0 % Post intervention CLEMENTE flow: 3 Lesion Devices: Cardinal 6 Fr JR4 100cm Guide Catheter Tucker Sci EMERGE MR 3.50x15 BALLOON Tucker Sci Synergy MR RAMONA 4.00x20 COMPLICATIONS No Complications PROCEDURE MEDICATIONS Versed 1 mg IV Oxygen: 2 L/min via nasal cannula Benadryl 25 mg IV 07/15/2019 13:04:59 Aspirin (325mg) 1 Tabs PO 07/15/2019 13:42:53 Brilinta 180 mg PO @ 07/15/2019 15:23:45 Heparin diluted in 23cc Heparinized saline. Patient given 10cc IA of this solution. 07/15/2019 13:12: 33 Heparin 6000 unit(s) IV 07/15/2019 14:21:19 Solu-medrol 125 mg IV 07/15/2019 13:04:59 Verapamil 2.5mg, Ntg 100mcgs, 2000 units of Heparin diluted in 23cc Heparinized saline. Patient give n 10cc IA of this solution. 07/15/2019 13:12:33 IV Bolus: .9 NaCl 350 ml total- throughout procedure 07/15/2019 15:26:41 SUMMARY OF HEMODYNAMIC DATA Time AIR REST ECG 13:02:25 AO 124/70 (95) SA 13:24:40 LV 125/4, 13 13:41:40 LV 126/2, 12 13:41:46 LV 99/5, 8 13:42:31 LVp 109/7, 10 13:42:36 AOp 134/72 (100) 13:42:41 Signed By Arielle Cee MD On 07/15/2019 4:23:34 PM Arielle Cee MD
[2019-07-15 16:36] LABS: Bedside Glucose 200 mg/dL (70-110)
[2019-07-15] MEDS: glipiZIDE 10 MG Tablet PO (17:00)
[2019-07-15] MEDS: TICAGRELOR 90 MG TABLET PO (22:04)
[2019-07-15 22:16] LABS: Bedside Glucose 340 mg/dL (70-110)
[2019-07-16] VITALS (23 sets, daily range): BP systolic 123–174; BP diastolic 65–96; PULSE 72–100; RESP 15–20; TEMP 36.8–37.4; O2SAT 94–97
[2019-07-16 04:19] LABS: Absolute Lymphocyte Count 0.54 X10^3/uL (0.83-4.51); Absolute Neutrophil Count 12.4 X10^3/uL (2.0-7.7); Basophil# 0.02 X10^3/uL; Basophil% 0.1 % (0-1); Lymphocyte # 0.54 X10^3/ul (4.0); Mean Corp Hgb Conc 33.3 g/dL (32-36); Mean Corpuscular Hgb 31.9 pg (27.0-32.0); Mean Corpuscular Volume 95.7 fL (80-94); Mean Platelet Vol. 10.9 fl (6.2-12.0); Monocyte# 0.56 X10^3/uL; Monocyte% 4.1 % (0-10); NRBC Flagged by Analyzer 0 % (0-5); Neutrophil # 12.43 X10^3/uL (2.7-7.7); Neutrophil % 91.2 % (47-70); POSITIVE DIFFERENTIAL YES; Platelet Count 205 K/mm3 (150-450); RBC Distribution Width CV 13.3 % (11.6-14.6); RBC Distribution Width SD 47.4 fl (35.1-43.9); White Blood Count 13.6 K/mm3 (4.4-11.0)
[2019-07-16 04:23] LABS: Differential Indicated SCAN CRITERIA MET
[2019-07-16 04:35] LABS: ALB/GLOB Ratio 0.9 RATIO (0.9-2.4); AST(SGOT) 20 U/L (15-37); Alanine Aminotransfer ALT/SGPT 24 U/L (16-61); Albumin, Serum 3.7 g/dL (3.2-5.0); Alkaline Phosphatase 85 U/L (45-117); Anion Gap 9 (5-15); BUN 20 mg/dL (7-18); BUN/Creat Ratio 16.3 RATIO (10-20); Calcium,Total 8.9 mg/dL (8.5-10.1); Chloride 102 mmol/L (98-107); Creatinine, Serum 1.23 mg/dL (0.70-1.30); EST Glomerular Filtration Rate 61 mL/min (>60); Est Glom Filt Rate - Afr Amer 74 mL/min (>60); Estimated Creatinine Clearance 52.52 ml/min; Globulin 3.9 g/dL (2.2-4.2); Glucose 248 mg/dL (74-106); Potassium 3.6 mmol/L (3.5-5.1); Protein, Total 7.6 g/dL (6.4-8.2); Sodium Level 138 mmol/L (136-145)
[2019-07-16 04:48] LABS: Differential Comment SCANNED; Platelet Estimate ADEQUATE (ADEQ); Red Cell Morphology NORM C+C NORMAL (NORM C&C)
[2019-07-16 08:16] LABS: Bedside Glucose 266 mg/dL (70-110)
[2019-07-16] MEDS: Insulin Lispro 100 UNIT/ML INSULN.PEN SC ×3 (08:23→22:15)
[2019-07-16] MEDS: Aspirin E.C. 81 MG Tablet PO (08:25)
[2019-07-16] MEDS: predniSONE 10 MG Tablet PO (08:26)
[2019-07-16] MEDS: Pioglitazone Hydrochloride 30 MG Tablet PO (08:27)
[2019-07-16] MEDS: TICAGRELOR 90 MG TABLET PO ×2 (08:27→22:12)
[2019-07-16] MEDS: levETIRAcetam 500 MG Tablet PO ×2 (08:27→22:12)
[2019-07-16] MEDS: Lisinopril 20 MG Tablet PO ×2 (08:28→10:53)
--- NOTE | 2019-07-16 09:11 | PN.CARD_ITS ---
Subjectve: Patient seen and evaluated. Objective: Vital Signs Temp Pulse Resp BP Pulse Ox 99.3 F H 82 19 H 123/65 H 96 07/16/19 00:00 07/16/19 07:00 07/16/19 06:00 07/16/19 06:00 07/16/19 06:00 Oxygen Flow Rate (L/min) 2 Oxygen Delivery Method Room Air Weight: 212 lb 15.465 oz Body Mass Index (BMI) 32.3 Finger Stick Blood Glucose 203 Orthostatic Vital Signs Start: 07/15/19 03:16 Freq: q24h Status: Active Protocol: Activity Type Activity Date Activity User E-Sign Co-Sign Detail Recorded Client Recorded Date Recorded By Document 07/15/19 03:05 MAB [id number] 07/15/19 03:16 MAB 07/15/19 03:05 Orthostatic Vitals Standing -Blood Pressure (90/60-120/80) 131/76 H -Extremity Use Right Arm -Pulse Rate (60-100) 88 Sitting -Blood Pressure (90/60-120/80) 149/76 H -Extremity Use Right Arm -Pulse Rate (60-100) 87 Lying -Blood Pressure (90/60-120/80) 137/61 H -Extremity Use Right Arm -Pulse Rate (60-100) 83 Intake and Output for Last 24 Hours 07/14/19 07/15/19 07/16/19 23:59 23:59 23:59 Intake Total 150 / 150 1707.14 / 2507.14 800 / 800 Output Total 135 / 135 Balance 150 / 150 1572.14 / 2372.14 800 / 800 General: Awake, Alert, Oriented x 3 HEENT: PERRL, EOMI, Sclera Non Icteric Neck: Supple, Good ROM, No Lymph Node Enlargement Lungs: Clear to auscultation Cardiovascular: Regular Rhythm, Normal S1, Normal S2, No Murmurs, No Rubs, No Gallops Vascular: No Carotid Bruits, Normal Femoral Pulses, Normal Radial Pulses, Normal Dorsalis Pedal Pulse, Normal Posterior Tibial Pulses Abdomen: Bowel Sounds Present, Soft, Non Tender, No HSM, No Organomegaly Extremities: No Cyanosis, No Clubbing, No edema Musculoskeletal: No Erythema Skin: No Rashes Lymphatic: No Lymph Node Enlargement Neurological: No Focal Motor or Sensory Deficit 07/15/19 11:11: Troponin I 0.138 H 07/15/19 16:00: WBC 9.8, RBC 4.29 L, Hgb 13.8, Hct 42.0, MCV 97.9 H, MCH 32.2 H, MCHC 32.9, Plt Count 166, MPV 11.0 07/16/19 04:00: WBC 13.6 H, RBC 4.70, Hgb 15.0, Hct 45.0, MCV 95.7 H, MCH 31.9, MCHC 33.3, Plt Count 205, MPV 10.9, Immature Gran % (Auto) 0.600, Neut % (Auto) 91.2 H, Lymph % (Auto) 4.0 L, [place] % (Auto) 4.1, Eos % (Auto) 0.0, Baso % (Auto) 0.1, Absolute Neuts (auto) 12.4 H, Nucleated RBC % 0 07/16/19 04:00: Sodium 138, Potassium 3.6, Chloride 102, Carbon Dioxide 27.0, Anion Gap 9, BUN 20 H, Creatinine 1.23, Est GFR (MDRD) Af Amer 74, Est GFR (MDRD) Non-Af 61, BUN/Creatinine Ratio 16.3, Glucose 248 H, Calcium 8.9, Total Bilirubin 0.80 Rhythm: EKG: ECHO: Stress Test: Cardiac Cath: PCI: CT Surgery: Holter monitor: EPS: PPM: CXR: Chest CT Scan: Medical Necessity - Tobacco Use Smoking Status: Never smoker Tobacco Use: Non-smoker Assessment/Plan 1. Syncope * Patient presents with syncope and abnormal cardiac enzymes. The etiology of the above is not clear at this time. Due to the abnormal cardiac enzymes he underwent cardiac catheterization with demonstrated the following: Normal left main coronary artery. Left anterior descending artery with moderately severe mid 70% stenosis. First diagonal branch with 90% stenosis. Left circumflex artery with mild disease, Right coronary artery with long 80% stenosis. The patient underwent angioplasty and stenting of the right coronary artery, left anterior descending artery, and diagonal vessel. The patient will be enrolled in outpatient cardiac rehabilitation. It is not entirely clear whether the syncope was secondary to triple-vessel disease causing ischemia. I would recommend as an outpatient that the patient be brought back for an implantable loop recorder to exclude an arrhythmic etiology. 2. Hypertension * Blood pressure should be optimized and the patient can be discharged for outp atient follow-up. * * Thank you for allowing me to participate in the care of your patient. Please don't hesitate to call if any issues arise
--- NOTE | 2019-07-16 09:44 | CM.UR ---
Addendum entered by Amina Valencia 07/16/19 13:35: [facility] order faxed to [facility] at this time. Manolo Valencia RN, [facility]. Addendum entered by Amina Valencia 07/16/19 10:09: Spoke with Pepito Moss and his Joana on the speakerphone at this time. They were both agreeable to home care and felt it was a good idea. Also discussed that I recommended he consider signing up for [facility] and the potential benefits. also instructed on Brillinta, that I gave Prasanth the coupon for free month and instructed him to ask the pharmacy if they can check on what the cost will be the following month. Explained that if it is too much then they can discuss with Dr. Styles at f/u about switching to something less expensive. Verb understanding and agreement with plan of care. Updated TODD Zhong and patient's son, Prasanth of my conversation with Pepito Moss. and Joana. Manolo Valencia RN, [facility]. Original Note: TODD LUNA Face to Face with patient for initial transition planning/care coordination assessment. TODD LUNA introduced self and role at [facility]. Patient sitting in chair, alert and oriented. Patient willing to participate in assessment and is able to answer all questions appropriately. Care providers, pharmacy, and demographics verified. SonPrasanth, at bedside. PCP: Precious Specialists: Babita, neurology; Ruben, urologist and now Dr. Styles Preferred Pharmacy: [facility] Insurance: [facility], [facility] Prescription Benefit: Yes Living Will/HPOA: None. LNOK: Son and daughter in law (Pepito and Joana Mccann). Living Arrangements: Patient lives first floor apartment. His son, Prasanth, has moved in with him. Son does work or scrub tech but states he is there daily to ensure he is taking care of his daily needs. Assists with obtaining and making sure patient is taking medications. f Transportation: [facility] Van DME: Patient states he has a cane, walker, and glucometer at home. States he still has problems using glucometer. States he gets more errors than he gets blood sugars. States his blood clots too fast. States that even happened at Dr. Lang' office and that is what the nurse told him was the problem. Explained that now he will be on a blood thinner so that shouldn't be a problem any more. HHC: [facility] SNF: TCU Patient would benefit from HHC but is very hesitant. Explained they can help with glucometer teaching, assist with avoiding glucometer errors, ensure that he is recovering well from stents, etc. Patient states that Pepito is his financial power of estate planning attorney. States he has control. Explained that he is to help him pay all his bills and manage his finances but that doesn't give him control. Also explained that under [facility] home care has no cost so Pepito doesn't need to be involved in decision. Explained that he can decide. He states he always talks to Pepito before making decisions. TODD Zhong came into room. She encouraged him to accept HHC explaining that our goal is to keep him safe at home for as long as possible. He again states that he has his son Prasanth. Prasanth spoke up and said but I do work and suggested the patient consider HHC. Patient wishes to discharge home. I gave son Prasanth, a [employer] savings card so patient can get 1 month free. Instructed patient and son to ask pharmacy to see how much it would be under his [employer] supplement. If expensive they can discuss with Stephani at follow up visit and he may be willing to switch him to plavix. Verb understanding. Also noted vet was wearing a [place] vet hat and asked if he went to [facility]. Vet states he does not. Explained that he should check into [facility] benefits instructing on medication program, REGIONAL OFFICE COORDINATOR program, eyeglasses and hearing programs. Explained he might be able to get some things that are less expensive through the [facility]. Also explained that there is a [facility] Van that transports to the [facility]. Disposition Plan: Home with HHC. if patient agreeable. Manolo Valencia RN, [facility].
--- NOTE | 2019-07-16 10:00 | EKG12_ITS ---
Test Reason : AM EKG Blood Pressure : / mmHG Vent. Rate : 070 BPM Atrial Rate : 070 BPM P-R Int : 136 ms QRS Dur : 078 ms QT Int : 404 ms P-R-T Axes : 052 021 027 degrees QTc Int : 436 ms Normal sinus rhythm Normal ECG When compared with ECG of 17-JUL-2019 05:16, MANUAL COMPARISON REQUIRED, DATA IS UNCONFIRMED Confirmed by OWEN THURSTON, JOCELYNE ([id number]), editor at large JAZZ BENTLEY ([id number]) on 07/19/2019 12:17:55 PM Referred By: DR OCASIO Confirmed By:JOCELYNE WEAVER MD
[2019-07-16] MEDS: Metoprolol(XL)Succ 25 MG Tablet PO (10:53)
--- NOTE | 2019-07-16 11:48 | PCM.DC ---
- Discharge Diagnoses Current Active Problems: Current Active and Chronic Problems (Last Updated 07/15/19 @ 18:47 by Sara Mar) Syncope and collapse (Acute) History of non-ST elevation myocardial infarction (NSTEMI) (Acute 07/14/19) Atherosclerosis of coronary artery of [place] heart without angina pectoris (Chronic) History of coronary artery stent placement (Chronic 07/15/19) PCI-RAMONA-Mid LAD w/ 3.0 x 24 mm and 3.0 x 8 mm Synergy Stent, POBA-Ostial D1, RAMONA-Distal RCA w/ 4.0 x 20 mm Synergy Stent 07/15/2019 Essential (primary) hypertension (Chronic) Facial contusion (Acute) Nasal bone fracture (Acute) You will use the following diet at home:: Calorie/Carbohydrate Controlled (specify 1200, 1400, etc) - 1800 theresa / day, Cardiac Your food should be the consistency of: Regular Your liquids should be the consistency of: Regular/Thin Discharge Activity: Return to Normal Activity Allergies/Adverse Reactions: Allergies Iodinated Contrast Media [CONTRASTS] Allergy (Verified 12/21/18 05:13) Hives iodine Allergy (Verified 12/21/18 05:13) Hives Penicillins [PCN] Allergy (Verified 12/21/18 05:13) myasthenia gravis developed 2 days after taking PCN from dental procedure simvastatin Adverse Reaction (Verified 12/21/18 05:13) Pain in joints Medications to take at Discharge levETIRAcetam tablet [Keppra tablet] 500 mg PO BID 02/04/18 Prednisone 10 mg PO DAILY 10/19/18 glipiZIDE [Glucotrol] 10 mg PO BIDAC 10/19/18 Pioglitazone [Actos] 30 mg PO DAILY #30 tablet 10/20/18 Acetaminophen [Tylenol Tablet] 650 mg PO Q6H PRN PRN tablet 07/16/19 Aspirin E.C. [Ecotrin] 81 mg PO DAILY@0800 tablet 07/16/19 Lisinopril [Zestril] 40 mg PO DAILY #30 tab 07/16/19 Metoprolol(XL)Succ [Toprol Xl (Beta Uche)] 25 mg PO DAILY #30 tab 07/16/19 Ticagrelor [Brilinta] 90 mg PO BID #60 tab 07/16/19 The following prescriptions were given: Ticagrelor [Brilinta] 90 mg PO BID #60 tab Transmission Status: Pending to [id number] Metoprolol(XL)Succ [Toprol Xl (Beta Uche)] 25 mg PO DAILY #30 tab Transmission Status: Pending to [id number] Lisinopril [Zestril] 40 mg PO DAILY #30 tab Transmission Status: Pending to [id number] Primary Care Physician: Lainey Lang MD [Primary Care Provider] - Please follow up with your Primary Care Physician in: 1-2 weeks Test Results: Test results from this visit will be discussed in further detail at your follow-up appointment, if applicable. Please Follow Up With: Alejandro Styles MD When: Thursday Proposed Discharge Date: 07/16/19
--- NOTE | 2019-07-16 12:33 | DS.PCM_ITS ---
<Dylan Garcia - Last Filed: 07/16/19 12:33> Discharge Date and Diagnosis - Problem List Patient Problems: Active and Suspected Problems (Last Updated 07/15/19 @ 18:47 by Sara Mar) Syncope and collapse (Acute) Facial contusion (Acute) Nasal bone fracture (Acute) Date of Admission: 07/14/19 Date of Discharge: 07/16/19 - Primary Discharge Diagnosis Active and Suspected Problems (Last Updated 07/15/19 @ 18:47 by Sara Mar) Syncope and collapse (Acute), presumed Cardiac Elevated troponin, NSTEMI CAD s/p new stent placement RCA, LAD, diagonal HTN Seizure disorder Nasal fracture 2/2 fall DMt2 Myasthenia gravis - Secondary Discharge Diagnosis Chronic Problems (Last Updated 07/15/19 @ 18:47 by Sara Mar) Atherosclerosis of coronary artery of [place] without angina pectoris (Chronic) History of coronary artery stent placement (Chronic 07/15/19) PCI-RAMONA-Mid LAD w/ 3.0 x 24 mm and 3.0 x 8 mm Synergy Stent, POBA-Ostial D1, RAMONA-Distal RCA w/ 4.0 x 20 mm Synergy Stent 07/15/2019 Essential (primary) hypertension (Chronic) Hospital Course and Treatment Imaging Results: DIAGNOSTICS: CT/Brain/Head without Contrast IMPRESSION: Chronic involutional changes of the brain. Nasal fracture. CT/Spine Cervical without Contras IMPRESSION: Multilevel degenerative changes, as described above. 2D Echo: Interpretation Summary Normal LV size. The estimated ejection fraction is 65 %. No regional wall motion abnormalities noted. Stage 1 diastolic dysfunction. Mild concentric left ventricular hypertrophy. Contrast injection was performed. Left heart cath: CONCLUSIONS Two-vessel coronary artery disease involving the mid left anterior descending artery with a 75% stenosis, first diagonal vessel with 90% stenosis, and mid to distal right coronary artery and a dominant vessel with 80% stenosis. Preserved ejection fraction. RECOMMENDATIONS Referred for immediate PCI Consults: Cardiology - Stephani Operations: None, TURP Procedures: 2-D Echocardiogram, Cardiac catheterization, Electroencephalogram Summary of Care Provided: Hospital Course: The patient is a 73 year old M with pmhx of seizure disorder, HTN, DMt2, myasthenia gravis who presented to the ER with c/o syncope. The patient was walking with groceries from [employer] when he suddenly collapsed to the ground, fracturing his nose. He was brought to the ER where CT C spine, brain, and CXR were performed showing only nasal fracture which was treated conservatively. He thought that he may have a UTI causing him to pass out as this happened to him in the past year when he had a UTI. He however did not have urinary symptoms, UA was negative, and he had no fever/leukocytosis. He was placed in PCU on tele. EKG showed nonspecific T wave changes. Troponin was cycled and did elevated. Cardiology was consulted and he was taken for a heart cath. He had significant disease and underwent stenting of the RCA, LAD, and diagonal vessel. Post cath an EEG was done as he had a seizure hx - results are pending at this time. Seizure suspicion is low as he had no shaking, no post ictal phase, no tongue biting, and no loss of bowel/bladder control. He was placed on aspirin, brilinta, lisinopril, and toprol. He is statin allergic. He was fairly weak and unsteady on his feet. He did ok with a walker, and he was reluctantly agreeable to home health care for further therapy. He was discharged home in stable condition. He will need to follow up with cardiology as directed, and with his PCP in 1-2 weeks. This patient was seen by Dylan Garcia PA-C under the supervision of Dr. Post [] Patient Problems: Active and Suspected Problems (Last Updated 07/15/19 @ 18:47 by Sara Mar) Syncope and collapse (Acute) Facial contusion (Acute) Nasal bone fracture (Acute) - Physical Exam Vitals/I&O's: Vital Signs Temp Pulse Resp BP Pulse Ox 98.9 F 85 20 H 135/69 H 95 07/16/19 08:00 07/16/19 10:53 07/16/19 09:00 07/16/19 10:53 07/16/19 09:00 Oxygen Flow Rate (L/min) 2 Oxygen Delivery Method Room Air Weight: 212 lb 15.465 oz Body Mass Index (BMI) 32.3 Finger Stick Blood Glucose 203 Intake and Output for Last 24 Hours 07/14/19 07/15/19 07/16/19 23:59 23:59 23:59 Intake Total 150 / 150 1707.14 / 2507.14 800 / 800 Output Total 135 / 135 Balance 150 / 150 1572.14 / 2372.14 800 / 800 General: Alert, Oriented x3, Cooperative, - - nasal fracture, no active bleeding. HEENT: Atraumatic, PERRLA, EOMI, Normocephalic Neck: Supple, No JVD, Negative Carotid Bruits Lungs: Clear to auscultation, Normal air movement Cardiovascular: Regular rate, No murmurs Abdomen: Bowel Sounds Present, Soft, Non Tender Extremities: No edema, Capillary Refill Less than 3 Seconds Skin: No rashes, No breakdown Musculoskeletal: No Tenderness to Palpation of Joints or Extremities Neurological: Cranial nerves II-XII grossly intact Psych/Mental Status: Normal Affect, Appropriate Microbiology Past 72 Hours 07/14/19 20:00 Urine, Clean Catch Urine Culture - Final Mixed Gram Pos & Gram Neg Org Laboratory Results 07/15/19 08:07: TSH 1.05 07/15/19 15:12: Activated Clotting Time 219 H 07/15/19 16:00: WBC 9.8, RBC 4.29 L, Hgb 13.8, Hct 42.0, MCV 97.9 H, MCH 32.2 H, MCHC 32.9, RDW Std Deviation 49.0 H, RDW Coeff of Em 13.6, Plt Count 166, MPV 11.0 07/15/19 16:29: POC Glucose 200 H 07/15/19 21:58: POC Glucose 340 H 07/16/19 04:00: WBC 13.6 H, RBC 4.70, Hgb 15.0, Hct 45.0, MCV 95.7 H, MCH 31.9, MCHC 33.3, RDW Std Deviation 47.4 H, RDW Coeff of Em 13.3, Plt Count 205, MPV 10.9, Immature Gran % (Auto) 0.600, Neut % (Auto) 91.2 H, Lymph % (Auto) 4.0 L, Burnett % (Auto) 4.1, Eos % (Auto) 0.0, Baso % (Auto) 0.1, Absolute Neuts (auto) 12.4 H, Absolute Lymphs (auto) 0.54 L, Nucleated RBC % 0, Differential Comment SCANNED, Platelet Estimate ADEQUATE, RBC Morphology NORM C+C 07/16/19 04:00: Sodium 138, Potassium 3.6, Chloride 102, Carbon Dioxide 27.0, Anion Gap 9, BUN 20 H, Creatinine 1.23, Estim Creat Clear Calc 52.52, Est GFR (MDRD) Af Amer 74, Est GFR (MDRD) Non-Af 61, BUN/Creatinine Ratio 16.3, Glucose 248 H, Calcium 8.9, Total Bilirubin 0.80, AST 20, ALT 24, Alkaline Phosphatase 85, Total Protein 7.6, Albumin 3.7, Globulin 3.9, Albumin/Globulin Ratio 0.9 07/16/19 07:28: POC Glucose 266 H Current Medications Acetaminophen (Tylenol) 650 mg PO Q6H PRN PRN PRN Reason: Pain Score 1-5/Temp > 100.7 F Last Admin: 07/14/19 23:19 Dose: 650 mg Documented by: Al Hydroxide/Mg Hydroxide (Mylanta Ii) 30 ml PO Q6H PRN PRN PRN Reason: HEARTBURN OR INDIGESTION Aspirin (Ecotrin) 81 mg PO DAILY@0800 [facility] Last Admin: 07/16/19 08:25 Dose: 81 mg Documented by: Calcium Carbonate (Tums) 1,000 mg PO Q6H PRN PRN PRN Reason: HEARTBURN Last Admin: 07/15/19 23:44 Dose: 1,000 mg Documented by: Glipizide (Glucotrol) 10 mg PO BID@1200,1700 [facility] Last Admin: 07/15/19 17:00 Dose: 10 mg Documented by: Glucagon () 1 mg IM .X1 PRN PRN Reason: Hypoglycemia Sodium Chloride () 250 mls @ 15 mls/hr IV .[id number] PRN PRN Reason: Saline Flush Insulin Human Lispro (Humalog Kwikpen (Bkc)) 0 unit SC [facility]; Protocol Last Admin: 07/16/19 08:23 Dose: 1 unit Documented by: Levetiracetam (Keppra Tablet) 500 mg PO BID [facility] Last Admin: 07/16/19 08:27 Dose: 500 mg Documented by: Lisinopril (Zestril) 40 mg PO DAILY [facility] Metoprolol Succinate (Toprol Xl (Beta Uche)) 25 mg PO DAILY [facility] Last Admin: 07/16/19 10:53 Dose: 25 mg Documented by: Ondansetron HCl (Zofran) 4 mg IV Q8H PRN PRN PRN Reason: NAUSEA/VOMITING Oxycodone HCl (Oxyir) 5 mg PO Q6H PRN PRN PRN Reason: Pain Score 6-10/10 Pioglitazone HCl (Actos) 30 mg PO DAILY [facility] Last Admin: 07/16/19 08:27 Dose: 30 mg Documented by: [facility] () [facility] Last Admin: 07/16/19 08:26 Dose: 10 mg Documented by: Senna/Docusate Sodium (Senokot-S, Amna-Colace) 2 tablet PO DAILY PRN PRN PRN Reason: CONSTIPATION Sodium Chloride () 10 - 40 ml IV UD PRN PRN Reason: SALINE FLUSH Last Admin: 07/14/19 23:18 Dose: 10 ml Documented by: Sodium Chloride () 500 ml IV BOLUS PRN PRN Reason: VASO-VAGAL PROTOCOL Ticagrelor (Brilinta) 90 mg PO BID [facility] Last Admin: 07/16/19 08:27 Dose: 90 mg Documented by: Discharge Diet: Low fat/ Low Cholesterol, 1800 Calorie Control Diet, 2000 mg So dium Diet Discharge Activity: Return to Normal Activity Home Medications: Medications to take at Discharge levETIRAcetam tablet [Keppra tablet] 500 mg PO BID 02/04/18 Prednisone 10 mg PO DAILY 10/19/18 glipiZIDE [Glucotrol] 10 mg PO BIDAC 10/19/18 Pioglitazone [Actos] 30 mg PO DAILY #30 tablet 10/20/18 Acetaminophen [Tylenol Tablet] 650 mg PO Q6H PRN PRN tab 07/16/19 Aspirin E.C. [Ecotrin] 81 mg PO DAILY@0800 tab 07/16/19 Lisinopril [Zestril] 40 mg PO DAILY #30 tab 07/16/19 Metoprolol(XL)Succ [Toprol Xl (Beta Uche)] 25 mg PO DAILY #30 tab 07/16/19 Ticagrelor [Brilinta] 90 mg PO BID #60 tab 07/16/19 Following Prescrptions Were Given to Patient: Ticagrelor [Brilinta] 90 mg PO BID #60 tab Transmission Status: Received by [id number] Metoprolol(XL)Succ [Toprol Xl (Beta Uche)] 25 mg PO DAILY #30 tab Transmission Status: Received by [facility] Lisinopril [Zestril] 40 mg PO DAILY #30 tab Transmission Status: Received by [facility] Primary Care Physician: Lainey Lang MD [Primary Care Provider] - Please follow up with your Primary Care Physician in: 1-2 weeks Please Follow Up With: Alejandro Styles MD When: Thursday Disposition: Home with Home Health Minutes spent on discharge:: 35 Patient Condition:: Stable Medical Necessity - Tobacco Use Smoking Status: Never smoker Tobacco Use: Non-smoker Meaningful Use Info Meaningful Use Diagnoses (Choose all that apply): None applicable <Madonna Post - Last Filed: 07/16/19 13:14> Discharge Date and Diagnosis - Primary Discharge Diagnosis Active and Suspected Problems (Last Updated 07/15/19 @ 18:47 by Sara Mar) Syncope and collapse (Acute) Facial contusion (Acute) Nasal bone fracture (Acute) - Secondary Discharge Diagnosis Chronic Problems (Last Updated 07/15/19 @ 18:47 by Sara Mra) History of non-ST elevation myocardial infarction (NSTEMI) (Chronic 07/14/19) Atherosclerosis of coronary artery of [place] without angina pectoris (Chronic) History of coronary artery stent placement (Chronic 07/15/19) PCI-RAMONA-Mid LAD w/ 3.0 x 24 mm and 3.0 x 8 mm Synergy Stent, POBA-Ostial D1, RAMONA-Distal RCA w/ 4.0 x 20 mm Synergy Stent 07/15/2019 Essential (primary) hypertension (Chronic) Hospital Course and Treatment Summary of Care Provided: Hospitalist note: Discharge summary above reviewed and I concur with the above discharge and treatment plan. Patient was admitted for syncopal episode for evaluation. His EKG revealed normal sinus rhythm without evidence of acute ischemic changes or cardiac arrhythmias. CT scan brain showed no acute findings, no infarct or hemorrhage. CT scan cervical spine done because he had a fall with nasal fracture and showed no acute fractures dislocations. He was found to have borderline elevated troponin. Cardiology consulted and patient underwent cardiac catheterization, found to have two-vessel CAD involving mid LAD with 75% stenosis, first diagonal vessel with 90% stenosis and mid to distal RCA 80% stenosis. He had successful PTCA/RAMONA to LAD, PTCA to D1 and successful PTCA/RAMONA to distal RCA. Patient was treated with aspirin, Brilinta, lisinopril and metoprolol. 2D echocardiogram revealed ejection fraction of 65%, stage I diastolic dysfunction, no significant valvular disease. Patient was found to have nondisplaced acute traumatic nasal fracture secondary to the fall. This was treated conservatively. There was no indication for surgical fixation as the fracture was nondisplaced. His vital signs remained stable. On the day of discharge, his routine blood work was unremarkable except for leukocytosis which is attributed to chronic steroid use for history of sarcoidosis. Patient discharged home in a stable condition, discharged on aspirin, Brilinta, lisinopril and metoprolol, continued on his previous home medications including Keppra and prednisone, plan to follow-up with cardiology this coming Thursday, July 22, 2019 and patient will need implantation of loop recorder, recommended follow-up with PCP in 1 to 2 weeks. - Physical Exam General: Alert, Oriented x3, Cooperative, No apparent distress. HEENT: traumatic, swelling of the right side of the face, laceration over the nasal bridge, PERRLA, EOMI. Neck: Supple, No JVD, Negative Carotid Bruits, Trachea Midline, Thyroid Normal. Lungs: Diminished with sounds bilateral, otherwise clear, No rhonchi, No wheeze, No rales. Cardiovascular: Regular rate, Regular Rhythm, Normal S1, Normal S2, PMI Normal. Abdomen: Bowel Sounds Present, Soft, Non Tender, Non-Distended, No Hepato- splenomegaly. Extremities: No clubbing, No cyanosis, No edema Skin: No rashes, No breakdown Neurological: Cranial nerves are intact, neuro grossly intact Vital Signs stable. This note was generated with [employer] dictation software. It may contain incorrect words, spelling, and punctuation that were not noted in checking the note before signing. - Physical Exam Vitals/I&O's: Vital Signs Temp Pulse Resp BP Pulse Ox 98.9 F 85 20 H 135/69 H 95 07/16/19 08:00 07/16/19 10:53 07/16/19 09:00 07/16/19 10:53 07/16/19 09:00 Oxygen Flow Rate (L/min) 2 Oxygen Delivery Method Room Air Weight: 212 lb 15.465 oz Body Mass Index (BMI) 32.3 Finger Stick Blood Glucose 203 Intake and Output for Last 24 Hours 07/14/19 07/15/19 07/16/19 23:59 23:59 23:59 Intake Total 150 / 150 1707.14 / 2507.14 800 / 800 Output Total 135 / 135 Balance 150 / 150 1572.14 / 2372.14 800 / 800 Microbiology Past 72 Hours 07/14/19 20:00 Urine, Clean Catch Urine Culture - Final Mixed Gram Pos & Gram Neg Org Laboratory Results 07/15/19 15:12: Activated Clotting Time 219 H 07/15/19 16:00: WBC 9.8, RBC 4.29 L, Hgb 13.8, Hct 42.0, MCV 97.9 H, MCH 32.2 H, MCHC 32.9, RDW Std Deviation 49.0 H, RDW Coeff of Em 13.6, Plt Count 166, MPV 11.0 07/15/19 16:29: POC Glucose 200 H 07/15/19 21:58: POC Glucose 340 H 07/16/19 04:00: WBC 13.6 H, RBC 4.70, Hgb 15.0, Hct 45.0, MCV 95.7 H, MCH 31.9, MCHC 33.3, RDW Std Deviation 47.4 H, RDW Coeff of Em 13.3, Plt Count 205, MPV 10.9, Immature Gran % (Auto) 0.600, Neut % (Auto) 91.2 H, Lymph % (Auto) 4.0 L, Burnett % (Auto) 4.1, Eos % (Auto) 0.0, Baso % (Auto) 0.1, Absolute Neuts (auto) 12.4 H, Absolute Lymphs (auto) 0.54 L, Nucleated RBC % 0, Differential Comment SCANNED, Platelet Estimate ADEQUATE, RBC Morphology NORM C+C 07/16/19 04:00: Sodium 138, Potassium 3.6, Chloride 102, Carbon Dioxide 27.0, Anion Gap 9, BUN 20 H, Creatinine 1.23, Estim Creat Clear Calc 52.52, Est GFR (MDRD) Af Amer 74, Est GFR (MDRD) Non-Af 61, BUN/Creatinine Ratio 16.3, Glucose 248 H, Calcium 8.9, Total Bilirubin 0.80, AST 20, ALT 24, Alkaline Phosphatase 85, Total Protein 7.6, Albumin 3.7, Globulin 3.9, Albumin/Globulin Ratio 0.9 07/16/19 07:28: POC Glucose 266 H Current Medications Acetaminophen (Tylenol) 650 mg PO Q6H PRN PRN PRN Reason: Pain Score 1-5/Temp > 100.7 F Last Admin: 07/14/19 23:19 Dose: 650 mg Documented by: Al Hydroxide/Mg Hydroxide (Mylanta Ii) 30 ml PO Q6H PRN PRN PRN Reason: HEARTBURN OR INDIGESTION Aspirin (Ecotrin) 81 mg PO DAILY@0800 [facility] Last Admin: 07/16/19 08:25 Dose: 81 mg Documented by: Calcium Carbonate (Tums) 1,000 mg PO Q6H PRN PRN PRN Reason: HEARTBURN Last Admin: 07/15/19 23:44 Dose: 1,000 mg Documented by: Glipizide (Glucotrol) 10 mg PO BID@1200,1700 [facility] Last Admin: 07/16/19 12:35 Dose: 10 mg Documented by: Glucagon () 1 mg IM .X1 PRN PRN Reason: Hypoglycemia Sodium Chloride () 250 mls @ 15 mls/hr IV .[id number] PRN PRN Reason: Saline Flush Insulin Human Lispro (Humalog Kwikpen (Bkc)) 0 unit SC [facility]; Protocol Last Admin: 07/16/19 08:23 Dose: 1 unit Documented by: Levetiracetam (Keppra Tablet) 500 mg PO BID [facility] Last Admin: 07/16/19 08:27 Dose: 500 mg Documented by: Lisinopril (Zestril) 40 mg PO DAILY [facility] Metoprolol Succinate (Toprol Xl (Beta Uche)) 25 mg PO DAILY [facility] Last Admin: 07/16/19 10:53 Dose: 25 mg Documented by: Ondansetron HCl (Zofran) 4 mg IV Q8H PRN PRN PRN Reason: NAUSEA/VOMITING Oxycodone HCl (Oxyir) 5 mg PO Q6H PRN PRN PRN Reason: Pain Score 6-10/10 Pioglitazone HCl (Actos) 30 mg PO DAILY [facility] Last Admin: 07/16/19 08:27 Dose: 30 mg Documented by: [facility] () [facility] Last Admin: 07/16/19 08:26 Dose: 10 mg Documented by: Senna/Docusate Sodium (Senokot-S, Amna-Colace) 2 tablet PO DAILY PRN PRN PRN Reason: CONSTIPATION Sodium Chloride () 10 - 40 ml IV UD PRN PRN Reason: SALINE FLUSH Last Admin: 07/14/19 23:18 Dose: 10 ml Documented by: Sodium Chloride () 500 ml IV BOLUS PRN PRN Reason: VASO-VAGAL PROTOCOL Ticagrelor (Brilinta) 90 mg PO BID [facility] Last Admin: 07/16/19 08:27 Dose: 90 mg Documented by: Disposition: Home with Home Health Minutes spent on discharge:: 32 Patient Condition:: Stable Meaningful Use Info Meaningful Use Diagnoses (Choose all that apply): None applicable Code Visit Inpatient E&M: 91735 Disch Hosp
[2019-07-16] MEDS: glipiZIDE 10 MG Tablet PO ×2 (12:35→16:55)
--- NOTE | 2019-07-16 13:34 | NURSING ---
after DC instructions given to pt and his son, pt began rubbing his chest and c/o of chest pain 4 out of 10, described as heart burn, burning, pain behind by sternum. He is unable to say if he has had pain like this before and is easily distracted by getting dressed and worrying re his belongings. 12 lead EKG completed and sent to Dr. Styles. orders recd
[2019-07-16] MEDS: Nitroglycerin (INPATIENT USE) 0.4 MG TAB.SUBL SUBLINGUAL (13:45)
[2019-07-16] MEDS: Nitroglycerin Oint 1 INCH PACKET TRANSDERM. ×2 (14:49→17:45)
--- NOTE | 2019-07-16 15:00 | PCM.PN.HOSP ---
<Dylan Garcia - Last Filed: 07/16/19 15:00> Patient Problems: Active and Suspected Problems (Last Updated 07/16/19 @ 13:08 by Madonna Post MD) Syncope and collapse (Acute) Facial contusion (Acute) Nasal bone fracture (Acute) Reason for Visit: Pt was doing well and ready for DC. Unfortunately he developed chest pain and had an increase in troponin. He will be kept in the PCU for monitoring overnight. Vitals/I&O's: Vital Signs Temp Pulse Resp BP Pulse Ox 98.8 F 89 16 142/67 H 95 07/16/19 12:00 07/16/19 13:45 07/16/19 12:00 07/16/19 13:45 07/16/19 12:00 Oxygen Flow Rate (L/min) 2 Oxygen Delivery Method Room Air Weight: 212 lb 15.465 oz Body Mass Index (BMI) 32.3 Finger Stick Blood Glucose 203 Intake and Output for Last 24 Hours 07/14/19 07/15/19 07/16/19 23:59 23:59 23:59 Intake Total 150 / 150 1707.14 / 2507.14 1250 / 1250 Output Total 135 / 135 300 / 300 Balance 150 / 150 1572.14 / 2372.14 950 / 950 General: Alert, Oriented x3, Cooperative HEENT: Atraumatic, PERRLA, EOMI, Normocephalic Neck: Supple, No JVD, Negative Carotid Bruits Lungs: Clear to auscultation, Normal air movement Cardiovascular: Regular rate, No murmurs Abdomen: Bowel Sounds Present, Soft, Non Tender Extremities: No edema, Capillary Refill Less than 3 Seconds Skin: No rashes, No breakdown Musculoskeletal: No Tenderness to Palpation of Joints or Extremities Neurological: Cranial nerves II-XII grossly intact Psych/Mental Status: Normal Affect, Appropriate, Alert and oriented to time, place, person, mood and affect Microbiology Past 72 Hours 07/14/19 20:00 Urine, Clean Catch Urine Culture - Final Mixed Gram Pos & Gram Neg Org Laboratory Results 07/15/19 15:12: Activated Clotting Time 219 H 07/15/19 16:00: WBC 9.8, RBC 4.29 L, Hgb 13.8, Hct 42.0, MCV 97.9 H, MCH 32.2 H, MCHC 32.9, RDW Std Deviation 49.0 H, RDW Coeff of Em 13.6, Plt Count 166, MPV 11.0 07/15/19 16:29: POC Glucose 200 H 07/15/19 21:58: POC Glucose 340 H 07/16/19 04:00: WBC 13.6 H, RBC 4.70, Hgb 15.0, Hct 45.0, MCV 95.7 H, MCH 31.9, MCHC 33.3, RDW Std Deviation 47.4 H, RDW Coeff of Em 13.3, Plt Count 205, MPV 10.9, Immature Gran % (Auto) 0.600, Neut % (Auto) 91.2 H, Lymph % (Auto) 4.0 L, [place] % (Auto) 4.1, Eos % (Auto) 0.0, Baso % (Auto) 0.1, Absolute Neuts (auto) 12.4 H, Absolute Lymphs (auto) 0.54 L, Nucleated RBC % 0, Differential Comment SCANNED, Platelet Estimate ADEQUATE, RBC Morphology NORM C+C 07/16/19 04:00: Sodium 138, Potassium 3.6, Chloride 102, Carbon Dioxide 27.0, Anion Gap 9, BUN 20 H, Creatinine 1.23, Estim Creat Clear Calc 52.52, Est GFR (MDRD) Af Amer 74, Est GFR (MDRD) Non-Af 61, BUN/Creatinine Ratio 16.3, Glucose 248 H, Calcium 8.9, Total Bilirubin 0.80, AST 20, ALT 24, Alkaline Phosphatase 85, Total Protein 7.6, Albumin 3.7, Globulin 3.9, Albumin/Globulin Ratio 0.9 07/16/19 07:28: POC Glucose 266 H 07/16/19 13:30: Troponin I 0.237 H Current Medications Acetaminophen (Tylenol) 650 mg PO Q6H PRN PRN PRN Reason: Pain Score 1-5/Temp > 100.7 F Last Admin: 07/14/19 23:19 Dose: 650 mg Documented by: Al Hydroxide/Mg Hydroxide (Mylanta Ii) 30 ml PO Q6H PRN PRN PRN Reason: HEARTBURN OR INDIGESTION Aspirin (Ecotrin) 81 mg PO DAILY@0800 YAA Last Admin: 07/16/19 08:25 Dose: 81 mg Documented by: Calcium Carbonate (Tums) 1,000 mg PO Q6H PRN PRN PRN Reason: HEARTBURN Last Admin: 07/15/19 23:44 Dose: 1,000 mg Documented by: Glipizide (Glucotrol) 10 mg PO BID@1200,1700 [facility] Last Admin: 07/16/19 12:35 Dose: 10 mg Documented by: Glucagon () 1 mg IM .X1 PRN PRN Reason: Hypoglycemia Sodium Chloride () 250 mls @ 15 mls/hr IV .[id number] PRN PRN Reason: Saline Flush Insulin Human Lispro (Humalog Kwikpen (Bkc)) 0 unit SC ACHS [facility]; Protocol Last Admin: 07/16/19 13:44 Dose: Not Given Documented by: Levetiracetam (Keppra Tablet) 500 mg PO BID [facility] Last Admin: 07/16/19 08:27 Dose: 500 mg Documented by: Lisinopril (Zestril) 40 mg PO DAILY [facility] Metoprolol Succinate (Toprol Xl (Beta Uche)) 25 mg PO DAILY [facility] Last Admin: 07/16/19 10:53 Dose: 25 mg Documented by: Nitroglycerin (Nitrobid) 1 inch TRANSDERM. Q6 [facility] Last Admin: 07/16/19 14:49 Dose: 1 inch Documented by: Ondansetron HCl (Zofran) 4 mg IV Q8H PRN PRN PRN Reason: NAUSEA/VOMITING Oxycodone HCl (Oxyir) 5 mg PO Q6H PRN PRN PRN Reason: Pain Score 6-10/10 Pioglitazone HCl (Actos) 30 mg PO DAILY [facility] Last Admin: 07/16/19 08:27 Dose: 30 mg Documented by: [facility] () [facility] Last Admin: 07/16/19 08:26 Dose: 10 mg Documented by: Senna/Docusate Sodium (Senokot-S, Amna-Colace) 2 tablet PO DAILY PRN PRN PRN Reason: CONSTIPATION Sodium Chloride () 10 - 40 ml IV UD PRN PRN Reason: SALINE FLUSH Last Admin: 07/14/19 23:18 Dose: 10 ml Documented by: Sodium Chloride () 500 ml IV BOLUS PRN PRN Reason: VASO-VAGAL PROTOCOL Ticagrelor (Brilinta) 90 mg PO BID [facility] Last Admin: 07/16/19 08:27 Dose: 90 mg Documented by: STROKE Vital Signs/Narrative: Vital Signs Temp Pulse Resp BP Pulse Ox 07/16/19 13:45 89 142/67 H 07/16/19 12:00 98.8 F 79 16 149/80 H 95 Medical Necessity - Tobacco Use Smoking Status: Never smoker Tobacco Use: Non-smoker Assessment/Plan All Active Problems (Last Updated 07/16/19 @ 13:08 by Madonna Post MD) Syncope and collapse (Acute) Facial contusion (Acute) Nasal bone fracture (Acute) 1. Syncope, presumed cardiac - resolved. EEG negative. Echo Normal LV size and function, EF65%, st1 diastolic dysfunction, mild LVH 2. CAD, Chest pain - s/p heart cath/stents to the RCA, LAD, diagonal vessel. Recurrent CP and increased troponin. Monitor in PCU overnight. Repeat Trop x1 and then EKG in AM. Nitrobid prn. -Continue metoprolol, aspirin, brilinta, lisinopril. Statin allergic. 2. Nasal fracture - stable. outpatient follow up. 3. DMt2 - SSI, actos, glipizide 4. Myasthenia gravis - daily prednisone 5. Hx Seizure - keppra continued. EEG negative. 6. HTN - mildly elevated. 7. Difficulty ambulating - PTOT, HHC. DVT ppx: held for cath DC planing: monitor in PCU overnight. [facility]HC at [place] This patient was seen by Dylan Garcia PA-C under the supervision of Dr. Post. <Madonna Post - Last Filed: 07/17/19 11:34> Vitals/I&O's: Vital Signs Temp Pulse Resp BP Pulse Ox 99.1 F 67 18 129/70 H 95 07/17/19 03:43 07/17/19 06:50 07/17/19 03:43 07/17/19 03:43 07/17/19 03:43 Oxygen Flow Rate (L/min) 2 Oxygen Delivery Method Room Air Weight: 212 lb 15.465 oz Body Mass Index (BMI) 32.3 Finger Stick Blood Glucose 203 Intake and Output for Last 24 Hours 07/15/19 07/16/19 07/17/19 23:59 23:59 23:59 Intake Total 1707.14 / 2507.14 1490 / 1490 240 / 240 Output Total 135 / 135 600 / 600 Balance 1572.14 / 2372.14 890 / 890 240 / 240 Microbiology Past 72 Hours 07/14/19 20:00 Urine, Clean Catch Urine Culture - Final Mixed Gram Pos & Gram Neg Org Laboratory Results 07/16/19 07:28: POC Glucose 266 H 07/16/19 13:30: Troponin I 0.237 H 07/16/19 16:40: POC Glucose 249 H 07/16/19 18:25: Troponin I 0.239 H 07/16/19 21:56: POC Glucose 171 H 07/17/19 06:16: WBC 12.7 H, RBC 4.24 L, Hgb 13.3, Hct 41.0, MCV 96.7 H, MCH 31.4, MCHC 32.4, RDW Std Deviation 49.3 H, RDW Coeff of Em 13.8, Plt Count 185, MPV 10.9 07/17/19 06:32: POC Glucose Pending Current Medications Acetaminophen (Tylenol) 650 mg PO Q6H PRN PRN PRN Reason: Pain Score 1-5/Temp > 100.7 F Last Admin: 07/14/19 23:19 Dose: 650 mg Documented by: Al Hydroxide/Mg Hydroxide (Mylanta Ii) 30 ml PO Q6H PRN PRN PRN Reason: HEARTBURN OR INDIGESTION Aspirin (Ecotrin) 81 mg PO DAILY@0800 [facility] Last Admin: 07/16/19 08:25 Dose: 81 mg Documented by: Calcium Carbonate (Tums) 1,000 mg PO Q6H PRN PRN PRN Reason: HEARTBURN Last Admin: 07/15/19 23:44 Dose: 1,000 mg Documented by: Glipizide (Glucotrol) 10 mg PO BID@1200,1700 [facility] Last Admin: 07/16/19 16:55 Dose: 10 mg Documented by: Glucagon () 1 mg IM .X1 PRN PRN Reason: Hypoglycemia Sodium Chloride () 250 mls @ 15 mls/hr IV .[id number] PRN PRN Reason: Saline Flush Insulin Human Lispro (Humalog Ceasar (Bkc)) 0 unit SC [facility]; Protocol Last Admin: 07/17/19 06:34 Dose: 1 unit Documented by: Levetiracetam (Keppra Tablet) 500 mg PO BID [facility] Last Admin: 07/16/19 22:12 Dose: 500 mg Documented by: Lisinopril (Zestril) 40 mg PO DAILY [facility] Metoprolol Succinate (Toprol Xl (Beta Uche)) 25 mg PO DAILY [facility] Last Admin: 07/16/19 10:53 Dose: 25 mg Documented by: Nitroglycerin (Nitrobid) 1 inch TRANSDERM. Q6 [facility] Last Admin: 07/17/19 05:53 Dose: 1 inch Documented by: Ondansetron HCl (Zofran) 4 mg IV Q8H PRN PRN PRN Reason: NAUSEA/VOMITING Oxycodone HCl (Oxyir) 5 mg PO Q6H PRN PRN PRN Reason: Pain Score 6-10/10 Pioglitazone HCl (Actos) 30 mg PO DAILY [facility] Last Admin: 07/16/19 08:27 Dose: 30 mg Documented by: [facility] () [facility] Last Admin: 07/16/19 08:26 Dose: 10 mg Documented by: Senna/Docusate Sodium (Senokot-S, Amna-Colace) 2 tablet PO DAILY PRN PRN PRN Reason: CONSTIPATION Sodium Chloride () 10 - 40 ml IV UD PRN PRN Reason: SALINE FLUSH Last Admin: 07/14/19 23:18 Dose: 10 ml Documented by: Sodium Chloride () 500 ml IV BOLUS PRN PRN Reason: VASO-VAGAL PROTOCOL Ticagrelor (Brilinta) 90 mg PO BID [facility] Last Admin: 07/16/19 22:12 Dose: 90 mg Documented by: STROKE Vital Signs/Narrative: Vital Signs Temp Pulse Resp BP Pulse Ox 07/17/19 06:50 67 07/17/19 03:43 99.1 F 72 18 129/70 H 95 Assessment/Plan Hospitalist note: This is a follow-up progress note for the date of July 16, 2019. Patient was discharged and when he was about to go home, he developed chest pain. Discharge was canceled and patient was transferred to PCU. His troponin went up, it was 0.237, 0.239. EKG was performed and showed no new changes. His vital signs are stable. - Physical Exam General: Alert, Oriented x3, Cooperative, No apparent distress. HEENT: traumatic, swelling of the right side of the face, laceration over the nasal bridge, PERRLA, EOMI. Neck: Supple, No JVD, Negative Carotid Bruits, Trachea Midline, Thyroid Normal. Lungs: Diminished with sounds bilateral, otherwise clear, No rhonchi, No wheeze, No rales. Cardiovascular: Regular rate, Regular Rhythm, Normal S1, Normal S2, PMI Normal. Abdomen: Bowel Sounds Present, Soft, Non Tender, Non-Distended, No Hepato-splenomegaly. Extremities: No clubbing, No cyanosis, No edema Skin: No rashes, No breakdown Neurological: Cranial nerves are intact, neuro grossly intact Vital Signs stable. Assessment and plan: #1 syncopal episode: Probably cardiogenic in etiology. EKG revealed normal sinus rhythm, no evidence of cardiac arrhythmias, no ischemic changes. Troponin is borderline elevated. CT scan brain showed no acute findings. CT cervical spine was unremarkable. His vital signs been stable. EEG was normal. Patient underwent cardiac catheterization with PTCA/RAMONA to LAD and distal RCA. 2D echocardiogram reviewed as below. #2 CAD/abnormal cardiac enzymes: Status post cardiac catheterization, PTCA/RAMONA to LAD and distal RCA. Patient developed chest pain before discharge, discharge was canceled and patient was kept for monitoring. Troponin was trending up. He is on aspirin, Brilinta, lisinopril and metoprolol. 2D echocardiogram revealed ejection fraction of 65%, stage I diastolic function. Cardiology on the case. #3 facial trauma/nasal bone fracture: Nondisplaced nasal fracture. Plan for conservative treatment. Pain control. #4 other chronic medical problems: Stable, continue current medications as above. This note was generated with [employer] dictation software. It may contain incorrect words, spelling, and punctuation that were not noted in checking the note before signing. Code Visit Inpatient E&M: 88833 Subs Hosp L2
--- NOTE | 2019-07-16 16:06 | NURSING ---
report called to Derik RN, PCU. to 103 per bed
[2019-07-16 17:01] LABS: Bedside Glucose 249 mg/dL (70-110)
[2019-07-16 22:25] LABS: Bedside Glucose 171 mg/dL (70-110)
[2019-07-17] VITALS (7 sets, daily range): BP systolic 104–129; BP diastolic 61–74; PULSE 67–72; RESP 18; TEMP 36.9–37.3; O2SAT 92–95
[2019-07-17] MEDS: Nitroglycerin Oint 1 INCH PACKET TRANSDERM. ×3 (00:40→11:09)
--- NOTE | 2019-07-17 05:55 | EKG12_ITS ---
Test Reason : AM EKG Blood Pressure : / mmHG Vent. Rate : 069 BPM Atrial Rate : 069 BPM P-R Int : 140 ms QRS Dur : 072 ms QT Int : 402 ms P-R-T Axes : 056 025 032 degrees QTc Int : 430 ms Normal sinus rhythm Normal ECG When compared with ECG of 16-JUL-2019 05:57, MANUAL COMPARISON REQUIRED, DATA IS UNCONFIRMED Confirmed by OWEN THURSTON, JOCELYNE ([id number]), manuscript editor JAZZ BENTLEY ([id number]) on 07/19/2019 12:18:12 PM Referred By: DR OCASIO Confirmed By:JOCELYNE WEAVER MD
[2019-07-17] MEDS: Insulin Lispro 100 UNIT/ML INSULN.PEN SC ×2 (06:34→11:09)
[2019-07-17 06:48] LABS: Hemoglobin 13.3 g/dL (13.0-16.5); Mean Corp Hgb Conc 32.4 g/dL (32-36); Mean Corpuscular Hgb 31.4 pg (27.0-32.0); Mean Corpuscular Volume 96.7 fL (80-94); Mean Platelet Vol. 10.9 fl (6.2-12.0); Platelet Count 185 K/mm3 (150-450); RBC Distribution Width CV 13.8 % (11.6-14.6); RBC Distribution Width SD 49.3 fl (35.1-43.9); Red Blood Count 4.24 M/mm3 (4.6-6.2); White Blood Count 12.7 K/mm3 (4.4-11.0)
[2019-07-17 07:06] LABS: Bedside Glucose 174 mg/dL (70-110)
[2019-07-17] MEDS: oxyCODONE 5 MG Tablet PO (08:19)
[2019-07-17] MEDS: Aspirin E.C. 81 MG Tablet PO (08:20)
[2019-07-17] MEDS: predniSONE 10 MG Tablet PO (08:20)
--- NOTE | 2019-07-17 09:03 | PN.CARD_ITS ---
Subjectve: Patient seen and evaluated. Appears to be doing better this morning. No further chest pain. Objective: Vital Signs Temp Pulse Resp BP Pulse Ox 99.1 F 67 18 129/70 H 92 07/17/19 03:43 07/17/19 06:50 07/17/19 03:43 07/17/19 03:43 07/17/19 08:10 Oxygen Flow Rate (L/min) 2 Oxygen Delivery Method Room Air Weight: 212 lb 15.465 oz Body Mass Index (BMI) 32.3 Finger Stick Blood Glucose 203 Intake and Output for Last 24 Hours 07/15/19 07/16/19 07/17/19 23:59 23:59 23:59 Intake Total 1707.14 / 2507.14 1490 / 1490 240 / 240 Output Total 135 / 135 600 / 600 Balance 1572.14 / 2372.14 890 / 890 240 / 240 General: Awake, Alert, Oriented x 3 HEENT: PERRL, EOMI, Sclera Non Icteric Neck: Supple, Good ROM, No Lymph Node Enlargement Lungs: Clear to auscultation Cardiovascular: Regular Rhythm, Normal S1, Normal S2, No Murmurs, No Rubs, No Gallops Vascular: No Carotid Bruits, Normal Femoral Pulses, Normal Radial Pulses, Normal Dorsalis Pedal Pulse, Normal Posterior Tibial Pulses Abdomen: Bowel Sounds Present, Soft, Non Tender, No HSM, No Organomegaly Extremities: No Cyanosis, No Clubbing, No edema Musculoskeletal: No Erythema Skin: No Rashes Lymphatic: No Lymph Node Enlargement Neurological: No Focal Motor or Sensory Deficit Psych/Mental Status: Appropriate 07/16/19 13:30: Troponin I 0.237 H 07/16/19 18:25: Troponin I 0.239 H 07/17/19 06:16: WBC 12.7 H, RBC 4.24 L, Hgb 13.3, Hct 41.0, MCV 96.7 H, MCH 31.4, MCHC 32.4, Plt Count 185, MPV 10.9 Rhythm: EKG: ECHO: Stress Test: Cardiac Cath: PCI: CT Surgery: Holter monitor: EPS: PPM: CXR: Chest CT Scan: Medical Necessity - Tobacco Use Smoking Status: Never smoker Tobacco Use: Non-smoker Assessment/Plan 1. Syncope * Patient presents with syncope and abnormal cardiac enzymes. The etiology of the above is not clear at this time. Due to the abnormal cardiac enzymes he underwent cardiac catheterization with demonstrated the following: Normal left main coronary artery. Left anterior descending artery with moderately severe mid 70% stenosis. First diagonal branch with 90% stenosis. Left circumflex artery with mild disease, Right coronary artery with long 80% stenosis. The patient underwent angioplasty and stenting of the right coronary artery, left anterior descending artery, and diagonal vessel. The patient will be enrolled in outpatient cardiac rehabilitation. It is not entirely clear whether the syncope was secondary to triple-vessel disease causing ischemia. I would recommend as an outpatient that the patient be brought back for an implantable loop recorder to exclude an arrhythmic etiology. This morning he appears to be doing better. EKG does not demonstrate any abnormal changes. Minimal troponin release which was flat. Will DC home on isosorbide 30 mg a day. 2. Hypertension * Blood pressure should be optimized and the patient can be discharged for outpatient follow-up. * * Thank you for allowing me to participate in the care of your patient. Please don't hesitate to call if any issues arise
[2019-07-17] MEDS: TICAGRELOR 90 MG TABLET PO (09:34)
[2019-07-17] MEDS: levETIRAcetam 500 MG Tablet PO (09:34)
[2019-07-17] MEDS: Pioglitazone Hydrochloride 30 MG Tablet PO (09:38)
[2019-07-17] MEDS: Lisinopril 40 MG Tablet PO (09:39)
[2019-07-17] MEDS: Isosorbide Mononitrate 30 MG Tablet PO (09:39)
[2019-07-17] MEDS: Metoprolol(XL)Succ 25 MG Tablet PO (09:39)
[2019-07-17] MEDS: glipiZIDE 10 MG Tablet PO (11:08)
--- NOTE | 2019-07-17 11:27 | DCINST_ITS ---
- Discharge Diagnoses Current Active Problems: Current Active and Chronic Problems (Last Updated 07/16/19 @ 13:08 by Madonna Post MD) Syncope and collapse (Acute) History of non-ST elevation myocardial infarction (NSTEMI) (Chronic 07/14/19) Atherosclerosis of coronary artery of [place] heart without angina pectoris (Chronic) History of coronary artery stent placement (Chronic 07/15/19) PCI-RAMONA-Mid LAD w/ 3.0 x 24 mm and 3.0 x 8 mm Synergy Stent, POBA-Ostial D1, RAMONA-Distal RCA w/ 4.0 x 20 mm Synergy Stent 07/15/2019 Essential (primary) hypertension (Chronic) Facial contusion (Acute) Nasal bone fracture (Acute) You will use the following diet at home:: Calorie/Carbohydrate Controlled (specify 1200, 1400, etc) - 1800 theresa / day, Cardiac Your food should be the consistency of: Regular Your liquids should be the consistency of: Regular/Thin Discharge Activity: Return to Normal Activity Allergies/Adverse Reactions: Allergies Iodinated Contrast Media [CONTRASTS] Allergy (Verified 12/21/18 05:13) Hives iodine Allergy (Verified 12/21/18 05:13) Hives Penicillins [PCN] Allergy (Verified 12/21/18 05:13) myasthenia gravis developed 2 days after taking PCN from dental procedure simvastatin Adverse Reaction (Verified 12/21/18 05:13) Pain in joints Medications to take at Discharge levETIRAcetam tablet [Keppra tablet] 500 mg PO BID 02/04/18 Prednisone 10 mg PO DAILY 10/19/18 glipiZIDE [Glucotrol] 10 mg PO BIDAC 10/19/18 Pioglitazone [Actos] 30 mg PO DAILY #30 tablet 10/20/18 Acetaminophen [Tylenol Tablet] 650 mg PO Q6H PRN PRN tab 07/16/19 Aspirin E.C. [Ecotrin] 81 mg PO DAILY@0800 tab 07/16/19 Lisinopril [Zestril] 40 mg PO DAILY #30 tab 07/16/19 Metoprolol(XL)Succ [Toprol Xl (Beta Uche)] 25 mg PO DAILY #30 tab 07/16/19 Ticagrelor [Brilinta] 90 mg PO BID #60 tab 07/16/19 Isosorbide Mononitrate [Imdur] 30 mg PO DAILY #30 tab 07/17/19 The following prescriptions were given: Ticagrelor [Brilinta] 90 mg PO BID #60 tab Transmission Status: Received by [id number] Isosorbide Mononitrate [Imdur] 30 mg PO DAILY #30 tab Transmission Status: Pending to [facility] Metoprolol(XL)Succ [Toprol Xl (Beta Uche)] 25 mg PO DAILY #30 tab Transmission Status: Received by [facility] Lisinopril [Zestril] 40 mg PO DAILY #30 tab Transmission Status: Received by [facility] Primary Care Physician: Lainey Lang MD [Primary Care Provider] - Please follow up with your Primary Care Physician in: 1-2 weeks Test Results: Test results from this visit will be discussed in further detail at your follow- up appointment, if applicable. Please Follow Up With: Alejandro Styles MD When: Thursday Proposed Discharge Date: 07/16/19
[2019-07-17 12:01] LABS: Bedside Glucose 222 mg/dL (70-110)
--- NOTE | 2019-07-18 11:02 | CRPHASE1_ITS ---
Patient Communication Choice Letter Given to Patient:: Yes Guide to Cardiac Rehab Given by ICU Staff Prior to Discharge: Yes Guide to Cardiac Rehab Mailed to Patient by CR Staff:: No - pt recieved at discharged Patient Contacted Post Discharge by CR Staff:: Yes - 07/18/2019 @1100 PHII Cardiac Rehab Referral:: [facility] Risk Factors/Lifestyle Smoking Status: Never smoker Hx Hypertension: Yes Hx Diabetes Mellitus Type 2: No Height: 1.73 m Weight:: 96.6 kg BMI: 32.3 Stress: Long-standing ETOH: No Caffeine: Yes Substance Abuse: No Family History: Family History (Last Updated 07/15/19 @ 18:48 by Sara Mar) Mother Cancer Heart disease Father Cancer Heart disease Family History: Cancer, Heart Disease, Pulmonary Disease Issues Affecting Care:: None Knowledge of Condition:: Yes Hospital Course Cardiac Cath Date:: 07/15/19 - pt passed out at [facility] Medical/Surgical History DE:: No Diabetes Type II:: Yes Hypertension:: Yes Discharge/Home/Social Eval Discharge Disposition: Home Cardiac Rehabilitation Info Cardiac Rehabilitation Program Information: Cardiac Rehabilitation is important for patients like you who are recovering from a heart problem. Cardiac rehabilitation programs are recognized as integral to the continued care of the patient with coronary heart disease. The cardiac rehabilitation program is designed to optimize a patient's physical, psychological, and social functioning. Health lawn caretaker work in cardiac rehabilitation programs and assist you with getting the treatments you need to get stronger and healthier - like exercise, healthy eating habits, and medications. Cardiac rehabilitation has been show to help people with heart problems live longer and have better life enjoyment than people who do not go to cardiac rehabilitation. Please contact the Cardiac Rehabilitation Program at [facility] at in two weeks if you have not heard from them.
[2019-07-18 11:07] VITALS: BMI 32.3
--- NOTE | 2019-07-18 11:09 | CRPH1.INSTRU ---
General Education CAD and cardiac anatomy and function:: Not instructed Explanation of diagnoses and procedures:: Not instructed Sign/Symptoms of MS:: Not instructed Antiplatelet therapy: Not instructed Proper use of NTG-SL: Not instructed Emergency procedures and activation of EMS: Not instructed Compliance of all prescribed medications: Not instructed - Book given at discharged Smoking Patient Nicotine/Smoking Risk Factors Are:: Never smoked Dyslipidemia Recommendations Include:: Lipid profile not available Overweight/Obesity Patient Overweight/Obesity Risk Factors Are:: Obesity - > or = 30 Overweight/Obesity:: Patient communicates acknowledgment Hypertension Recommendations Include:: Maintain BP <130/85, BP <130/80 if diabetic Hypertension:: Patient communicates acknowledgment Heart Disease Patient Heart Disease Risk Factors Are:: Family history of heart disease < 65 years old Diabetes Diabetes:: Not instructed Metabolic Syndrome Metabolic Syndrome Response Code:: Not instructed Sedentary Sedentary Response Code:: Not instructed Stress Stress Response Code:: Not instructed
== END 2019-07-17 12:19 | disposition home or self-care (01) | DRG 247 ==
LOC: ED 21:08 → PCU 22:40 → ICU 07-15 13:55 → PCU 07-16 16:25
PROVIDERS: Internal Medicine Cardiovascular Disease; Physician Assistant; Specialist; Admitting Provider Hospitalist; Emergency Provider Emergency Medicine; PCP Internal Medicine; Visit Provider Hospitalist
DX: I21.4 Non-ST elevation (NSTEMI) myocardial infarction (principal); I25.10 Atherosclerotic heart disease of native coronary artery without angina pectoris; I25.2 Old myocardial infarction; R55 Syncope and collapse; I10 Essential (primary) hypertension; S02.2XXA Fracture of nasal bones, initial encounter for closed fracture; S01.512A Laceration without foreign body of oral cavity, initial encounter; S00.83XA Contusion of other part of head, initial encounter; W18.39XA Other fall on same level, initial encounter; Y93.01 Activity, walking, marching and hiking; E11.65 Type 2 diabetes mellitus with hyperglycemia; G40.909 Epilepsy, unspecified, not intractable, without status epilepticus; G70.00 Myasthenia gravis without (acute) exacerbation; D86.9 Sarcoidosis, unspecified; R07.89 Other chest pain; Z88.0 Allergy status to penicillin; Z79.82 Long term (current) use of aspirin; Z79.52 Long term (current) use of systemic steroids; Z79.899 Other long term (current) drug therapy; Z79.84 Long term (current) use of oral hypoglycemic drugs
CPT/HCPCS: 36415; 70450; 70486; 71045; 72125; 80048; 80053; 81001; 82962; 84146; 84443; 84484; 85025; 85027; 85347; 87086; 87088; 90715; 92921; 92928; 93005; 93306; 93458; 95819; 97116; 97162; 97166; 97530; 99152; 99153; 99285; J7030; J7050; Q9957; Q9967; A4216; C1725; C1769; C1874; C1887; C1894; C8929; C9600; J1327; J2405

== ENCOUNTER 2019-08-01 07:04 | Day surgery (SDC) | payer MEDICARE, OTHER, SELFPAY ==
[2019-07-18 11:07] VITALS: BMI 32.3
[2019-07-22 07:59] VITALS: BMI 32.3; BMI 32.5
[2019-07-29 07:58] VITALS: BMI 32.5
--- NOTE | 2019-08-01 07:54 | CL.IE_ITS ---
Patient: ZULEIMA GORDON Study Date: 08/01/2019 Performing: Alejandro Styles MD : [id number] Age: 73 Gender: male PROCEDURES PERFORMED [id number] OF LOOP RECORDER INDICATIONS Syncope PROCEDURE DETAILS The patient was brought to the Catheterization Lab in the postabsorptive nonsedated state. Infor med consent was obtained prior to the procedure. Local anesthetic was given subcutaneously to the le ft upper chest area with Lidocaine 2%. Incision was made to the left upper chest. ICM Loop Recorder w as inserted. Steri-strips applied to Lt chest area. The patient tolerated the procedure well. Estimated Blood Loss: < 10 mls IMPLANTED / EX-PLANTED DEVICES IMPLANTED DEVICE(S): ICM Loop Recorder - Equity Sales Assistant: [employer], Model # Reveal LINQ [id number] , Serial # [id number] DEVICE PARAMETERS CONCLUSIONS / RECOMMENDATIONS Device Conclusions: Successful implantation of a patient activated loop recorder. Device Recommendations: Follow up with Primary Care Physician PROCEDURE MEDICATIONS Versed 1 mg IV Oxygen: 2 L/min via nasal cannula Antibiotic given in appropriate timeframe. Signed By Alejandro Styles MD On 08/01/2019 07:55:05 Alejandro Styles MD
== END 2019-08-01 09:10 | disposition home or self-care (01) ==
PROVIDERS: PCP Internal Medicine; Referring Provider Internal Medicine Cardiovascular Disease; Visit Provider Internal Medicine Cardiovascular Disease
DX: R55 Syncope and collapse (principal); I25.10 Atherosclerotic heart disease of native coronary artery without angina pectoris; I10 Essential (primary) hypertension; I25.2 Old myocardial infarction; E11.9 Type 2 diabetes mellitus without complications; G40.909 Epilepsy, unspecified, not intractable, without status epilepticus; Z95.5 Presence of coronary angioplasty implant and graft; Z79.82 Long term (current) use of aspirin; Z79.01 Long term (current) use of anticoagulants; Z79.02 Long term (current) use of antithrombotics/antiplatelets; Z79.84 Long term (current) use of oral hypoglycemic drugs
CPT/HCPCS: 33285; 99152; J7040

== ENCOUNTER 2020-02-28 19:31 | Inpatient (IN) | payer OTHER, MEDICARE, SELFPAY ==
[2019-07-18 11:07] VITALS: BMI 32.3
[2019-07-29 07:58] VITALS: BMI 32.5
[2020-02-28 19:32] VITALS: BP 142/80; PULSE 77; RESP 20; TEMP 37.6; O2SAT 94; BMI 34.9
--- NOTE | 2020-02-28 19:51 | ED.DCSUM_ITS ---
History of Present Illness Chief Complaint: Weakness Informant: Patient Onset: Today Narrative: Patient presents after a fall at home. He has problems with intermittent leg weakness. He reportedly was in the bathroom today when his legs gave out on him. He states he slid to the floor but was unable to get up. He has been laying on the floor for the last 8 to 9 hours. Patient denies any injury from the fall. Son states he did have a walker there next to him. He denies pain at this time. He denies recent illness. - Past Medical History (1) Hypertension Status: Chronic (2) BPH (benign prostatic hyperplasia) Status: Chronic (3) Myasthenia gravis Status: Chronic (4) Seizures Status: Chronic (5) Diabetes Status: Chronic (6) Atherosclerosis of coronary artery of [place] heart without angina pectoris Status: Chronic (7) Essential (primary) hypertension Status: Chronic (8) History of coronary artery stent placement Status: Chronic Comment: PCI-RAMONA-Mid LAD w/ 3.0 x 24 mm and 3.0 x 8 mm Synergy Stent, POBA-Ostial D1, RAMONA-Distal RCA w/ 4.0 x 20 mm Synergy Stent 07/15/2019 (9) History of loop recorder Status: Chronic (10) History of non-ST elevation myocardial infarction (NSTEMI) Status: Chronic Past Medical History - Allergies and Home Meds Allergies/Adverse Reactions: Allergies Iodinated Contrast Media [CONTRASTS] Allergy (Verified 02/28/20 19:40) Hives iodine Allergy (Verified 02/28/20 19:40) Hives Penicillins [PCN] Allergy (Verified 02/28/20 19:40) myasthenia gravis developed 2 days after taking PCN from dental procedure simvastatin Adverse Reaction (Verified 02/28/20 19:40) Pain in joints Primary Care Physician: Lainey Lang MD [Primary Care Provider] - Prior records reviewed: Yes Surgical History: tonsillectomy, TURP Smoking Status: Never smoker - Family History Maternal Family History: Family History (Last Reviewed 07/22/19 @ 10:[address] Alejandro Styles MD) Mother Cancer Heart disease Father Cancer Heart disease Family History: Reports: Cancer, Heart Disease Paternal Family History: Family History (Last Reviewed 07/22/19 @ 10:[address] Alejandro Styles MD) Mother Cancer Heart disease Father Cancer Heart disease Family History: Reports: Cancer, Heart Disease Review of Systems General: Denies: Chills, Fever Eyes: Denies: Visual changes - bilaterally ENT: Denies: Bilateral ear pain Cardiovascular: Denies: Chest pain, Palpitations Respiratory: Denies: Dyspnea, Cough Gastrointestinal: Denies: Abdominal pain, Nausea, Vomiting, Diarrhea Genitourinary: Denies: Dysuria Musculoskeletal: Denies: Extremity Pain Neurological: Reports: Weakness - Generalized weakness. Denies: Headache Allergy: Denies: Uticaria Physical Exam Vital Signs/Narrative: Vital Signs Temp Pulse Resp BP Pulse Ox 02/28/20 19:32 99.7 F H 77 20 H 142/80 H 94 Inital Vital Signs reviewed: Yes General: Well nourished, Well developed Head: Normocephalic ENT: Moist mucous membranes Neck: Supple Cardiovascular: Regular rate, Regular rhythm Respiratory: No distress, CTA bilaterally Abdomen: Soft, Nontender, Normal bowel sounds Extremities: Nontender, No edema Skin: Normal color Neurological: Alert, Oriented x3, - - No focal neurologic deficits. Psychological: Normal affect Diagnostic/Tx/Re-eval Laboratory Results 02/28/20 02/28/20 02/28/20 20:05 20:21 20:21 WBC 13.6 H RBC 4.51 L Hgb 14.4 Hct 44.0 MCV 97.6 H MCH 31.9 MCHC 32.7 RDW Std Deviation 48.6 H RDW Coeff of Em 13.6 Plt Count 180 MPV 10.8 Immature Gran % (Auto) 0.500 Neut % (Auto) 85.0 H Lymph % (Auto) 4.2 L [place] % (Auto) 10.0 Eos % (Auto) 0.1 Baso % (Auto) 0.2 Absolute Neuts (auto) 11.5 H Absolute Lymphs (auto) 0.57 L Nucleated RBC % 0 Differential Comment COMMENT Sodium 137 Potassium 3.8 Chloride 105 Carbon Dioxide 26.0 Anion Gap 6 BUN 15 Creatinine 1.04 Estim Creat Clear Calc 59.14 Est GFR (MDRD) Af Amer 90 Est GFR (MDRD) Non-Af 74 BUN/Creatinine Ratio 14.4 Glucose 138 H Calcium 8.7 Total Creatine Kinase 145 Troponin I 0.021 Urine Color Urine Clarity Urine pH Ur Specific [place] Urine Protein Urine Glucose (UA) Urine Ketones Urine Occult Blood Urine Nitrite Urine Bilirubin Urine Urobilinogen Ur Leukocyte Esterase Urine RBC Urine WBC Ur Squamous Epith Cells Urine Bacteria Urine Mucus COVID-19 (EMILIANO) Negative 02/28/20 21:40 WBC RBC Hgb Hct MCV MCH MCHC RDW Std Deviation RDW Coeff of Em Plt Count MPV Immature Gran % (Auto) Neut % (Auto) Lymph % (Auto) [place]ance % (Auto) Eos % (Auto) Baso % (Auto) Absolute Neuts (auto) Absolute Lymphs (auto) Nucleated RBC % Differential Comment Sodium Potassium Chloride Carbon Dioxide Anion Gap BUN Creatinine Estim Creat Clear Calc Est GFR (MDRD) Af Amer Est GFR (MDRD) Non-Af BUN/Creatinine Ratio Glucose Calcium Total Creatine Kinase Troponin I Urine Color Yellow Urine Clarity Cloudy Urine pH 6.0 Ur Specific [place] 1.020 Urine Protein 30 H Urine Glucose (UA) 100 H Urine Ketones 15 H Urine Occult Blood 50 H Urine Nitrite Negative Urine Bilirubin Negative Urine Urobilinogen 4 H Ur Leukocyte Esterase 500 H Urine RBC 0 SEEN Urine WBC >100 SEEN Ur Squamous Epith Cells 0-5 SEEN Urine Bacteria 3+ Urine Mucus 0 SEEN COVID-19 (EMILIANO) - EKG Initial EKG Interpretation: Sinus Rhythm - Sinus at 72. Nonspecific T wave flattening noted throughout. This is a slight change when compared to June 2019. - Medical Decision Making Patient's blood work is reviewed. White count is slightly elevated. Covid test is negative. Urine does show infection with 3+ bacteria. Patient be given IV Rocephin and urine culture will be sent. I will speak with hospitalist regarding admission for IV antibiotics and evaluation by physical therapy to ensure he is stable on his feet at home. He is currently complaining of reflux and will be given Pepcid as well as Mylanta. ED Disposition - Plan for ED Patient: Disposition: Home or Assisted Living Diagnosis: UTI (urinary tract infection), Leg weakness Referrals: Lainey Lang MD [Primary Care Provider] -
--- NOTE | 2020-02-28 19:51 | EKG12_ITS ---
Test Reason : WEAKNESS Blood Pressure : / mmHG Vent. Rate : 072 BPM Atrial Rate : 072 BPM P-R Int : 146 ms QRS Dur : 068 ms QT Int : 388 ms P-R-T Axes : 046 030 032 degrees QTc Int : 424 ms Normal sinus rhythm Nonspecific T wave abnormality Abnormal ECG Confirmed by DAVID THURSTON, FRANKY ([id number]), photograph editor HUE RAGSDALE ([id number]) on 03/02/2020 1:28:37 PM Referred By: Destini Busby Confirmed By:FAVIOLA HERNANDEZ MD
[2020-02-28 20:35] VITALS: BP 132/62; PULSE 72; RESP 20; TEMP 37.4; O2SAT 95
[2020-02-28 20:36] LABS: Absolute Lymphocyte Count 0.57 X10^3/uL (0.83-4.51); Absolute Neutrophil Count 11.5 X10^3/uL (2.0-7.7); Basophil# 0.03 X10^3/uL; Basophil% 0.2 % (0-1); Eosinophil# 0.02 X10^3/uL; Eosinophils% 0.1 % (0-5); Hemoglobin 14.4 g/dL (13.0-16.5); Lymphocyte # 0.57 X10^3/ul (4.0); Lymphocyte % 4.2 % (19-41); Mean Corp Hgb Conc 32.7 g/dL (32-36); Mean Corpuscular Hgb 31.9 pg (27.0-32.0); Mean Corpuscular Volume 97.6 fL (80-94); Mean Platelet Vol. 10.8 fl (6.2-12.0); Monocyte# 1.35 X10^3/uL; NRBC Flagged by Analyzer 0 % (0-5); Neutrophil # 11.52 X10^3/uL (2.7-7.7); POSITIVE DIFFERENTIAL YES; Platelet Count 180 K/mm3 (150-450); RBC Distribution Width CV 13.6 % (11.6-14.6); RBC Distribution Width SD 48.6 fl (35.1-43.9); Red Blood Count 4.51 M/mm3 (4.6-6.2); White Blood Count 13.6 K/mm3 (4.4-11.0)
--- NOTE | 2020-02-28 20:36 | ED.RN ---
SISTER CALLED IN ASKING FOR SOCIAL WORK SERVICES CONSULT. PT FALLS AT HOME AND HAS TWO NEPHEWS THAT CARE FOR PATIENT. IF ONE IS GONE OR AT WORK, THERE IS A BREAK IN HIS CARE GIVERS. NOTIFIED SISTER THAT I WOULD TALK WITH [facility] BUT IT WAS HIS CHOICE TO GET [facility] OR [facility]. SISTER WAS JUST HAPPY TO HAVE CONSULT.
[2020-02-28 20:38] LABS: Differential Indicated SCAN CRITERIA MET
[2020-02-28 20:54] LABS: Anion Gap 6 (5-15); BUN 15 mg/dL (7-18); BUN/Creat Ratio 14.4 RATIO (10-20); CPK Total, Creatine Kinase 145 U/L (39-308); Calcium,Total 8.7 mg/dL (8.5-10.1); Chloride 105 mmol/L (98-107); Creatinine, Serum 1.04 mg/dL (0.70-1.30); EST Glomerular Filtration Rate 74 mL/min (>60); Est Glom Filt Rate - Afr Amer 90 mL/min (>60); Estimated Creatinine Clearance 59.14 ml/min; Glucose 138 mg/dL (74-106); Potassium 3.8 mmol/L (3.5-5.1); Sodium Level 137 mmol/L (136-145)
[2020-02-28 21:46] VITALS: BP 140/65; PULSE 74; RESP 19; TEMP 37.4; O2SAT 95
[2020-02-28 21:49] LABS: Mucous, Urine 0 SEEN /hpf (<or=2+); Red Blood Cells-Urine 0 SEEN /hpf (0-5)
[2020-02-28 22:05] LABS: Probe Check PASS; Specimen Processing Control PASS
[2020-02-28 22:28] LABS: Color, Urine Yellow (Yellow); Glucose, Dipstick 100 mg/dl (Normal); Ketone-Dipstick 15 mg/dl (Negative); Leukocyte Esterase-Dipstick 500 /ul (Negative); Nitrite-Dipstick Negative (Negative); Occult Blood-Urine 50 /ul (Negative); Protein-Dipstick 30 mg/dl (Negative); Urine Bilirubin Dipstick Negative (Negative); Urine Clarity Cloudy (Clear); Urine Urobilinogen 4 mg/dl (Normal)
[2020-02-28 22:39] LABS: Bacteria 3+ /hpf (None Seen); Squamous Epithelial Cells - UA 0-5 SEEN /hpf (0-5); White Blood Cells >100 SEEN /hpf (0-5)
[2020-02-28 23:00] VITALS: BP 152/84; PULSE 72; RESP 25; TEMP 37.6; O2SAT 96
--- NOTE | 2020-02-28 23:01 | HP.PCM_ITS ---
Problem List (1) UTI (urinary tract infection) Status: Acute Qualifiers: Urinary tract infection type: acute cystitis Hematuria presence: without hematuria Qualified Code(s): N30.00 - Acute cystitis without hematuria (2) Fall Status: Acute Qualifiers: Encounter type: initial encounter Qualified Code(s): W19.XXXA - Unspecified fall, initial encounter (3) Hypertension Status: Chronic Qualifiers: Hypertension type: essential hypertension Qualified Code(s): I10 - Essential (primary) hypertension (4) BPH (benign prostatic hyperplasia) Status: Chronic Qualifiers: Lower urinary tract symptom presence: unspecified whether lower urinary tract symptoms present Qualified Code(s): N40.0 - Benign prostatic hyperplasia without lower urinary tract symptoms (5) Myasthenia gravis Status: Chronic (6) Seizures Status: Chronic (7) Diabetes Status: Chronic Qualifiers: Diabetes mellitus type: type 2 Diabetes mellitus terminal computer operator insulin use: without fci use Diabetes mellitus complication status: with other specified complication Qualified Code(s): E11.69 - Type 2 diabetes mellitus with other specified complication (8) Atherosclerosis of coronary artery of [place] heart without angina pectoris Status: Chronic Qualifiers: Coronary Disease-Associated Artery/Lesion type: unspecified vessel or lesion type Qualified Code(s): I25.10 - Atherosclerotic heart disease of [place] coronary artery without angina pectoris (9) History of coronary artery stent placement Status: Chronic Comment: PCI-RAMONA-Mid LAD w/ 3.0 x 24 mm and 3.0 x 8 mm Synergy Stent, POBA-Ostial D1, RAMONA-Distal RCA w/ 4.0 x 20 mm Synergy Stent 07/15/2019 (10) Essential (primary) hypertension Status: Chronic History of Present Illness Date of Admission: 02/28/20 Chief Complaint: Fatigue, weakness, fall The patient is a 74 y/o M w/ PMHx: Myasthenia Gravis, Seizure disorder, HTN, HLD, Diabetes mellitus type II, CAD s/p PCI RCA, LAD, Diag, frequent syncopal event history with serial hospitalizations also for weakness with consistent SNF decline who now presents to the [facility] ED on 02/28/20 with history of increased weakness with fall at approximately 11 AM while in his bathroom on the floor since with significant leg weakness prompting eventual EMS call once he was found per his son. He denies any injuries from his fall. He normally uses a walker or cane and notes his legs were just too weak. He notes having had dysuria, frequency and urgency onset over the last 24 hours with subjective fever in addition to nausea with emesis x1 prior to ED presentation. Work-up in the ED included T-max 99.7, heart rate 77, BP 142/80, respiratory rate 20, 94% on room air, CBC with WC 13.6, hemoglobin 14.4, platelet 180 with left shift and concurrent lymphopenia, BMP with glucose 138, total creatinine kinase 145, troponin 0 0.021, urinalysis with specific gravity 1.020, protein 30, glucose 100, ketones 15, occult blood 50, negative nitrite, leukocyte esterase 500, urine WBCs greater than 100, urine bacteria 3+, negative COVID testing, urine culture pending per ED. in the ED patient ministered Zofran, Pepcid, Mylanta, Rocephin. Patient's prior urine cultures with Enterobacter, enterococcus, Serratia as well as staphylococcal organisms. Past Medical History Past Medical History (Chronic Problems): Chronic Problems (Last Reviewed 07/22/19 @ 10:[address] Alejandro Styles MD) Hypertension (Chronic) BPH (benign prostatic hyperplasia) (Chronic) Myasthenia gravis (Chronic) Seizures (Chronic) Diabetes (Chronic) History of loop recorder (Chronic 08/01/19) Atherosclerosis of coronary artery of [place] heart without angina pectoris (Chronic) History of coronary artery stent placement (Chronic 07/15/19) PCI-RAMONA-Mid LAD w/ 3.0 x 24 mm and 3.0 x 8 mm Synergy Stent, POBA-Ostial D1, RAMONA-Distal RCA w/ 4.0 x 20 mm Synergy Stent 07/15/2019 History of non-ST elevation myocardial infarction (NSTEMI) (Chronic 07/14/19) Essential (primary) hypertension (Chronic) Medical History: Medical History (Last Reviewed 07/22/19 @ 10:[address] Alejandro Styles MD) Atherosclerosis of coronary artery of [place] heart without angina pectoris (Chronic) I25.10 History of non-ST elevation myocardial infarction (NSTEMI) (Chronic) Onset Date: 07/14/19 I25.2 Essential (primary) hypertension (Chronic) I10 Syncope and collapse (Acute) Onset Date: 07/14/19 R55 BPH (benign prostatic hyperplasia) N40.0 Myasthenia gravis G70.00 Seizure disorder G40.909 Tinea unguium B35.1 Type II diabetes mellitus E11.9 Facial contusion S00.83XA Nasal bone fracture S02.2XXA Tetanus-diphtheria (Td) vaccination Z23 Allergies Iodinated Contrast Media [CONTRASTS] Allergy (Verified 02/28/20 19:40) Hives iodine Allergy (Verified 02/28/20 19:40) Hives Penicillins [PCN] Allergy (Verified 02/28/20 19:40) myasthenia gravis developed 2 days after taking PCN from dental procedure simvastatin Adverse Reaction (Verified 02/28/20 19:40) Pain in joints Home Medications: Ambulatory Orders Medication Instructions Recorded levETIRAcetam tablet [Keppra 500 mg PO BID 02/04/18 tablet] Prednisone 10 mg PO DAILY 10/19/18 glipiZIDE [Glucotrol] 10 mg PO BIDAC 10/19/18 Clopidogrel Bisulfate [Clopidogrel] 75 mg PO DAILY 02/28/20 Lisinopril 40 mg PO DAILY 02/28/20 Metoprolol(XL)Succ [Toprol Xl 25 mg PO DAILY 02/28/20 (Beta [place])] Pioglitazone [Actos] 30 mg PO DAILY 02/28/20 Surgical History: Surgical History (Last Updated 08/01/19 @ 08:04 by Sara Mar) History of loop recorder (Chronic) Onset Date: 08/01/19 Z98.890 History of coronary artery stent placement (Chronic) Onset Date: 07/15/19 Z95.5 PCI-RAMONA-Mid LAD w/ 3.0 x 24 mm and 3.0 x 8 mm Synergy Stent, POBA-Ostial D1, RAMONA-Distal RCA w/ 4.0 x 20 mm Synergy Stent 07/15/2019 History of tonsillectomy Z90.89 History of transurethral resection of prostate Z98.890, Z90.79 Surgical History: tonsillectomy, TURP, - - PCI x3, TURP, tonsillectomy, loop recorder. Psychiatric History: No pertinent psych hx Lives: With Family - Patient notes that his son lives with him. Smoking Status: Never smoker Alcohol: None Drugs: None - *Family History Maternal Family History: Family History (Last Reviewed 07/22/19 @ 10:[address] Alejandro Styles MD) Mother Cancer Heart disease Father Cancer Heart disease History Items: Cancer, Heart Disease Paternal Family History: Family History (Last Reviewed 07/22/19 @ 10:[address] Alejandro Styles MD) Mother Cancer Heart disease Father Cancer Heart disease History Items: Cancer, Heart Disease Review of Systems Constitutional: Reports: Anorexia, Fever, Malaise, Weakness, Fatigue. Denies: Chills, Weight Change HEENT: Denies: Head Aches, Sinus Congestion, Sinus Drainage Cardiovascular: Denies: Chest Pain, Palpitations Respiratory: Denies: Cough, Shortness of Breath, Shortness of breath at rest, Shortness of breath upon exertion, Sputum production Gastrointestinal: Reports: Nausea, Vomiting. Denies: Abdominal Pain Genitourinary: Reports: Dysuria, Frequency, Urgency Musculoskeletal: Reports: Joint Pain. Denies: Joint Tenderness Skin: Denies: Rash, Wounds Neurological: Reports: - - Generalized weakness with fall.. Denies: Focal weakness, Numbness, Tingling Psychiatric: Denies: Anxiety, Depression, Homicidal Ideations, Suicidal Ideations Hematologic/ Lymphatic: Reports: Easy Bruising, Easy Bleeding VTE Information - Inpt Only VTE Present on Admission: No VTE Mechan Device Prophylaxis: SCD's VTE Pharm Prophylaxis ordered?: Yes Patient Problems: Active and Suspected Problems (Last Reviewed 07/22/19 @ 10:[address] Alejandro Styles MD) UTI (urinary tract infection) (Acute) Leg weakness (Acute) Fall (Acute) Subjective: Seated upright in ED bed, fatigued, holding emesis bag. Objective: Physical Examination: General: awake, alert, oriented x 3 and cooperative, seated upright in the ED bed, fatigued and ill-appearing. Skin: normal color, turgor, no icterus, cyanosis, bilateral lower extremity chronic venous stasis skin changes. HEENT: AT/NC, EOMI, PERRLA, moderately dry MM, no carotid bruits or JVD noted. Lungs: CTA bilaterally, moderate effort, moderate decrease BL bases, no rales, ronchi or wheezing. Heart: Regular rate and rhythm; no gallop, rub audible. Abdomen: soft, obese, mild discomfort with suprapubic palpation otherwise nontender to palpation, difficult to assess distention, mildly hyperactive BS, no HSM. Extremities: no cyanosis, clubbing, mild bilateral lower extremity ankle nonpitting edema, see skin. Neurological: patient awake, alert, oriented as noted, cognitive function near baseline intact; pupils equally reactive to light and accomodation; cranial nerves II-XII grossly normal, moving all 4 extremities, no focal deficits, strength severely global decrease secondary to acute presentation. Psychiatric: affect appears fatigued, ill-appearing, no acute evidence of depressive or anxiety feelings. - Physical Exam Vitals/I&O's: Vital Signs Temp Pulse Resp BP Pulse Ox 99.6 F H 72 25 H 152/84 H 96 02/28/20 23:00 02/28/20 23:00 02/28/20 23:00 02/28/20 23:00 02/28/20 23:00 Oxygen Delivery Method Room Air Weight: 222 lb 10.67 oz Body Mass Index (BMI) 34.9 Finger Stick Blood Glucose 148 Laboratory Results 02/28/20 20:05: COVID-19 (EMILIANO) Negative 02/28/20 20:21: WBC 13.6 H, RBC 4.51 L, Hgb 14.4, Hct 44.0, MCV 97.6 H, MCH 31.9, MCHC 32.7, RDW Std Deviation 48.6 H, RDW Coeff of Em 13.6, Plt Count 180, MPV 10.8, Immature Gran % (Auto) 0.500, Neut % (Auto) 85.0 H, Lymph % (Auto) 4.2 L, [place] % (Auto) 10.0, Eos % (Auto) 0.1, Baso % (Auto) 0.2, Absolute Neuts (auto) 11.5 H, Absolute Lymphs (auto) 0.57 L, Nucleated RBC % 0, Differential Comment COMMENT 02/28/20 20:21: Sodium 137, Potassium 3.8, Chloride 105, Carbon Dioxide 26.0, Anion Gap 6, BUN 15, Creatinine 1.04, Estim Creat Clear Calc 59.14, Est GFR (MDRD) Af Amer 90, Est GFR (MDRD) Non-Af 74, BUN/Creatinine Ratio 14.4, Glucose 138 H, Calcium 8.7, Total Creatine Kinase 145, Troponin I 0.021 02/28/20 21:40: Urine Color Yellow, Urine Clarity Cloudy, Urine pH 6.0, Ur Specific [place] 1.020, Urine Protein 30 H, Urine Glucose (UA) 100 H, Urine Ketones 15 H, Urine Occult Blood 50 H, Urine Nitrite Negative, Urine Bilirubin Negative, Urine Urobilinogen 4 H, Ur Leukocyte Esterase 500 H, Urine RBC 0 SEEN, Urine WBC >100 SEEN, Ur Squamous Epith Cells 0-5 SEEN, Urine Bacteria 3+, Urine Mucus 0 SEEN Current Medications Ceftriaxone Sodium (Rocephin) 1 gm in 50 mls @ 100 mls/hr IV X1 ONE Stop: 02/28/20 23:13 Assessment/Plan All Active Problems (Last Reviewed 07/22/19 @ 10:[address] Alejandro Styles MD) UTI (urinary tract infection) (Acute) Leg weakness (Acute) Fall (Acute) Weakness (Acute) Syncope and collapse (Acute 07/14/19) The patient is a 74 y/o M w/ PMHx: Myasthenia Gravis, Seizure disorder, HTN, HLD, Diabetes mellitus type II, CAD s/p PCI RCA, LAD, Diag, frequent syncopal event history with serial hospitalizations also for weakness with consistent SNF decline who now presents to the [facility] ED on 02/28/20 with history of increased weakness with fall at approximately 11 AM while in his bathroom on the floor since with significant leg weakness prompting eventual EMS call once he was found per his son. He denies any injuries from his fall. 1. Acute on chronic weakness, debility with falls secondary to acute complicated urinary tract infection: Will admit to [facility] upon ED evaluation remarkable, pending UCx, admission CBC w/ WBC 13.6 with L shift but concurrent lymphopenia however COVID testing negative and appropriate illness presentation for findings in the ED, continue judicious IVFs, monitor I/Os, continue IV Rocephin although may need to consider Vanc addition if not improving given prior UCx history w/ transition as able pending sensitivities and speciation. 2. CAD: Status post PCI RCA, LAD, diagonal, continue home Plavix, lisinopril, metoprolol, noted statin allergy. 3. Hypertension: Continue home regimen including lisinopril, metoprolol with hold parameters, PRN hydralazine. 4. Hyperlipidemia: Not on regimen, allergy noted. 5. Diabetes mellitus type II: Hold oral home regimen, ADA diet, accu checks w/ ISS. 6. Obesity: Weight loss and lifestyle changes encouraged. 7. Myasthenia gravis: Complicates presentation, continue therapies as noted, fall precautions, continue home prednisone regimen. 8. Seizure disorder: We will continue patient home Keppra regimen. 9. DVT prophylaxis: SCDs, Lovenox. 10. CODE status: Patient LUBA is his son Pepito Buckner but denies having living will in place. Discussed CODE status at length including difference between FULL code, DNR-CCA and DNR-CC status. Following discussions about the differences in these status, requested full CODE STATUS. Advanced Care Planning Face to Face Time: 16 minutes. Inpatient E&M: 64706 Init Hosp L3 Procedures: 28628 Advncd Care Plan 30 Min
[2020-02-28] MEDS: Ceftriaxone 1 GM/50 ML BAG IV (23:15)
[2020-02-28] MEDS: Ondansetron 4 MG/2 ML Vial IV (23:15)
[2020-02-28] MEDS: Mag Hydrox/Al Hydrox/Simeth 30 ML UDC 15 ML PO (23:15)
[2020-02-28] MEDS: Famotidine 20 MG Tablet 40 MG PO (23:15)
[2020-02-28 23:39] VITALS: BP 134/72; PULSE 71; RESP 20; TEMP 37.7; O2SAT 98
[2020-02-29] VITALS (7 sets, daily range): BP systolic 113–135; BP diastolic 60–68; PULSE 56–71; RESP 18–24; TEMP 36.4–37.6; O2SAT 93–96; BMI 33.5
[2020-02-29 00:29] LABS: Magnesium 2.3 mg/dL (1.6-2.6)
[2020-02-29] MEDS: 0.9% Normal Saline 1,000 ML 100 ML IV ×3 (01:13→19:10)
[2020-02-29] MEDS: Ondansetron 4 MG/2 ML Vial IV (04:07)
[2020-02-29] MEDS: 0.9% Saline Lock 10 ML Syringe IV (04:08)
[2020-02-29] MEDS: proCHLORPERazine 10 MG/2 ML Vial 5 MG IV (05:22)
[2020-02-29] MEDS: Nystatin Powder 15gm Bottle 1 APPLIC TOPICAL ×3 (05:24→22:29)
[2020-02-29 06:36] LABS: Absolute Lymphocyte Count 0.83 X10^3/uL (0.83-4.51); Absolute Neutrophil Count 8.8 X10^3/uL (2.0-7.7); Basophil# 0.02 X10^3/uL; Basophil% 0.2 % (0-1); Eosinophil# 0.08 X10^3/uL; Eosinophils% 0.7 % (0-5); Hematocrit 41.1 % (40-54); Hemoglobin 13.2 g/dL (13.0-16.5); Lymphocyte # 0.83 X10^3/ul (4.0); Lymphocyte % 7.6 % (19-41); Mean Corp Hgb Conc 32.1 g/dL (32-36); Mean Corpuscular Hgb 31.7 pg (27.0-32.0); Mean Corpuscular Volume 98.6 fL (80-94); Mean Platelet Vol. 11.4 fl (6.2-12.0); Monocyte# 1.08 X10^3/uL; NRBC Flagged by Analyzer 0 % (0-5); Neutrophil # 8.79 X10^3/uL (2.7-7.7); Platelet Count 156 K/mm3 (150-450); RBC Distribution Width CV 13.6 % (11.6-14.6); RBC Distribution Width SD 49.7 fl (35.1-43.9); Red Blood Count 4.17 M/mm3 (4.6-6.2); White Blood Count 10.9 K/mm3 (4.4-11.0)
[2020-02-29] MEDS: Insulin Lispro 100 UNIT/ML INSULN.PEN SC ×4 (06:48→22:36)
[2020-02-29 06:56] LABS: Bedside Glucose 151 mg/dL (70-110)
[2020-02-29 07:07] LABS: AST(SGOT) 15 U/L (15-37); Alanine Aminotransfer ALT/SGPT 20 U/L (16-61); Albumin, Serum 3.3 g/dL (3.2-5.0); Alkaline Phosphatase 77 U/L (45-117); Anion Gap 7 (5-15); BUN 12 mg/dL (7-18); BUN/Creat Ratio 12.8 RATIO (10-20); Calcium,Total 8.1 mg/dL (8.5-10.1); Chloride 104 mmol/L (98-107); Creatinine, Serum 0.94 mg/dL (0.70-1.30); EST Glomerular Filtration Rate 84 mL/min (>60); Est Glom Filt Rate - Afr Amer 101 mL/min (>60); Estimated Creatinine Clearance 65.44 ml/min; Globulin 3.3 g/dL (2.2-4.2); Glucose 172 mg/dL (74-106); Potassium 4.1 mmol/L (3.5-5.1); Protein, Total 6.6 g/dL (6.4-8.2); Sodium Level 137 mmol/L (136-145)
[2020-02-29] MEDS: Enoxaparin 40 MG/0.4 ML Syringe SC (09:29)
[2020-02-29] MEDS: levETIRAcetam 500 MG Tablet PO ×2 (09:29→22:29)
[2020-02-29] MEDS: predniSONE 10 MG Tablet PO (09:29)
[2020-02-29] MEDS: Metoprolol(XL)Succ 25 MG Tablet PO (09:29)
[2020-02-29] MEDS: Lisinopril 40 MG Tablet PO (09:29)
[2020-02-29] MEDS: Famotidine 20 MG Tablet PO ×2 (09:30→22:29)
[2020-02-29] MEDS: Clopidogrel Bisulfate 75 MG Tablet PO (09:30)
--- NOTE | 2020-02-29 11:02 | PN_ITS ---
Patient Problems: Active and Suspected Problems (Last Reviewed 07/22/19 @ 10:[address] Alejandro Styles MD) UTI (urinary tract infection) (Acute) Leg weakness (Acute) Fall (Acute) Reason for Visit: Acute cystitis Subjective: Patient is a 74-year-old gentleman admitted with progressive generalized weakness as well as falls at home. Evaluation on admission consistent with acute cystitis admitted to regular nursing floor for further management Objective: GENERAL: cooperative HEENT: Atraumatic; EYES; Anicteric, Normal Conjunctiva NECK; supple, normal thyroid, RESPIRATORY: Diminished to auscultation CARDIOVASCULAR: Regular S1 S2, GI: soft, normoactive bowel sounds, : No Renal angle tenderness; EXTREMITIES: No edema, no clubbing, MUSCULOSKELETAL: no muscle waisting NEURO: Awake; no lateralizing signs. SKIN: No Rash PSYCH; Flat affect Vitals/I&O's: Vital Signs Temp Pulse Resp BP Pulse Ox 98.0 F 67 18 113/65 95 02/29/20 09:24 02/29/20 09:29 02/29/20 09:24 02/29/20 09:24 02/29/20 09:24 Oxygen Delivery Method Room Air Weight: 97.069 kg Body Mass Index (BMI) 33.5 Finger Stick Blood Glucose 148 Intake and Output for Last 24 Hours 02/27/20 02/28/20 02/29/20 23:59 23:59 23:59 Intake Total 1093.33 / 1093.33 Balance 1093.33 / 1093.33 Laboratory Results 02/28/20 20:05: COVID-19 (EMILIANO) Negative 02/28/20 20:21: WBC 13.6 H, RBC 4.51 L, Hgb 14.4, Hct 44.0, MCV 97.6 H, MCH 31.9, MCHC 32.7, RDW Std Deviation 48.6 H, RDW Coeff of Em 13.6, Plt Count 180, MPV 10.8, Immature Gran % (Auto) 0.500, Neut % (Auto) 85.0 H, Lymph % (Auto) 4.2 L, Moffat % (Auto) 10.0, Eos % (Auto) 0.1, Baso % (Auto) 0.2, Absolute Neuts (auto) 11.5 H, Absolute Lymphs (auto) 0.57 L, Nucleated RBC % 0, Differential Comment COMMENT 02/28/20 20:21: Sodium 137, Potassium 3.8, Chloride 105, Carbon Dioxide 26.0, Anion Gap 6, BUN 15, Creatinine 1.04, Estim Creat Clear Calc 59.14, Est GFR (MDRD) Af Amer 90, Est GFR (MDRD) Non-Af 74, BUN/Creatinine Ratio 14.4, Glucose 138 H, Calcium 8.7, Total Creatine Kinase 145, Troponin I 0.021 02/28/20 20:21: Magnesium 2.3 02/28/20 21:40: Urine Color Yellow, Urine Clarity Cloudy, Urine pH 6.0, Ur Specific [place] 1.020, Urine Protein 30 H, Urine Glucose (UA) 100 H, Urine Ketones 15 H, Urine Occult Blood 50 H, Urine Nitrite Negative, Urine Bilirubin Negative, Urine Urobilinogen 4 H, Ur Leukocyte Esterase 500 H, Urine RBC 0 SEEN, Urine WBC >100 SEEN, Ur Squamous Epith Cells 0-5 SEEN, Urine Bacteria 3+, Urine Mucus 0 SEEN 02/29/20 05:35: WBC 10.9, RBC 4.17 L, Hgb 13.2, Hct 41.1, MCV 98.6 H, MCH 31.7, MCHC 32.1, RDW Std Deviation 49.7 H, RDW Coeff of Em 13.6, Plt Count 156, MPV 11.4, Immature Gran % (Auto) 0.500, Neut % (Auto) 81.0 H, Lymph % (Auto) 7.6 L, Moffat % (Auto) 10.0, Eos % (Auto) 0.7, Baso % (Auto) 0.2, Absolute Neuts (auto) 8.8 H, Absolute Lymphs (auto) 0.83, Nucleated RBC % 0 02/29/20 05:35: Sodium 137, Potassium 4.1, Chloride 104, Carbon Dioxide 26.0, Anion Gap 7, BUN 12, Creatinine 0.94, Estim Creat Clear Calc 65.44, Est GFR (MDRD) Af Amer 101, Est GFR (MDRD) Non-Af 84, BUN/Creatinine Ratio 12.8, Glucose 172 H, Calcium 8.1 L, Total Bilirubin 1.20 H, AST 15, ALT 20, Alkaline Phosphatase 77, Total Protein 6.6, Albumin 3.3, Globulin 3.3, Albumin/Globulin Ratio 1.0 02/29/20 06:45: POC Glucose 151 H Current Medications Acetaminophen (Tylenol) 650 mg PO Q6H PRN PRN PRN Reason: Pain Score 1-10/Temp > 100.7 F Al Hydroxide/Mg Hydroxide (Mylanta Ii) 30 ml PO Q6H PRN PRN PRN Reason: Gastric Burning Albuterol Sulfate (Ventolin Aerosols) 2.5 mg INHALATION Q2H PRN PRN PRN Reason: Dyspnea, wheezing Clopidogrel Bisulfate (Plavix) 75 mg PO DAILY [facility] Last Admin: 02/29/20 09:30 Dose: 75 mg Documented by: Enoxaparin Sodium (Lovenox) 40 mg SC DAILY [facility] Last Admin: 02/29/20 09:29 Dose: 40 mg Documented by: Famotidine (Pepcid) 20 mg PO BID [facility] Last Admin: 02/29/20 09:30 Dose: 20 mg Documented by: Guaifenesin (Robitussin) 20 ml PO Q4H PRN PRN PRN Reason: COUGH Hydralazine HCl (Apresoline Iv) 10 mg IV Q4H PRN PRN PRN Reason: SBP > 160 Sodium Chloride () 1,000 mls @ 100 mls/hr IV .Q10H [facility] Last Admin: 02/29/20 09:39 Dose: 100 mls/hr Documented by: Ceftriaxone Sodium (Rocephin) 1 gm in 50 mls @ 100 mls/hr IV Q24@2200 [facility] Insulin Human Lispro (Humalog Kwikpen (Bkc)) 0 unit SC [facility]; Protocol Last Admin: 02/29/20 06:48 Dose: 1 u Documented by: Levetiracetam (Keppra Tablet) 500 mg PO BID [facility] Last Admin: 02/29/20 09:29 Dose: 500 mg Documented by: Lisinopril (Zestril) 40 mg PO DAILY [facility] Last Admin: 02/29/20 09:29 Dose: 40 mg Documented by: Magnesium Hydroxide (Milk Of Magnesia) 30 ml PO DAILY PRN PRN PRN Reason: Constipation Melatonin (Melatonin) 3 mg PO QHS PRN PRN PRN Reason: INSOMNIA Metoprolol Succinate (Toprol Xl (Beta Uche)) 25 mg PO DAILY [facility] Last Admin: 02/29/20 09:29 Dose: 25 mg Documented by: Morphine Sulfate () 2 mg IV Q3H PRN PRN PRN Reason: Pain Score 6-10/10 Nutritional Formula (Lactose Free) (Glucerna Shake) 120 ml PO TIDCM [facility] Last Admin: 02/29/20 08:23 Dose: Not Given Documented by: Nystatin (Mycostatin Powder) 1 applic TOPICAL TID [facility]; Protocol Last Admin: 02/29/20 05:24 Dose: 1 applicatio Documented by: Ondansetron HCl (Zofran) 4 mg IV Q8H PRN PRN PRN Reason: NAUSEA/VOMITING Last Admin: 02/29/20 04:07 Dose: 4 mg Documented by: Oxycodone HCl (Oxyir) 5 mg PO Q4H PRN PRN PRN Reason: Pain Score 4-5/10 [facility] Last Admin: 02/29/20 09:29 Dose: 10 mg Documented by: Prochlorperazine Edisylate (Compazine Iv) 5 mg IV Q4H PRN PRN PRN Reason: Breakthrough nausea/vomiting Last Admin: 02/29/20 05:22 Dose: 5 mg Documented by: Psyllium Hydrophilic Mucilloid (Metamucil) 1 packet PO DAILY PRN PRN PRN Reason: Constipation Senna/Docusate Sodium (Senokot-S, Amna-Colace) 2 tablet PO BID PRN PRN PRN Reason: Constipation Sodium Chloride () 10 - 40 ml IV UD PRN PRN Reason: SALINE FLUSH Last Admin: 02/29/20 04:08 Dose: 10 ml Documented by: Throat Lozenges (Cepacol Sore Throat Lozenge) 1 lozenge MUCOUS MEM Q2H PRN PRN PRN Reason: SORE THROAT STROKE Vital Signs/Narrative: Vital Signs Temp Pulse Resp BP Pulse Ox 02/29/20 09:29 67 02/29/20 09:24 98.0 F 67 18 113/65 95 02/29/20 07:33 95 Medical Necessity - Tobacco Use Smoking Status: Never smoker Assessment/Plan All Active Problems (Last Reviewed 07/22/19 @ 10:[address] Alejandro Styles MD) UTI (urinary tract infection) (Acute) Leg weakness (Acute) Fall (Acute) Weakness (Acute) Syncope and collapse (Acute 07/14/19) Patient is a 74-year-old gentleman admitted with progressive generalized weakness as well as falls at home. Evaluation on admission consistent with acute cystitis admitted to regular nursing floor for further management 1. Acute cystitis ?Patient started on Rocephin cultures sent 2. Physical deconditioning again (with recurrent falls) - Requested for PT OT eval and social human services assistants to assist with discharge planning 3. Coronary artery disease ?With previous PCI involving RCA LAD and diagonal. Patient is currently on antiplatelet therapy with Plavix PAOLA inhibitors and beta-blockers. Patient is reported to be allergic to statin therapy simvastatin to be specific 4. Hypertension - Blood pressure controlled, home medications continued with dose adjustment as needed 5. Myasthenia gravis ?May be contributing to patient progressive generalized weakness. Patient is on prednisone 6. Diabetes mellitus type II - Controlled/, patient's oral hypoglycemics held. Placed on Accu-Cheks a.c. and at bedtime and covered with sliding scale insulin 7. Seizure disorder ?Patient is on Keppra continue 8. BPH ?With previous TURP 9. Obesity with BMI of 33.5 ?Weight loss advised 10. DVT prophylaxis - On enoxaparin Active Medications Acetaminophen (Tylenol) 650 mg PO Q6H PRN PRN PRN Reason: Pain Score 1-10/Temp > 100.7 F Al Hydroxide/Mg Hydroxide (Mylanta Ii) 30 ml PO Q6H PRN PRN PRN Reason: Gastric Burning Albuterol Sulfate (Ventolin Aerosols) 2.5 mg INHALATION Q2H PRN PRN PRN Reason: Dyspnea, wheezing Clopidogrel Bisulfate (Plavix) 75 mg PO DAILY [facility] Last Admin: 02/29/20 09:30 Dose: 75 mg Documented by: Enoxaparin Sodium (Lovenox) 40 mg SC DAILY [facility] Last Admin: 02/29/20 09:29 Dose: 40 mg Documented by: Famotidine (Pepcid) 20 mg PO BID [facility] Last Admin: 02/29/20 09:30 Dose: 20 mg Documented by: Guaifenesin (Robitussin) 20 ml PO Q4H PRN PRN PRN Reason: COUGH Hydralazine HCl (Apresoline Iv) 10 mg IV Q4H PRN PRN PRN Reason: SBP > 160 Sodium Chloride () 1,000 mls @ 100 mls/hr IV .Q10H [facility] Last Admin: 02/29/20 09:39 Dose: 100 mls/hr Documented by: Ceftriaxone Sodium (Rocephin) 1 gm in 50 mls @ 100 mls/hr IV Q24@2200 [facility] Insulin Human Lispro (Humalog Kwikpen (Bkc)) 0 unit SC ACHS [facility]; Protocol Last Admin: 02/29/20 06:48 Dose: 1 u Documented by: Levetiracetam (Keppra Tablet) 500 mg PO BID [facility] Last Admin: 02/29/20 09:29 Dose: 500 mg Documented by: Lisinopril (Zestril) 40 mg PO DAILY [facility] Last Admin: 02/29/20 09:29 Dose: 40 mg Documented by: Magnesium Hydroxide (Milk Of Magnesia) 30 ml PO DAILY PRN PRN PRN Reason: Constipation Melatonin (Melatonin) 3 mg PO QHS PRN PRN PRN Reason: INSOMNIA Metoprolol Succinate (Toprol Xl (Beta Uche)) 25 mg PO DAILY [facility] Last Admin: 02/29/20 09:29 Dose: 25 mg Documented by: Morphine Sulfate () 2 mg IV Q3H PRN PRN PRN Reason: Pain Score 6-10/10 Nutritional Formula (Lactose Free) (Glucerna Shake) 120 ml PO TIDCM [facility] Last Admin: 02/29/20 08:23 Dose: Not Given Documented by: Nystatin (Mycostatin Powder) 1 applic TOPICAL TID [facility]; Protocol Last Admin: 02/29/20 05:24 Dose: 1 applicatio Documented by: Ondansetron HCl (Zofran) 4 mg IV Q8H PRN PRN PRN Reason: NAUSEA/VOMITING Last Admin: 02/29/20 04:07 Dose: 4 mg Documented by: Oxycodone HCl (Oxyir) 5 mg PO Q4H PRN PRN PRN Reason: Pain Score 4-5/10 [facility] () [facility] Last Admin: 02/29/20 09:29 Dose: 10 mg Documented by: Prochlorperazine Edisylate (Compazine Iv) 5 mg IV Q4H PRN PRN PRN Reason: Breakthrough nausea/vomiting Last Admin: 02/29/20 05:22 Dose: 5 mg Documented by: Psyllium Hydrophilic Mucilloid (Metamucil) 1 packet PO DAILY PRN PRN PRN Reason: Constipation Senna/Docusate Sodium (Senokot-S, Amna-Colace) 2 tablet PO BID PRN PRN PRN Reason: Constipation Sodium Chloride () 10 - 40 ml IV UD PRN PRN Reason: SALINE FLUSH Last Admin: 02/29/20 04:08 Dose: 10 ml Documented by: Throat Lozenges (Cepacol Sore Throat Lozenge) 1 lozenge MUCOUS MEM Q2H PRN PRN PRN Reason: SORE THROAT Inpatient E&M: 77990 Subs Hosp L2
--- NOTE | 2020-02-29 11:30 | CASEMGMT ---
Social Work Assessment Referral Date: 02/29/2020 Date of Assessment: 02/29/2020 Reason for consult: Recent falls at home Informant: RN Personal Status: SW met with pt to complete initial assessment. SW introduced self and role at [facility]. Pt is alert and orientated x3. Pt states that he lives with his son Prasanth. Pt state Prasanth works during the day in [place] but Prasanth is home every night. Pt states he has one level set up with no steps to enter the home. DME include cane and walker. Pt states that he was previously independent at home with ADLs. Pt does admit that he has some falls at home but states it is due to the infection. Pt states when he gets infection, his legs don't move. Pt states he feels better today because he is getting some antibiotics. PCP is Dr. Lang and pharmacy is [facility]. Pt states that he has completed HCPOA and his HCPOA is his oldest son Imtiaz. SW updated pt that HCPOA documents are not on file at [facility]. ODILON reviewed PT/OT, pt walked 230 ft contact guard. Substance Abuse Hx: Pt denied Mental Health Hx: Pt denied HHC: Pt states he had an [facility] RN coming in to check his vitals. Pt also confirms that [facility]HC was arranged for him the beginning of this year but states he is not currently active with [facility]. SNF: PT denied PT states that he will be returning home at discharge, denied the need for HHC or outpatient therapy. Pt denied additional needs or concerns at this time. Plan: Home Lexy Roa LACTATION SPECIALIST, LAY OUT HELPER
[2020-02-29 12:00] LABS: Bedside Glucose 228 mg/dL (70-110)
--- NOTE | 2020-02-29 14:07 | CASEMGMT ---
TODD LUNA NOTE: PT/OT notes have been reviewed and additional therapy recommended. TODD LUNA to room to talk with pt. Pt made aware of recommendations and discussed options of HHC and OP therapy. Pt states he has had HHC in the past but does not want this again, stating he did not feel it was helpful. He also states he is not interested in OP therapy at this time. Pt made aware, if in the future, he would like HHC or OP therapy, to discuss this with his PCP. Pt voices understanding. Pt denies having any discharge concerns/needs at this time. Pt instructed to ask for CM/SW if any needs arise. Madi BATISTA RN, CM
[2020-02-29 17:05] LABS: Bedside Glucose 256 mg/dL (70-110)
[2020-02-29] MEDS: Ceftriaxone 1 GM/50 ML BAG IV (22:29)
[2020-02-29 22:50] LABS: Bedside Glucose 219 mg/dL (70-110)
[2020-03-01 03:22] VITALS: BP 137/70; PULSE 57; RESP 22; TEMP 37; O2SAT 97
[2020-03-01] MEDS: Acetaminophen 325 MG Tablet 650 MG PO (05:17)
[2020-03-01] MEDS: Mag Hydrox/Al Hydrox/Simeth 30 ML UDC PO (05:17)
[2020-03-01] MEDS: Senna/Docusate Sodium 1 Tablet 2 TABLET PO (05:17)
[2020-03-01] MEDS: 0.9% Normal Saline 1,000 ML 100 ML IV ×3 (05:21→16:22)
[2020-03-01] MEDS: Nystatin Powder 15gm Bottle 1 APPLIC TOPICAL ×3 (05:21→22:30)
[2020-03-01] MEDS: proCHLORPERazine 10 MG/2 ML Vial 5 MG IV (05:30)
[2020-03-01] MEDS: 0.9% Saline Lock 10 ML Syringe IV ×2 (05:30→06:36)
[2020-03-01] MEDS: Insulin Lispro 100 UNIT/ML INSULN.PEN SC ×4 (06:32→22:37)
[2020-03-01] MEDS: Ondansetron 4 MG/2 ML Vial IV (06:36)
[2020-03-01 06:50] LABS: Bedside Glucose 249 mg/dL (70-110)
--- NOTE | 2020-03-01 07:16 | PCM.PN.HOSP ---
Patient Problems: Active and Suspected Problems (Last Reviewed 07/22/19 @ 10:[address] Alejandro Styles MD) UTI (urinary tract infection) (Acute) Leg weakness (Acute) Fall (Acute) Reason for Visit: Acute encephalopathy Acute cystitis Subjective: Seen complains of nausea physical examination did reveal distended abdomen. Urine cultures so far positive for gram-negative rods final identification and sensitivities pending Objective: GENERAL: cooperative HEENT: Atraumatic; EYES; Anicteric, Normal Conjunctiva NECK; supple, normal thyroid, RESPIRATORY: Diminished to auscultation CARDIOVASCULAR: Regular S1 S2, GI: Abdomen distended : No Renal angle tenderness; EXTREMITIES: No edema, no clubbing, MUSCULOSKELETAL: no muscle waisting NEURO: Awake; no lateralizing signs. SKIN: No Rash PSYCH; Flat affect Vitals/I&O's: Vital Signs Temp Pulse Resp BP Pulse Ox 98.6 F 57 L 22 H 137/70 H 97 03/01/20 03:22 03/01/20 03:22 03/01/20 03:22 03/01/20 03:22 03/01/20 03:22 Oxygen Delivery Method Room Air Weight: 97.069 kg Body Mass Index (BMI) 33.5 Finger Stick Blood Glucose 148 Intake and Output for Last 24 Hours 02/28/20 02/29/20 03/01/20 23:59 23:59 23:59 Intake Total 2818.33 / 2818.33 735 / 735 Balance 2818.33 / 2818.33 735 / 735 Microbiology Past 72 Hours 02/28/20 21:40 Urine, Clean Catch Urine Culture - Preliminary Gram negative mecca Laboratory Results 02/29/20 11:35: POC Glucose 228 H 02/29/20 16:52: POC Glucose 256 H 02/29/20 22:36: POC Glucose 219 H 03/01/20 06:31: POC Glucose 249 H Current Medications Acetaminophen (Tylenol) 650 mg PO Q6H PRN PRN PRN Reason: Pain Score 1-10/Temp > 100.7 F Last Admin: 03/01/20 05:17 Dose: 650 mg Documented by: Al Hydroxide/Mg Hydroxide (Mylanta Ii) 30 ml PO Q6H PRN PRN PRN Reason: Gastric Burning Last Admin: 03/01/20 05:17 Dose: 30 ml Documented by: Albuterol Sulfate (Ventolin Aerosols) 2.5 mg INHALATION Q2H PRN PRN PRN Reason: Dyspnea, wheezing Clopidogrel Bisulfate (Plavix) 75 mg PO DAILY [facility] Last Admin: 02/29/20 09:30 Dose: 75 mg Documented by: Enoxaparin Sodium (Lovenox) 40 mg SC DAILY [facility] Last Admin: 02/29/20 09:29 Dose: 40 mg Documented by: Famotidine (Pepcid) 20 mg PO BID [facility] Last Admin: 02/29/20 22:29 Dose: 20 mg Documented by: Guaifenesin (Robitussin) 20 ml PO Q4H PRN PRN PRN Reason: COUGH Hydralazine HCl (Apresoline Iv) 10 mg IV Q4H PRN PRN PRN Reason: SBP > 160 Sodium Chloride () 1,000 mls @ 100 mls/hr IV .Q10H [facility] Last Admin: 03/01/20 05:21 Dose: 100 mls/hr Documented by: Ceftriaxone Sodium (Rocephin) 1 gm in 50 mls @ 100 mls/hr IV Q24@2200 [facility] Last Infusion: 02/29/20 22:59 Dose: Infused Documented by: Insulin Human Lispro (Humalog Kwikpen (Bkc)) 0 unit SC [facility]; Protocol Last Admin: 03/01/20 06:32 Dose: 3 u Documented by: Levetiracetam (Keppra Tablet) 500 mg PO BID [facility] Last Admin: 02/29/20 22:29 Dose: 500 mg Documented by: Lisinopril (Zestril) 40 mg PO DAILY [facility] Last Admin: 02/29/20 09:29 Dose: 40 mg Documented by: Magnesium Hydroxide (Milk Of Magnesia) 30 ml PO DAILY PRN PRN PRN Reason: Constipation Melatonin (Melatonin) 3 mg PO QHS PRN PRN PRN Reason: INSOMNIA Metoprolol Succinate (Toprol Xl (Beta Uche)) 25 mg PO DAILY [facility] Last Admin: 02/29/20 09:29 Dose: 25 mg Documented by: Morphine Sulfate () 2 mg IV Q3H PRN PRN PRN Reason: Pain Score 6-10/10 Nutritional Formula (Lactose Free) (Glucerna Shake) 120 ml PO TIDCM [facility] Last Admin: 02/29/20 16:53 Dose: Not Given Documented by: Nystatin (Mycostatin Powder) 1 applic TOPICAL TID [facility]; Protocol Last Admin: 03/01/20 05:21 Dose: 1 applicatio Documented by: Ondansetron HCl (Zofran) 4 mg IV Q8H PRN PRN PRN Reason: NAUSEA/VOMITING Last Admin: 03/01/20 06:36 Dose: 4 mg Documented by: Oxycodone HCl (Oxyir) 5 mg PO Q4H PRN PRN PRN Reason: Pain Score 4-5/10 Prednisone () 10 mg PO DAILYCM [facility] Last Admin: 02/29/20 09:29 Dose: 10 mg Documented by: Prochlorperazine Edisylate (Compazine Iv) 5 mg IV Q4H PRN PRN PRN Reason: Breakthrough nausea/vomiting Last Admin: 03/01/20 05:30 Dose: 5 mg Documented by: Psyllium Hydrophilic Mucilloid (Metamucil) 1 packet PO DAILY PRN PRN PRN Reason: Constipation Senna/Docusate Sodium (Senokot-S, Amna-Colace) 2 tablet PO BID PRN PRN PRN Reason: Constipation Last Admin: 03/01/20 05:17 Dose: 2 tablet Documented by: Sodium Chloride () 10 - 40 ml IV UD PRN PRN Reason: SALINE FLUSH Last Admin: 03/01/20 06:36 Dose: 10 ml Documented by: Throat Lozenges (Cepacol Sore Throat Lozenge) 1 lozenge MUCOUS MEM Q2H PRN PRN PRN Reason: SORE THROAT STROKE Vital Signs/Narrative: Vital Signs Temp Pulse Resp BP Pulse Ox 03/01/20 03:22 98.6 F 57 L 22 H 137/70 H 97 Medical Necessity - Tobacco Use Smoking Status: Never smoker Assessment/Plan All Active Problems (Last Reviewed 07/22/19 @ 10:[address] Alejandro Styles MD) UTI (urinary tract infection) (Acute) Leg weakness (Acute) Fall (Acute) Weakness (Acute) Syncope and collapse (Acute 07/14/19) Patient is a 74-year-old gentleman admitted with progressive generalized weakness as well as falls at home. Evaluation on admission consistent with acute cystitis admitted to regular nursing floor for further management 1. Acute cystitis ?Patient started on Rocephin cultures sent ?03/01/2020 cultures so far positive for gram-negative rods final identification and sensitivities pending 2. Physical deconditioning again (with recurrent falls) - Requested for PT OT eval and social and political studies professor to assist with discharge planning 3. Coronary artery disease ?With previous PCI involving RCA LAD and diagonal. Patient is currently on antiplatelet therapy with Plavix PAOLA inhibitors and beta-blockers. Patient is reported to be allergic to statin therapy simvastatin to be specific 4. Hypertension - Blood pressure controlled, home medications continued with dose adjustment as needed 5. Myasthenia gravis ?May be contributing to patient progressive generalized weakness. Patient is on prednisone 6. Diabetes mellitus type II - Controlled/, patient's oral hypoglycemics held. Placed on Accu-Cheks a.c. and at bedtime and covered with sliding scale insulin 7. Seizure disorder ?Patient is on Keppra continue 8. BPH ?With previous TURP 9. Obesity with BMI of 33.5 ?Weight loss advised 10. DVT prophylaxis - On enoxaparin 11. Abdominal distention ?Ordered acute abdominal series to rule out ileus versus small bowel obstruction. Patient was treated symptomatically with antinausea medications for his nausea. Also ordered CBC BMP magnesium Inpatient E&M: 83061 Subs Hosp L3
[2020-03-01 07:33] VITALS: O2SAT 95
--- NOTE | 2020-03-01 08:43 | PCA ---
Addendum entered by Constanza Arroyo 03/01/20 09:01: the patient sister wen nick called to get information Original Note: This patient Wen Nick Called to get information on this patient and wanted to speak to the social services coordinator and cm on his case to speak to them about living situation. Wen isn't on his list of contacts and I went and asked patient if it was ok to add her to contacts or to give her any information and the patient doesn't want her to get any information about anything and also doesn't want her to speak to anyone about him. She was very understanding and also said he is currently probably upset at her cause she yelled at his sons about not helping him at home. She said she will call him later this afternoon after he gets sleep. Her number is [phone] just incase she calls again to get any information.
[2020-03-01] MEDS: Glucerna Shake 120 ML LIQUID PO ×3 (08:55→16:27)
[2020-03-01] MEDS: Magnesium Hydroxide 30 ML UDC PO (08:55)
[2020-03-01] MEDS: Enoxaparin 40 MG/0.4 ML Syringe SC (08:59)
[2020-03-01] MEDS: levETIRAcetam 500 MG Tablet PO ×2 (08:59→22:29)
[2020-03-01] MEDS: Clopidogrel Bisulfate 75 MG Tablet PO (08:59)
[2020-03-01] MEDS: Famotidine 20 MG Tablet PO ×2 (08:59→22:29)
[2020-03-01] MEDS: predniSONE 10 MG Tablet PO (08:59)
[2020-03-01 09:00] VITALS: PULSE 74
[2020-03-01] MEDS: Metoprolol(XL)Succ 25 MG Tablet PO (09:00)
[2020-03-01] MEDS: Lisinopril 40 MG Tablet PO (09:00)
[2020-03-01 09:20] VITALS: BP 162/93; PULSE 64; RESP 18; TEMP 36.6; O2SAT 98
[2020-03-01 09:53] LABS: Hematocrit 41.8 % (40-54); Hemoglobin 13.4 g/dL (13.0-16.5); Mean Corp Hgb Conc 32.1 g/dL (32-36); Mean Corpuscular Hgb 30.9 pg (27.0-32.0); Mean Corpuscular Volume 96.3 fL (80-94); Platelet Count 162 K/mm3 (150-450); RBC Distribution Width CV 13.3 % (11.6-14.6); RBC Distribution Width SD 47.7 fl (35.1-43.9); Red Blood Count 4.34 M/mm3 (4.6-6.2)
[2020-03-01 10:11] LABS: Anion Gap 9 (5-15); BUN 13 mg/dL (7-18); BUN/Creat Ratio 12.7 RATIO (10-20); Calcium,Total 8.1 mg/dL (8.5-10.1); Chloride 107 mmol/L (98-107); Creatinine, Serum 1.02 mg/dL (0.70-1.30); EST Glomerular Filtration Rate 76 mL/min (>60); Est Glom Filt Rate - Afr Amer 92 mL/min (>60); Glucose 236 mg/dL (74-106); Magnesium 2.5 mg/dL (1.6-2.6); Potassium 4.1 mmol/L (3.5-5.1); Sodium Level 137 mmol/L (136-145)
[2020-03-01 11:11] LABS: Bedside Glucose 276 mg/dL (70-110)
--- NOTE | 2020-03-01 11:30 | RAD_ITS ---
STUDY: X-RAY - ABDOMEN/PELVIS REASON FOR EXAM: Male, 74 years old. Abdomen distention and pain TECHNIQUE: 5 views of the abdomen COMPARISON: CT scan 12/21/2018. FINDINGS: Normal visualized lung bases. Prominent distended stomach with multiple air-fluid levels identified in the lateral right upper abdomen. There is no demonstrated free abdominal air. Prominent distal stool burden Normal soft tissue structures. Normal visualized osseous structures. RAD/Abd Inc Decub and/or Erect IMPRESSION: Bowel gas pattern is nonspecific but may represent a possible developing small bowel obstruction in the appropriate clinical setting. Consider sequential abdominal radiographs or CT scan for further evaluation. Electronically Signed: Jeancarlos Piña, at 16:53 EDT Tel , Service support ,
[2020-03-01 16:18] VITALS: BP 153/70; PULSE 59; RESP 18; TEMP 37.2; O2SAT 98
[2020-03-01 16:20] LABS: Bedside Glucose 236 mg/dL (70-110)
[2020-03-01 21:20] VITALS: BP 149/76; PULSE 65; RESP 16; TEMP 36.6; O2SAT 97
[2020-03-01] MEDS: Ceftriaxone 1 GM/50 ML BAG IV (22:32)
[2020-03-02 00:11] LABS: Bedside Glucose 234 mg/dL (70-110)
[2020-03-02 03:01] VITALS: BP 160/79; PULSE 52; RESP 16; TEMP 37.1; O2SAT 93
[2020-03-02] MEDS: 0.9% Normal Saline 1,000 ML 100 ML IV ×3 (03:06→21:42)
[2020-03-02 06:15] LABS: Hematocrit 38.7 % (40-54); Hemoglobin 12.4 g/dL (13.0-16.5); Mean Corpuscular Hgb 31.2 pg (27.0-32.0); Mean Corpuscular Volume 97.5 fL (80-94); Mean Platelet Vol. 11.1 fl (6.2-12.0); Platelet Count 131 K/mm3 (150-450); RBC Distribution Width CV 13.2 % (11.6-14.6); RBC Distribution Width SD 47.3 fl (35.1-43.9); Red Blood Count 3.97 M/mm3 (4.6-6.2); White Blood Count 6.3 K/mm3 (4.4-11.0)
[2020-03-02] MEDS: Nystatin Powder 15gm Bottle 1 APPLIC TOPICAL ×3 (06:18→21:37)
[2020-03-02 06:35] LABS: Anion Gap 5 (5-15); BUN 11 mg/dL (7-18); BUN/Creat Ratio 13.4 RATIO (10-20); Chloride 111 mmol/L (98-107); Creatinine, Serum 0.82 mg/dL (0.70-1.30); EST Glomerular Filtration Rate 98 mL/min (>60); Est Glom Filt Rate - Afr Amer 119 mL/min (>60); Estimated Creatinine Clearance 75.01 ml/min; Glucose 170 mg/dL (74-106); Magnesium 2.4 mg/dL (1.6-2.6); Potassium 3.7 mmol/L (3.5-5.1); Sodium Level 140 mmol/L (136-145)
[2020-03-02 07:02] VITALS: O2SAT 96
[2020-03-02] MEDS: Insulin Lispro 100 UNIT/ML INSULN.PEN SC ×4 (07:10→21:38)
--- NOTE | 2020-03-02 07:17 | DS.PCM_ITS ---
Discharge Date and Diagnosis - Problem List Patient Problems: Active and Suspected Problems (Last Reviewed 07/22/19 @ 10:[address] Alejandro Styles MD) UTI (urinary tract infection) (Acute) Leg weakness (Acute) Fall (Acute) Date of Admission: 02/28/20 - Primary Discharge Diagnosis Acute Problems: Active Problems (Last Reviewed 07/22/19 @ 10:[address] Alejandro Styles MD) UTI (urinary tract infection) (Acute) Leg weakness (Acute) Fall (Acute) - Secondary Discharge Diagnosis Chronic Problems: Chronic Problems (Last Reviewed 07/22/19 @ 10:[address] Alejandro Sytles MD) Hypertension (Chronic) BPH (benign prostatic hyperplasia) (Chronic) Myasthenia gravis (Chronic) Seizures (Chronic) Diabetes (Chronic) History of loop recorder (Chronic 08/01/19) Atherosclerosis of coronary artery of [place] heart without angina pectoris (Chronic) History of coronary artery stent placement (Chronic 07/15/19) PCI-RAMONA-Mid LAD w/ 3.0 x 24 mm and 3.0 x 8 mm Synergy Stent, POBA-Ostial D1, RAMONA-Distal RCA w/ 4.0 x 20 mm Synergy Stent 07/15/2019 History of non-ST elevation myocardial infarction (NSTEMI) (Chronic 07/14/19) Essential (primary) hypertension (Chronic) Hospital Course and Treatment Operations: None, TURP Summary of Care Provided: The patient is a 74 year old M [] Patient Problems: Active and Suspected Problems (Last Reviewed 07/22/19 @ 10:[address] Alejandro Styles MD) UTI (urinary tract infection) (Acute) Leg weakness (Acute) Fall (Acute) - Physical Exam Vitals/I&O's: Vital Signs Temp Pulse Resp BP Pulse Ox 98.7 F 52 L 16 160/79 H 93 03/02/20 03:01 03/02/20 03:01 03/02/20 03:01 03/02/20 03:01 03/02/20 03:01 Oxygen Delivery Method Room Air Weight: 97.069 kg Body Mass Index (BMI) 33.5 Finger Stick Blood Glucose 148 Intake and Output for Last 24 Hours 02/29/20 03/01/20 03/02/20 23:59 23:59 23:59 Intake Total 2818.33 / 2818.33 2438.33 / 2438.33 1050 / 1050 Balance 2818.33 / 2818.33 2438.33 / 2438.33 1050 / 1050 Microbiology Past 72 Hours 02/28/20 21:40 Urine, Clean Catch Urine Culture - Final Klebsiella pneumoniae sp pneum Laboratory Results 03/01/20 09:40: WBC 8.0, RBC 4.34 L, Hgb 13.4, Hct 41.8, MCV 96.3 H, MCH 30.9, MCHC 32.1, RDW Std Deviation 47.7 H, RDW Coeff of Em 13.3, Plt Count 162, MPV 11.0 03/01/20 09:40: Sodium 137, Potassium 4.1, Chloride 107, Carbon Dioxide 21.0, Anion Gap 9, BUN 13, Creatinine 1.02, Estim Creat Clear Calc 60.30, Est GFR (MDRD) Af Amer 92, Est GFR (MDRD) Non-Af 76, BUN/Creatinine Ratio 12.7, Glucose 236 H, Calcium 8.1 L, Magnesium 2.5 03/01/20 11:05: POC Glucose 276 H 03/01/20 16:05: POC Glucose 236 H 03/01/20 22:36: POC Glucose 234 H 03/02/20 05:40: WBC 6.3, RBC 3.97 L, Hgb 12.4 L, Hct 38.7 L, MCV 97.5 H, MCH 31.2, MCHC 32.0, RDW Std Deviation 47.3 H, RDW Coeff of Em 13.2, Plt Count 131 L, MPV 11.1 03/02/20 05:40: Sodium 140, Potassium 3.7, Chloride 111 H, Carbon Dioxide 24.0, Anion Gap 5, BUN 11, Creatinine 0.82, Estim Creat Clear Calc 75.01, Est GFR (MDRD) Af Amer 119, Est GFR (MDRD) Non-Af 98, BUN/Creatinine Ratio 13.4, Glucose 170 H, Calcium 8.0 L, Magnesium 2.4 Current Medications Acetaminophen (Tylenol) 650 mg PO Q6H PRN PRN PRN Reason: Pain Score 1-10/Temp > 100.7 F Last Admin: 03/01/20 05:17 Dose: 650 mg Documented by: Al Hydroxide/Mg Hydroxide (Mylanta Ii) 30 ml PO Q6H PRN PRN PRN Reason: Gastric Burning Last Admin: 03/01/20 05:17 Dose: 30 ml Documented by: Albuterol Sulfate (Ventolin Aerosols) 2.5 mg INHALATION Q2H PRN PRN PRN Reason: Dyspnea, wheezing Clopidogrel Bisulfate (Plavix) 75 mg PO DAILY [facility] Last Admin: 03/01/20 08:59 Dose: 75 mg Documented by: Enoxaparin Sodium (Lovenox) 40 mg SC DAILY [facility] Last Admin: 03/01/20 08:59 Dose: 40 mg Documented by: Famotidine (Pepcid) 20 mg PO BID [facility] Last Admin: 03/01/20 22:29 Dose: 20 mg Documented by: Guaifenesin (Robitussin) 20 ml PO Q4H PRN PRN PRN Reason: COUGH Hydralazine HCl (Apresoline Iv) 10 mg IV Q4H PRN PRN PRN Reason: SBP > 160 Sodium Chloride () 1,000 mls @ 100 mls/hr IV .Q10H [facility] Last Admin: 03/02/20 03:06 Dose: 100 mls/hr Documented by: Ceftriaxone Sodium (Rocephin) 1 gm in 50 mls @ 100 mls/hr IV Q24@2200 [facility] Last Infusion: 03/02/20 00:46 Dose: Infused Documented by: Insulin Human Lispro (Humalog Kwikpen (Bkc)) [address] [facility]; Protocol Last Admin: 03/02/20 07:10 Dose: 1 u Documented by: Levetiracetam (Keppra Tablet) 500 mg PO BID [facility] Last Admin: 03/01/20 22:29 Dose: 500 mg Documented by: Lisinopril (Zestril) 40 mg PO DAILY [facility] Last Admin: 03/01/20 09:00 Dose: 40 mg Documented by: Magnesium Hydroxide (Milk Of Magnesia) 30 ml PO DAILY PRN PRN PRN Reason: Constipation Last Admin: 03/01/20 08:55 Dose: 30 ml Documented by: Melatonin (Melatonin) 3 mg PO QHS PRN PRN PRN Reason: INSOMNIA Metoprolol Succinate (Toprol Xl (Beta Uche)) 25 mg PO DAILY [facility] Last Admin: 03/01/20 09:00 Dose: 25 mg Documented by: Morphine Sulfate () 2 mg IV Q3H PRN PRN PRN Reason: Pain Score 6-10/10 Nutritional Formula (Lactose Free) (Glucerna Shake) 120 ml PO TIDCM [facility] Last Admin: 03/01/20 16:27 Dose: 120 ml Documented by: Nystatin (Mycostatin Powder) 1 applic TOPICAL TID [facility]; Protocol Last Admin: 03/02/20 06:18 Dose: 1 applicatio Documented by: Ondansetron HCl (Zofran) 4 mg IV Q8H PRN PRN PRN Reason: NAUSEA/VOMITING Last Admin: 03/01/20 06:36 Dose: 4 mg Documented by: Oxycodone HCl (Oxyir) 5 mg PO Q4H PRN PRN PRN Reason: Pain Score 4-5/10 Prednisone () 10 mg PO DAILYCM [facility] Last Admin: 03/01/20 08:59 Dose: 10 mg Documented by: Prochlorperazine Edisylate (Compazine Iv) 5 mg IV Q4H PRN PRN PRN Reason: Breakthrough nausea/vomiting Last Admin: 03/01/20 05:30 Dose: 5 mg Documented by: Psyllium Hydrophilic Mucilloid (Metamucil) 1 packet PO DAILY PRN PRN PRN Reason: Constipation Senna/Docusate Sodium (Senokot-S, Amna-Colace) 2 tablet PO BID PRN PRN PRN Reason: Constipation Last Admin: 03/01/20 05:17 Dose: 2 tablet Documented by: Sodium Chloride () 10 - 40 ml IV UD PRN PRN Reason: SALINE FLUSH Last Admin: 03/01/20 06:36 Dose: 10 ml Documented by: Throat Lozenges (Cepacol Sore Throat Lozenge) 1 lozenge MUCOUS MEM Q2H PRN PRN PRN Reason: SORE THROAT Home Medications: Medications to take at Discharge levETIRAcetam tablet [Keppra tablet] 500 mg PO BID 02/04/18 Prednisone 10 mg PO DAILY 10/19/18 glipiZIDE [Glucotrol] 10 mg PO BIDAC 10/19/18 Clopidogrel Bisulfate [Clopidogrel] 75 mg PO DAILY 02/28/20 Lisinopril 40 mg PO DAILY 02/28/20 Metoprolol(XL)Succ [Toprol Xl (Beta Uche)] 25 mg PO DAILY 02/28/20 Pioglitazone [Actos] 30 mg PO DAILY 02/28/20 Primary Care Physician: Lainey Lang MD [Primary Care Provider] - Medical Necessity - Tobacco Use Smoking Status: Never smoker
[2020-03-02 07:21] LABS: Bedside Glucose 176 mg/dL (70-110)
--- NOTE | 2020-03-02 07:54 | PCM.PN.HOSP ---
Patient Problems: Active and Suspected Problems (Last Reviewed 07/22/19 @ 10:[address] Alejandro Styles MD) UTI (urinary tract infection) (Acute) Leg weakness (Acute) Fall (Acute) Reason for Visit: Acute cystitis Suspected small bowel obstruction Subjective: KUB obtained the day prior demonstrated Bowel gas pattern is nonspecific but may represent a possible developing small bowel obstruction in the appropriate clinical setting. Repeat imaging studies ordered Objective: GENERAL: cooperative HEENT: Atraumatic; EYES; Anicteric, Normal Conjunctiva NECK; supple, normal thyroid, RESPIRATORY: Diminished to auscultation CARDIOVASCULAR: Regular S1 S2, GI: Abdomen distended : No Renal angle tenderness; EXTREMITIES: No edema, no clubbing, MUSCULOSKELETAL: no muscle waisting NEURO: Awake; no lateralizing signs. SKIN: No Rash PSYCH; Flat affect Vitals/I&O's: Vital Signs Temp Pulse Resp BP Pulse Ox 98.7 F 52 L 16 160/79 H 96 03/02/20 03:01 03/02/20 03:01 03/02/20 03:01 03/02/20 03:01 03/02/20 07:02 Oxygen Delivery Method Room Air Weight: 97.069 kg Body Mass Index (BMI) 33.5 Finger Stick Blood Glucose 148 Intake and Output for Last 24 Hours 02/29/20 03/01/20 03/02/20 23:59 23:59 23:59 Intake Total 2818.33 / 2818.33 2438.33 / 2438.33 1050 / 1050 Balance 2818.33 / 2818.33 2438.33 / 2438.33 1050 / 1050 Microbiology Past 72 Hours 02/28/20 21:40 Urine, Clean Catch Urine Culture - Final Klebsiella pneumoniae sp pneum Laboratory Results 03/01/20 09:40: WBC 8.0, RBC 4.34 L, Hgb 13.4, Hct 41.8, MCV 96.3 H, MCH 30.9, MCHC 32.1, RDW Std Deviation 47.7 H, RDW Coeff of Em 13.3, Plt Count 162, MPV 11.0 03/01/20 09:40: Sodium 137, Potassium 4.1, Chloride 107, Carbon Dioxide 21.0, Anion Gap 9, BUN 13, Creatinine 1.02, Estim Creat Clear Calc 60.30, Est GFR (MDRD) Af Amer 92, Est GFR (MDRD) Non-Af 76, BUN/Creatinine Ratio 12.7, Glucose 236 H, Calcium 8.1 L, Magnesium 2.5 03/01/20 11:05: POC Glucose 276 H 03/01/20 16:05: POC Glucose 236 H 03/01/20 22:36: POC Glucose 234 H 03/02/20 05:40: WBC 6.3, RBC 3.97 L, Hgb 12.4 L, Hct 38.7 L, MCV 97.5 H, MCH 31.2, MCHC 32.0, RDW Std Deviation 47.3 H, RDW Coeff of Em 13.2, Plt Count 131 L, MPV 11.1 03/02/20 05:40: Sodium 140, Potassium 3.7, Chloride 111 H, Carbon Dioxide 24.0, Anion Gap 5, BUN 11, Creatinine 0.82, Estim Creat Clear Calc 75.01, Est GFR (MDRD) Af Amer 119, Est GFR (MDRD) Non-Af 98, BUN/Creatinine Ratio 13.4, Glucose 170 H, Calcium 8.0 L, Magnesium 2.4 03/02/20 07:04: POC Glucose 176 H Current Medications Acetaminophen (Tylenol) 650 mg PO Q6H PRN PRN PRN Reason: Pain Score 1-10/Temp > 100.7 F Last Admin: 03/01/20 05:17 Dose: 650 mg Documented by: Al Hydroxide/Mg Hydroxide (Mylanta Ii) 30 ml PO Q6H PRN PRN PRN Reason: Gastric Burning Last Admin: 03/01/20 05:17 Dose: 30 ml Documented by: Albuterol Sulfate (Ventolin Aerosols) 2.5 mg INHALATION Q2H PRN PRN PRN Reason: Dyspnea, wheezing Clopidogrel Bisulfate (Plavix) 75 mg PO DAILY [facility] Last Admin: 03/01/20 08:59 Dose: 75 mg Documented by: Enoxaparin Sodium (Lovenox) 40 mg SC DAILY [facility] Last Admin: 03/01/20 08:59 Dose: 40 mg Documented by: Famotidine (Pepcid) 20 mg PO BID [facility] Last Admin: 03/01/20 22:29 Dose: 20 mg Documented by: Guaifenesin (Robitussin) 20 ml PO Q4H PRN PRN PRN Reason: COUGH Hydralazine HCl (Apresoline Iv) 10 mg IV Q4H PRN PRN PRN Reason: SBP > 160 Sodium Chloride () 1,000 mls @ 100 mls/hr IV .Q10H [facility] Last Admin: 03/02/20 03:06 Dose: 100 mls/hr Documented by: Ceftriaxone Sodium (Rocephin) 1 gm in 50 mls @ 100 mls/hr IV Q24@2200 [facility] Last Infusion: 03/02/20 00:46 Dose: Infused Documented by: Insulin Human Lispro (Humalog Kwikpen (Bkc)) 0 unit SC ACHS [facility]; Protocol Last Admin: 03/02/20 07:10 Dose: 1 u Documented by: Levetiracetam (Keppra Tablet) 500 mg PO BID [facility] Last Admin: 03/01/20 22:29 Dose: 500 mg Documented by: Lisinopril (Zestril) 40 mg PO DAILY [facility] Last Admin: 03/01/20 09:00 Dose: 40 mg Documented by: Magnesium Hydroxide (Milk Of Magnesia) 30 ml PO DAILY PRN PRN PRN Reason: Constipation Last Admin: 03/01/20 08:55 Dose: 30 ml Documented by: Melatonin (Melatonin) 3 mg PO QHS PRN PRN PRN Reason: INSOMNIA Metoprolol Succinate (Toprol Xl (Beta Uche)) 25 mg PO DAILY [facility] Last Admin: 03/01/20 09:00 Dose: 25 mg Documented by: Morphine Sulfate () 2 mg IV Q3H PRN PRN PRN Reason: Pain Score 6-10/10 Nutritional Formula (Lactose Free) (Glucerna Shake) 120 ml PO TIDCM [facility] Last Admin: 03/01/20 16:27 Dose: 120 ml Documented by: Nystatin (Mycostatin Powder) 1 applic TOPICAL TID [facility]; Protocol Last Admin: 03/02/20 06:18 Dose: 1 applicatio Documented by: Ondansetron HCl (Zofran) 4 mg IV Q8H PRN PRN PRN Reason: NAUSEA/VOMITING Last Admin: 03/01/20 06:36 Dose: 4 mg Documented by: Oxycodone HCl (Oxyir) 5 mg PO Q4H PRN PRN PRN Reason: Pain Score 4-5/10 [facility] Last Admin: 03/01/20 08:59 Dose: 10 mg Documented by: Prochlorperazine Edisylate (Compazine Iv) 5 mg IV Q4H PRN PRN PRN Reason: Breakthrough nausea/vomiting Last Admin: 03/01/20 05:30 Dose: 5 mg Documented by: Psyllium Hydrophilic Mucilloid (Metamucil) 1 packet PO DAILY PRN PRN PRN Reason: Constipation Senna/Docusate Sodium (Senokot-S, Amna-Colace) 2 tablet PO BID PRN PRN PRN Reason: Constipation Last Admin: 03/01/20 05:17 Dose: 2 tablet Documented by: Sodium Chloride () 10 - 40 ml IV UD PRN PRN Reason: SALINE FLUSH Last Admin: 03/01/20 06:36 Dose: 10 ml Documented by: Throat Lozenges (Cepacol Sore Throat Lozenge) 1 lozenge MUCOUS MEM Q2H PRN PRN PRN Reason: SORE THROAT STROKE Vital Signs/Narrative: Vital Signs Pulse Ox 03/02/20 07:02 96 Medical Necessity - Tobacco Use Smoking Status: Never smoker Assessment/Plan All Active Problems (Last Reviewed 07/22/19 @ 10:[address] Alejandro Styles MD) UTI (urinary tract infection) (Acute) Leg weakness (Acute) Fall (Acute) Weakness (Acute) Syncope and collapse (Acute 07/14/19) Patient is a 74-year-old gentleman admitted with progressive generalized weakness as well as falls at home. Evaluation on admission consistent with acute cystitis admitted to regular nursing floor for further management 1. Acute cystitis ?Patient started on Rocephin cultures sent ?03/01/2020 cultures so far positive for gram-negative rods final identification and sensitivities pending -Urine cultures came back positive for Klebsiella. Patient on appropriate antibiotics 2. Physical deconditioning again (with recurrent falls) - Requested for PT OT eval and licensed master social worker to assist with discharge planning 3. Coronary artery disease ?With previous PCI involving RCA LAD and diagonal. Patient is currently on antiplatelet therapy with Plavix PAOLA inhibitors and beta-blockers. Patient is reported to be allergic to statin therapy simvastatin to be specific 4. Hypertension - Blood pressure controlled, home medications continued with dose adjustment as needed 5. Myasthenia gravis ?May be contributing to patient progressive generalized weakness. Patient is on prednisone 6. Diabetes mellitus type II - Controlled/, patient's oral hypoglycemics held. Placed on Accu-Cheks a.c. and at bedtime and covered with sliding scale insulin 7. Seizure disorder ?Patient is on Keppra continue 8. BPH ?With previous TURP 9. Obesity with BMI of 33.5 ?Weight loss advised 10. DVT prophylaxis - On enoxaparin 11. Abdominal distention ?Ordered acute abdominal series to rule out ileus versus small bowel obstruction. Patient was treated symptomatically with antinausea medications for his nausea. Also ordered CBC BMP magnesium -03/02/2020 KUB obtained the day prior demonstrated Bowel gas pattern is nonspecific but may represent a possible developing small bowel obstruction in the appropriate clinical setting. - Repeat imaging studies ordered Inpatient E&M: 92174 Subs Hosp L2
--- NOTE | 2020-03-02 08:40 | RAD_ITS ---
STUDY: X-RAY - ABDOMEN/PELVIS REASON FOR EXAM: Male, 74 years old. SMALL BOWEL OBSTRUCTION, ABDOMINAL DISTENTION TECHNIQUE: AP supine and upright views of the abdomen and pelvis. COMPARISON: Comparison is made with prior study dated 03/01/2020. FINDINGS: Mild degree of increased markings at the left lung base suggests left basilar atelectasis. There is a moderate amount of colonic fecal material. There is no demonstrated free abdominal air. The visualized liver, spleen and kidneys are grossly normal in size and morphology. There are calcified phleboliths in the pelvis. There are diffuse degenerative changes of the visualized lumbar spine. RAD/Abd Inc Decub and/or Erect IMPRESSION: Moderate amount of fecal material is seen throughout the colon. Electronically Signed: Rosalio Valenzuela, at 11:13 EDT , Service support ,
[2020-03-02 10:19] VITALS: BP 120/59; PULSE 72; RESP 18; TEMP 36.9; O2SAT 96
[2020-03-02] MEDS: predniSONE 10 MG Tablet PO (10:20)
[2020-03-02] MEDS: levETIRAcetam 500 MG Tablet PO ×2 (10:20→21:37)
[2020-03-02] MEDS: Lisinopril 40 MG Tablet PO (10:20)
[2020-03-02 10:21] VITALS: PULSE 72
[2020-03-02] MEDS: Clopidogrel Bisulfate 75 MG Tablet PO (10:21)
[2020-03-02] MEDS: Famotidine 20 MG Tablet PO ×2 (10:21→21:37)
[2020-03-02] MEDS: Metoprolol(XL)Succ 25 MG Tablet PO (10:21)
[2020-03-02] MEDS: Enoxaparin 40 MG/0.4 ML Syringe SC (10:21)
[2020-03-02] MEDS: Glucerna Shake 120 ML LIQUID PO ×3 (10:27→17:03)
--- NOTE | 2020-03-02 12:56 | CASEMGMT ---
TODD LUNA NOTE: To room to talk with pt. Pt sitting up in recliner chair, alert/oriented. Discussed discharge planning w/pt and inquired about HHC or OP therapy again. Pt confirms he does not want HHC or any OP therapy at this time. He states, It's just when I get this urinary infection, my legs turn to mush and then I fall sometimes. Pt confirms he is home alone during the day while his son is at work. He states he wishes to return home @ discharge and feels safe being home alone. Pt states when he falls, he just lays on the floor and waits until his son arrives so he can call 911. Pt denies having a Medical alert button. Offered list of local [employer] that provide Medical alert buttons but initially he declined wanting this, stating he is on a budget. TODD LUNA discussed concerns w/pt of possibility of him falling and being injured and then unable to reach someone for help when he needs it and that this could be life-threatening. TODD LUNA encouraged pt to have conversation with his sons re: Medical alert button and to see if they would be able to assist him w/paying for it. Pt states he would be agreeable to taking the information on the Medical alert buttons and with talking with his sons about this. Pt denies having any other concerns/needs/questions at this time. Madi BATISTA RN, CM
[2020-03-02 13:15] LABS: Bedside Glucose 278 mg/dL (70-110)
[2020-03-02] MEDS: Magnesium Citrate 300 ML PO (15:00)
[2020-03-02 15:04] VITALS: BP 149/73; PULSE 55; RESP 18; TEMP 36.9; O2SAT 96
--- NOTE | 2020-03-02 15:08 | NURSING ---
Pt drinking Mag Citrate. This nurse explained order for Ducolax supp. Pt refused. This nurse encouraged pt to keep drinking Mag Citrate and if no results then maybe pt could re-consider Ducolax supp. pt did not respond with an answer. Will continue to monitor.
[2020-03-02] MEDS: Bisacodyl 10 MG Suppository RECTAL (15:18)
--- NOTE | 2020-03-02 15:28 | NURSING ---
pt assisted to bathroom. only gas. Agreeable to ducolax supp now. \
[2020-03-02 17:11] LABS: Bedside Glucose 267 mg/dL (70-110)
[2020-03-02 19:57] VITALS: BP 164/76; PULSE 68; RESP 18; TEMP 36.9; O2SAT 94
[2020-03-02] MEDS: Ciprofloxacin 500 MG Tablet PO (21:37)
[2020-03-02 21:50] LABS: Bedside Glucose 254 mg/dL (70-110)
[2020-03-03 02:25] VITALS: BP 145/69; PULSE 57; RESP 18; TEMP 36.9; O2SAT 93
[2020-03-03 05:35] LABS: Hematocrit 36.7 % (40-54); Hemoglobin 12.1 g/dL (13.0-16.5); Mean Corpuscular Hgb 31.7 pg (27.0-32.0); Mean Corpuscular Volume 96.1 fL (80-94); Mean Platelet Vol. 11.1 fl (6.2-12.0); Platelet Count 147 K/mm3 (150-450); RBC Distribution Width SD 45.6 fl (35.1-43.9); Red Blood Count 3.82 M/mm3 (4.6-6.2); White Blood Count 5.9 K/mm3 (4.4-11.0)
[2020-03-03 05:51] LABS: Anion Gap 6 (5-15); BUN 11 mg/dL (7-18); BUN/Creat Ratio 15.3 RATIO (10-20); Calcium,Total 8.1 mg/dL (8.5-10.1); Chloride 108 mmol/L (98-107); Creatinine, Serum 0.72 mg/dL (0.70-1.30); EST Glomerular Filtration Rate 114 mL/min (>60); Est Glom Filt Rate - Afr Amer 138 mL/min (>60); Estimated Creatinine Clearance 61.51 ml/min; Glucose 168 mg/dL (74-106); Potassium 3.5 mmol/L (3.5-5.1); Sodium Level 139 mmol/L (136-145)
[2020-03-03] MEDS: 0.9% Normal Saline 1,000 ML 100 ML IV (06:28)
[2020-03-03] MEDS: Nystatin Powder 15gm Bottle 1 APPLIC TOPICAL (06:28)
[2020-03-03] MEDS: Insulin Lispro 100 UNIT/ML INSULN.PEN SC (06:32)
[2020-03-03 06:45] LABS: Bedside Glucose 165 mg/dL (70-110)
--- NOTE | 2020-03-03 07:16 | DCINST_ITS ---
- Discharge Diagnoses Current Active Problems: Current Active and Chronic Problems (Last Reviewed 07/22/19 @ 10:[address] Alejandro Styles MD) UTI (urinary tract infection) (Acute) Leg weakness (Acute) Fall (Acute) You will use the following diet at home:: Calorie/Carbohydrate Controlled (specify 1200, 1400, etc) - 2000 Your food should be the consistency of: Regular Discharge Activity: Return to Normal Activity Allergies/Adverse Reactions: Allergies Iodinated Contrast Media [CONTRASTS] Allergy (Verified 02/28/20 19:40) Hives iodine Allergy (Verified 02/28/20 19:40) Hives Penicillins [PCN] Allergy (Verified 02/28/20 19:40) myasthenia gravis developed 2 days after taking PCN from dental procedure simvastatin Adverse Reaction (Verified 02/28/20 19:40) Pain in joints Medications to take at Discharge levETIRAcetam tablet [Keppra tablet] 500 mg PO BID 02/04/18 Prednisone 10 mg PO DAILY 10/19/18 Clopidogrel Bisulfate [Clopidogrel] 75 mg PO DAILY 02/28/20 Lisinopril 40 mg PO DAILY 02/28/20 Metoprolol(XL)Succ [Toprol Xl (Beta Uche)] 25 mg PO DAILY 02/28/20 Pioglitazone [Actos] 30 mg PO DAILY 02/28/20 Ciprofloxacin [Cipro] 500 mg PO BID #8 tab 03/03/20 The following prescriptions were given: Ciprofloxacin [Cipro] 500 mg PO BID #8 tab Transmission Status: Pending to [facility] Primary Care Physician: Lainey Lang MD [Primary Care Provider] - Please follow up with your Primary Care Physician in: in 1 week Test Results: Test results from this visit will be discussed in further detail at your follow- up appointment, if applicable. Proposed Discharge Date: 03/03/20
--- NOTE | 2020-03-03 07:17 | PCM.DC.SUM ---
Discharge Date and Diagnosis - Problem List Patient Problems: Active and Suspected Problems (Last Reviewed 07/22/19 @ 10:[address] Alejandro Styles MD) Klebsiella cystitis (Acute) UTI (urinary tract infection) (Acute) Leg weakness (Acute) Fall (Acute) Date of Admission: 02/28/20 Date of Discharge: 03/03/20 - Primary Discharge Diagnosis Acute Problems: Active Problems (Last Reviewed 07/22/19 @ 10:[address] Alejandro Styles MD) Klebsiella cystitis (Acute) UTI (urinary tract infection) (Acute) Leg weakness (Acute) Fall (Acute) - Secondary Discharge Diagnosis Chronic Problems: Chronic Problems (Last Reviewed 07/22/19 @ 10:[address] Alejandro Styles MD) Hypertension (Chronic) BPH (benign prostatic hyperplasia) (Chronic) Myasthenia gravis (Chronic) Seizures (Chronic) Diabetes (Chronic) History of loop recorder (Chronic 08/01/19) Atherosclerosis of coronary artery of [place] without angina pectoris (Chronic) History of coronary artery stent placement (Chronic 07/15/19) PCI-RAMONA-Mid LAD w/ 3.0 x 24 mm and 3.0 x 8 mm Synergy Stent, POBA-Ostial D1, RAMONA-Distal RCA w/ 4.0 x 20 mm Synergy Stent 07/15/2019 History of non-ST elevation myocardial infarction (NSTEMI) (Chronic 07/14/19) Essential (primary) hypertension (Chronic) Hospital Course and Treatment Imaging Results: Clinical Impression(s) from Imaging Studies Abdomen X-Ray 03/01/20 11:30 IMPRESSION: Bowel gas pattern is nonspecific but may represent a possible developing small bowel obstruction in the appropriate clinical setting. Consider sequential abdominal radiographs or CT scan for further evaluation. Electronically Signed: Jeancarlos Piña, at 16:53 EDT Tel , Service support , Abdomen X-Ray 03/02/20 08:40 IMPRESSION: Moderate amount of fecal material is seen throughout the colon. Electronically Signed: Rosalio Valenzuela, at 11:13 EDT , Service support , Microbiology 02/28/20 21:40 Urine, Clean Catch Urine Culture - Final Klebsiella pneumoniae sp pneum Operations: None, TURP Summary of Care Provided: Patient is a 74-year-old gentleman admitted with progressive generalized weakness as well as falls at home. Evaluation on admission consistent with acute cystitis admitted to regular nursing floor for further management 1. Acute cystitis with Klebsiella ?Patient started on Rocephin cultures sent ?03/01/2020 cultures so far positive for gram-negative rods final identification and sensitivities pending -Urine cultures came back positive for Klebsiella. Patient on appropriate antibiotics 2. Physical deconditioning again (with recurrent falls) - Requested for PT OT eval and bilingual social worker to assist with discharge planning 3. Coronary artery disease ?With previous PCI involving RCA LAD and diagonal. Patient is currently on antiplatelet therapy with Plavix PAOLA inhibitors and beta-blockers. Patient is reported to be allergic to statin therapy simvastatin to be specific 4. Hypertension - Blood pressure controlled, home medications continued with dose adjustment as needed 5. Myasthenia gravis ?May be contributing to patient progressive generalized weakness. Patient is on prednisone 6. Diabetes mellitus type II - Controlled/, patient's oral hypoglycemics held. Placed on Accu-Cheks a.c. and at bedtime and covered with sliding scale insulin 7. Seizure disorder ?Patient is on Keppra continue 8. BPH ?With previous TURP 9. Obesity with BMI of 33.5 ?Weight loss advised 10. DVT prophylaxis - On enoxaparin 11. Abdominal distention ?Ordered acute abdominal series to rule out ileus versus small bowel obstruction. Patient was treated symptomatically with antinausea medications for his nausea. Also ordered CBC BMP magnesium -03/02/2020 KUB obtained the day prior demonstrated Bowel gas pattern is nonspecific but may represent a possible developing small bowel obstruction in the appropriate clinical setting. - Repeat imaging studies ordered treated moderate amount of fecal material throughout the colon. Patient was treated with magnesium citrate as well as Dulcolax with good results. Patient Problems: Active and Suspected Problems (Last Reviewed 07/22/19 @ 10:[address] Alejandro Styles MD) Klebsiella cystitis (Acute) UTI (urinary tract infection) (Acute) Leg weakness (Acute) Fall (Acute) - Physical Exam Vitals/I&O's: Vital Signs Temp Pulse Resp BP Pulse Ox 98.4 F 57 L 18 145/69 H 93 03/03/20 02:25 03/03/20 02:25 03/03/20 02:25 03/03/20 02:25 03/03/20 02:25 Oxygen Delivery Method Room Air Weight: 97.069 kg Body Mass Index (BMI) 33.5 Finger Stick Blood Glucose 148 Intake and Output for Last 24 Hours 03/01/20 03/02/20 03/03/20 23:59 23:59 23:59 Intake Total 2438.33 / 2438.33 3150.00 / 3150.00 876.67 / 876.67 Balance 2438.33 / 2438.33 3150.00 / 3150.00 876.67 / 876.67 General: Alert HEENT: Atraumatic Neck: Supple Lungs: Normal air movement Psych/Mental Status: Normal Affect Microbiology Past 72 Hours 02/28/20 21:40 Urine, Clean Catch Urine Culture - Final Klebsiella pneumoniae sp pneum Laboratory Results 03/02/20 07:04: POC Glucose 176 H 03/02/20 12:51: POC Glucose 278 H 03/02/20 17:00: POC Glucose 267 H 03/02/20 21:37: POC Glucose 254 H 03/03/20 05:01: WBC 5.9, RBC 3.82 L, Hgb 12.1 L, Hct 36.7 L, MCV 96.1 H, MCH 31.7, MCHC 33.0, RDW Std Deviation 45.6 H, RDW Coeff of Em 13.0, Plt Count 147 L, MPV 11.1 03/03/20 05:01: Sodium 139, Potassium 3.5, Chloride 108 H, Carbon Dioxide 25.0, Anion Gap 6, BUN 11, Creatinine 0.72, Estim Creat Clear Calc 61.51, Est GFR (MDRD) Af Amer 138, Est GFR (MDRD) Non-Af 114, BUN/Creatinine Ratio 15.3, Glucose 168 H, Calcium 8.1 L 03/03/20 06:31: POC Glucose 165 H Current Medications Acetaminophen (Tylenol) 650 mg PO Q6H PRN PRN PRN Reason: Pain Score 1-10/Temp > 100.7 F Last Admin: 03/01/20 05:17 Dose: 650 mg Documented by: Al Hydroxide/Mg Hydroxide (Mylanta Ii) 30 ml PO Q6H PRN PRN PRN Reason: Gastric Burning Last Admin: 03/01/20 05:17 Dose: 30 ml Documented by: Albuterol Sulfate (Ventolin Aerosols) 2.5 mg INHALATION Q2H PRN PRN PRN Reason: Dyspnea, wheezing Ciprofloxacin HCl (Cipro) 500 mg PO BID [facility] Last Admin: 03/02/20 21:37 Dose: 500 mg Documented by: Clopidogrel Bisulfate (Plavix) 75 mg PO DAILY [facility] Last Admin: 03/02/20 10:21 Dose: 75 mg Documented by: Enoxaparin Sodium (Lovenox) 40 mg SC DAILY [facility] Last Admin: 03/02/20 10:21 Dose: 40 mg Documented by: Famotidine (Pepcid) 20 mg PO BID [facility] Last Admin: 03/02/20 21:37 Dose: 20 mg Documented by: Guaifenesin (Robitussin) 20 ml PO Q4H PRN PRN PRN Reason: COUGH Hydralazine HCl (Apresoline Iv) 10 mg IV Q4H PRN PRN PRN Reason: SBP > 160 Sodium Chloride () 1,000 mls @ 100 mls/hr IV .Q10H [facility] Last Admin: 03/03/20 06:28 Dose: 100 mls/hr Documented by: Insulin Human Lispro (Humalog Kwikpen (Bkc)) 0 unit SC [facility]; Protocol Last Admin: 03/03/20 06:32 Dose: 1 u Documented by: Levetiracetam (Keppra Tablet) 500 mg PO BID [facility] Last Admin: 03/02/20 21:37 Dose: 500 mg Documented by: Lisinopril (Zestril) 40 mg PO DAILY [facility] Last Admin: 03/02/20 10:20 Dose: 40 mg Documented by: Magnesium Hydroxide (Milk Of Magnesia) 30 ml PO DAILY PRN PRN PRN Reason: Constipation Last Admin: 03/01/20 08:55 Dose: 30 ml Documented by: Melatonin (Melatonin) 3 mg PO QHS PRN PRN PRN Reason: INSOMNIA Metoprolol Succinate (Toprol Xl (Beta Uche)) 25 mg PO DAILY [facility] Last Admin: 03/02/20 10:21 Dose: 25 mg Documented by: Morphine Sulfate () 2 mg IV Q3H PRN PRN PRN Reason: Pain Score 6-10/10 Nutritional Formula (Lactose Free) (Glucerna Shake) 120 ml PO TIDCM [facility] Last Admin: 03/02/20 17:03 Dose: 120 ml Documented by: Nystatin (Mycostatin Powder) 1 applic TOPICAL TID [facility]; Protocol Last Admin: 03/03/20 06:28 Dose: 1 applicatio Documented by: Ondansetron HCl (Zofran) 4 mg IV Q8H PRN PRN PRN Reason: NAUSEA/VOMITING Last Admin: 03/01/20 06:36 Dose: 4 mg Documented by: Oxycodone HCl (Oxyir) 5 mg PO Q4H PRN PRN PRN Reason: Pain Score 4-5/10 [facility] Last Admin: 03/02/20 10:20 Dose: 10 mg Documented by: Prochlorperazine Edisylate (Compazine Iv) 5 mg IV Q4H PRN PRN PRN Reason: Breakthrough nausea/vomiting Last Admin: 03/01/20 05:30 Dose: 5 mg Documented by: Psyllium Hydrophilic Mucilloid (Metamucil) 1 packet PO DAILY PRN PRN PRN Reason: Constipation Senna/Docusate Sodium (Senokot-S, Amna-Colace) 2 tablet PO BID PRN PRN PRN Reason: Constipation Last Admin: 03/01/20 05:17 Dose: 2 tablet Documented by: Sodium Chloride () 10 - 40 ml IV UD PRN PRN Reason: SALINE FLUSH Last Admin: 03/01/20 06:36 Dose: 10 ml Documented by: Throat Lozenges (Cepacol Sore Throat Lozenge) 1 lozenge MUCOUS MEM Q2H PRN PRN PRN Reason: SORE THROAT Discharge Diet: 1999 Calorie Control Diet Discharge Activity: Return to Normal Activity Home Medications: Medications to take at Discharge levETIRAcetam tablet [Keppra tablet] 500 mg PO BID 02/04/18 Prednisone 10 mg PO DAILY 10/19/18 Clopidogrel Bisulfate [Clopidogrel] 75 mg PO DAILY 02/28/20 Lisinopril 40 mg PO DAILY 02/28/20 Metoprolol(XL)Succ [Toprol Xl (Beta Uche)] 25 mg PO DAILY 02/28/20 Pioglitazone [Actos] 30 mg PO DAILY 02/28/20 Ciprofloxacin [Cipro] 500 mg PO BID #8 tab 03/03/20 Following Prescriptions Were Given to Patient: Ciprofloxacin [Cipro] 500 mg PO BID #8 tab Transmission Status: Pending to [facility] Primary Care Physician: Lainey Lang MD [Primary Care Provider] - Please follow up with your Primary Care Physician in: in 1 week Disposition: Home Minutes spent on discharge:: 35 Patient Condition:: Good Medical Necessity - Tobacco Use Smoking Status: Never smoker Meaningful Use Info Meaningful Use Diagnoses (Choose all that apply): None applicable Inpatient E&M: 68905 Disch Hosp
[2020-03-03 08:15] VITALS: PULSE 50
[2020-03-03] MEDS: Clopidogrel Bisulfate 75 MG Tablet PO (08:15)
[2020-03-03] MEDS: levETIRAcetam 500 MG Tablet PO (08:15)
[2020-03-03] MEDS: Famotidine 20 MG Tablet PO (08:15)
[2020-03-03] MEDS: Ciprofloxacin 500 MG Tablet PO (08:15)
[2020-03-03] MEDS: predniSONE 10 MG Tablet PO (08:15)
[2020-03-03] MEDS: Glucerna Shake 120 ML LIQUID PO (08:16)
[2020-03-03 08:23] VITALS: BP 152/73; PULSE 50; RESP 18; TEMP 36.8; O2SAT 95
--- NOTE | 2020-03-03 10:55 | NURSING ---
This nurse informed patients son prior to discharge that BP meds Toprol and Lisinopril were not given due to low HR. Son says they have a monitor at home they can recheck HR. son was told that if HR is 60 or more when pt got home that he could take those two medications. Son takes care of his meds and understands. This nurse forgot to recheck Hr prior to pt leaving.
--- NOTE | 2020-03-05 15:44 | CASEMGMT ---
TODD LUNA DC PHONE CALL DC DATE: 03/03/2020 DC DISPOSITION: Home DC DIAGNOSIS: Klebsiella cystitis LACE/STRATA: 05/24 F/U APPTS MADE PRIOR TO DC: no, weekend discharge. PRESCRIPTIONS ACQUIRED BY PT: yes Introduced role of CM to patient via phone. Patient states he does not have any questions. Patient did express concern that he was given laxatives in the hospital, needed to urgently use the restroom, however call light was not answered in timely manner and he was incontinent. He stated he felt embarrassed and upset. TODD LUNA provided emotional support to him. Patient discussed getting a medical alert, but he doesn't have $ to pay. TODD LUNA offered to have someone call for information on the hospital alert. Patient is agreeable to this. Patient states he has not called PCP office to make f/u appointment because he has an appointment with Dr. Lang in August. TODD LUNA reviewed that it was recommended he follow up within 2 weeks. Pt states he cannot do this as the holidays are coming and I am too busy right now. TODD LUNA offered to call the office and set up appointment for him, but he is refusing. TODD LUNA offered to call him son and discuss f/u appointments and medical alert, but patient refused this also, stating he will discuss with his son. Sherwin BATISTA RN ACM
== END 2020-03-03 10:04 | disposition home or self-care (01) | DRG 690 ==
LOC: ED 22:51 → MS3 23:40
PROVIDERS: Admitting Provider Family Medicine; Emergency Provider Emergency Medicine; PCP Internal Medicine; Referring Provider Family Medicine; Visit Provider Internal Medicine
DX: N30.00 Acute cystitis without hematuria (principal); B96.1 Klebsiella pneumoniae [K. pneumoniae] as the cause of diseases classified elsewhere; M62.81 Muscle weakness (generalized); I10 Essential (primary) hypertension; N40.0 Benign prostatic hyperplasia without lower urinary tract symptoms; G40.909 Epilepsy, unspecified, not intractable, without status epilepticus; E11.9 Type 2 diabetes mellitus without complications; E78.5 Hyperlipidemia, unspecified; G70.00 Myasthenia gravis without (acute) exacerbation; I25.10 Atherosclerotic heart disease of native coronary artery without angina pectoris; I25.2 Old myocardial infarction; R53.81 Other malaise; R29.6 Repeated falls; R14.0 Abdominal distension (gaseous); E66.9 Obesity, unspecified; Z68.33 Body mass index [BMI] 33.0-33.9, adult; Z95.5 Presence of coronary angioplasty implant and graft; Z79.02 Long term (current) use of antithrombotics/antiplatelets; Z79.899 Other long term (current) drug therapy; Z88.8 Allergy status to other drugs, medicaments and biological substances; Z79.84 Long term (current) use of oral hypoglycemic drugs
CPT/HCPCS: 36415; 74019; 80048; 80053; 81001; 82550; 82962; 83735; 84484; 85025; 85027; 87077; 87086; 87088; 87186; 87635; 93005; 97116; 97162; 97166; 97530; 97802; 99251; 99285; J7030; J7050; A4216; G0463; J2405; U0003